=== PATIENT | female | born 1990 | race Caucasian/White ===

== ENCOUNTER 2023-03-28 08:24 | Emergency (ER) | payer BC, SELFPAY ==
[2023-03-28 08:29] VITALS: BP 154/88; PULSE 85; RESP 18; TEMP 36.5; O2SAT 99; BMI 37.2
--- NOTE | 2023-03-28 08:48 | ED_ITS ---
HPI - Extremity Problem General Chief complaint: Extremity Problem, Nontraumatic Stated complaint: EXTREMITY WEAKNESS AND PAIN Time Seen by Provider: 03/28/23 08:40 Source: patient Mode of arrival: walk-in Limitations: no limitations History of Present Illness HPI Narrative: Patient presents with pain in the elft trapezius and tingling in the left hand. 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 She started to experience these symptoms about 6 months ago and was evaluated at [facility]. She was diagnosed with pinched nerve and given IM Solumedrol. She did not have insurance and did not have a PCP so she did not see anyone in follow up. She has not taken anything today for the pain. Related Data Previous Rx's Medication Instructions Recorded methylprednisolone 4 mg tablets in 4 mg PO DAILY #21 ea 03/28/23 a dose pack (Medrol (Trev)) nabumetone 750 mg tablet 750 mg PO BID PRN pain #20 tabs 03/28/23 Allergies Allergy/AdvReac Type Severity Reaction Status Date / Time No Known Drug Allergies Allergy Verified 03/28/23 08:29 Exam Narrative Exam Narrative: Nurses notes and vital signs reviewed and patient is not hypoxic. afebrile General: Well-appearing and in no apparent distress. Skin: Warm, dry, no pallor noted. No rash Head: Normocephalic, atraumatic. Neck: Supple, non-tender at midline. Superior left trapezius tenderness Eye: Pupils are equal, round and EOMI. No scleral icterus. Cardiovascular: Regular Rate and Rhythm without murmur, gallop or rub. Respiratory: No accessory muscle use or respiratory distress. Back: No midline thoracic or lumbar vertebral tenderness. Superior left trapezius tenderness Musculoskeletal: Intact sensation and normal ROM left UE - left trapezius pain with left shoulder ROM, no upper extremity tenderness, no upper extremity edema/swelling Neurological: A&O x4. No cranial nerve dysfunction observed. No truncal ataxia. Moves all extremities. Sensation intact. Psychiatric: Cooperative and interactive. Normal mood and affect. Constitutional Vital Signs, click to edit/add: Last Vital Signs Temp 97.7 F 03/28/23 08:29 Pulse 85 03/28/23 08:29 Resp 18 03/28/23 08:29 BP 154/88 H 03/28/23 08:29 Pulse Ox 99 03/28/23 08:29 O2 Del Method Room Air 03/28/23 08:29 Course Vital Signs Vital signs: Vital Signs Temperature 97.7 F 03/28/23 08:29 Pulse Rate 85 03/28/23 08:29 Respiratory Rate 18 03/28/23 08:29 Blood Pressure 154/88 H 03/28/23 08:29 Pulse Oximetry 99 03/28/23 08:29 Oxygen Delivery Method Room Air 03/28/23 08:29 Temperature 97.7 F 03/28/23 08:29 Pulse Rate 85 03/28/23 08:29 Respiratory Rate 18 03/28/23 08:29 Blood Pressure 154/88 H 03/28/23 08:29 Pulse Oximetry 99 03/28/23 08:29 Oxygen Delivery Method Room Air 03/28/23 08:29 MDM - Extremity (Nontraumatic) MDM Narrative Medical decision making narrative: Patient with peripheral nerve dysfunction/paresthesia secondary to cervical radiculopathy. Patient informed of diagnosis and discharged home with prescription for medrol dose pack and nabumetone to be taken for pain. She was given referral info for PCPs in the area taking new patients. No indication to get xrays of the neck since there has been no trauma and the risk from rad exposure outweighs any potential benefit. Discharge Plan Discharge Chief Complaint: Extremity Problem, Nontraumatic Clinical Impression: Cervical radiculopathy Patient Disposition: Home, Self-Care Time of Disposition Decision: 08:46 Prescriptions / Home Meds: New methylprednisolone [Medrol (Trev)] 4 mg tablets,dose pack 4 mg PO DAILY Qty: 21 0RF Rx Instructions: follow instructions on packaging regarding daily dose nabumetone 750 mg tablet 750 mg PO BID PRN (Reason: pain) Qty: 20 0RF Rx Instructions: take with food Stand Alone Forms: Portal Instructions
== END 2023-03-28 09:00 | disposition home or self-care (01) ==
LOC: ER 09:05
PROVIDERS: Emergency Provider Emergency Medicine
DX: M54.12 Radiculopathy, cervical region (principal)
CPT/HCPCS: 99283

== ENCOUNTER 2023-09-17 02:15 | Emergency (ER) | payer BC, SELFPAY ==
[2023-09-17 02:18] VITALS: BP 143/91; PULSE 63; TEMP 36.8; O2SAT 100; BMI 39.9
--- NOTE | 2023-09-17 02:32 | ECG_ITS ---
[facility] Test Date: 2023-09-17 Pat Name: DENY DIXON Department: Room: - Gender: Female [employer]: : 1990 Requested By: [id number] Order Number: [id number] Reading MD: CHEMA SIDDIQUI Measurements Intervals [place] Rate: 66 P: 68 MN: 130 QRS: 89 QRSD: 88 T: 63 QT: 412 QTc: 426 Interpretive Statements 1100 Sinus rhythm 1470 with occasional supraventricular premature complexes 9140 abnormal rhythm ECG Compared to ECG 09/17/2020 11:40:18 Right-axis deviation no longer present Electronically Signed On 09-17-2023 14:28:03 EDT by CHEMA SIDDIQUI
--- NOTE | 2023-09-17 02:32 | ED.DIZZY1 ---
HPI - Dizziness General Chief Complaint: Dizziness Stated Complaint: DIZZY/WEAKNESS Time Seen by Provider: 09/17/23 02:19 Source: patient Mode of arrival: Wheelchair Limitations: no limitations History of Present Illness HPI Narrative: 33-year-old female presents because she woke up on the floor of her living room. She had gone to bed upstairs at about 11:30 PM and had taken a Benadryl. She had been feeling stressful and is supposed to start a new job in the morning. She does not remember going downstairs but when she did come downstairs her brother told her that she had asked for cold wash rag. She apparently passed out but did not injure herself in any fashion, did not hit her head and has no pain. No recent fever vomiting or diarrhea. She is a little bit nauseous. She does not frequently take Benadryl. Related Data Home Medications ?Medication ?Instructions ?Recorded ?Confirmed meclizine 12.5 mg tablet mg 09/17/23 meloxicam 7.5 mg tablet mg 09/17/23 Allergies Allergy/AdvReac Type Severity Reaction Status Date / Time No Known Drug Allergies Allergy Verified 09/17/23 02:23 Review of Systems ROS Narrative A ten point review of systems is negative except as noted above. Exam Narrative Exam Narrative: Nurses note and vital signs reviewed and patient is not hypoxic. General: The patient appears well and in no apparent distress. Patient is resting comfortably on cart. Skin: Warm, dry, no pallor noted. There is no rash noted. Head: Normocephalic, atraumatic Eye: Normal conjunctiva, no drainage Ears, Nose, Mouth, and Throat: oral mucosa is moist. Nares patent. Cardiovascular: Regular Rate and Rhythm Respiratory: Patient is in no distress, no accessory muscle use, lungs are clear to auscultation, no wheezing, rales or rhonchi Back: non-tender GI: Soft and nontender Musculoskeletal: The patient has no evidence of calf tenderness, no pitting edema, symmetrical pulses noted bilaterally Neurological: A&O, normal speech Psychiatric: Cooperative Constitutional Vital Signs, click to edit/add: Last Vital Signs Temp 98.2 F 09/17/23 02:18 Pulse 66 09/17/23 03:04 Resp 16 09/17/23 03:04 BP 132/87 09/17/23 03:04 Pulse Ox 97 09/17/23 03:04 O2 Del Method Room Air 09/17/23 03:04 Course Vital Signs Vital signs: Vital Signs Temperature 98.2 F 09/17/23 02:18 Pulse Rate 63 09/17/23 02:18 Respiratory Rate 18 09/17/23 02:18 Blood Pressure 143/91 H 09/17/23 02:18 Pulse Oximetry 100 09/17/23 02:18 Oxygen Delivery Method Room Air 09/17/23 02:18 Temperature 98.2 F 09/17/23 02:18 Pulse Rate 66 09/17/23 03:04 Respiratory Rate 16 09/17/23 03:04 Blood Pressure 132/87 09/17/23 03:04 Pulse Oximetry 97 09/17/23 03:04 Oxygen Delivery Method Room Air 09/17/23 03:04 MDM - Dizziness MDM Narrative Medical decision making narrative: Her workup is negative and her vital signs are normal. My clinical impression is that her symptoms are due to the Benadryl that she had taken. She is able to be discharged home. Treatment diagnosis and follow-up were discussed with the patient and her family. Differential Diagnosis Differential diagnosis: Likely adverse reaction to drug, orthostatic hypotension and other (Syncope) Lab Data Attestation: I reviewed the patient's lab results. Labs: Lab Results 09/17/23 Range/Units 02:43 WBC 8.6 (4.0-11.0) 10^3/uL RBC 4.62 (4.20-5.40) 10^6/uL Hgb 11.8 L (12.0-16.0) g/dL Hct 38.2 (36.0-48.0) % MCV 82.7 (81.0-99.0) fL MCH 25.5 L (26.7-34.0) pg MCHC 30.9 (29.9-35.2) g/dL RDW 16.3 H (11.0-15.0) % Plt Count 304 (150-450) 10^3/uL MPV 11.3 (9.5-13.5) fL Neut % (Auto) 55.8 (43.0-75.0) % Lymph % (Auto) 31.0 (20.5-60.0) % [place] % (Auto) 8.1 (1.7-12.0) % Eos % (Auto) 3.8 (0.9-7.0) % Baso % (Auto) 1.0 (0.2-2.0) % Neut # (Auto) 4.8 (1.4-6.5) 10^3/uL Lymph # (Auto) 2.7 (1.2-3.8) 10^3/uL [place] # (Auto) 0.7 (0.3-0.8) 10^3/uL Eos # (Auto) 0.3 (0.0-0.7) 10^3/uL Baso # (Auto) 0.1 (0.0-0.1) 10^3/uL Abs Immat Gran (auto) 0.03 (0.00-0.03) 10^3/uL Imm/Tot Granulo (auto) 0.3 (0.0-0.5) % Sodium 140 (136-145) mmol/L Potassium 3.5 (3.5-5.1) mmol/L Chloride 106 (98-107) mmol/L Carbon Dioxide 22.5 (21.0-32.0) mmol/L Anion Gap 15.0 BUN 11.0 (7.0-18.0) mg/dL Creatinine 0.71 (0.55-1.02) mg/dL Est GFR ( Amer) >60 (>=60) Est GFR (Non-Af Amer) >60 (>=60) BUN/Creatinine Ratio 15.5 Glucose 97 (74-106) mg/dL Calcium 9.8 (8.5-10.1) mg/dL Serum HCG, Qual Negative (NEGATIVE) ECG Data Attestation: I personally reviewed and interpreted this ECG as follows: (EKG on my interpretation shows sinus rhythm with a rate of 66 and no acute findings.) Discharge Plan Discharge Stand Alone Forms: Portal Instructions Chief Complaint: Dizziness Clinical Impression: Medication side effect Patient Disposition: Home, Self-Care Time of Disposition Decision: 03:12 Condition: Good Mode of Transportation: Private Vehicle Prescriptions / Home Meds: No Action meclizine 12.5 mg tablet meloxicam 7.5 mg tablet Print Language: Telugu Instructions: Adverse Drug Reaction (ED) Referrals: Physician,Non-Staff, MD [Primary Care Provider] - 1 week
--- OUTSIDE RECORDS SUMMARY | 2023-09-17 02:32 | XMS_ITS | CCD ---
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 Role Phone SHARMIN, DR CAUSEY Primary Care Unavailable MARTY, DR PHIL Valdez Admitting Unavailabl e MARTY, DR PHIL Valdez Consulting Unavailabl e MARTY, DR PHIL Valdez Attending Unavailabl e ZIEBER, DR SIOBHAN Siu Consulting Unavailable KlonAlysia ang Primary Care Physician NONE, XXXX Primary Care Physician Unavailab le Ameya, Margarita Jones Primary Care Physician Margarita Hou Attending Unavailable Ameya, Margarita Jones Attending Unavailable Ameya, Margarita Jones Attending Unavailable Ameya, Margarita Jones Attending Unavailable Ameya, Margarita Jones Attending Unavailable Ameya, Margarita Jones Attending Unavailable Ameya, Margarita Jones Admitting Unavailable Ameya, Margarita Jones Attending Unavailable Ameya, Margarita Jones Admitting Unavailable Ameya, Margarita Jones Attending Unavailable Hajdari, Anupam Alvarado Attending Unavailable DokkenDO Xavier Attending Unavailable Bert Davis Attending Unavailable Ameya, Margarita Jones Admitting Unavailable Ameya, Margarita Jones Referring Unavailable Ameya, Margarita Jones Attending Unavailable Medications Current Medications Medication Drug Class(es) Dates Sig (Normalized) Sig (Original) meclizine hydrochloride 12.5 mg oral tablet (3 sources) Antiemetic Start: 11-10-2022 take 1 tablet by mouth three times daily as needed for nausea meclizine 12.5 mg Tab 12.5 mg = 1 tab(s), Oral, TID, PRN for nausea/vomiting, # 30 tab(s), Refills(s) 0, Pharmacy: [facility] #[id number], 160, cm, 11/10/22 18:39:00 EDT, Height/Length Dosing, 95.5, kg, 11/10/22 18:39:00 EDT, Weight Dosing Start Date: 11/10/22 Status: Ordered meloxicam 7.5 mg oral tablet (2 sources) Nonsteroidal Anti-inflammatory Drug Start: 05-01-2023 take 1 tablet by mouth once daily meloxicam 7.5 mg Tab 7.5 mg = 1 tab(s), Oral, Daily, # 30 tab(s), Refills(s) 0, [id number] 160, cm, 05/01/23 10:29:00 EST, Height/Length Dosing, 102.4, kg, 05/01/23 10:29:00 EST, Weight Dosing Start Date: 05/01/23 Status: Ordered Start: 04-08-2023 take 1 tablet by kaylie th once daily meloxicam 7.5 mg Tab 7.5 mg = 1 tab(s), Oral, Daily, # 30 tab(s), Refills(s) 0, [id number] 160, cm, 04/08/23 9:20:00 EST, Height/Length Dosing, 99.5, kg, 04/08/23 9:20:00 EST, Weight Dosing Start Date: 04/08/23 Status: Ordered predniSONE 20 mg oral tablet (1 source) Start: 07-21-2023 End: 07-28-2023 take 3 tablets by mouth once daily predniSONE 20 mg Tab 3, Oral, Daily, X 7 day(s), # 21 tab(s), Refills(s) 0, [id number], 160, cm, 07/21/23 12:50:00 EST, Height/Length Dosing, 102, kg, 07/21/23 12:50:00 EST, Weight Dosing Start Date: 07/21/23 Stop Date: 07/28/23 Status: Ordered Problems Active Problems Problem Classification Problem Date Documented Da te Episodic/Chronic Conditions associated with dizziness or vertigo (1 source) Dizziness and giddiness; Translations: [Dizziness and giddiness] Onset: 11-10-2022 Episodic Hemorrhage during ; abruptio placenta; placenta previa (4 sources) Low lying placenta 05-16-2015 Episodic Other complications of (4 sources) Missed miscarriage 05-16-2015 Episodic Other nervous system disorders (1 source) Paresthesia; Translations: [Paresthesia of skin] Onset: 09-07-2022 Episodic Other nervous system disorders (2 sources) Numbness of hand 04-08-2023 Episodic Other nervous system disorders (1 source) Hyperesthesia; Translations: [Hyperesthesia] Onset: 07-21-2023 Episodic Residual codes; unclassified (4 sources) H/O: obstetric problem 05-16-2015 Episodic Spondylosis; intervertebral disc disorders; other back problems (4 sources) Neck pain; Translations: [Cervicalgia] Onset: 09-07-2022 Episodic Syncope (4 sources) Syncope and collapse; Translations: [SYNCOPE AND COLLAPSE] Onset: 09-17-2020 Episodic Unclassified (2 sources) Pain of left shoulder region 04-08-2023 Unclassified (1 source) Cancer cervix screening status 05-01-2023 Unclassified (1 source) Patient encounter status 05-01-2023 Past or Other Problems Problem Classification Problem Date Documented Da te Episodic/Chronic Unclassified (16 sources) Onset: 03-30-2010 Resolved: 08-07-2015 11-23-2014 Results Test Name Value Interpretation Reference Range Facility Ambulatory Visit Summaryon 0 08-28-2023 Ambulatory Visit Summary DENY DIXON :1990 Visit Date:08/28/2023 Ambulatory Visit Instructions Your Diagnosis Vertigo BMI 40.0-44.9, adult Your Care Team Attending Physician - Margarita Tuttle Primary Care Physician - Margarita Tuttle This Is Your Medications List meclizine (meclizine 12.5 mg Tab) meloxicam (meloxicam 7.5 mg Tab) Procedures Performed Tubal ligation (08/08/2015). Discharge Vitals Heart Rate (Peripheral) 106 Blood Pressure 134/78 Height 160 cm Height 63 in Weight 104.7 kg Weight 230.34 lb BMI 40.9 Medications What How Much When Why Instructions Unchanged meclizine (meclizine 12.5 mg Tab) 1 Tablets By Mouth 3 times a day as needed for for nausea/vomiting Unchanged meloxicam (meloxicam 7.5 mg Tab) 1 Tablets By Mouth Every day Left shoulder pain Neck pain on left side Numbness of left hand BMI 38.0-38.9,adult Class 1 obesity due to excess calories in adult Nonsmoker Duration: 90 Days Allergies No Known Allergies Problems Ongoing - Any problem that you are currently receiving treatment for. Cervical cancer screening Exposure to influenza Left shoulder pain Neck pain on left side Numbness of left hand Vertigo Well woman exam Historical - Any problem that you are no longer receiving treatment for. Dilation and curettage Low-lying placenta Missed miscarriage Patient Survey You may receive a survey via text or e-mail asking about your office visit. Please share your experience with us by completing your survey. We appreciate your feedback and thank you for choosing us for your care. Normal Vaughn [facility] Family Medicine Office/Clini c Noteon 08-28-2023 Family Medicine Office/Clinic Note Chief Complaint needs work excuse HPI Staff Patient presents for an episode of vertigo. Patient present with spouse. Patient needs a work excuse as she missed almost 3 weeks of work due to vertigo and pain in left shoulder. Patient is feeling better now and needs an excuse in order to return to work. History of Present Illness pt presents today for vertigo Review of Systems PHQ Score Initial Depression Screen Score: 0 SCORE Physical Exam Vitals & Measurements HR: 106(Peripheral) BP: 134/78 SpO2: 98% HT: 63 in HT: 160 cm WT: 104.7 kg WT: 230.34 lb BMI: 40.9 General: alert, no acute distress ENMT: oral mucosa moist, no pharyngeal erythema or exudate Cardiovascular: regular rate and rhythm, normal peripheral perfusion Respiratory: Lungs CTA, respirations non labored Extremities: no deformity, no trauma Neurological: oriented x 4, LOC appropriate for age, CN II-XII intact, motor strength equal & normal bilaterally, speech normal Assessment/Plan 1. Vertigo (R42: Dizziness and giddiness) pt reports today that she has been having vertigo for a couple of weeks. she started taking meclizine and is feeling better now. 2. 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 this has flared up her neck and shoulder pain. pt requesting note for work for now more than 3 days in a row and no more than 6hours per day. 3. BMI 40.0-44.9, adult (Z68.41: Body mass index [BMI] 40.0-44.9, adult) BMI education complete Follow-up No qualifying data available Problem List/Past Medical History Ongoing Cervical cancer screening Exposure to influenza Left shoulder pain Neck pain on left side Numbness of left hand Vertigo Well woman exam Historical Dilation and curettage Low-lying placenta Missed miscarriage Procedure/Surgical History Tubal ligation (08/08/2015). 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 Living situation: Home/Independent. Alcohol abuse in household: No. Substance abuse in household: No. Smoker in household: No. Injuries/Abuse/Negle ct in household: No. Safe place to go: Yes. Agency(s)/Others notified: No., 02/26/2014 Nutrition/Health Regular, 02/26/2014 Substance Abuse - Denies Substance Abuse, 06/17/2012 Tobacco - Denies Tobacco Use, 06/17/2012 Never (less than 100 in lifetime) Tobacco Use:. Never Smokeless Tobacco Use:. Household tobacco concerns: No., 08/28/2023 Family History Stroke: Mother. Immunizations Vaccine Date Status Comments influenza virus vaccine, inactivated - Not Given Patient Refuses influenza virus vaccine, inactivated 08/08/2015 Given Nursing Judgment diphtheria/pertussis , acel/tetanus adult 02/27/2014 Given Other (see comment) influenza virus vaccine, inactivated 02/27/2014 Given Nursing Judgment Normal [facility] Comment on above: Result Comment: Elec tronically Signed By: Margarita Tuttle\.br\Date and Time Signed: 08/28/23 14:56 EDT Provider Letteron 08-28-2023 Provider Letter [address] [place], [place] [id number] August 28, 2023 DENY DIXON [address] [place] [address] [place] [address] : 1990 To Whom It May Concern, Please allow the above named patient to work no more than 6 hours per day and no more than 3 days in a row. If you have any questions, please do not hesitate to call. Sincerely, FRANCIE Galeano [facility] Provider Letter August 28, 2023 DENY LIMFFER [address] [place] [address] : 1990 To Whom It May Concern, Please excuse above patient from work. Date of Illness: From: 08/28/2023 To: 08/30/2023 May Return to Work On: 08/31/2023 Comments: Patient seen in office 08/28/2023 for vertigo and can return to work on 08/31/2023 Sincerely, [place] [address] [facility] Provider Letteron 08-11-2023 Provider Letter August 11, 2023 DENY LIMFFER [address] [place] [address] : 1990 To Whom It May Concern, Please excuse above patient from work due to illness Date of Illness: From: _ 08-11-23 To: _ 08-12-23 May Return to Work On:08-13-23 Restrictions: _ NONE Comments: _ Sincerely, [place] [address] [facility] Provider Letter August 11, 2023 DENY DIXON [address] [place] [address] : 1990 To Whom It May Concern, Please excuse above patient from work due to illness. Date of Illness: From: _ 08-10-23 To: _ 08-11-23 May Return to Work On: 08-12-23 Restrictions: _ NONE Comments: _ Sincerely, [facility] [id number] [place] [address] [facility] Ambulatory Visit Summaryon 0 - Ambulatory Visit Summary DENY DIXON :1990 Visit Date:08/05/2023 Ambulatory Visit Instructions Your Diagnosis Left shoulder pain Exposure to influenza Non-smoker BMI 40.0-44.9, adult Class 1 obesity due to excess calories in adult Your Care Team Attending Physician - Margarita Tuttle Primary Care Physician - Margarita Tuttle This Is Your Medications List meclizine (meclizine 12.5 mg Tab) meloxicam (meloxicam 7.5 mg Tab) Procedures Performed Tubal ligation (08/08/2015). Discharge Vitals Temperature (Tympanic) 36.5 ?C Heart Rate (Peripheral) 78 Respiratory Rate 18 Blood Pressure 110/80 Height 160 cm Height 63 in Weight 102.5 kg Weight 225.5 lb BMI 40.04 Medications What How Much When Why Instructions New meloxicam (meloxicam 7.5 mg Tab) 1 Tablets By Mouth Every day Left shoulder pain Neck pain on left side Numbness of left hand BMI 38.0-38.9,adult Class 1 obesity due to excess calories in adult Nonsmoker Duration: 90 Days Refills: 3 Pickup at [facility] #[id number] Unchanged meclizine (meclizine 12.5 mg Tab) 1 Tablets By Mouth 3 times a day as needed for for nausea/vomiting Pharmacy Information [facility]/pharm[facility] #[id number]: [address], [place] [phone] Allergies No Known Allergies Problems Ongoing - Any problem that you are currently receiving treatment for. Cervical cancer screening Exposure to influenza Left shoulder pain Neck pain on left side Numbness of left hand Well woman exam Historical - Any problem that you are no longer receiving treatment for. Dilation and curettage Low-lying placenta Missed miscarriage Patient Survey You may receive a survey via text or e-mail asking about your office visit. Please share your experience with us by completing your survey. We appreciate your feedback and thank you for choosing us for your care. Normal Vaughn [facility] Medicine Office/Clini c Noteon 08-05-2023 [facility] Medicine Office/Clinic Note HPI Staff Deny is a 33 year old female presenting for ER follow up ER followup: Hospital: [facility] Visit date: 07/21/2023 Symptoms the patient presented with: nerve pain with facial numbness Symptom onset/injury onset: Testing Performed: New medications: Prednisone pt states will continue to have intermittent facial numbness, hasn't had any numbness the last few days. Does have family history of strokes. Respiratory C/O: Onset: 4 days Body aches: no Chest congestion: yes Chills: no Cough: yes Sputum production: no Sore throat: yes Ear complaints: yes right ear muffled Eye itching/watering: no Fever: no had fever Thursday Headache: yes Nasal congestion: yes Nasal discharge: no does have burning Poor appetite: no Reduced activity: no Sinus pain/pressure: yes Sneezing: yes Wheezing: no Ill contacts: yes Remedies tried: Cold and flu Questions/Concerns: pt saw a sweta doc on Thursday they did prescribe here Tamiflu but pt states she didn't pick it up because she doesn't like the side effects of it. daughter had influenza B diagnosed Thursday History of Present Illness pt presents today for ER follow up. hand numbness and tingling on left side of face Review of Systems PHQ Score Initial Depression Screen Score: 0 SCORE Physical Exam Vitals & Measurements T: 36.5 ?C(Tympanic) HR: 78(Peripheral) RR: 18 BP: 110/80 SpO2: 99% HT: 63 in HT: 160 cm WT: 102.5 kg WT: 225.5 lb BMI: 40.04 General: alert, no acute distress ENMT: oral mucosa moist, no pharyngeal erythema or exudate Cardiovascular: regular rate and rhythm, normal peripheral perfusion Respiratory: Lungs CTA, respirations non labored Extremities: no deformity, no trauma Neurological: oriented x 4, LOC appropriate for age, CN II-XII intact, motor strength equal & normal bilaterally, speech normal Assessment/Plan 1. Left shoulder pain (M25.512: Pain in left shoulder) pt still having pain in left shoulder but face is no longer numb or tingling. pt was instructed to contact Dr. Mccauley to follow up on nerve pain. Ordered: meloxicam, 7.5 mg = 1 tab(s), Oral, Daily, X 90 day(s), # 90 tab(s), Refills(s) 3, [id number] 160, cm, 08/05/23 10:38:00 EDT, Height/Length Dosing, 102.5, kg, 08/05/23 10:38:00 EDT, Weight Dosing meloxicam, 7.5 mg = 1 tab(s), Oral, Daily, # 30 tab(s), Refills(s) 0, [id number], 160, cm, 05/01/23 10:29:00 EST, Height/Length Dosing, 102.4, kg, 05/01/23 10:29:00 EST, Weight Dosing 2. Exposure to influenza (Z20.828: Contact with and (suspected) exposure to other viral communicable diseases) both kids and are + for flu. she is having symptoms but they are starting to improve 3. Non-smoker (Z78.9: Other specified health status) continue not smoking Ordered: meloxicam, 7.5 mg = 1 tab(s), Oral, Daily, X 90 day(s), # 90 tab(s), Refills(s) 3, [id number], 160, cm, 08/05/23 10:38:00 EDT, Height/Length Dosing, 102.5, kg, 08/05/23 10:38:00 EDT, Weight Dosing meloxicam, 7.5 mg = 1 tab(s), Oral, Daily, # 30 tab(s), Refills(s) 0, [id number], 160, cm, 05/01/23 10:29:00 EST, Height/Length Dosing, 102.4, kg, 05/01/23 10:29:00 EST, Weight Dosing 4. BMI 40.0-44.9, adult (Z68.41: Body mass index [BMI] 40.0-44.9, adult) BMI education complete Class 1 obesity due to excess calories in adult (E66.09: Other obesity due to excess calories) see above Ordered: meloxicam, 7.5 mg = 1 tab(s), Oral, Daily, X 90 day(s), # 90 tab(s), Refills(s) 3, [id number], 160, cm, 08/05/23 10:38:00 EDT, Height/Length Dosing, 102.5, kg, 08/05/23 10:38:00 EDT, Weight Dosing meloxicam, 7.5 mg = 1 tab(s), Oral, Daily, # 30 tab(s), Refills(s) 0, Pharmacy: [id number], 160, cm, 05/01/23 10:29:00 EST, Height/Length Dosing, 102.4, kg, 05/01/23 10:29:00 EST, Weight Dosing Follow-up No qualifying data available Problem List/Past Medical History Ongoing Cervical cancer screening Exposure to influenza Left shoulder pain Neck pain on left side Numbness of left hand Well woman exam Historical Dilation and curettage Low-lying placenta Missed miscarriage Procedure/Surgical History Tubal ligation (08/08/2015). 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 Living situation: Home/Independent. Alcohol abuse in household: No. Substance abuse in household: No. Smoker in household: No. Injuries/Abuse/Negle ct in household: No. Safe place to go: Yes. Agency(s)/Others notified: No., 02/26/2014 Nutrition/Health Regular, 02/26/2014 Substance Abuse - Denies S (more content not included)... Normal [facility] Comment on above: Result Comment: Elec tronically Signed By: Margarita Tuttle\.br\Date and Time Signed: 08/05/23 10:55 EDT Provider Letteron 08-05-2023 Provider Letter August 05, 2023 DENY DIXON [address] [place] [id number] : 1990 To Whom It May Concern, Please excuse above patient from work due to illness Date of Illness: From: _ 08-05-23 To: _ 08-06-23 May Return to Work On: 08-07-23 Restrictions: _ Comments: _ Sincerely, [address] [address] [facility] CT Spine Cervical w/o Contra ston 07-21-2023 CT Spine Cervical w/o Contrast Exam Date/Time: 07/21/2023 13:16 EST Reason for Exam: Cervical radiculopathy, no red flags;Other (please specify) Report IMPRESSION: NO ACUTE FRACTURE OR MALALIGNMENT OR SIGNIFICANT DEGENERATIVE CHANGE. EXAM: CT SCAN OF THE CERVICAL SPINE HISTORY: Cervical radiculopathy COMPARISON: Cervical spine radiographs 04/06/2023 TECHNIQUE: Routine axial CT images and multiplanar reformatted images of the cervical spine were obtained. FINDINGS: No acute fracture or malalignment. Atlantodental interval is preserved. Cervical spine vertebral body heights are maintained. Intervertebral disc spaces are preserved. No large disc bulge/herniation or spinal canal stenosis identified by CT. No high-grade osseous neuroforaminal stenosis. No prevertebral soft tissue swelling. Lung apices are clear. All CT scans at this facility use dose modulation, iterative reconstruction, and/or weight based dosing when appropriate to reduce radiation dose to as low as reasonably achievable. Ordering Provider: Bert Davis FINAL REPORT Dictated: 07/21/2023 1:53 pm Ashok Quinteros DO Signed (Electronic Signature): 07/21/2023 1:53 pm Signed by: Ashok Quinteros DO Transcribed by: RADHA Technologist: MATT [facility] Consent for Treatmenton Consent for Treatment [id number] #1.00TIFF [facility] Discharge Instructionson Discharge Instructions [id number] 7#1.00TIFF Normal [facility] ED Clinical Summaryon 2023 ED Clinical Summary [address] [address] ED Clinical Summary Person Information Name: DENY DIXON Darshana/[facility] Age: 33 Years : 1990 Sex: Female Language: Solomon Islander PCP: Margarita Tuttle Marital Status: Visit Id: Visit Reason: Neck pain; LEFT NECK PAIN Speciality: Acuity: 4 Enc Type: Emergency Med Service: Emergency Arrival: 07/21/2023 12:39:44 Discharge: 07/21/2023 14:24:04 LOS: 000 01:45 Checkin: 07/21/2023 12:39:44 Checkout: 07/21/2023 14:24:04 Dispo Type: Home (Routine DC) EVENTS: Event Name Event Status Request Date/Time Start Date/Time Complete Date/Time Arrive Complete 07/21/2023 12:39:44 07/21/2023 12:39:44 07/21/2023 12:39:44 Document Home Meds Request 07/21/2023 12:39:44 Triage Complete 07/21/2023 12:39:44 07/21/2023 12:50:05 07/21/2023 12:50:05 Bed Assign Complete 07/21/2023 12:43:27 07/21/2023 12:43:27 07/21/2023 12:43:27 Dr Exam Complete 07/21/2023 12:43:27 07/21/2023 12:43:54 07/21/2023 12:43:54 RN Exam Complete 07/21/2023 12:43:27 07/21/2023 12:49:26 07/21/2023 12:49:26 Registration Complete 07/21/2023 12:43:54 07/21/2023 12:47:21 07/21/2023 12:47:21 Reg Complete Request 07/21/2023 12:47:21 Reg Bed Request Complete 07/21/2023 12:47:21 07/21/2023 12:47:21 07/21/2023 12:47:21 CT Complete 07/21/2023 12:58:27 07/21/2023 13:10:14 07/21/2023 13:16:51 Discharge Complete 07/21/2023 14:18:38 07/21/2023 14:24:10 07/21/2023 14:24:10 Transfer Complete 07/21/2023 14:24:10 07/21/2023 14:24:10 07/21/2023 14:24:10 ADDRESS: [address] [place] [phone] PHYS DOC NOTES: MEDICAL INFORMATION: Prescriptions Given: New Medications [id number], [address], [place] [phone], [phone] predniSONE (predniSONE 20 mg Tab) 3 By Mouth every day for 7 Days. Refills: 0. Medications to Continue with No Changes Other Medications meclizine (meclizine 12.5 mg Tab) 1 Tablets By Mouth 3 times a day as needed for nausea/vomiting. Refills: 0. meloxicam (meloxicam 7.5 mg Tab) 1 Tablets By Mouth every day. Refills: 0. PATIENT EDUCATION INFORMATION: Instructions: Cervical Radiculopathy Follow up: With: Address: When: [address], [place] [address] Business (1) In 3 days 07/24/2023 With: Address: When: Margarita Hou In 3 days DIAGNOSIS: Hyperesthesia; Radiculopathy of cervical spine Normal [facility] ED Note-Physicianon 07-21-19 ED Note-Physician Basic Information Time Seen: Bert Davis DO 07/21/2023 12:43 Chief Complaint pt seeing neuro for a nerve problem in her neck. pt intermittently has left sided neck pain that radiates numbness to her hand. new symptom on thursday, where there is a pulling and burning sensation in her left neck History of Present Illness 33 female presents emergency department with pain in the left side of her neck. Patient does state that she has been dealing with this left-sided neck pain with radiculopathy for the last several months with her primary care physician. In fact last week she had a EMG. She states that she was told that the EMG was positive for some nerve involvement but was not given a specific diagnosis or actual involvement and she has not yet seen her primary care physician for follow-up after this test. The reason for her visit today is that she states normally the pain starts in the left side of her neck and then radiates down her arm but today the pain is also coming up into the left side of her neck and this has been going on since Thursday. She describes a pulling sensation or burning sensation on that side. She is taking her meloxicam as prescribed. She does believe that she had an x-ray looks like it was done back in March but no other recent imaging no CT scans or MRIs. Patient denies any chance of stating tubal ligation. She does have what she describes as some weakness to the left upper extremity but states this is chronic for her these last several months as they have been working through this. She has not yet seen the neurologist for this. No other aggravating or relieving factors no other associated symptoms no other prior treatments or complaints. Family: Reviewed and noncontributory Social: lives at home Review of systems negative unless otherwise specified in the HPI. Physical Exam Vitals & Measurements T: 36.7 ?C(Oral) HR: 105(Peripheral) RR: 18 BP: 151/86 SpO2: 96% HT: 160 cm WT: 102 kg BMI: 39.84 General: The patient appears well and in no apparent distress. Patient is resting comfortably on cart. Skin: Warm, dry, no pallor noted. Head: Normocephalic, atraumatic Neck: No JVD no tenderness to palpation no step-off no crepitance appreciated. No pain with range of motion. There is some tenderness in the paraspinal musculature on that left side. Patient does have hyperesthesia on the left side of the neck as well. No masses appreciated on the anterior soft tissues of the neck. Eye: PERRLA, EOMI ENT: Moist mucus membranes Cardiovascular: Regular rate normal peripheral perfusion Respiratory: No respiratory distress no accessory muscle use no obvious audible wheezing Chest Wall: no deformity Musculoskeletal: normal ROM, no deformity, no swelling GI: No obvious distention Neurological: A&O moves all extremities equal strength and symmetry. Patient does have plus 4 out of 5 strength of the left upper extremity but I am unsure how much of this is truly deficit versus just pain and her being uncomfortable with movement against resistance. Psychiatric: Cooperative and appropriate Medical Decision Making Workup in the ER has been reviewed and noted. CT scans are unremarkable. Patient likely has radiculopathy especially given the ongoing workup that she is having with her EMG. I did refer her to neurology we will try course of steroid she is provided with a note for work educated on stretching exercises discharged home educated on signs symptoms worsening clinical picture and to return if these occur. Assessment/Plan Hyperesthesia (R20.3: Hyperesthesia) Radiculopathy of cervical spine (M54.12: Radiculopathy, cervical region) Orders: predniSONE, 3, Oral, Daily, X 7 day(s), # 21 tab(s), Refills(s) 0, Pharmacy: [facility]/pharmacy #[id number], 160, cm, 07/21/23 12:50:00 EST, Height/Length Dosing, 102, kg, 07/21/23 12:50:00 EST, Weight Dosing CT Spine Cervical w/o Contrast Disposition Plan Discharge Prescription List Prescriptions predniSONE 20 mg Tab, 3, Oral, Daily Follow-up With When Contact Information Mario Mccauley In 3 days 07/24/[address], [place] [address] [facility] (1) Additional Instructions: Margairta Hou In 3 days Additional Instructions: Patient Education Cervical Radiculopathy Problem List/Past Medical History Ongoing Cervical cancer screening Left shoulder pain Neck pain on left side Numbness of left hand Well woman exam Historical Dilation and curettage Low-lying placenta Missed miscarriage Procedure/Surgical History Tubal ligation (08/08/2015). 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 Normal [facility] Comment on above: Result Comment: Elec tronically Signed By: Bert Davis DO\.br\Date and Time Signed: 07/21/23 14:28 EST ED Patient Education Noteon 07-21-2023 ED Patient Education Note Orthopedics Cervical Radiculopathy Cervical radiculopathy happens when a nerve in the neck (a cervical nerve) is pinched or bruised. This condition can happen because of an injury to the cervical spine (vertebrae) in the neck, or as part of the normal aging process. Pressure on the cervical nerves can cause pain or numbness that travels from the neck all the way down to the arm and fingers. This condition usually gets better with rest. Treatment may be needed if the condition does not improve. What are the causes? This condition may be caused by: ? A neck injury. ? A bulging (herniated) disk. ? Muscle spasms. ? Muscle tightness in the neck due to overuse. ? Arthritis. ? Breakdown or degeneration in the bones and joints of the spine (spondylosis) due to aging. ? Bone spurs that may develop near the cervical nerves. What are the signs or symptoms? Symptoms of this condition include: ? Pain. The pain may travel from the neck to the arm and hand. The pain can be severe or irritating. It may get worse when you move your neck. ? Numbness or tingling in your arm or hand. ? Weakness in the affected arm and hand, in severe cases. How is this diagnosed? This condition may be diagnosed based on your symptoms, your medical history, and a physical exam. You may also have tests, including: ? X-rays. ? CT scan. ? MRI. ? Electromyogram (EMG). ? Nerve conduction tests. How is this treated? In many cases, treatment is not needed for this condition. With rest, the condition usually gets better over time. If treatment is needed, options may include: ? Wearing a soft neck collar (cervical collar) for short periods of time. ? Doing physical therapy to strengthen your neck muscles. ? Taking medicines. These may include NSAIDs, such as ibuprofen, or oral corticosteroids. ? Having spinal injections, in severe cases. ? Having surgery. This may be needed if other treatments do not help. Different types of surgery may be done depending on the cause of this condition. Follow these instructions at home: If you have a cervical collar: ? Wear it as told by your health care provider. Remove it only as told by your health care provider. ? Ask your health care provider if you can remove the cervical collar for cleaning and bathing. If you are allowed to remove the collar for cleaning or bathing: ? Follow instructions from your health care provider about how to remove the collar safely. ? Clean the collar by wiping it with mild soap and water and drying it completely. ? Take out any removable pads in the collar every 1?2 days, and wash them by hand with soap and water. Let them air-dry completely before you put them back in the collar. ? Check your skin under the collar for irritation or sores. If you see any, tell your health care provider. Managing pain ? Take npef-iqb-axfodxz and prescription medicines only as told by your health care provider. ? If directed, put ice on the affected area. To do this: ? If you have a soft neck collar, remove it as told by your health care provider. ? Put ice in a plastic bag. ? Place a towel between your skin and the bag. ? Leave the ice on for 20 minutes, 2?3 times a day. ? Remove the ice if your skin turns bright red. This is very important. If you cannot feel pain, heat, or cold, you have a greater risk of damage to the area. ? If applying ice does not help, you can try using heat. Use the heat source that your health care provider recommends, such as a moist heat pack or a heating pad. ? Place a towel between your skin and the heat source. ? Leave the heat on for 20?30 minutes. ? Remove the heat if your skin turns bright red. This is especially important if you are unable to feel pain, heat, or cold. You have a greater risk of getting burned. ? Try a gentle neck and shoulder massage to help relieve symptoms. Activity ? Rest as needed. ? Return to your normal activities as told by your health care provider. Ask your health care provider what activities are safe for you. ? Do stretching and strengthening exercises as told by your health care provider or your physical therapist. ? You may have to avoid lifting. Ask your health care provider how much you can safely lift. General instructions ? Use a flat pillow when you sleep. ? Do not drive while wearing a cervical collar. If you do not have a cervical collar, ask your health care provider if it is safe to drive while your neck heals. ? Ask your health care provider if the medicine prescribed to you requires you to avoid driving or using machinery. ? Do not use any products that contain nicotine or tobacco. These products include cigarettes, chewing tobacco, and vaping devices, such as e-cigarettes. If you need help quitting, ask your health care provider. ? Keep all follow-up visits. This is important. Contact a health (more content not included)... Normal [facility] ED Patient Summaryon 024 ED Patient Summary [address] [address] Patient Discharge Instructions Person Information Name: DENY DIXON Age: 33 Years Arrival Date: 07/21/2023 12:39:44 Discharge Diagnosis: Hyperesthesia; Radiculopathy of cervical spine Primary Care Physician: Margarita Tuttle Provider Information Primary Provider: Bert Davis DO Advanced Physiological Chemist:None The exam and treatment you received in the Emergency Department were for an urgent problem and are not intended as complete care. It is important that you follow up with a doctor, nurse practitioner, or physician?s video production assistant for ongoing care. If your symptoms become worse or you do not improve as expected and you are unable to reach your usual health care provider, you should return to the Emergency Department. We are available 24 hours a day. DIXON DENY STOLL Clay has been given the following list of patient education materials, prescriptions and follow-up instructions: Follow-up Instructions: With: Address: When: Mario Mccauley [address], [place] [address] Business (1) In 3 days 07/24/2023 With: Address: When: Margarita Hou In 3 days In the event that this physician does not participate in your insurance network, please consult with your insurance company to find a nearby participating provider. Patient Education Materials: Cervical Radiculopathy A MESSAGE TO ALL PATIENTS REGARDING OPIOIDS PRESCRIPTION OPIOIDS: WHAT YOU NEED TO KNOW Prescription opioids can be used to help relieve nbxqskej-tg-smjqxq pain and are often prescribed following a surgery or injury, or for certain health conditions. These medications can be an important part of the treatment but also come with serious risks. It is important to work with your healthcare provider to make sure you are getting the safest, most effective care. WHAT ARE THE RISKS AND SIDE EFFECTS OF OPIOID USE? Prescription opioids carry serious risks of addiction and overdose, especially with prolonged use. An opioid overdose, often marked by slowed breathing, can cause sudden . The use of prescription opioids can have a number of side effects as well, even when taken as directed: ? Tolerance?meaning you might need to take more of the medication for the same pain relief ? Physical dependence?meaning you have symptoms of withdrawal when a medication is stopped ? Increased sensitivity to pain ? Constipation ? Nausea, vomiting, and dry mouth ? Sleepiness and dizziness ? Confusion ? Depression ? Low levels of testosterone that can result in lower sex drive, energy, and strength ? Itching and sweating RISKS ARE GREATER WITH: ? History of drug misuse, substance use disorder, or overdose ? Mental health conditions (such as depression or anxiety) ? Sleep apnea ? Older age (65 years and older) ? Avoid alcohol while taking prescription opioids. Also, unless specifically advised by your health care provider, medications to avoid include: ? Benzodiazepines (such as Xanax or Valium) ? Muscle relaxants (such as Soma or Flexeril) ? Hypnotics (such as Ambien or Lunesta) ? Other prescription opioids KNOW YOUR OPTIONS Talk to your health care provider about ways to manage your pain that don?t involve prescription opioids. Some of these options may actually work better and have fewer risks and side effects. Options may include: ? Pain relievers such as acetaminophen, ibuprofen, and naproxen ? Some medication that are also used for depression or seizures ? Physical therapy and exercise ? Cognitive behavioral therapy, a psychological, goal-directed approach, in which patients learn how to modify physical, behavioral, and emotional triggers of pain and stress. IF YOU ARE PRESCRIBED OPIOIDS FOR PAIN: ? Never take opioids in greater amounts or more often than prescribed. ? Follow up with your primary health care provider. o Work together to create a plan on how to manage your pain. o Talk about ways to help manage your pain that don?t involve prescription opioids. o Talk about any and all concerns and side effects. ? Help prevent misuse and abuse o Never sell or share prescription opioids. o Never use another person?s prescription opioids. ? Store prescription opioids in a secure place and out of reach of others (this may include visitors, children, friends, and family). ? Safely dispose of unused prescription opioids: Find your community drug take-back program or your pharmacy mail-back program, or flush them down the toilet, following guidance from the Food and Drug Administration (www.fda.gov/Drugs/R esourcesForYou). ? Visit www.cdc.gov/drugover dose to learn about the risks of opioids abuse and overdose. ? If you believe you may be struggling with addiction, tell your health pediatric critical care nurse and ask for guidance or call [facility] (more content not included)... Normal [facility] Prescriptions/Work Noteson 0 07-21-2023 Prescriptions/Work Notes [id number] 3#1.00TIFF [facility] Consent for Treatmenton 06-19 Consent for Treatment [id number] #1.00TIFF [facility] EMG Electromyographyon 07-13 EMG Electromyography [id number] 87#1.00TIFF Normal [facility] PAP [id number] 05-08-2023 Cytology report Cyto stain Doc (Cvx/Vag) Note Invalid Interpretation Code [facility] Comment on above: Result Comment: TEST S RESULT FLAG UNITS REF RANGE LAB Clinician Provided Cytology Information Source.............Endocervix No. of containers..01 ThinPrep Vial DIAGNOSIS: 01 NEGATIVE FOR INTRAEPITHELIAL LESION OR MALIGNANCY. Specimen adequacy: 01 Satisfactory for evaluation. Endocervical and/or squamous metaplastic cells (endocervical component) are present. Performed by: Bridger Martinez Cigarette Paper Tester (ASCP) . 01 Note: Note 01 The Pap smear is a screening test designed to aid in the detection of premalignant and malignant conditions of the uterine cervix. It is not a diagnostic procedure and should not be used as the sole means of detecting cervical cancer. Both false-positive and false-negative reports do occur. Test Methodology: Note 01 This liquid based ThinPrep(R) pap test was screened with the use of an image guided system. HPV Genotype Reflex Note 01 Criteria not met, HPV Genotype not performed. FLAG LEGEND: L-Low Normal,H-High Normal,LL-Alert Low,HH-Alert High <-Panic Low,>-Panic High,A-Abnormal,AA-Critical Abnormal Performed at: [address] [address] Ghada Adkins MD, Performed By: #### 1 [id number] ####[facility] [address] [address] HPV 16+18+31+33+35+39+45+5 1+52+56+58+59+66+68 DNA Probe+sig amp Ql (Cvx) Negative Invalid Interpretation Code Negative [facility] Comment on above: Result Comment: This nucleic acid amplification test detects fourteen high-risk HPV types (16,18,31,33,35,39,45,51,52,56,58,59,66,68) without differentiation. Performed at: [facility] [address] [id number] MD Jed Urrutia Performed at: =[address] [id number] MD Jed Urrutia Performed By: #### 1 [id number] ####[facility] [address] [place] [address] Ambulatory Visit Summaryon 1 07-02-2022 Ambulatory Visit Summary DENY DIXON :1990 Visit Date:05/01/2023 Ambulatory Visit Instructions Your Diagnosis BMI 40.0-44.9, adult Non-smoker Your Care Team Attending Physician - Margarita Tuttle Primary Care Physician - Margarita Tuttle This Is Your Medications List meclizine (meclizine 12.5 mg Tab) meloxicam (meloxicam 7.5 mg Tab) Procedures Performed Tubal ligation (08/08/2015). Discharge Vitals Heart Rate (Peripheral) 78 Respiratory Rate 16 Blood Pressure 138/90 Height 160 cm Height 63 in Weight 102.4 kg Weight 225.28 lb BMI 40 What to do next Scheduled Follow-Up Appointments Thursday 10:30 AM EST Where: [facility] Medications What How Much When Why Instructions Unchanged meclizine (meclizine 12.5 mg Tab) 1 Tablets By Mouth 3 times a day as needed for for nausea/vomiting Unchanged meloxicam (meloxicam 7.5 mg Tab) 1 Tablets By Mouth Every day Left shoulder pain Neck pain on left side Numbness of left hand BMI 38.0-38.9,adult Class 1 obesity due to excess calories in adult Nonsmoker Allergies No Known Allergies Problems Ongoing - Any problem that you are currently receiving treatment for. Left shoulder pain Neck pain on left side Numbness of left hand Historical - Any problem that you are no longer receiving treatment for. Dilation and curettage Low-lying placenta Missed miscarriage Patient Survey You may receive a survey via text or e-mail asking about your office visit. Please share your experience with us by completing your survey. We appreciate your feedback and thank you for choosing us for your care. Nenita Vaughn [facility] Family Medicine Office/Clini c Noteon 05-01-2023 Family Medicine Office/Clinic Note HPI Staff Deny is a 33 year old female presenting for well woman Woman check up: Last pap: 7 years ago Last Sharee: n/a Results of lap pap: normal Where was it done: hx: # of pregnancies.4.. abortions... live births..2. living children...2 menstrual cycle (normal,heavy,ect): Heavy History of STD: no Do you want tested for STD today: no Vaginal discharge, odor, itching: no Self breast exam at home? yes Hx of breast, cervical or uterine cancer in the family: no Would like to know results from left shoulder x-ray and talk about going back to work History of Present Illness pt presents today for well woman exam and to obtain return to work note from shoulder pain Review of Systems PHQ Score Initial Depression Screen Score: 0 SCORE Constitutional: No fever, No chills, No sweats, No weakness. No Weight change; No fatigue. Skin: No rash, No lesions. ENMT: No ear pain, No sore throat, No congestion. Respiratory: No shortness of breath, No cough, No orthopnea, No wheezing. Cardiovascular: No chest pain, No palpitations, No peripheral edema. Gastrointestinal: No nausea, No vomiting, No diarrhea, No GI bleeding. Genitourinary: No dysuria, No hematuria, No discharge, No pain. Gynecology: No abnormal vaginal discharge, No vaginal itching/burning, No vaginal dryness, No painful periods, No abnormal bleeding, No pelvic pain, No painful intercourse, No hair loss/growth, No hot flashes Breast: No breast pain, No skin changes, No masses/lumps, No nipple discharge. Musculoskeletal: No back pain, No trauma. Neurological: No headache, No dizziness, No numbness, No weakness. Psychiatric: No sleeping problems, No irritability, No mood swings/depression. Heme/Lymph: No bleeding tendency, No bruising tendency, No petechiae, No swollen. Physical Exam Vitals & Measurements HR: 78(Peripheral) RR: 16 BP: 138/90 SpO2: 98% HT: 63 in HT: 160 cm WT: 102.4 kg WT: 225.28 lb BMI: 40 General: Well developed, well nourished, in no acute distress Neck: Neck supple. No masses or palpable cervical nodes. Trachea midline. Thyroid without nodules, masses, tenderness, or enlargement Breast: No mass, nodule, discharge, or erythema bilaterally, and no axillary lymphadenopathy Lungs: Normal respiratory effort and clear to auscultation Cardio: Regular rate and rhythm, normal S1 and S2, no murmur, no rub Abdomen: Soft, non-distended, non-tender, normal bowel sounds x4 Gyno: normal external genitalia. Urethra no discharge. Vagina normal without lesions, no vaginal discharge. Cervix normal, without lesions. Uterus normal. No adnexal masses. Pap obtained Neurologic: Grossly normal Skin: [place], moist, no tenting Lymph Nodes: No cervical adenopathy, nodes normal Mental Status: Alert and oriented x3. Normal mood and affect Assessment/Plan 1. Well woman exam (Z01.419: Encounter for gynecological examination (general) (routine) without abnormal findings) pt presents today for well woman exam. BSE discussed. pap obtained without difficulty. pt c/o heavy cycles. discussed Mirena IUD. all questions answered. RTC as needed Ordered: PAP w/ HPV and Genotype rflx 2. Cervical cancer screening (Z12.4: Encounter for screening for malignant neoplasm of cervix) pap obtained without difficulty Ordered: PAP w/ HPV and Genotype rflx 3. Neck pain on left side (M54.2: Cervicalgia) pt states shoulder and neck pain has improved. not provided to return to work slowly Ordered: meloxicam, 7.5 mg = 1 tab(s), Oral, Daily, # 30 tab(s), Refills(s) 0, Pharmacy: [facility]/pharmacy #[id number], 160, cm, 04/08/23 9:20:00 EST, Height/Length Dosing, 99.5, kg, 04/08/23 9:20:00 EST, Weight Dosing meloxicam, 7.5 mg = 1 tab(s), Oral, Daily, # 30 tab(s), Refills(s) 0, Pharmacy: [facility]/pharmacy #[id number], 160, cm, 05/01/23 10:29:00 EST, Height/Length Dosing, 102.4, kg, 05/01/23 10:29:00 EST, Weight Dosing PAP w/ HPV and Genotype rflx 4. Left shoulder pain (M25.512: Pain in left shoulder) see above Ordered: meloxicam, 7.5 mg = 1 tab(s), Oral, Daily, # 30 tab(s), Refills(s) 0, Pharmacy: [facility]/pharmacy #[id number], 160, cm, 04/08/23 9:20:00 EST, Height/Length Dosing, 99.5, kg, 04/08/23 9:20:00 EST, Weight Dosing meloxicam, 7.5 mg = 1 tab(s), Oral, Daily, # 30 tab(s), Refills(s) 0, Pharmacy: [facility]/pharmacy #[id number], 160, cm, 05/01/23 10:29:00 EST, Height/Length Dosing, 102.4, kg, 05/01/23 10:29:00 EST, Weight Dosing PAP w/ HPV and Genotype rflx 5. BMI 40.0-44.9, adult (Z68.41: Body mass index [BMI] 40.0-44.9, adult) BMI education complete Ordered: PAP [id number] w/ HPV and Genotype rflx 6. Class 1 obesity due to excess calories in adult (E66.09: Other obesity due to excess calories) see above Ordered: meloxicam, 7.5 mg = 1 tab(s), Oral, Daily, # 30 tab(s), Refills(s) 0, Pharmacy: [facility]/pharmacy #[id number], 160, cm, 04/08/23 9:20:00 EST, Height/Length Dosing, 99.5, kg, 04/08/23 9:20:00 EST, Weight Dosing meloxicam, 7.5 mg = 1 tab(s), Oral, Daily, # 30 (more content not included)... Normal [facility] Comment on above: Result Comment: Elec tronically Signed By: Margarita Tuttle\.br\Date and Time Signed: 05/01/23 13:01 EST PAP [id number] 05-01-2023 Gynecological Body Site ENDOCERVIX Normal [facility] Comment on above: Performed By: #### 1 [id number] ####[facility] [address] [place] [address] Provider Letteron 05-01-2023 Provider Letter [address] [place] [id number] May 01, 2023 DENY DIXON [address] [place] [id number] : 1990 To Whom It May Concern, Please allow above patient to return to work at a slow progressive pace. If you have any questions, please do not hesitate to call. Thank you. Sincerely, FRANCIE Bellamy [facility] Consent for Treatmenton 04-17 Consent for Treatment [id number] #1.00TIFF [facility] XR Shoulder Complete Lefton 04-27-2023 XR Shoulder Complete Left Exam Date/Time: 04/27/2023 12:38 EST Reason for Exam: M25.512, M54.2;Pain, Non Traumatic Report IMPRESSION: NEGATIVE LEFT SHOULDER. CLINICAL HISTORY: Pain, Non Traumatic, M25.512, M54.2 COMPARISON: NONE FINDINGS: AP, internal, external rotation, Y and axillary views of the left shoulder demonstrate no evidence of a fracture, dislocation, bone or joint abnormality. Ordering Provider: Margarita Hou FINAL REPORT Dictated: 04/27/2023 4:04 pm Calvin Rodriges MD Signed (Electronic Signature): 04/27/2023 4:04 pm Signed by: Calvin Rodriges MD Transcribed by: RADHA Technologist: Technical Comments Radiation Dose: Ka,r in mGy = na DAP = na Normal [facility] XR Spine Cervical 4 or 5 Vie wson 04-27-2023 XR Spine Cervical 4 or 5 Views Exam Date/Time: 04/27/2023 12:38 EST Reason for Exam: M25.512, M54.2;Neck Pain Report IMPRESSION: NEGATIVE CERVICAL SPINE. LOSS CERVICAL LORDOSIS MAY BE SECONDARY TO MUSCLE SPASM VERSUS PATIENT POSITIONING. CLINICAL HISTORY: Neck Pain, M25.512, M54.2 COMPARISON: NONE AVAILABLE FINDINGS: Routine five views of the cervical spine. Vertebral bodies normal in height and alignment. Loss cervical lordosis. Neuroforamina patent bilaterally. No prevertebral soft tissue swelling. No fracture, dislocation, bone lesion. Ordering Provider: Margarita Hou FINAL REPORT Dictated: 04/27/2023 3:33 pm Calvin Rodriges MD Signed (Electronic Signature): 04/27/2023 3:33 pm Signed by: Calvin Rodriges MD Transcribed by: RADHA Technologist: Technical Comments Radiation Dose: Ka,r in mGy = na DAP = na Normal [facility] Formson 04-14-2023 Forms [id number] #1.00TIFF Normal [facility] ED Note-Physicianon 04-08-20 ED Note-Physician [id number]# 1.00TIFF Normal [facility] Family Medicine Office/Clini c Noteon 04-08-2023 Family Medicine Office/Clinic Note HPI Staff Deny is a 33 ear old female presenting to establish care Establish Care: History: vertigo Any previous diagnosis: History of seeing any specialist: none ( young child saw for EEG) When was your last doctors visit: few years Last provider: Alysia Guerrier Any recent labs: 11/10/22 Health Maintenance UTD: Colonoscopy: never Mammogram: none Pelvic/Pap: been awhile overdue Acute: Current issues/complaints: 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 Cardiovascular: no chest pain, no palpitations, no edema. Neurologic: no headache, no dizziness, no numbness, no weakness. left shoulder, neck pain and left hand lower arm numbness Physical Exam Vitals & Measurements T: 35.8 ?C(Temporal Artery) HR: 72(Peripheral) RR: 16 BP: 136/82 SpO2: 98% HT: 63 in HT: 160 cm WT: 99.5 kg WT: 218.9 lb BMI: 38.87 General: alert, no acute distress ENMT: oral mucosa moist, no pharyngeal erythema or exudate Cardiovascular: regular rate and rhythm, normal peripheral perfusion Respiratory: Lungs CTA, respirations non labored Extremities: no deformity, no trauma Neurological: oriented x 4, LOC appropriate for age, CN II-XII intact, motor strength equal & normal bilaterally, speech normal Assessment/Plan 1. Left shoulder pain (M25.512: Pain in left shoulder) pt has been having left shoulder and neck pain since July. Recently she was cutting hair and her left hand went numb. she states by the time she gets half way through her day her hand will go numb and its almost impossible to cut hair. has been off of work for 10 days. went to ER was given steroid. but that did not help. will order EMG and xrays. pt will return in a few weeks to go over results and for well woman exam. will also do annual wellness labs at that visit. All questions answered. Ordered: meloxicam, 7.5 mg = 1 tab(s), Oral, Daily, # 30 tab(s), Refills(s) 0, Pharmacy: [facility] #[id number], 160, cm, 04/08/23 9:20:00 EST, Height/Length Dosing, 99.5, kg, 04/08/23 9:20:00 EST, Weight Dosing EMG Bilateral Upper Extremity (BUE) XR Shoulder Complete Left XR Spine Cervical 4 or 5 Views 2. Neck pain on left side (M54.2: Cervicalgia) cervical spine x ray ordered Ordered: meloxicam, 7.5 mg = 1 tab(s), Oral, Daily, # 30 tab(s), Refills(s) 0, Pharmacy: [facility] #[id number], 160, cm, 04/08/23 9:20:00 EST, Height/Length Dosing, 99.5, kg, 04/08/23 9:20:00 EST, Weight Dosing EMG Bilateral Upper Extremity (BUE) XR Shoulder Complete Left XR Spine Cervical 4 or 5 Views 3. Numbness of left hand (R20.0: Anesthesia of skin) EMG ordered Ordered: meloxicam, 7.5 mg = 1 tab(s), Oral, Daily, # 30 tab(s), Refills(s) 0, Pharmacy: [facility] #[id number], 160, cm, 04/08/23 9:20:00 EST, Height/Length Dosing, 99.5, kg, 04/08/23 9:20:00 EST, Weight Dosing EMG Bilateral Upper Extremity (BUE) XR Shoulder Complete Left XR Spine Cervical 4 or 5 Views 4. BMI 38.0-38.9,adult (Z68.38: Body mass index [BMI] 38.0-38.9, adult) BMI education complete Ordered: meloxicam, 7.5 mg = 1 tab(s), Oral, Daily, # 30 tab(s), Refills(s) 0, [id number], cm, 04/08/23 9:20:00 EST, Height/Length Dosing, 99.5, kg, 04/08/23 9:20:00 EST, Weight Dosing EMG Bilateral Upper Extremity (BUE) XR Shoulder Complete Left XR Spine Cervical 4 or 5 Views 5. Class 1 obesity due to excess calories in adult (E66.09: Other obesity due to excess calories) see above Ordered: meloxicam, 7.5 mg = 1 tab(s), Oral, Daily, # 30 tab(s), Refills(s) 0, [id number] 160, cm, 04/08/23 9:20:00 EST, Height/Length Dosing, 99.5, kg, 04/08/23 9:20:00 EST, Weight Dosing EMG Bilateral Upper Extremity (BUE) XR Shoulder Complete Left XR Spine Cervical 4 or 5 Views 6. Nonsmoker (Z78.9: Other specified health status) continue not smoking Ordered: meloxicam, 7.5 mg = 1 tab(s), Oral, Daily, # 30 tab(s), Refills(s) 0, [id number] 160, cm, 04/08/23 9:20:00 EST, Height/Length Dosing, 99.5, kg, 04/08/23 9:20:00 EST, Weight Dosing XR Shoulder Complete Left XR Spine Cervical 4 or 5 Views Follow-up No qualifying data available Problem List/Past Medical History Ongoing Left shoulder pain Neck pain on left side Numbness of left hand Historical Dilation and curettage Low-lying placenta Missed miscarriage [place] (more content not included)... Normal [facility] Comment on above: Result Comment: Elec tronically Signed By: Margarita Tuttle\.br\Date and Time Signed: 04/08/23 09:49 EST ED Note-Nursingon 11-11-2022 ED Note-Nursing pt given d/c instructions and educated on importance of follow up. pt educated on new medication. pt given d/c instructions and educated on importance of follow up. pt verbalized understanding of instructions and readiness for d/c. pt walked self ambulatory to waiting room in stable condition. Normal [facility] ED Note-Nursing pt arrived to ed from home via private car with her c/o dizziness since thursday. pt states she feels the room spinning and it gets worse with movement. pt states if she gets up too fast from laying down it feels like she is going to pass out. pt states she took dramamine at home and did not help. VSS. Normal [facility] ED Note-Physicianon 11-12-19 ED Note-Physician Basic Information Time Seen: Rickey Rawls PA-C 11/10/2022 18:44 Chief Complaint Pt presents to ED with complaints of dizziness onset 2 days ago. hx of simular episodes, usually doesn't last this long. History of Present Illness 32-year-old female presents ED with complaint of dizziness for the last 2 days. Patient is complaining of recurrent episodes of a sensation of motion after moving her head as well as some accompanying nausea. Patient reports these episodes only last a few seconds and then resolved. Patient denies any headache. Patient has any vision changes. Patient denies any focal neurologic deficits. Patient denies any head injury. Patient does report a past history of similar symptoms which usually resolve after a day or so. Patient reports past diagnoses of vertigo as well as meclizine, although she has not had a prescription for this for several years. Patient denies any chest pain or shortness of breath. Patient denies any fevers or chills. Patient denies any syncope or presyncope. Patient denies any hearing loss or tinnitus. Review of Systems Full 10 system ROS performed. Pt denies symptoms except as noted above in the HPI. Physical Exam Vitals & Measurements T: 36.6 ?C(Oral) HR: 97(Monitored) RR: 15 BP: 116/83 SpO2: 96% HT: 160 cm WT: 95.5 kg BMI: 37.3 VITALS: I have reviewed the triage vital signs. GENERAL: Well developed, well appearing adult in no acute distress. NEURO: Alert and oriented x4. Moves all extremities. Face is symmetric and expressive. Cranial nerves II through XII grossly intact as tested. Muscular strength and sensation grossly intact upper and lower extremities bilaterally. No dysarthria. No aphasia. No ataxia. Normal gait. Patient without any elicited nystagmus with Jayant-Hallpike. EYES: PERRL. No scleral icterus or conjunctival injection. No discharge. HENT: Normocephalic, atraumatic. Hearing is grossly intact. Nares grossly patent and without discharge. Mucous membranes moist. NECK: No JVD. Patient moves neck without restriction. CARDIO: Rhythm regular. Normal rate. No murmur, rub, or gallop. Pulses equal bilaterally in the upper and lower extremity. No lower extremity edema. PULM: Lungs clear to auscultation in all graham. No wheezes, rales, or rhonchi. No conversational dyspnea. No splinting, stridor, or accessory muscle use. GI/: Abdomen is soft and non-tender. Normoactive bowel sounds. EXTREMITIES: Symmetric muscle bulk. No joint swelling. No clubbing, cyanosis, or deformity. SKIN: Warm and dry. Normal turgor. No rash or lesions appreciated. PSYCH: Mood, affect, and interaction is appropriate to the setting. Medical Decision Making Number and Complexity of Problems Differential Diagnosis: [] [facility] Data External documents reviewed: Not applicable My EKG interpretation: Not applicable My CT interpretation: Not applicable My X-ray interpretation: Not applicable My Ultrasound interpretation: Not applicable Decision rules/scores evaluated: Not applicable Discussed with: Not applicable Treatment and Disposition ED Course: Patient presents ED for evaluation of 2 days of dizziness with a known history of vertigo. Patient reports that her current episodes are consistent in all respects with previous episodes of vertigo other than the length of time, patient reports that in the past few years typically her vertigo resolved solved after a day or so. Patient is well-appearing in the ED, with entirely benign neuro exam. Patient is ambulating well in the ED. Patient symptoms are most consistent with a peripheral vertigo. Patient without any nystagmus elicited on Jayant-Hallpike. Due to fact the patient has benign neuro exam, no headache, no neurologic findings other than dizziness, patient treated with meclizine and instructed to follow-up with PCP. Return precautions were discussed extensively with this patient. Patient questions were answered. Patient discharged home. Shared decision making: As above Code status: Not addressed during this visit Assessment/Plan Vertigo (R42: Dizziness and giddiness) Orders: meclizine, 12.5 mg = 1 tab(s), Oral, TID, PRN for nausea/vomiting, # 30 tab(s), Refills(s) 0, Pharmacy: [facility] #[id number], 160, cm, 11/10/22 18:39:00 EDT, Height/Length Dosing, 95.5, kg, 11/10/22 18:39:00 EDT, Weight Dosing meclizine, 12.5 mg = 1 tab(s), Tab, Oral, Once, Stop date 11/10/22 20:42:00 EDT, STAT, Start date 11/10/22 20:42:00 EDT, 11/10/22 20:42:00 EDT Automated Diff Basic Metabolic Panel CBC w/ Auto Diff eGFR Extra SST Tube Medications Administered Given meclizine 12.5 mg Tab, 12.5 mg, Oral Disposition Plan Patient Discharge Condition Stable Discharge Disposition To home Discharge Prescription List Prescriptions meclizine 12.5 mg Tab, 12.5 mg= 1 tab(s), Oral, TID, PRN Follow-up With When Contact Information Umair Ramírez In 3 days 11/13/2022 EDT [address] [place] [address]- Business (2) Additional Instructions: Ca (more content not included)... [facility] Comment on above: Result Comment: Elec tronically Signed By: Rickey Rawls PA-C\.br\Date and Time Signed: 11/10/22 23:40 EDT\.br\Electronically Co-Signed By: Xavier Wade DO\.br\Date and Time Co-Signed: 11/11/22 01:14 EDT Monitor Recordon 11-11-2022 Monitor Record [id number]#1.00CD:127 [facility] Monitor Record [id number]#1.00CD:127 [facility] Auto Diffon 06-26-2023 Basophils/100 WBC (Bld) 0.8 % Normal 0.0-2.0 [facility] Comment on above: Order Comment: Order Added by Discern Expert. Performed By: #### 2 805456, 0982771, 0012075, [id number] #### [facility] [address] [place] [address] Basophils/Leukocytes Auto (Bld) [Pure # fraction] 0.1 E9/L Normal 0.0-0.2 [facility] Comment on above: Order Comment: Order Added by Discern Expert. Performed By: #### 2 827366, 7211032, 8539597, 10183924 #### [facility] [address] [place] [address] Eosinophils/100 WBC (Bld) 5.2 % Normal 0.0-8.0 [facility] Comment on above: Order Comment: Order Added by Discern Expert. Performed By: #### 2 624871, 2342597, 2776892, [id number] #### [facility] [address] [place] [address] Eosinophils/Leukocytes Auto (Bld) [Pure # fraction] 0.5 E9/L Normal 0.0-0.5 [facility] Comment on above: Order Comment: Order Added by Discern Expert. Performed By: #### 2 066512, 4266506, 8217571, [id number] #### [facility] [address] [place] [address] Lymphocytes/100 WBC (Bld) 22.3 % Normal 14.0-50.0 [facility] Comment on above: Order Comment: Order Added by Discern Expert. Performed By: #### 2 815069, 4446223, 3976958, 05371869 #### [facility] [address] [place] [address] Lymphocytes/Leukocytes Auto (Bld) [Pure # fraction] 2.0 E9/L Normal 1.0-4.0 [facility] Comment on above: Order Comment: Order Added by Discern Expert. Performed By: #### 2 863070, 6539164, 2169425, 33521443 #### [facility] [address] [place] [address] Monocytes/100 WBC (Bld) 8.8 % Normal 4.0-14.0 [facility] Comment on above: Order Comment: Order Added by Discern Expert. Performed By: #### 2 086864, 1852447, 9552500, 30580804 #### [facility] [address] [place] [address] Monocytes/Leukocytes Auto (Bld) [Pure # fraction] 0.8 E9/L Normal 0.2-1.0 [facility] Comment on above: Order Comment: Order Added by Discern Expert. Performed By: #### 2 715857, 6740868, 9443866, 71426736 #### [facility] [address] [place] [address] Neutrophils/100 WBC (Bld) 62.9 % Normal 36.0-75.0 [facility] Comment on above: Order Comment: Order Added by Discern Expert. Performed By: #### 2 383823, 3919008, 2152945, 55196263 #### [facility] [address] [place] [address] Neutrophils/Leukocytes Auto (Bld) [Pure # fraction] 5.6 E9/L Normal 2.0-7.5 [facility] Comment on above: Order Comment: Order Added by Discern Expert. Performed By: #### 2 838843, 7705462, 7062366, 92116083 #### [facility] [address] [place] [address] BMPon 11-10-2022 Creatinine [Mass/Vol] 0.8 mg/dL Normal 0.5-1.3 [facility] Comment on above: Performed By: #### 2 576556, 1334243, 8308376, 42715287 ####[facility] [address] [place] [address] Urea nitrogen [Mass/Vol] 19 mg/dL Normal 5-21 [facility] Comment on above: Performed By: #### 2 634228, 6429849, 0684707, 30423031 ####[facility] [address] [place] [address] Urea nitrogen/Creatinine [Mass ratio] 24 No Units High 10-20 [facility] Comment on above: Performed By: #### 2 967116, 9146229, 1934855, 09569232 ####[facility] [address] [place] [address] Anion gap [Moles/Vol] 11 mmol/L Normal 6-16 [facility] Comment on above: Performed By: #### 2 359824, 8951966, 8781989, 37529109 ####[facility] [address] [place] [address] Calcium [Mass/Vol] 9.4 mg/dL Normal 8.9-11.1 [facility] Comment on above: Performed By: #### 2 724802, 9262428, 1323940, 37776627 ####[facility] [address] [place] [address] Chloride [Moles/Vol] 106 mmol/L Normal 101-111 [facility] Comment on above: Performed By: #### 2 770767, 9044560, 7578786, 12478266 ####[facility] [address] [place] [address] CO2 [Moles/Vol] 24 mmol/L Normal 21-31 [facility] Comment on above: Performed By: #### 2 570976, 7015124, 1910736, 95770106 ####[facility] [address] [place] [address] Glucose [Mass/Vol] 94 mg/dL Normal 55-199 [facility] Comment on above: Result Comment: If t his glucose result represents a fasting glucose, interpretation should refer to the following reference range: 55-99 mg/dL Performed By: #### 2 233322, 5454196, 1677551, 69826720 ####[facility] [address] [place] [address] Potassium [Moles/Vol] 4.2 mmol/L Normal 3.5-5.3 [facility] Comment on above: Performed By: #### 2 253070, 0712569, 3795132, 86950943 ####[facility] [address] [place] [address] Sodium [Moles/Vol] 137 mmol/L Normal 135-145 [facility] Comment on above: Performed By: #### 2 880546, 2031072, 5168174, 43013212 ####[facility] [address] [place] [address] CBC w/ Auto Diffon 3 Erythrocyte distribution width (RBC) [Ratio] 16.8 % High 10.9-14.2 [facility] Comment on above: Performed By: #### 2 433511, 9346137, 9011816, 74030223 #### [facility] [address] [place] [address] Hematocrit (Bld) [Volume fraction] 41.7 % Normal 34.0-46.0 [facility] Comment on above: Performed By: #### 2 662463, 1322966, 5227411, 22234299 #### [facility] [address] [place] [address] Hemoglobin (Bld) [Mass/Vol] 13.4 g/dL Normal 12.0-16.0 [facility] Comment on above: Performed By: #### 2 127500, 3702302, 7060256, 36271504 #### [facility] [address] [place] [address] MCH (RBC) [Entitic mass] 25.8 pg Low 27.0-34.0 [facility] Comment on above: Performed By: #### 2 919148, 5324877, 4987963, 49587946 #### [facility] [address] [place] [address] MCHC (RBC) [Mass/Vol] 32.3 g/dL Normal 31.4-36.0 [facility] Comment on above: Performed By: #### 2 453730, 4760303, 9957657, 44332292 #### [facility] [address] [place] [address] MCV (RBC) [Entitic vol] 80.0 fL Normal 80.0-100.0 [facility] Comment on above: Performed By: #### 2 464011, 7916962, 1957756, 94906314 #### [facility] [address] [id number] Platelet mean volume (Bld) [Entitic vol] 9.5 fL Normal 6.4-10.8 [facility] Comment on above: Performed By: #### 2 234274, 9904539, 0851573, 13056928 #### [facility] [address] [place] [address] Platelets (Bld) [#/Vol] 279.0 E9/L Normal 150.0-500.0 [facility] Comment on above: Performed By: #### 2 937854, 7516569, 4853773, 20930911 #### [facility] [address] [place], [place] [address] RBC (Bld) [#/Vol] 5.2 E12/L Normal 4.3-5.9 [facility] Comment on above: Performed By: #### 2 954457, 8727619, 2221128, 32241388 #### [facility] [address] [place] [address] WBC corrected for nucl RBC Auto (Bld) [#/Vol] 8.9 E9/L Normal 4.0-11.0 [facility] Comment on above: Performed By: #### 2 740984, 6627062, 6145562, 55446026 #### [facility] [address] [place] [address] CHEMISTRYOrdered By: SYSTEM SYSTEM on 11-10-2022 Anion gap [Moles/Vol] 11 mmol/L Normal 6 - 16 mEq/L [facility] Remisol Calcium [Mass/Vol] 9.4 mg/dL Normal 8.9 - 11. 1 mg/dL [facility] Remisol Chloride [Moles/Vol] 106 mmol/L Normal 101 - 1 11 mmol/L [facility] Remisol CO2 [Moles/Vol] 24 mmol/L Normal 21 - 31 mmol/L [facility] Remisol Creatinine [Mass/Vol] 0.8 mg/dL Normal 0.5 - 1.3 mg/dL [facility] Remisol GFR/1.73 sq M.predicted among non-blacks MDRD (S/P/Bld) [Vol rate/Area] 101 mL/min/1.73 m2 Normal >=59mL/min/[address] [facility] Chem S Glucose [Mass/Vol] 94 mg/dL Normal 55 - 199 mg/dL [facility] Remisol Potassium [Moles/Vol] 4.2 mmol/L Normal 3.5 - 5.3 mmol/L [facility] Remisol Sodium [Moles/Vol] 137 mmol/L Normal 135 - 145 mmol/L [facility] Remisol Urea nitrogen [Mass/Vol] 19 mg/dL Normal 5 - 21 mg/dL [facility] Remisol Urea nitrogen/Creatinine [Mass ratio] 24 mg/mg High 10 - [address] [facility] Remisol CHEMISTRYOrdered By: Lab ROP User on 11-10-2022 Glucose [Mass/Vol] 100 mg/dL High 55 - 99 mg/dL [facility] POC Subsection POC Device SN [id number] Invalid Interpretation Code [facility] POC Subsection POC User ID [id number] Invalid Interpretation Code [facility] POC Subsection POC Username TRUDY CHAO Invalid Interpretation Code [facility] POC Subsection Capillary Glucose POCon 10-17 Glucose [Mass/Vol] 100 mg/dL High 55-99 [facility] Comment on above: Performed By: #### 2 [id number] #### [facility] [address] [place] [address] Consent for Treatmenton 10-17 Consent for Treatment [id number] #1.00CD:127 Normal [facility] Discharge Instructionson Discharge Instructions [id number]#1.00CD:127 Normal [facility] ED Clinical Summaryon 2022 ED Clinical Summary [address] [address] ED Clinical Summary Person Information Name: DENY DIXON Darshana/[facility] Age: 32 Years : 1990 Sex: Female Language: [place] Islander PCP: NONE, XXXX Marital Status: Visit Id: Visit Reason: Dizziness; DIZZY, VERTIGO Speciality: Acuity: 3 Enc Type: Emergency Med Service: Emergency Arrival: 11/10/2022 18:29:40 Discharge: 11/10/2022 21:09:59 LOS: 000 02:40 Checkin: 11/10/2022 18:29:40 Checkout: 11/10/2022 21:09:59 Dispo Type: Home (Routine DC) EVENTS: Event Name Event Status Request Date/Time Start Date/Time Complete Date/Time Arrive Complete 11/10/2022 18:29:40 11/10/2022 18:29:40 11/10/2022 18:29:40 Document Home Meds Request 11/10/2022 18:29:40 Triage Complete 11/10/2022 18:29:40 11/10/2022 18:39:54 11/10/2022 18:39:54 Bed Assign Complete 11/10/2022 18:35:02 11/10/2022 18:35:02 11/10/2022 18:35:02 Dr Exam Complete 11/10/2022 18:35:02 11/10/2022 18:44:24 11/10/2022 18:44:24 RN Exam Complete 11/10/2022 18:35:02 11/10/2022 19:37:30 11/10/2022 19:37:30 EKG Complete 11/10/2022 18:38:52 11/10/2022 19:14:25 Registration Complete 11/10/2022 18:44:24 11/10/2022 19:15:46 11/10/2022 19:15:46 Dr Exam Complete 11/10/2022 19:05:25 11/10/2022 19:05:25 11/10/2022 19:05:25 Reg Complete Request 11/10/2022 19:15:46 Reg Bed Request Complete 11/10/2022 19:15:46 11/10/2022 19:15:46 11/10/2022 19:15:46 Pending Labs Request 11/10/2022 19:24:03 Lab Request 11/10/2022 19:24:03 Urine Collect Request 11/10/2022 19:24:03 Pending Labs Complete 11/10/2022 19:26:26 11/10/2022 19:26:26 11/10/2022 19:26:26 Pending Labs Complete 11/10/2022 19:38:29 11/10/2022 19:38:29 11/10/2022 19:52:19 Lab Complete 11/10/2022 19:38:29 11/10/2022 19:38:29 11/10/2022 19:52:19 Pending Labs Complete 11/10/2022 19:45:00 11/10/2022 19:45:00 11/10/2022 19:45:07 Lab Complete 11/10/2022 19:45:00 11/10/2022 19:45:00 11/10/2022 19:45:07 Pending Labs Complete 11/10/2022 20:08:04 11/10/2022 20:08:04 11/10/2022 20:08:04 Meds Admin Complete 11/10/2022 20:42:50 11/10/2022 21:01:52 Discharge Complete 11/10/2022 20:47:49 11/10/2022 21:10:22 11/10/2022 21:10:22 Transfer Complete 11/10/2022 21:10:22 11/10/2022 21:10:22 11/10/2022 21:10:22 ADDRESS: [address] [place] [phone] PHYS DOC NOTES: MEDICAL INFORMATION: Prescriptions Given: New Medications [id number], [address], [place] [id number], [phone] meclizine (meclizine 12.5 mg Tab) 1 Tablets By Mouth 3 times a day as needed for nausea/vomiting. Refills: 0. PATIENT EDUCATION INFORMATION: Instructions: Vertigo Follow up: With: Address: When: Umair Ramírez [address] [place] [address] [place] (2) In 3 days 11/13/2022 Comments: Call the office of your primary care doctor to arrange for follow-up within the above-stated timeframe. Follow-up with your primary care doctor about this ED visit. You should review your labs, imaging, and diagnoses from this ED visit with your primary care physician. If you were prescribed medications you should discuss possible side-effects and drug interactions with your pharmacist. Call 911 or go to the nearest Emergency Department if you develop any new or worsening symptoms. DIAGNOSIS: Vertigo Normal [facility] ED Patient Education Noteon 11-10-2022 ED Patient Education Note Neurology Vertigo Vertigo is the feeling that you or your surroundings are moving when they are not. This feeling can come and go at any time. Vertigo often goes away on its own. Vertigo can be dangerous if it occurs while you are doing something that could endanger yourself or others, such as driving or operating machinery. Your health care provider will do tests to try to determine the cause of your vertigo. Tests will also help your health care provider decide how best to treat your condition. Follow these instructions at home: Eating and drinking ? Dehydration can make vertigo worse. Drink enough fluid to keep your urine pale yellow. ? Do not drink alcohol. Activity ? Return to your normal activities as told by your health care provider. Ask your health care provider what activities are safe for you. ? In the morning, first sit up on the side of the bed. When you feel okay, stand slowly while you hold onto something until you know that your balance is fine. ? Move slowly. Avoid sudden body or head movements or certain positions, as told by your health care provider. ? If you have trouble walking or keeping your balance, try using a cane for stability. If you feel dizzy or unstable, sit down right away. ? Avoid doing any tasks that would cause danger to you or others if vertigo occurs. ? Avoid bending down if you feel dizzy. Place items in your home so that they are easy for you to reach without bending or leaning over. ? Do not drive or use machinery if you feel dizzy. General instructions ? Take yxcc-jmu-cvbmimt and prescription medicines only as told by your health care provider. ? Keep all follow-up visits. This is important. Contact a health care provider if: ? Your medicines do not relieve your vertigo or they make it worse. ? Your condition gets worse or you develop new symptoms. ? You have a fever. ? You develop nausea or vomiting, or if nausea gets worse. ? Your family or friends notice any behavioral changes. ? You have numbness or a prickling and tingling sensation in part of your body. Get help right away if you: ? Are always dizzy or you faint. ? Develop severe headaches. ? Develop a stiff neck. ? Develop sensitivity to light. ? Have difficulty moving or speaking. ? Have weakness in your hands, arms, or legs. ? Have changes in your hearing or vision. These symptoms may represent a serious problem that is an emergency. Do not wait to see if the symptoms will go away. Get medical help right away. Call your local emergency services (911 in the [place] Do not drive yourself to the hospital. Summary ? Vertigo is the feeling that you or your surroundings are moving when they are not. ? Your health care provider will do tests to try to determine the cause of your vertigo. ? Follow instructions for home care. You may be told to avoid certain tasks, positions, or movements. ? Contact a health care provider if your medicines do not relieve your symptoms, or if you have a fever, nausea, vomiting, or changes in behavior. ? Get help right away if you have severe headaches or difficulty speaking, or you develop hearing or vision problems. This information is not intended to replace advice given to you by your health care provider. Make sure you discuss any questions you have with your health care provider. Document Revised: 04/03/2021 Document Reviewed: 04/03/2021 Elsevier Patient Education ? 2022 [employer] Normal [facility] ED Patient Summaryon 023 ED Patient Summary [place] [address] Patient Discharge Instructions Person Information Name: DENY DIXON Age: 32 Years Arrival Date: 11/10/2022 18:29:40 Discharge Diagnosis: Vertigo Primary Care Physician: NONE, XXXX Provider Information Primary Provider: Xavier Wade DO Advanced Physiological Chemist:Rickey Rawls PA-C The exam and treatment you received in the Emergency Department were for an urgent problem and are not intended as complete care. It is important that you follow up with a doctor, nurse practitioner, or physician?s video production assistant for ongoing care. If your symptoms become worse or you do not improve as expected and you are unable to reach your usual health care provider, you should return to the Emergency Department. We are available 24 hours a day. DENY DIXON has been given the following list of patient education materials, prescriptions and follow-up instructions: Follow-up Instructions: With: Address: When: Umair Ramírez [address] [place], [place] [id number] [facility] (2) In 3 days 11/13/2022 Comments: Call the office of your primary care doctor to arrange for follow-up within the above-stated timeframe. Follow-up with your primary care doctor about this ED visit. You should review your labs, imaging, and diagnoses from this ED visit with your primary care physician. If you were prescribed medications you should discuss possible side-effects and drug interactions with your pharmacist. Call 911 or go to the nearest Emergency Department if you develop any new or worsening symptoms. In the event that this physician does not participate in your insurance network, please consult with your insurance company to find a nearby participating provider. Patient Education Materials: Vertigo A MESSAGE TO ALL PATIENTS REGARDING OPIOIDS PRESCRIPTION OPIOIDS: WHAT YOU NEED TO KNOW Prescription opioids can be used to help relieve ndbxurgj-ey-gtpoex pain and are often prescribed following a surgery or injury, or for certain health conditions. These medications can be an important part of the treatment but also come with serious risks. It is important to work with your healthcare provider to make sure you are getting the safest, most effective care. WHAT ARE THE RISKS AND SIDE EFFECTS OF OPIOID USE? Prescription opioids carry serious risks of addiction and overdose, especially with prolonged use. An opioid overdose, often marked by slowed breathing, can cause sudden . The use of prescription opioids can have a number of side effects as well, even when taken as directed: ? Tolerance?meaning you might need to take more of the medication for the same pain relief ? Physical dependence?meaning you have symptoms of withdrawal when a medication is stopped ? Increased sensitivity to pain ? Constipation ? Nausea, vomiting, and dry mouth ? Sleepiness and dizziness ? Confusion ? Depression ? Low levels of testosterone that can result in lower sex drive, energy, and strength ? Itching and sweating RISKS ARE GREATER WITH: ? History of drug misuse, substance use disorder, or overdose ? Mental health conditions (such as depression or anxiety) ? Sleep apnea ? Older age (65 years and older) ? Avoid alcohol while taking prescription opioids. Also, unless specifically advised by your health care provider, medications to avoid include: ? Benzodiazepines (such as Xanax or Valium) ? Muscle relaxants (such as Soma or Flexeril) ? Hypnotics (such as Ambien or Lunesta) ? Other prescription opioids KNOW YOUR OPTIONS Talk to your health care provider about ways to manage your pain that don?t involve prescription opioids. Some of these options may actually work better and have fewer risks and side effects. Options may include: ? Pain relievers such as acetaminophen, ibuprofen, and naproxen ? Some medication that are also used for depression or seizures ? Physical therapy and exercise ? Cognitive behavioral therapy, a psychological, goal-directed approach, in which patients learn how to modify physical, behavioral, and emotional triggers of pain and stress. IF YOU ARE PRESCRIBED OPIOIDS FOR PAIN: ? Never take opioids in greater amounts or more often than prescribed. ? Follow up with your primary health care provider. o Work together to create a plan on how to manage your pain. o Talk about ways to help manage your pain that don?t involve prescription opioids. o Talk about any and all concerns and side effects. ? Help prevent misuse and abuse o Never sell or share prescription opioids. o Never use another person?s prescription opioids. ? Store prescription opioids in a secure place and out of reach of others (this may include visitors, children, friends, and family). ? Safely dispose of unused prescription opioids: Find your (more content not included)... Normal [facility] HEMATOLOGYOrdered By: SYSTEM SYSTEM on 11-10-2022 Basophils/100 WBC (Bld) 0.8 % Normal 0.0 - 2.0 % [facility] HemeAutoSS Basophils/Leukocytes Auto (Bld) [Pure # fraction] 0.1 E9/L Normal 0.0 - 0.2 E9/L [facility] HemeAutoSS Eosinophils/100 WBC (Bld) 5.2 % Normal 0.0 - 8.0 % [facility] HemeAutoSS Eosinophils/Leukocytes Auto (Bld) [Pure # fraction] 0.5 E9/L Normal 0.0 - 0.5 E9/L [facility] HemeAutoSS Lymphocytes/100 WBC (Bld) 22.3 % Normal 14.0 - 50.0 % [facility] HemeAutoSS Lymphocytes/Leukocytes Auto (Bld) [Pure # fraction] 2.0 E9/L Normal 1.0 - 4.0 E9/L [facility] HemeAutoSS Monocytes/100 WBC (Bld) 8.8 % Normal 4.0 - 14.0 % [facility] HemeAutoSS Monocytes/Leukocytes Auto (Bld) [Pure # fraction] 0.8 E9/L Normal 0.2 - 1.0 E9/L [facility] HemeAutoSS Neutrophils/100 WBC (Bld) 62.9 % Normal 36.0 - 75.0 % [facility] HemeAutoSS Neutrophils/Leukocytes Auto (Bld) [Pure # fraction] 5.6 E9/L Normal 2.0 - 7.5 E9/L [facility] HemeAutoSS HEMATOLOGYOrdered By: Bertrand Avendaño on 11-10-2022 Erythrocyte distribution width (RBC) [Ratio] 16.8 % High 10.9 - 14.2 % [facility] HemeAutoSS Hematocrit (Bld) [Volume fraction] 41.7 % Normal 34.0 - 46.0 % [facility] HemeAutoSS Hemoglobin (Bld) [Mass/Vol] 13.4 g/dL Normal 12.0 - 16.0 gm/dL [facility] HemeAutoSS MCH (RBC) [Entitic mass] 25.8 pg Low 27.0 - 34.0 pg [facility] HemeAutoSS MCHC (RBC) [Mass/Vol] 32.3 g/dL Normal 31.4 - 36.0 gm/dL [facility] HemeAutoSS MCV (RBC) [Entitic vol] 80.0 fL Normal 80.0 - 100.0 fL [facility] HemeAutoSS Platelet mean volume (Bld) [Entitic vol] 9.5 fL Normal 6.4 - 10.8 fL [facility] HemeAutoSS Platelets (Bld) [#/Vol] 279.0 E9/L Normal 150.0 - 500.0 E9/L [facility] HemeAutoSS RBC (Bld) [#/Vol] 5.2 E12/L Normal 4.3 - 5.9 E12/L [facility] HemeAutoSS WBC corrected for nucl RBC Auto (Bld) [#/Vol] 8.9 E9/L Normal 4.0 - 11.0 E9/L [facility] HemeAutoSS Prescriptions/Work Noteson 0 11-10-2022 Prescriptions/Work Notes [id number]#1.00CD:127 Normal [facility] eGFRon 11-10-2022 GFR/1.73 sq M.predicted among non-blacks MDRD (S/P/Bld) [Vol rate/Area] 101 mL/min/1.73 m2 Normal >=59 [facility] Comment on above: Order Comment: Order added by Discern Expert. Result Comment: Party Chief marek kidney disease could be indicated at eGFR's of less than 60 mL/min/1.73m2. Kidney failure is indicated at less than 15 mL/min/1.73m2. Performed By: #### 2 [id number] ####[facility] [id number] [place] [address] Coding Summary.on 09-09-2022 Coding Summary. CD:[id number] Ww+PGhlYWQ+IK6GSVIyY 52dyQZzzI1gM4RBEWnMB ywgQVBQTElOSyIgbmFtZ B2wlJRqFOJs IC8+LF9gLAMsVatnyOXb h7N5fOS6W94ghs9iBTmp gTL3EFFfUyNehbmrv8ui rYr6JQyqJbjuClWt WLYrmW92ABP5nB05Yn27 vYDoaARyi9owpXd3CuYc OTVbVYH7nMzmUMopm5Rp ZAIxS55xzYGvz6A1 IGNvbGxhcHNlOyBlbXB0 qH9zKBwdwzmhp3uidwgt Ntb2bd65cWPjx3X1dKR0 V7RreiF6EYYfqKKt UgtxeRCOsS1hxdgma3mp yavfAjHkJRLrDIt0VEb6 HPTgyRnmChEjDO61OJF6 FSJismSrY7IvHOGk hMswPlX5t7O3Nf9FO7LL LqanG5UMRKBASLhkaRI+ UN11ig83S5WvRielYpu3 IWBtXVD0mEJ7lF9z OXOcBHrgh8P2kHK8Z7Ab xpYtne2tw1fhOSMnAEqv T61rtABvw2W6WRCjoAI5 XLLifIhyHbLniQ37 Oyc+OCHxtJedb0LvWdyp m1qyi5ixgAm2FaltZSAk ahXsbGlgXUF6a5WwEl4t APWahJX1mQJ2oQ0b KvPkFsZ4CFtuI024TkJv qBHiFrqdG91wT0FygEG+ FRUoMqq2NNBpeFocJZ4o I6JaMPCnyuilhDRw aVrbJX4tWZXldpitIBIr lK3kHUTyE0v3ZqTvXkH4 UTcjA9VkAWExziwdAh04 lB1xUvNoAcX3GWgi B6PdmmN0KFIrkAZgUHvt DJE6K88du5R4NSTfOBXg CFN4uWX8gH1zsMapbkne bGVmdDsgdmVydGlj DMxeMEgdR668HQRxfVqi PkNvZGluZyBEYXRlOiAg MDQvMjUvMjAyMzwvdGQ+ GGTsHJO0xZxfZUCy qSGtGRebJk5zmYwjkOct XM1aEVItcnkfEYPwzL5t GOHhoLBgmRjbSZ3sGCRp snlwz673UcYoXRZ4 EPFsjRFwP5UtrP9tBhYg LUXfPUZvC6PrdZXeYCba F946XKanVjE7QYWqojNt V3PvUFCdgXosHlF0 e2O3Lx0Xr3FmpfyeL0Pg aTLqZsCtXpqtXOv0K2Yd PjwvdHI+EK65NDDjBZ11 UWo3URT5vKwrVCpr HTDmA5MlfQ5fCgQkGOPx ZGRkOyc+PHRhYmxlIHdp ZHRoPScxMDAlJyBzdHls TG2sXj7vBUPpLEMy lDlliGTjXdIrs0fgNBVk VHjlPX2zdSitC5JwcUA4 IEQiv2h1Hi49M88cU2Ux dXA+VJSuqKV5uXR2 iM9fPnOgGqZ4UBhjX315 XkSttKQeVnyms0dby6dn nJj8RaU1RRDwsyIcnWqv KSI4i1HeAf35P73f IHdpZHRoPSIxNSUiIHZh lDydwe3yiO9gWb2+PGNv vLD3mAQ9oY3hCvIiKdW8 PIxcE547GfCdzCVl Rmtlq5pbu8efbZu6XfLj RCHqtaNlnVywAHR8t6Ww Uu58L5HtrHoan5UtDge6 fs44oTZcg4A5cLK2 M4HeXVHoeckrzTBkaNxm CI1bSZWguliyTBCocC3t UNTjH5o2IrBdHeH8VAyt U7DnokZ3VOBwrRYg WACezSLTuM8hriztk5ky wxlcVuHqVWCqCRe5CKb6 EKGwfDjyUyOeWOB7CnK5 DJS2xDVmqX1zgDlt ndoljS2yEix+CWK4rWAe jNBCXM6oGpilgFC+PHRk JCY7lYpcSVoiBLLstQ3w SAGeH1f8MpEzNnR2 XIapE4TffzT0CSTmnLRv JRFywHRQqC6pevkxv7jx zmluKtTsOXMbNLw6JAs5 LWFsaWduOiBsZWZ0 EnV6NMT4tAAciB7ipXtp gxizbR8tSzj+QmlydGgg NIK0YGo4R7IbNab6WJVr eFxoTE8arKJoTDqv Sg6uwNzjhKmfRD9gLIGv mjufi948ZqOzx6ioNUYd bULrRYiwYAR1U25rs2T8 HMCbZVTzPUW9rFI2 nV4wwFwlmpkngBTxoYwy wgCueVvkMUghGTmnX682 YNZuxExnBgKyAHr5L5Ap Wnz4DLLjfNezLE0y xDMiEUkgLw3yfGimtSdg RH2mREFqkhyio008UjFl r2vgFLCzrRVdNWjxTWE5 B12pi0N8VHFvWSEg SYN3aLV8qT5bjQfwjgnj bGVmdDsgdmVydGljYWwt EBsjS014EYOkaZtwQbRj eJb1X6VoXji4BLSr yCgtDB7khXSfJZkwCy8t aIwxgBxjLL2sSJOovoow d319RePwi8xnZCAjzYBy ZCkbAJI3X97bi4Q3 ZFZqTCLzDSS4bOG7zV3k bGlnbjogbGVmdDsgdmVy jTkgTCmxDAifL191JCIl cDsnPlBhdGllbnQg QOdoAKo0H8TcNaxneIF+ DH03CMQwYV56bGQvfPOm f5pecOi0LyMcHLKaRIC1 sBbjYWyql3VySRXe N97egLSmi3U6IMJovUoz pBFtDhZsoIE9xT6yAPyy dmomv8xpelodCqvyn8er mb67dR88H63qUUqb ZHRoPSIzMCUiIHZhbGln do7ftL5ePl8+PGNvbCB3 bFP1nQ4rETShPeO1HVhm U075JoQrnFFkCgmc n5apu2sfaTy1BeK4PJYw kjLbuVocRWK1x4YpCe64 G86xYZwyOKWoZJUzRZDx TSBumNosqg8rmO5q Ii8+HNLolRC0kJM1xL6b HiIrAdN3DXtaN215NjSl xKZnDfwgN30oA1OklBZ+ PSNiYfd3WDUzeFuk BC8iaYQrWKkwDl3fDBI8 TqPaPcJaOBpyK7VpXANu hwlyaokrsRT4RQMkULMj wH58Vx7jrVmfWULw rYVUjI2eiytvs3gkshnm ByPeEBFvRJw1JUg7HWEu hZmxAfEqPXF5YiD2BQM1 tZZbgP2faPvpybbz uK1fI9UqDDSclnuuMy16 pV0iNhIbBcL5JHrrIfu+ K9qDSdSLUcnyKTFAFR2O RFsKTZ68D4BpWkz8 JULzwDvvHI3wfJNrRWgq He6tzRzsmMmyPC8vLNWw ivygOONcaJ7iXBHbvPYo wBznZB4kJYBlnuyf x874McBxAPF1VMStjDZo G3LomL1uTxSdOKOfNXSp Q0RurSPxIYgfY552VBhp TdD5UMVhriOpQ0Al NBPusYpjJhI4m0S7Tz9o VK5zTU2kUCvbDH23IC66 hAZhn8V8jLS8I5TvLDMt xciccutnpSM1UAYa JFVcmK11sQYgWBfqKz8l o2S9w400USMoUBPzpE32 Zt6vgMruLOGgxWSKtY2j jflxx1vcrmsoPeOs OSZaMRh2ZUf3EXOerBlw BoVzQCF3LhW5DPO2mNKl iP3cmDasuoznmU5mUea+ SaUzOPEzwsM5F6Rw Jic9BEZncYnuUM8tcIBg YDfmPa0siMgwaBppYJ8y ULOauembKVYilN9oQGBi cKPqaEdhUQ9fQLVk jwrnf905InZtTVI9QIYk vXJfH5PpnB9tKgKfCYUy BEKcY8ZspOFcPWqaH129 ROyrWuV0PLEkheCx N0VaZXMtuBqzVnD1n9Z3 Dk6MEH2gjZI0G3NnRdu5 HTPzyBzpQH2hxZCzOEqi Az9npLeeiUelFV5j HZYdzpejGVTmdF3tLJYw rZSrnDvvMN4cTMZvmjlj f706AxOkTZN4VLFieYZw A0TshV7lZdZgCNZb QDVuL5FbqJUoCFfwH414 RYlxGcC9BUCumbYrL2Uo NEEdjEkqDzX7g1L9Gh1G kEQgK8DeN8l2X3Hw PjwvdHI+AW24QNLtYL13 kNWswONfz4kgdRy1BzOy ROTsXEN0fXfjYRiey3Oq RWDkL76plHHns6A0 IGNvbGxhcHNlOyBlbXB0 tH3jYTzcznzhn1ivzgyz Kownt6rzac08aQ86V64t IHdpZHRoPSIzMCUi SGCdsYnimp1vmG4nHq5+ IXEzxEI0mBD5yM6bDaKy IpX5CJvxX608WnQprCBx Eylgh8wqu3zbbJg7 IjIwJSIgdmFsaWduPSJ0 k6WtNc40S35zVGvdHWOe PJPiMCOdXKUfkPkoxx2c uP0tOr0+ZY4wu5xz mp65kD64iWT+PHRkIHN0 mTrwTLguMWWuzL6pLPce GgE6NVXlQkNhmF58eOYj ZJuyIx0woVgarAml TP0pCWAcrnzqn650XiRb p1pjHFNkgRLsYWsnLXS1 P54wj3H2FLBnEVTnCNF6 hFU5jI2crHivbcyk bGVmdDsgdmVydGljYWwt QHzfI102XLHzkRvqSoMl nYGqA8mgejMOKD3bDyvl dGQ+ZNLpFKE2tDcv FXixJABchZ0vXQHeA7n1 XrWeFoG8NUfdS8JxgjK1 ISJabVRnSEYwhPTOjT5g tlohm6lvutcvXnHt MJPqCRh7USp1WSUdmVqw RbCpDJF4LzO3UVX1bHWb nC9rnOboopmawS9xQna+ RklOOjwvdGQ+PHRk BFD7aVnlKTxnYRFtlU9y HCXeY5y8EzDqVgL2LQnz Y5UatnD6RYPiaZEwUKTu xNNFkF5cfwyue0su kdchRbQkLOFtHIf0MOy3 NDKybDvnNhXqTKG7WyP2 WAY8tIDbbE5zmHkfxsnp tW5jRks+TVJOOjwv dGQ+KLMiXDY9gVloYPgv JTIveO2nOHPxA2i8XlJd DpP6UMgjJ6OonhH8YNHj aITrSWDbdEWPmQ3o tytck7sndjtfFqWqGKYz YOm3MUr0UECahEtdYtRp APW8VhM9LYG8uHTlrZ7w vUteskiwkA3iOll+ LWW5SEV5YQ80OY47V3Pr PjwvdGFibGU+PHRhYmxl IHdpZHRoPScxMDAlJyBz nYqqYS3cGh6bSPOw LWNvbGxh (more content not included)... Normal [facility] Consent for Treatmenton 08-17 Consent for Treatment [id number] #1.00CD:127 [facility] Discharge Instructionson Discharge Instructions [id number]# 1.00CD:127 [facility] ED Clinical Summaryon 2022 ED Clinical Summary [place] [id number] ED Clinical Summary Person Information Name: DENY DIXON Darshana/[facility] Age: 32 Years : 1990 Sex: Female Language: [place] Islander PCP: Alysia Guerrier NP Marital Status: Visit Id: Visit Reason: Paresthesia; Neck pain; LEFT SHOULDER PAIN, LEFT HAND NUMBNESS Speciality: Acuity: 4 Enc Type: Emergency Med Service: Emergency Arrival: 09/07/2022 11:14:24 Discharge: 09/07/2022 11:59:59 LOS: 000 00:45 Checkin: 09/07/2022 11:14:24 Checkout: 09/07/2022 11:59:59 Dispo Type: Home (Routine DC) EVENTS: Event Name Event Status Request Date/Time Start Date/Time Complete Date/Time Arrive Complete 09/07/2022 11:14:24 09/07/2022 11:14:24 09/07/2022 11:14:24 Document Home Meds Request 09/07/2022 11:14:24 Triage Complete 09/07/2022 11:14:24 09/07/2022 11:25:00 09/07/2022 11:25:00 Registration Complete 09/07/2022 11:17:10 09/07/2022 11:17:10 09/07/2022 11:17:10 Reg Complete Request 09/07/2022 11:17:10 Reg Bed Request Complete 09/07/2022 11:17:10 09/07/2022 11:17:10 09/07/2022 11:17:10 Bed Assign Complete 09/07/2022 11:17:41 09/07/2022 11:17:41 09/07/2022 11:17:41 Dr Exam Complete 09/07/2022 11:17:41 09/07/2022 11:19:21 09/07/2022 11:19:21 RN Exam Complete 09/07/2022 11:17:41 09/07/2022 11:27:30 09/07/2022 11:27:30 Registration Request 09/07/2022 11:19:21 Dr Exam Complete 09/07/2022 11:20:19 09/07/2022 11:20:19 09/07/2022 11:20:19 Meds Admin Complete 09/07/2022 11:46:09 09/07/2022 11:53:45 Patient Care Complete 09/07/2022 11:46:09 09/07/2022 11:58:00 Discharge Complete 09/07/2022 11:48:00 09/07/2022 12:00:05 09/07/2022 12:00:05 Transfer Complete 09/07/2022 12:00:05 09/07/2022 12:00:05 09/07/2022 12:00:05 ADDRESS: [address] [place] [phone] PHYS DOC NOTES: MEDICAL INFORMATION: Prescriptions Given: PATIENT EDUCATION INFORMATION: Instructions: Musculoskeletal Pain; Paresthesia Follow up: With: Address: When: [facility] Physical Therapy Department In 3 days 09/10/2022 With: Address: When: Alysia Biancas[address] [place] [address] [phone] Business (1) In 3 days 09/10/2022 Comments: Call the office of your primary care doctor to arrange for follow-up within the above-stated timeframe. Follow-up with your primary care doctor about this ED visit. You should review your labs, imaging, and diagnoses from this ED visit with your primary care physician. If you were prescribed medications you should discuss possible side-effects and drug interactions with your pharmacist. Call 911 or go to the nearest Emergency Department if you develop any new or worsening symptoms. DIAGNOSIS: Neck pain on left side; Paresthesia of left arm Normal [facility] ED Note-Physicianon 09-08-19 ED Note-Physician Basic Information Time Seen: Riceky Rawls PA-C 09/07/2022 11:19 Chief Complaint Patient presents with left sided neck/ shoulder pain for 1 month and and today felt her left hand tingly and numb that started at 1005 and worsenes with movement of arm History of Present Illness Patient is a 32-year-old female presents ED with complaint of pain of left-sided neck and shoulder as well as paresthesias of her left arm. 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 Patient reports her symptoms have been ongoing for the last month. Patient is complaining of pain which is primarily in the muscles of the left side of her neck and radiating to her left shoulder. Patient states she is also had frequent paresthesias rating down the left arm. Patient reports that she experienced some numbness of the first 2 fingers of her left hand on the dorsal surface today while working. Patient reports that the pain was severe enough she felt that she needed to leave work. Patient is presenting to the ED for evaluation, but also for a work note and referral. Patient denies any injury. Patient denies any paresthesias of any other part of her body or weakness of any other part of her body. Patient denies any headache or vision changes. Patient reports that she did take ibuprofen and Tylenol for symptoms with some relief. Patient also reports that she been icing with some relief. Patient reports she has not been evaluated yet for the symptoms. Review of Systems Full 10 system ROS performed. Pt denies symptoms except as noted above in the HPI. Physical Exam Vitals & Measurements T: 36.7 ?C(Oral) HR: 78(Peripheral) RR: 16 BP: 130/85 SpO2: 99% HT: 160.02 cm WT: 95.5 kg BMI: 37.3 VITALS: I have reviewed the triage vital signs. GENERAL: Well developed, well appearing adult in no acute distress. NEURO: Alert and oriented x4. Moves all extremities. Face is symmetric and expressive. Cranial nerves II through XII grossly intact as tested. Muscular strength and sensation grossly intact upper and lower extremities bilaterally. No dysarthria. No aphasia. No ataxia. Normal gait. NIHSS 0. EYES: PERRL. No scleral icterus or conjunctival injection. No discharge. HENT: Normocephalic, atraumatic. Hearing is grossly intact. Nares grossly patent and without discharge. Mucous membranes moist. NECK: No JVD. Patient moves neck without restriction. Patient does have pain and swelling in the area of her left trapezius. No midline bony tenderness. CARDIO: Rhythm regular. Normal rate. No murmur, rub, or gallop. Pulses equal bilaterally in the upper and lower extremity. No lower extremity edema. PULM: Lungs clear to auscultation in all graham. No wheezes, rales, or rhonchi. No conversational dyspnea. No splinting, stridor, or accessory muscle use. GI/: Abdomen is soft and non-tender. Normoactive bowel sounds. EXTREMITIES: Symmetric muscle bulk. No joint swelling. No clubbing, cyanosis, or deformity. SKIN: Warm and dry. Normal turgor. No rash or lesions appreciated. PSYCH: Mood, affect, and interaction is appropriate to the setting. Medical Decision Making Number and Complexity of Problems Differential Diagnosis: [] [facility] Data External documents reviewed: Not applicable My EKG interpretation: Not applicable My CT interpretation: Not applicable My X-ray interpretation: Not applicable My Ultrasound interpretation: Not applicable Decision rules/scores evaluated: Not applicable Discussed with: Not applicable Treatment and Disposition ED Course: Patient presents ED for evaluation of left-sided neck pain as well as paresthesias of her left arm. Patient without any strength or neurologic deficits of her left arm on examination in the ED. Patient does have tenderness of her left trapezius as well as swelling. I do believe the patient symptoms are primarily musculoskeletal and secondary to repeated use due to patient line of work. Patient given a dose of Toradol in the ED as well as a sling for her left arm and instructions on its use. Patient structured on RICE therapy and take it easy for several days. Patient structured to follow-up with PCP for ongoing pain. Patient also given follow-up with [facility] physical therapy. Return precautions were discussed with patient. Patient questions answered. Patient discharged home. Shared decision making: As above Code status: Not addressed during this visit Assessment/Plan Neck pain on left side (M54.2: Cervicalgia) Paresthesia of left arm (R20.2: Paresthesia of skin) Orders: ketorolac, 60 mg = 2 mL, Injection, IntraMuscular, Once, Stop date 09/07/22 11:43:00 EDT, STAT, Start date 09/07/22 11:43:00 EDT, 09/07/22 11:43:00 EDT Sling Apply Medications Administered Given ketorolac 60 mg/2 mL Injection, 60 mg, IntraMuscular Disposition Plan Patient Discharge Condition Stable Discharge Disposition To home Discharge Prescription List Prescriptions No active pr (more content not included)... Normal [facility] Comment on above: Result Comment: Elec tronically Signed By: Rickey Rawls PA-C\.br\Date and Time Signed: 09/07/22 12:25 EDT\.br\Electronically Co-Signed By: Anupam Montgomery M.D.\.br\Date and Time Co-Signed: 09/07/22 18:19 EDT ED Patient Education Noteon 09-07-2022 ED Patient Education Note Neurology Paresthesia Paresthesia is an abnormal burning or prickling sensation. It is usually felt in the hands, arms, legs, or feet. However, it may occur in any part of the body. Usually, paresthesia is not painful. It may feel like: ? Tingling or numbness. ? Buzzing. ? Itching. Paresthesia may occur without any clear cause, or it may be caused by: ? Breathing too quickly (hyperventilation). ? Pressure on a nerve. ? An underlying medical condition. ? Side effects of a medicine. ? Nutritional deficiencies. ? Exposure to toxic chemicals. Most people experience temporary (transient) paresthesia at some time in their lives. For some people, it may be long-lasting (chronic) because of an underlying medical condition. If you have paresthesia that lasts a long time, you need to be evaluated by your health care provider. Follow these instructions at home: Nutrition Eat a healthy diet. This includes: ? Eating foods that are high in fiber, such as beans, whole grains, and fresh fruits and vegetables. ? Limiting foods that are high in fat and processed sugars, such as fried or sweet foods. Alcohol use ? Avoid or limit alcohol. Too much alcohol can cause a vitamin B deficiency, and vitamin B is needed for healthy nerves. ? Do not drink alcohol if: ? Your health care provider tells you not to drink. ? You are , may be , or are planning to become . ? If you drink alcohol: ? Limit how much you have to: ? 0?1 drink a day for women. ? 0?2 drinks a day for men. ? Know how much alcohol is in your drink. In the [place] one drink equals one 12 oz bottle of beer (355 mL), one 5 oz glass of wine (148 mL), or one 1? oz glass of hard liquor (44 mL). General instructions ? Take jbxy-mzi-supsisx and prescription medicines only as told by your health care provider. ? Do not use any products that contain nicotine or tobacco. These products include cigarettes, chewing tobacco, and vaping devices, such as e-cigarettes. If you need help quitting, ask your health care provider. ? If you have diabetes, work closely with your health care provider to keep your blood sugar under control. ? If you have numbness in your feet: ? Check every day for signs of injury or infection. Watch for redness, warmth, and swelling. ? Wear padded socks and comfortable shoes. These help protect your feet. ? Keep all follow-up visits. This is important. Contact a health care provider if you: ? Have paresthesia that gets worse or does not go away. ? Have numbness after an injury. ? Have a burning or prickling feeling that gets worse when you walk. ? Have pain, cramps, or dizziness, or you faint. ? Develop a rash. Get help right away if you: ? Feel muscle weakness. ? Develop new weakness in an arm or leg. ? Have trouble walking or moving. ? Have problems with speech, understanding, or vision. ? Feel confused. ? Cannot control your bladder or bowel movements. These symptoms may be an emergency. Get help right away. Call 911. ? Do not wait to see if the symptoms will go away. ? Do not drive yourself to the hospital. Summary ? Paresthesia is an abnormal burning or prickling sensation that is usually felt in the hands, arms, legs, or feet. It may also occur in other parts of the body. ? Paresthesia may occur without any clear cause, or it may be caused by breathing too quickly (hyperventilation), pressure on a nerve, an underlying medical condition, side effects of a medicine, nutritional deficiencies, or exposure to toxic chemicals. ? If you have paresthesia that lasts a long time, you need to be evaluated by your health care provider. This information is not intended to replace advice given to you by your health care provider. Make sure you discuss any questions you have with your health care provider. Document Revised: 01/13/2022 Document Reviewed: 01/13/2022 [employer] Patient Education ? 2022 [employer] Orthopedics Musculoskeletal Pain Musculoskeletal pain refers to aches and pains in your bones, joints, muscles, and the tissues that surround them. This pain can occur in any part of the body. It can last for a short time (acute) or a long time (chronic). A physical exam, lab tests, and imaging studies may be done to find the cause of your musculoskeletal pain. Follow these instructions at home: Lifestyle ? Try to control or lower your stress levels. Stress increases muscle tension and can worsen musculoskeletal pain. It is important to recognize when you are anxious or stressed and learn ways to manage it. This may include: ? Meditation or yoga. ? Cognitive or behavioral therapy. ? Acupuncture or massage therapy. ? You may continue all activities unless the activities cause more pain. When the pain gets better, slowly resume your normal activities. Gradually increase the intensity and duration of your activities or exercise. M (more content not included)... Normal [facility] ED Patient Summaryon 023 ED Patient Summary [place] [id number] Patient Discharge Instructions Person Information Name: DENY DIXON Age: 32 Years Arrival Date: 09/07/2022 11:14:24 Discharge Diagnosis: Neck pain on left side; Paresthesia of left arm Primary Care Physician: Alysia Guerrier NP Provider Information Primary Provider: Anupam Montgomery M.D. Advanced Physiological Chemist:Rickey Rawls PA-C The exam and treatment you received in the Emergency Department were for an urgent problem and are not intended as complete care. It is important that you follow up with a doctor, nurse practitioner, or physician?s video production assistant for ongoing care. If your symptoms become worse or you do not improve as expected and you are unable to reach your usual health care provider, you should return to the Emergency Department. We are available 24 hours a day. DENY DIXON has been given the following list of patient education materials, prescriptions and follow-up instructions: Follow-up Instructions: With: Address: When: [facility] Physical Therapy Department In 3 days 09/10/2022 With: Address: When: Alysia Guerrier [address] [facility] [address] [place] [address] [phone] Business (1) In 3 days 09/10/2022 Comments: Call the office of your primary care doctor to arrange for follow-up within the above-stated timeframe. Follow-up with your primary care doctor about this ED visit. You should review your labs, imaging, and diagnoses from this ED visit with your primary care physician. If you were prescribed medications you should discuss possible side-effects and drug interactions with your pharmacist. Call 911 or go to the nearest Emergency Department if you develop any new or worsening symptoms. In the event that this physician does not participate in your insurance network, please consult with your insurance company to find a nearby participating provider. Patient Education Materials: Musculoskeletal Pain; Paresthesia A MESSAGE TO ALL PATIENTS REGARDING OPIOIDS PRESCRIPTION OPIOIDS: WHAT YOU NEED TO KNOW Prescription opioids can be used to help relieve tqgbudmu-nn-lnsfka pain and are often prescribed following a surgery or injury, or for certain health conditions. These medications can be an important part of the treatment but also come with serious risks. It is important to work with your healthcare provider to make sure you are getting the safest, most effective care. WHAT ARE THE RISKS AND SIDE EFFECTS OF OPIOID USE? Prescription opioids carry serious risks of addiction and overdose, especially with prolonged use. An opioid overdose, often marked by slowed breathing, can cause sudden . The use of prescription opioids can have a number of side effects as well, even when taken as directed: ? Tolerance?meaning you might need to take more of the medication for the same pain relief ? Physical dependence?meaning you have symptoms of withdrawal when a medication is stopped ? Increased sensitivity to pain ? Constipation ? Nausea, vomiting, and dry mouth ? Sleepiness and dizziness ? Confusion ? Depression ? Low levels of testosterone that can result in lower sex drive, energy, and strength ? Itching and sweating RISKS ARE GREATER WITH: ? History of drug misuse, substance use disorder, or overdose ? Mental health conditions (such as depression or anxiety) ? Sleep apnea ? Older age (65 years and older) ? Avoid alcohol while taking prescription opioids. Also, unless specifically advised by your health care provider, medications to avoid include: ? Benzodiazepines (such as Xanax or Valium) ? Muscle relaxants (such as Soma or Flexeril) ? Hypnotics (such as Ambien or Lunesta) ? Other prescription opioids KNOW YOUR OPTIONS Talk to your health care provider about ways to manage your pain that don?t involve prescription opioids. Some of these options may actually work better and have fewer risks and side effects. Options may include: ? Pain relievers such as acetaminophen, ibuprofen, and naproxen ? Some medication that are also used for depression or seizures ? Physical therapy and exercise ? Cognitive behavioral therapy, a psychological, goal-directed approach, in which patients learn how to modify physical, behavioral, and emotional triggers of pain and stress. IF YOU ARE PRESCRIBED OPIOIDS FOR PAIN: ? Never take opioids in greater amounts or more often than prescribed. ? Follow up with your primary health care provider. o Work together to create a plan on how to manage your pain. o Talk about ways to help manage your pain that don?t involve prescription opioids. o Talk about any and all concerns and side effects. ? Help prevent misuse and abuse o Never sell or share prescription opioids. o Never use another person?s prescription opioids. ? Store prescription opioid (more content not included)... Normal [facility] Prescriptions/Work Noteson 0 09-07-2022 Prescriptions/Work Notes [id number]# 1.00CD:127 Normal [facility] CBC AUTO DIFFon 09-17-2020 BASO # 0.1 103/ul Normal 0.0-0.1 [facility] Comment on above: Performed By: #### C BC #### [facility] [address] [place], [place] [id number] Anne Akiko Basophils/100 WBC (Bld) 1.0 % Normal 0.2-2.0 [facility] Comment on above: Performed By: #### C BC #### [facility] [address] [place], [place] [id number] Anne Akiko EO # 0.5 103/ul Normal 0.0-0.7 [facility] Comment on above: Performed By: #### C BC #### [facility] [address] [place], [place] [id number] Anne Akiko Eosinophils/100 WBC (Bld) 5.6 % Normal 0.9-7.0 [facility] Comment on above: Performed By: #### C BC #### [facility] [address] [place], [place] [id number] Anne Leyvaen Erythrocyte distribution width (RBC) [Ratio] 14.5 % Normal 11.0-15.0 [facility] Comment on above: Performed By: #### C BC #### [facility] [address] [place] [address] Anne Wharton Hematocrit (Bld) [Volume fraction] 44.1 % Normal 36.0-48.0 [facility] Comment on above: Performed By: #### C BC #### [facility] [address] [place] [address] Anne Wharton Hemoglobin (Bld) [Mass/Vol] 14.3 g/dL Normal 12.0-16.0 [facility] Comment on above: Performed By: #### C BC #### [facility] [address] [place] [address] Anne Wharton IG # 0.03 10e3/ul Normal 0.00-0.03 [facility] Comment on above: Performed By: #### C BC #### [facility] [address] [place] [address] Anne Wharton IG % 0.4 % Normal 0.0-0.5 [facility] Comment on above: Performed By: #### C BC #### [facility] [address] [place] [address] Anne Wharton LYMPH # 2.5 103/ul Normal 1.2-3.8 [facility] Comment on above: Performed By: #### C BC #### [facility] [address] [place] [address] Anne Wharton Lymphocytes/100 WBC (Bld) 29.6 % Normal 20.5-60.0 [facility] Comment on above: Performed By: #### C BC #### [facility] [address] [place], [place] [id number] Anne Wharton MANUAL DIFF REQ NO Normal [facility] [place] [facility] Comment on above: Performed By: #### C BC #### [facility] [address] [place] [address] Anne Wharton MCH (RBC) [Entitic mass] 28.5 pg Normal 26.7-34.0 [facility] Comment on above: Performed By: #### C BC #### [facility] [address] [place], [place] [address] Anne Wharton MCHC (RBC) [Mass/Vol] 32.4 g/dL Normal 29.9-35.2 [facility] Comment on above: Performed By: #### C BC #### [facility] [address] [place], [place] [address] Annenyla Wharton MCV (RBC) [Entitic vol] 88.0 fL Normal 81.0-99.0 [facility] Comment on above: Performed By: #### C BC #### [facility] [address] [place], [place] [address] Annenyla Wharton MONO # 0.7 103/ul Normal 0.3-0.8 [facility] Comment on above: Performed By: #### C BC #### [facility] [address] [place] [id number] Anne Wharton Monocytes/100 WBC (Bld) 8.0 % Normal 1.7-12.0 [facility] Comment on above: Performed By: #### C BC #### [facility] [address] [place], [place] [address] Annenyla Leyvaen NEUT # 4.6 103/ul Normal 1.4-6.5 [facility] Comment on above: Performed By: #### C BC #### [facility] [address] [place] [id number] Anne Wharton Neutrophils/100 WBC (Bld) 55.4 % Normal 43.0-75.0 [facility] Comment on above: Performed By: #### C BC #### [facility] [address] [place], [place] [address] Annenyla Wharton Platelet mean volume (Bld) [Entitic vol] 11.9 fL Normal 9.5-13.5 [facility] Comment on above: Performed By: #### C BC #### [facility] [address] [place], [place] [address] Anne Akiko PLT 261 103/ul Normal 150-450 [facility] Comment on above: Performed By: #### C BC #### [facility] [address] [place] [address] Anne Akiko RBC 5.01 106/ul Normal 4.20-5.40 [facility] Comment on above: Performed By: #### C BC #### [facility] [address] [place], [place] [id number] Anne Akiko WBC 8.3 103/ul Normal 4.0-11.0 [facility] Comment on above: Performed By: #### C BC #### [facility] [address] [place] [id number] Anne Akiko LACTATE/LACTIC ACIDon 2020 Lactate [Moles/Vol] 1.4 mmol/L Normal 0.7-2.0 [facility] Comment on above: Performed By: #### L ACT #### [facility] [address] [place], [place] [phone] Anne Akiko PROF 14(COMP METB)on 021 Albumin [Mass/Vol] 3.7 g/dL Normal 3.5-5.0 [facility] Comment on above: Performed By: #### C MP #### [facility] [address] [place] [address] Anne Akiko Albumin/Globulin [Mass ratio] 0.9 {ratio} Normal [facility] Comment on above: Performed By: #### C MP #### [facility] [address] [place] [address] Anne Akiko ALP [Catalytic activity/Vol] 57 U/L Normal 38-126 [facility] Comment on above: Performed By: #### C MP #### [facility] [address] [place] [address] Anne Akiko ALT [Catalytic activity/Vol] 13 U/L Normal 9-52 [facility] Comment on above: Performed By: #### C MP #### [facility] [address] [place], [place] [phone] Anne Akiko Anion gap [Moles/Vol] 13.6 mmol/L Normal [facility] Comment on above: Performed By: #### C MP #### [facility] [address] [place] [id number] Anne Akiko AST [Catalytic activity/Vol] 18 U/L Normal 14-36 [facility] Comment on above: Performed By: #### C MP #### [facility] [address] [place] [id number] Anne Akiko Bilirubin [Mass/Vol] 0.4 mg/dL Normal 0.2-1.3 [facility] Comment on above: Performed By: #### C MP #### [facility] [address] [place] [address] Anne Akiko Calcium [Mass/Vol] 9.1 mg/dL Normal 8.4-10.2 [facility] Comment on above: Performed By: #### C MP #### [facility] [address] [place] [address] Anne Akiko Chloride [Moles/Vol] 106 mmol/L Normal 98-107 [facility] Comment on above: Performed By: #### C MP #### [facility] [address] [place] [address] Anne Akiko CO2 [Moles/Vol] 25.9 mmol/L Normal 22.0-30.0 [facility] Comment on above: Performed By: #### C MP #### [facility] [address] [place] [address] Anne Akiko Creatinine [Mass/Vol] 0.77 mg/dL Normal 0.52-1.04 [facility] Comment on above: Performed By: #### C MP #### [facility] [address] [place] [address] Anne Akiko EGFR-AF SAUDI ARABIAN >60 Normal >=60 [facility] Comment on above: Performed By: #### C MP #### [facility] [address] [place], [place] [id number] Anne Akiko EGFR-NON AF SAUDI ARABIAN >60 Normal >=60 [facility] Comment on above: Performed By: #### C MP #### [facility] [address] [place] [phone] Anne Akiko Globulin (S) [Mass/Vol] 4.1 g/dL Normal [facility] Comment on above: Performed By: #### C MP #### [facility] [address] [place], [place] [address] Anne Akiko Glucose [Mass/Vol] 107 mg/dL Critically high 74-106 [facility] Comment on above: Performed By: #### C MP #### [facility] [address] [place], [place] [address] Anne Akiko Potassium [Moles/Vol] 4.5 mmol/L Normal 3.4-5.0 [facility] Comment on above: Performed By: #### C MP #### [facility] [address] [place], [place] [address] Anne Akiko Protein [Mass/Vol] 7.8 g/dL Normal 6.1-8.2 [facility] Comment on above: Performed By: #### C MP #### [facility] [address] [place] [phone] Anne Akiko Sodium [Moles/Vol] 141 mmol/L Normal 137-145 [facility] Comment on above: Performed By: #### C MP #### [facility] [address] [place], [place] [address] Anne Akiko Urea nitrogen [Mass/Vol] 10.0 mg/dL Normal 7.0-17.0 [facility] Comment on above: Performed By: #### C MP #### [facility] [address] [place], [place] [address] Anne Akiko Urea nitrogen/Creatinine [Mass ratio] 13.0 mg/mg Normal [facility] Comment on above: Performed By: #### C MP #### [facility] [address] [place], [place] [address] Anne Akiko XR CHEST 1 Von 09-17-2020 XR CHEST 1 V EXAMINATION: XR CHEST 1 V HISTORY: Asthenia ; weakness, shortness of breath, syncopal episode COMPARISON: No relevant comparison available. FINDINGS: LUNGS: No significant pulmonary parenchymal abnormalities. VASCULATURE: No increased pulmonary vasculature. PLEURA: No pneumothorax, effusion, or pleural thickening. CARDIAC: No cardiomegaly or cardiac silhouette abnormality. MEDIASTINUM: No visible mass or adenopathy. BONES: No fracture or visible bone lesion. OTHER: Negative. IMPRESSION: 1. No acute cardiopulmonary process. Electronically authenticated by: SIOBHAN ALONZO Date: 2020-09-17 12:10 Normal [facility] Vital Signs Date Time Vital Sign Value Performing Clinician Darlin go 07-21-2023 12:47-0500 Body temperature 98.06 [degF] Bert Davis [facility] 07-21-2023 12:47-0500 Diastolic blood pressure 86 mm[Hg] Bert Davis [facility] 07-21-2023 12:47-0500 Heart rate 105 /min Bert Davis [facility] 07-21-2023 12:47-0500 Respiratory rate 18 /min Bert Davis [facility] 07-21-2023 12:47-0500 SaO2% (BldA) [Mass fraction] 96 % Bert Davis [facility] 07-21-2023 12:47-0500 Systolic blood pressure 151 mm[Hg] Bert Davis [facility] 11-10-2022 21:00-0400 Body temperature 97.88 [degF] Xavier Dokatlynen [facility] 11-10-2022 21:00-0400 Diastolic blood pressure 83 mm[Hg] Veneciaylinn Dokken [facility] 11-10-2022 21:00-0400 Mean blood pressure 94 mm[Hg] Veneciaylinn Dokken [facility] 11-10-2022 21:00-0400 Respiratory rate 15 /min XochiltZwittlen Dokken [facility] 11-10-2022 21:00-0400 SaO2% (BldA) [Mass fraction] 96 % Kaylinn Dokken [facility] 11-10-2022 21:00-0400 Systolic blood pressure 116 mm[Hg] Kaylinn Dokken [facility] 11-10-2022 20:00-0400 Diastolic blood pressure 77 mm[Hg] Kaylinn Dokken [facility] 11-10-2022 20:00-0400 Heart rate 93 /min Kaylinn Dokken [facility] 11-10-2022 20:00-0400 Mean blood pressure 87 mm[Hg] Kaylinn Dokken [facility] 11-10-2022 20:00-0400 Systolic blood pressure 106 mm[Hg] Kaylinn Dokken [facility] 11-10-2022 19:15-0400 gluc 100 mg/dL Kaylinn Dokken [facility] 11-10-2022 19:15-0400 gluc Kaylinn Dokken [facility] 11-10-2022 19:00-0400 Diastolic blood pressure 74 mm[Hg] Kaylinn Dokken [facility] 11-10-2022 19:00-0400 Heart rate 98 /min Kaylinn Dokken [facility] 11-10-2022 19:00-0400 Mean blood pressure 86 mm[Hg] Kaylinn Dokken [facility] 11-10-2022 19:00-0400 Respiratory rate 17 /min Kaylinn Dokken [facility] 11-10-2022 19:00-0400 Systolic blood pressure 111 mm[Hg] [facility] 11-10-2022 18:36-0400 Heart rate 97 /min [facility] 11-10-2022 18:36-0400 Respiratory rate 18 /min [facility] 09-07-2022 11:19-0400 Body temperature 98.06 [degF] [facility] [facility] 09-07-2022 11:19-0400 Diastolic blood pressure 85 mm[Hg] [facility] 09-07-2022 11:19-0400 Heart rate 78 /min [facility] 09-07-2022 11:19-0400 Respiratory rate 16 /min [facility] 09-07-2022 11:19-0400 SaO2% (BldA) [Mass fraction] 99 % [facility] 09-07-2022 11:19-0400 Systolic blood pressure 130 mm[Hg] [facility] Encounters Encounter Date Encounter Type Care Provider Facility Start: 08-28-2023 End: 08-29-2023 ambulatory Margarita L Ameya [facility] Start: 08-24-2023 End: 08-25-2023 ambulatory Margarita L Ameya Facility:[facility] Start: 08-05-2023 End: 08-06-2023 ambulatory Margarita L Ameya Facility:[facility] Start: 07-21-2023 End: 07-21-2023 Emergency department patient visit Bert Davis Facility:[facility] Start: 07-21-2023 End: 07-21-2023 Emergency department patient visit Bert Davis [facility] Start: 07-13-2023 End: 07-14-2023 ambulatory Margarita L Ameya Facility:[facility] Start: 05-01-2023 End: 05-02-2023 ambulatory Margarita L Ameya Facility:[facility] Start: 05-01-2023 End: 05-02-2023 ambulatory Margarita L Ameya Facility[facility] Start: 04-29-2023 ambulatory Margarita L Ameya Facility: [facility] Start: 04-27-2023 End: 04-28-2023 ambulatory Margarita L Ameya Facility:[facility] Start: 04-27-2023 End: 04-27-2023 Patient encounter procedure Margarita L Ameya [facility] Start: 04-08-2023 End: 04-09-2023 ambulatory Margarita L Ameya Facility:[facility] Start: 04-06-2023 ambulatory Margarita Ameya Facility:[facility] Start: 11-10-2022 End: 11-10-2022 Emergency department patient visit DO Xavier Wade Facility:[facility] Start: 11-10-2022 End: 11-10-2022 Emergency department patient visit Xavier Wade [facility] Start: 09-07-2022 End: 09-07-2022 Emergency department patient visit Anupam Montgomery Facility:[facility] Start: 09-07-2022 End: 09-07-2022 Emergency department patient visit Anupam Montgomery [facility] Start: 09-17-2020 End: 09-17-[address] DOCTOR FINNEY Facility: Procedures Date Procedure Procedure Detail Performing Clinician Start: 08-08-2015 Ligation of fallopia n tube Anupam Montgomery Comment on above: post Dilation and curettage Dilation and curet tage Anupam Montgomery none Anupam Montgomery Immunizations Immunization Date Immunization Notes Care Provider Willy palm 08-08-2015 [facility], [facility] Comment on above: Early/Late Reason: N ursing Judgment 02-27-2014 tetanus toxoid, reduced diphtheria toxoid, and acellular pertussis vaccine, adsorbed [facility] Comment on above: Reason for Medicatio n: Other (see comment) 02-27-2014 influenza, seasonal, injectable [facility] Comment on above: Early/Late Reason: N ursing Judgment NEGATED: Highlighted row has not occurred!11-02-2019 influenza virus vaccine, unspecified formulation [facility] Payers Date Payer Category Payer Unknown [id number] 2022 Self-pay 1991 Unknown [id number] 2.16.84 [id number] 1991 Unknown [id number] 2.16.8 [id number] 1991 Unknown [id number] 2.16.8 [id number] 1991 Unknown [id number] 2.16.8 [id number] 1991 Unknown [id number] 2.16.8 [id number] 1991 Unknown [id number] 2.16.8 [id number] 1991 Unknown [id number] 2.16.8 [id number] 1991 Unknown [id number] 2.16.8 [id number] 1991 Unknown [id number] 2.16.8 [id number] 1991 Unknown [id number] 2.16.8 [id number] 1991 Unknown [id number] 2.16.8 [id number] 1991 Unknown [id number] 2.16.8 [id number] 1991 Unknown [id number] 2.16.8 [id number] 1959 Unknown [id number] Social History Date Type Detail Facility Tobacco [facility] Comment on above: Denies. Tobacco smoking status No Smokin g Status Entered [facility] Sex Assigned At Female [facility] Start: 04-08-2023 End: 05-01-2023 Tobacco smoking status Never smoked tobacco (finding) [facility] Tobacco smoking status Never [facility] Functional Status Date Assessment Result Facility 07-21-2023 Functional Status N/A [facility] 11-10-2022 Functional Status N/A [facility] 09-07-2022 Functional Status N/A [facility] Hospital Discharge instructions 07-21-2023 Note Date & Type Note Facility 07-21-2023 Hospital Discharg e instructions Patient Education 07/21/2023 14:24:10 Cervical Radiculopathy Cervical Radiculopathy Cervical radiculopathy happens when a nerve in the neck (a cervical nerve) is pinched or bruised. This condition can happen because of an injury to the cervical spine (vertebrae) in the neck, or as part of the normal aging process. Pressure on the cervical nerves can cause pain or numbness that travels from the neck all the way down to the arm and fingers. This condition usually gets better with rest. Treatment may be needed if the condition does not improve. What are the causes? This condition may be caused by: A neck injury. A bulging (herniated) disk. Muscle spasms. Muscle tightness in the neck due to overuse. Arthritis. Breakdown or degeneration in the bones and joints of the spine (spondylosis) due to aging. Bone spurs that may develop near the cervical nerves. What are the signs or symptoms? Symptoms of this condition include: Pain. The pain may travel from the neck to the arm and hand. The pain can be severe or irritating. It may get worse when you move your neck. Numbness or tingling in your arm or hand. Weakness in the affected arm and hand, in severe cases. How is this diagnosed? This condition may be diagnosed based on your symptoms, your medical history, and a physical exam. You may also have tests, including: X-rays. CT scan. MRI. Electromyogram (EMG). Nerve conduction tests. How is this treated? In many cases, treatment is not needed for this condition. With rest, the condition usually gets better over time. If treatment is needed, options may include: Wearing a soft neck collar (cervical collar) for short periods of time. Doing physical therapy to strengthen your neck muscles. Taking medicines. These may include NSAIDs, such as ibuprofen, or oral corticosteroids. Having spinal injections, in severe cases. Having surgery. This may be needed if other treatments do not help. Different types of surgery may be done depending on the cause of this condition. Follow these instructions at home: If you have a cervical collar: Wear it as told by your health care provider. Remove it only as told by your health care provider. Ask your health care provider if you can remove the cervical collar for cleaning and bathing. If you are allowed to remove the collar for cleaning or bathing: ?Follow instructions from your health care provider about how to remove the collar safely. ?Clean the collar by wiping it with mild soap and water and drying it completely. ?Take out any removable pads in the collar every 1 2 days, and wash them by hand with soap and water. Let them air-dry completely before you put them back in the collar. ?Check your skin under the collar for irritation or sores. If you see any, tell your health care provider. Managing pain Take nbak-ufy-usyzoah and prescription medicines only as told by your health care provider. If directed, put ice on the affected area. To do this: ?If you have a soft neck collar, remove it as told by your health care provider. ?Put ice in a plastic bag. ?Place a towel between your skin and the bag. ?Leave the ice on for 20 minutes, 2 3 times a day. ?Remove the ice if your skin turns bright red. This is very important. If you cannot feel pain, heat, or cold, you have a greater risk of damage to the area. If applying ice does not help, you can try using heat. Use the heat source that your health care provider recommends, such as a moist heat pack or a heating pad. ?Place a towel between your skin and the heat source. ?Leave the heat on for 20 30 minutes. ?Remove the heat if your skin turns bright red. This is especially important if you are unable to feel pain, heat, or cold. You have a greater risk of getting burned. Try a gentle neck and shoulder massage to help relieve symptoms. Activity Rest as needed. Return to your normal activities as told by your health care provider. Ask your health care provider what activities are safe for you. Do stretching and strengthening exercises as told by your health care provider or your physical therapist. You may have to avoid lifting. Ask your health care provider how much you can safely lift. General instructions Use a flat pillow when you sleep. Do not drive while wearing a cervical collar. If you do not have a cervical collar, ask your health care provider if it is safe to drive while your neck heals. Ask your health care provider if the medicine prescribed to you requires you to avoid driving or using machinery. Do not use any products that contain nicotine or tobacco. These products include cigarettes, chewing tobacco, and vaping devices, such as e-cigarettes. If you need help quitting, ask your health care provider. Keep all follow-up visits. This is important. Contact a health care provider if: Your condition does not improve with treatment. Get help right away if: Your pain gets much worse and is not controlled with medicines. You have weakness or numbness in your hand, arm, face, or leg. You have a high fever. You have a stiff, rigid neck. You lose control of your bowels or your bladder (have incontinence). You have trouble with walking, balance, or speaking. Summary Cervical radiculopathy happens when a nerve in the neck is pinched or bruised. A nerve can get pinched from a bulging disk, arthritis, muscle spasms, or an injury to the neck. Symptoms include pain, tingling, or numbness radiating from the neck to the arm or hand. Weakness can also occur in severe cases. Treatment may include rest, wearing a cervical collar, and physical therapy. Medicines may be prescribed to help with pain. In severe cases, injections or surgery may be needed. This information is not intended to replace advice given to you by your health care provider. Make sure you discuss any questions you have with your health care provider. Document Revised: 11/07/2021 Document Reviewed: 11/07/2021 [employer] Patient Education [address] Follow Up Care 07/21/2023 12:41:08 With:Mario Mccauley Address: [address] [place] [address]- Business (1) When:07/24/2023 14:18:46 With:Margarita Hou Address:Unknown When:Within 3 Day(s) [facility] Evaluation + Plan note 07-21-2023 Note Date & Type Note Facility 07-21-2023 Evaluation + Plan note Extrac catalina from: Title:ED Note Author:Susan Bert Date:07/20 Hyperesthesia (R20.3: Hypere sthesia) Radiculopathy of cervical spine (M54.12: Radiculopathy, cervical region) Orders: predniSONE, 3, Oral, Daily, X 7 day(s), # 21 tab(s), Refills(s) 0, Pharmacy: [id number], 160, cm, 07/21/23 12:50:00 EST, Height/Length Dosing, 102, kg, 07/21/23 12:50:00 EST, Weight Dosing CT Spine Cervical w/o Contrast [facility] Hospital Discharge instructions 11-10-2022 Note Date & Type Note Facility 11-10-2022 Hospital Discharg e instructions Patient Education 11/10/2022 20:47:53 Vertigo Vertigo Vertigo is the feeling that you or your surroundings are moving when they are not. This feeling can come and go at any time. Vertigo often goes away on its own. Vertigo can be dangerous if it occurs while you are doing something that could endanger yourself or others, such as driving or operating machinery. Your health care provider will do tests to try to determine the cause of your vertigo. Tests will also help your health care provider decide how best to treat your condition. Follow these instructions at home: Eating and drinking Dehydration can make vertigo worse. Drink enough fluid to keep your urine pale yellow. Do not drink alcohol. Activity Return to your normal activities as told by your health care provider. Ask your health care provider what activities are safe for you. In the morning, first sit up on the side of the bed. When you feel okay, stand slowly while you hold onto something until you know that your balance is fine. Move slowly. Avoid sudden body or head movements or certain positions, as told by your health care provider. If you have trouble walking or keeping your balance, try using a cane for stability. If you feel dizzy or unstable, sit down right away. Avoid doing any tasks that would cause danger to you or others if vertigo occurs. Avoid bending down if you feel dizzy. Place items in your home so that they are easy for you to reach without bending or leaning over. Do not drive or use machinery if you feel dizzy. General instructions Take lhck-afy-enkwhwu and prescription medicines only as told by your health care provider. Keep all follow-up visits. This is important. Contact a health care provider if: Your medicines do not relieve your vertigo or they make it worse. Your condition gets worse or you develop new symptoms. You have a fever. You develop nausea or vomiting, or if nausea gets worse. Your family or friends notice any behavioral changes. You have numbness or a prickling and tingling sensation in part of your body. Get help right away if you: Are always dizzy or you faint. Develop severe headaches. Develop a stiff neck. Develop sensitivity to light. Have difficulty moving or speaking. Have weakness in your hands, arms, or legs. Have changes in your hearing or vision. These symptoms may represent a serious problem that is an emergency. Do not wait to see if the symptoms will go away. Get medical help right away. Call your local emergency services (911 in the [place] Do not drive yourself to the hospital. Summary Vertigo is the feeling that you or your surroundings are moving when they are not. Your health care provider will do tests to try to determine the cause of your vertigo. Follow instructions for home care. You may be told to avoid certain tasks, positions, or movements. Contact a health care provider if your medicines do not relieve your symptoms, or if you have a fever, nausea, vomiting, or changes in behavior. Get help right away if you have severe headaches or difficulty speaking, or you develop hearing or vision problems. This information is not intended to replace advice given to you by your health care provider. Make sure you discuss any questions you have with your health care provider. Document Revised: 04/03/2021 Document Reviewed: 04/03/2021 [employer] Patient Education [address] Follow Up Care 11/10/2022 18:30:48 With:Umair Ramírez Address: [address] [place] [address]- Business (2) When:11/13/2022 20:47:38 Comments:Call the office of your primary care doctor to arrange for follow-up within the above-stated timeframe. Follow-up with your primary care doctor about this ED visit. You should review your labs, imaging, and diagnoses from this ED visit with your primary care physician. If you were prescribed medications you should discuss possible side-effects and drug interactions with your pharmacist. Call 911 or go to the nearest Emergency Department if you develop any new or worsening symptoms. [facility] Evaluation + Plan note 11-10-2022 Note Date & Type Note Facility 11-10-2022 Evaluation + Plan note Extrac catalina from: Title:ED Note Author:Rickey Rawls PA-C Marcin e:11/10/22 Vertigo (R42: Dizziness and giddiness) Orders: meclizine, 12.5 mg = 1 tab(s), Oral, TID, PRN for nausea/vomiting, # 30 tab(s), Refills(s) 0, Pharmacy: [facility]/pharmacy #[id number], 160, cm, 11/10/22 18:39:00 EDT, Height/Length Dosing, 95.5, kg, 11/10/22 18:39:00 EDT, Weight Dosing meclizine, 12.5 mg = 1 tab(s), Tab, Oral, Once, Stop date 11/10/22 20:42:00 EDT, STAT, Start date 11/10/22 20:42:00 EDT, 11/10/22 20:42:00 EDT Automated Diff Basic Metabolic Panel CBC w/ Auto Diff eGFR Extra SST Tube [facility] Evaluation + Plan note 09-07-2022 Note Date & Type Note Facility 09-07-2022 Evaluation + Plan note Extrac catalina from: Title:ED Note Author:Rickey Rawls PA-C Marcin e:09/07/22 Neck pain on left side (M54. 2: Cervicalgia) Paresthesia of left arm (R20.2: Paresthesia of skin) Orders: ketorolac, 60 mg = 2 mL, Injection, IntraMuscular, Once, Stop date 09/07/22 11:43:00 EDT, STAT, Start date 09/07/22 11:43:00 EDT, 09/07/22 11:43:00 EDT Sling Apply [facility] Hospital Discharge instructions 09-07-2022 Note Date & Type Note Facility 09-07-2022 Hospital Discharg e instructions Patient Education 09/07/2022 11:48:05 Musculoskeletal Pain Musculoskeletal Pain Musculoskeletal pain refers to aches and pains in your bones, joints, muscles, and the tissues that surround them. This pain can occur in any part of the body. It can last for a short time (acute) or a long time (chronic). A physical exam, lab tests, and imaging studies may be done to find the cause of your musculoskeletal pain. Follow these instructions at home: Lifestyle Try to control or lower your stress levels. Stress increases muscle tension and can worsen musculoskeletal pain. It is important to recognize when you are anxious or stressed and learn ways to manage it. This may include: ?Meditation or yoga. ?Cognitive or behavioral therapy. ?Acupuncture or massage therapy. You may continue all activities unless the activities cause more pain. When the pain gets better, slowly resume your normal activities. Gradually increase the intensity and duration of your activities or exercise. Managing pain, stiffness, and swelling Treatment may include medicines for pain and inflammation that are taken by mouth or applied to the skin. Take auer-vrw-mrxxtky and prescription medicines only as told by your health care provider. When your pain is severe, bed rest may be helpful. Lie or sit in any position that is comfortable, but get out of bed and walk around at least every couple of hours. If directed, apply heat to the affected area as often as told by your health care provider. Use the heat source that your health care provider recommends, such as a moist heat pack or a heating pad. ?Place a towel between your skin and the heat source. ?Leave the heat on for 20 30 minutes. ?Remove the heat if your skin turns bright red. This is especially important if you are unable to feel pain, heat, or cold. You may have a greater risk of getting burned. If directed, put ice on the painful area. To do this: ?Put ice in a plastic bag. ?Place a towel between your skin and the bag. ?Leave the ice on for 20 minutes, 2 3 times a day. ?Remove the ice if your skin turns bright red. This is very important. If you cannot feel pain, heat, or cold, you have a greater risk of damage to the area. General instructions Your health care provider may recommend that you see a physical therapist. This person can help you come up with a safe exercise program. If told by your health care provider, do physical therapy exercises to improve movement and strength in the affected area. Keep all follow-up visits. This is important. This includes any physical therapy visits. Contact a health care provider if: Your pain gets worse. Medicines do not help ease your pain. You cannot use the part of your body that hurts, such as your arm, leg, or neck. You have trouble sleeping. You have trouble doing your normal activities. Get help right away if: You have a new injury and your pain is worse or different. You feel numb or you have tingling in the painful area. Summary Musculoskeletal pain refers to aches and pains in your bones, joints, muscles, and the tissues that surround them. This pain can occur in any part of the body. Your health care provider may recommend that you see a physical therapist. This person can help you come up with a safe exercise program. Do any exercises as told by your physical therapist. Lower your stress level. Stress can worsen musculoskeletal pain. Ways to lower stress may include meditation, yoga, cognitive or behavioral therapy, acupuncture, and massage therapy. This information is not intended to replace advice given to you by your health care provider. Make sure you discuss any questions you have with your health care provider. Document Revised: 09/06/2020 Document Reviewed: 08/15/2020 [employer] Patient Education [address] 09/07/2022 11:48:05 Paresthesia Paresthesia Paresthesia is an abnormal burning or prickling sensation. It is usually felt in the hands, arms, legs, or feet. However, it may occur in any part of the body. Usually, paresthesia is not painful. It may feel like: Tingling or numbness. Buzzing. Itching. Paresthesia may occur without any clear cause, or it may be caused by: Breathing too quickly (hyperventilation). Pressure on a nerve. An underlying medical condition. Side effects of a medicine. Nutritional deficiencies. Exposure to toxic chemicals. Most people experience temporary (transient) paresthesia at some time in their lives. For some people, it may be long-lasting (chronic) because of an underlying medical condition. If you have paresthesia that lasts a long time, you need to be evaluated by your health care provider. Follow these instructions at home: Nutrition Eat a healthy diet. This includes: Eating foods that are high in fiber, such as beans, whole grains, and fresh fruits and vegetables. Limiting foods that are high in fat and processed sugars, such as fried or sweet foods. Alcohol use Avoid or limit alcohol. Too much alcohol can cause a vitamin B deficiency, and vitamin B is needed for healthy nerves. Do not drink alcohol if: ?Your health care provider tells you not to drink. ?You are , may be , or are planning to become . If you drink alcohol: ?Limit how much you have to: ?0 1 drink a day for women. ?0 2 drinks a day for men. ?Know how much alcohol is in your drink. In the [place] one drink equals one 12 oz bottle of beer (355 mL), one 5 oz glass of wine (148 mL), or one 1 oz glass of hard liquor (44 mL). General instructions Take malv-wod-cphezwd and prescription medicines only as told by your health care provider. Do not use any products that contain nicotine or tobacco. These products include cigarettes, chewing tobacco, and vaping devices, such as e-cigarettes. If you need help quitting, ask your health care provider. If you have diabetes, work closely with your health care provider to keep your blood sugar under control. If you have numbness in your feet: ?Check every day for signs of injury or infection. Watch for redness, warmth, and swelling. ?Wear padded socks and comfortable shoes. These help protect your feet. Keep all follow-up visits. This is important. Contact a health care provider if you: Have paresthesia that gets worse or does not go away. Have numbness after an injury. Have a burning or prickling feeling that gets worse when you walk. Have pain, cramps, or dizziness, or you faint. Develop a rash. Get help right away if you: Feel muscle weakness. Develop new weakness in an arm or leg. Have trouble walking or moving. Have problems with speech, understanding, or vision. Feel confused. Cannot control your bladder or bowel movements. These symptoms may be an emergency. Get help right away. Call 911. Do not wait to see if the symptoms will go away. Do not drive yourself to the hospital. Summary Paresthesia is an abnormal burning or prickling sensation that is usually felt in the hands, arms, legs, or feet. It may also occur in other parts of the body. Paresthesia may occur without any clear cause, or it may be caused by breathing too quickly (hyperventilation), pressure on a nerve, an underlying medical condition, side effects of a medicine, nutritional deficiencies, or exposure to toxic chemicals. If you have paresthesia that lasts a long time, you need to be evaluated by your health care provider. This information is not intended to replace advice given to you by your health care provider. Make sure you discuss any questions you have with your health care provider. Document Revised: 01/13/2022 Document Reviewed: 01/13/2022 [employer] Patient Education [address] Follow Up Care 09/07/2022 11:15:34 With:[facility] Address:Unknown When:09/10/2022 11:47:51 With:Alysia Guerrier Address: [address] [facility] [address] [place] [phone] Business (1) When:09/10/2022 11:47:39 Comments:Call the office of your primary care doctor to arrange for follow-up within the above-stated timeframe. Follow-up with your primary care doctor about this ED visit. You should review your labs, imaging, and diagnoses from this ED visit with your primary care physician. If you were prescribed medications you should discuss possible side-effects and drug interactions with your pharmacist. Call 911 or go to the nearest Emergency Department if you develop any new or worsening symptoms. [facility] Evaluation + Plan note Note Date & Type Note Facility Evaluation + Plan note Future Appointments Appointment Date:04/29/2023 09:00:00 AM Scheduled Provider:Margarita Tuttle Location:[facility] Appointment Type: Open Appointment Date:04/29/2023 09:20:00 AM Scheduled Provider:Margarita Tuttle Location:[facility] [place] Appointment Type:FM Open Appointment Date:05/22/2023 10:30:00 AM Scheduled Provider: [facility] Type:EMG Bilateral Upper Extremity [facility] Hospital course Narrative Note Date & Type Note Facility Hospital course Narrative No data available for this section [facility] Hospital Discharge instructions Note Date & Type Note Facility Hospital Discharge instructions No data available for this section [facility] Progress note Note Date & Type Note Facility Progress note No data available for this section [facility] Summary Purpose Family History No Family History Records Found No data available for this section No data available for this section No Family History Records Found Advance Directives No Advanced Directives Records FoundNo Advanced Directives Records Found Additional Source Comments INFORMATION SOURCE (unrecogn ized section and content) DATE CREATED AUTHOR 09/20/2020 [facility] DATE CREATED AUTHOR AUTHOR'S ORGANIZ ATION 08/30/2023 [facility] Patient Care team informatio n (unrecognized section and content) Personnel Name: Alysia Guerrier NP Address: Address: [address] [place] [phone] Personnel Name: NONE, XXXX Address: Address: [facility] Personnel Name: Margarita Tuttle Address: Address: [address] [place] [address]- Personnel Name: Margarita Tuttle Address: Address: [address] [place] [address]- FOR RECORDS PERTAINING TO PATIENTS WHO ARE OR HAVE BEEN ENROLLED IN A CHEMICAL DEPENDENCY/SUBSTANCEABUSE PROGRAM, SOME INFORMATION MAY BE OMITTED. This clinical summary was aggregated from multiple sources. Caution should be exercised in using it in the provision of clinical care. This summary normalizes information from multiple sources, and as a consequence, information in this document may materially change the coding, format and clinical context of patient data. In addition, data may be omitted in some cases. CLINICAL DECISIONS SHOULD BE BASED ON THE PRIMARY CLINICAL RECORDS. [facility]. provides no warranty or guarantee of the accuracy or completeness of information in this document.
[2023-09-17 02:49] LABS: Basophils Absolute Auto 0.1 10^3/uL (0.0-0.1); Eosinophils Absolute Auto 0.3 10^3/uL (0.0-0.7); Eosinophils Percent Auto 3.8 % (0.9-7.0); Hematocrit 38.2 % (36.0-48.0); Hemoglobin 11.8 g/dL (12.0-16.0); Immature Granulocytes Abs Auto 0.03 10^3/uL (0.00-0.03); Immature Granulocytes Pct Auto 0.3 % (0.0-0.5); Lymphocytes Absolute Auto 2.7 10^3/uL (1.2-3.8); Mean Corpuscular HGB Conc 30.9 g/dL (29.9-35.2); Mean Corpuscular Hemoglobin 25.5 pg (26.7-34.0); Mean Corpuscular Volume 82.7 fL (81.0-99.0); Mean Platelet Volume 11.3 fL (9.5-13.5); Monocytes Absolute Auto 0.7 10^3/uL (0.3-0.8); Monocytes Percent Auto 8.1 % (1.7-12.0); Neutrophils Absolute Auto 4.8 10^3/uL (1.4-6.5); Neutrophils Percent Auto 55.8 % (43.0-75.0); Platelet Count 304 10^3/uL (150-450); Red Blood Count 4.62 10^6/uL (4.20-5.40); Red Cell Distribution Width 16.3 % (11.0-15.0); White Blood Count 8.6 10^3/uL (4.0-11.0)
[2023-09-17 03:04] VITALS: BP 132/87; PULSE 66; O2SAT 97
[2023-09-17 03:04] LABS: BUN Creatinine Ratio 15.5; Calcium 9.8 mg/dL (8.5-10.1); Carbon Dioxide 22.5 mmol/L (21.0-32.0); Chloride 106 mmol/L (98-107); Estimated GFR (African America >60 (>=60); Estimated GFR (Non-African Ame >60 (>=60); Glucose 97 mg/dL (74-106); Potassium 3.5 mmol/L (3.5-5.1); Sodium 140 mmol/L (136-145)
[2023-09-17 03:06] LABS: HCG Qualitative NEGATIVE (NEGATIVE)
== END 2023-09-17 03:26 | disposition home or self-care (01) ==
PROVIDERS: Emergency Provider Emergency Medicine
DX: R42 Dizziness and giddiness (principal); T45.0X5A Adverse effect of antiallergic and antiemetic drugs, initial encounter
CPT/HCPCS: 36415; 80048; 84703; 85025; 93005; 99284

== ENCOUNTER 2024-01-19 08:59 | Emergency (ER) | payer BC, SELFPAY ==
[2024-01-19 09:04] VITALS: BP 124/92; PULSE 96; TEMP 36.5; O2SAT 98; BMI 38.1
--- NOTE | 2024-01-19 09:22 | ED.ABDPAIN1 ---
HPI - Abdominal Pain General Chief Complaint: Abdominal Pain Stated Complaint: ABDOMINAL PAIN Time Seen by Provider: 01/19/24 09:09 Source: patient and family Mode of arrival: walk-in Limitations: no limitations History of Present Illness HPI narrative: The patient is coming to the ER with a right flank pain radiating to the right groin that started this morning, she mentioned that the pain associated with nausea and vomiting, she also mentioned that she was awake already when the pain started she denies any chest pain difficulty breathing Denies any diarrhea or constipation she mentioned that the pain mostly to the right upper quadrant as well, the patient denies any fever or chills or any history of kidney stones Related Data Home Medications ?Medication ?Instructions ?Recorded ?Confirmed meclizine 12.5 mg tablet mg 09/17/23 meloxicam 7.5 mg tablet mg 09/17/23 Previous Rx's ?Medication ?Instructions ?Recorded cephalexin 500 mg capsule 500 mg PO Q8H 7 days #21 caps 01/19/24 naproxen 250 mg tablet 250 mg PO BID PRN pain #14 tabs 01/19/24 ondansetron 4 mg disintegrating 4 mg PO Q8H PRN nausea and 01/19/24 tablet vomiting 48 hours #6 tabs oxycodone-acetaminophen 5 mg-325 1 tab PO Q8H PRN pain 3 days #9 01/19/24 mg tablet (Percocet) tabs tamsulosin 0.4 mg capsule (Flomax) 0.4 mg PO DAILY #10 caps 01/19/24 Allergies Allergy/AdvReac Type Severity Reaction Status Date / Time No Known Drug Allergies Allergy Verified 01/19/24 09:04 Review of Systems ROS Status of ROS 10 or more systems reviewed and unremarkable except as noted in history and below Exam Narrative Exam Narrative: Nurses notes and vital signs reviewed and patient is not hypoxic. General: Well-appearing and in no apparent distress. Skin: Warm, dry, no pallor noted. No rash. Head: Normocephalic, atraumatic. Neck: Supple, non-tender. Eye: Pupils are equal, round and EOMI. No scleral icterus. Ears, Nose, Mouth, and Throat: TM are clear, no nasal mucosal hypertrophy. Oral mucosa is moist, no posterior oropharynx erythema, uvula is mid-line Cardiovascular: Regular Rate and Rhythm without murmur, gallop or rub. Respiratory: No accessory muscle use or respiratory distress. Lungs are clear to auscultation, no wheezing, rales or rhonchi Chest Wall: no tenderness Back: No midline thoracic or lumbar vertebral tenderness. No CVA tenderness Musculoskeletal: normal ROM, no calf or popliteal tenderness, no lower extremity edema/swelling GI: Abdomen is soft, non-distended. Normal bowel sounds. The patient have mostly pain in the right lower quadrant as well as the right mid abdomen there was no right costophrenic angle tenderness Neurological: A&O x4. No cranial nerve dysfunction observed. No truncal ataxia. Moves all extremities. Sensation intact. Psychiatric: Cooperative and interactive. Normal mood and affect. Constitutional Vital Signs, click to edit/add: Last Vital Signs Temp 97.7 F 01/19/24 09:04 Pulse 96 H 01/19/24 09:04 Resp 18 01/19/24 09:04 BP 124/92 H 01/19/24 09:04 Pulse Ox 98 01/19/24 09:04 O2 Del Method Room Air 01/19/24 09:04 Course Vital Signs Vital signs: Vital Signs Temperature 97.7 F 01/19/24 09:04 Pulse Rate 96 H 01/19/24 09:04 Respiratory Rate 18 01/19/24 09:04 Blood Pressure 124/92 H 01/19/24 09:04 Pulse Oximetry 98 01/19/24 09:04 Oxygen Delivery Method Room Air 01/19/24 09:04 Temperature 97.7 F 01/19/24 09:04 Pulse Rate 96 H 01/19/24 09:04 Respiratory Rate 18 01/19/24 09:04 Blood Pressure 124/92 H 01/19/24 09:04 Pulse Oximetry 98 01/19/24 09:04 Oxygen Delivery Method Room Air 01/19/24 09:04 MDM - Abdominal Pain MDM Narrative Medical decision making narrative: The patient CBC and chemistry showed no acute process Urinalysis shows no UTI signs The patient presented with a right-sided flank pain and her CAT scan shows a 7 mm right-sided kidney stone The patient was treated in the ER in the ER initially with Toradol after which she was treated with morphine 2 for pain The patient was feeling better after pain medication she was discharged home with Keflex as a prophylaxis for urine infection. She also was treated with the 2 pain medication Percocet and naproxen with stopping her Mobic at this time Zofran for supportive care and Flomax to help her pass the stone Patient was referred to the urologist Dr. Baker She also was instructed about the importance of coming back in case of fever or increasing pain The patient is to follow up with primary care physician in next 2-3 days or to return to the emergency department should any of the signs or symptoms worsen or new symptoms develop. The patient agrees with the following Diagnosis and Treatment plan and the patient will be discharged home. Lab Data Labs: Lab Results 01/19/24 01/19/24 Range/Units 09:19 09:35 WBC 7.0 (4.0-11.0) 10^3/uL RBC 4.91 (4.20-5.40) 10^6/uL Hgb 12.8 (12.0-16.0) g/dL Hct 40.6 (36.0-48.0) % MCV 82.7 (81.0-99.0) fL MCH 26.1 L (26.7-34.0) pg MCHC 31.5 (29.9-35.2) g/dL RDW 15.7 H (11.0-15.0) % Plt Count 267 (150-450) 10^3/uL MPV 11.8 (9.5-13.5) fL Neut % (Auto) 47.7 (43.0-75.0) % Lymph % (Auto) 36.4 (20.5-60.0) % [place] % (Auto) 9.2 (1.7-12.0) % Eos % (Auto) 4.9 (0.9-7.0) % Baso % (Auto) 1.7 (0.2-2.0) % Neut # (Auto) 3.3 (1.4-6.5) 10^3/uL Lymph # (Auto) 2.5 (1.2-3.8) 10^3/uL [place] # (Auto) 0.6 (0.3-0.8) 10^3/uL Eos # (Auto) 0.3 (0.0-0.7) 10^3/uL Baso # (Auto) 0.1 (0.0-0.1) 10^3/uL Abs Immat Gran (auto) 0.01 (0.00-0.03) 10^3/uL Imm/Tot Granulo (auto) 0.1 (0.0-0.5) % Sodium 139 (136-145) mmol/L Potassium 4.0 (3.5-5.1) mmol/L Chloride 104 (98-107) mmol/L Carbon Dioxide 24.4 (21.0-32.0) mmol/L Anion Gap 14.6 BUN 11.0 (7.0-18.0) mg/dL Creatinine 0.69 (0.55-1.02) mg/dL Est GFR ( Amer) >60 (>=60) Est GFR (Non-Af Amer) >60 (>=60) BUN/Creatinine Ratio 15.9 Glucose 107 H (74-106) mg/dL Calcium 9.1 (8.5-10.1) mg/dL Total Bilirubin 0.3 (0.2-1.0) mg/dL AST 26 (15-37) U/L ALT 46 (14-59) U/L Alkaline Phosphatase 94 (46-116) U/L Total Protein 7.2 (6.4-8.2) g/dL Albumin 3.7 (3.4-5.0) g/dL Globulin 3.5 g/dL Albumin/Globulin Ratio 1.1 Serum HCG, Qual Negative (NEGATIVE) Urine Color Yellow (YELLOW) Urine Clarity Clear (CLEAR) Urine pH 6.0 (5.0-9.0) Ur Specific [place] >=1.030 A (1.005-1.025) Urine Protein 30 A (NEG/TRACE) mg/dL Urine Glucose (UA) Negative (NEGATIVE) mg/dL Urine Ketones Trace A (NEGATIVE) mg/dL Urine Occult Blood Large A (NEGATIVE) Urine Nitrite Negative (NEGATIVE) Urine Bilirubin Negative (NEGATIVE) Urine Urobilinogen 0.2 (0.2-1.0) EU/dL Ur Leukocyte Esterase Trace A (NEGATIVE) Urine RBC >100 A (0-2) #/HPF Urine WBC 0-2 A (NONE SEEN) #/HPF Ur Squamous Epith Cells Few A (NONE/RARE) #/LPF Urine Crystals Seen A (None Seen) #/HPF Calcium Oxalate Crystal Rare Urine Bacteria None seen (NONE SEEN) #/HPF Urine Mucus Small A (NONE SEEN) Ur Culture Indicated? No Discharge Plan Discharge Stand Alone Forms: Work/School Release, Portal Instructions Chief Complaint: Abdominal Pain Clinical Impression: Calculus of kidney Hydronephrosis Qualifiers: Hydronephrosis type: with renal calculous obstruction Qualified Code(s): N13.2 - Hydronephrosis with renal and ureteral calculous obstruction Patient Disposition: Home, Self-Care Time of Disposition Decision: 10:59 Condition: Good Prescriptions / Home Meds: New cephalexin 500 mg capsule 500 mg PO Q8H 7 Days Qty: 21 0RF tamsulosin [Flomax] 0.4 mg capsule 0.4 mg PO DAILY Qty: 10 0RF naproxen 250 mg tablet 250 mg PO BID PRN (Reason: pain) Qty: 14 0RF oxycodone-acetaminophen [Percocet] 5-325 mg tablet 1 tab PO Q8H PRN (Reason: pain) 3 Days Qty: 9 0RF ondansetron 4 mg tablet,disintegrating 4 mg PO Q8H PRN (Reason: nausea and vomiting) 2 Days Qty: 6 0RF No Action meclizine 12.5 mg tablet meloxicam 7.5 mg tablet Print Language: Khmer Instructions: Kidney Stones (ED), Hydronephrosis (ED) Referrals: Buddy Baker MD [Physician] - As soon as possible Physician,Non-Staff, [Primary Care Provider] - 1 week
[2024-01-19] MEDS: 0.9 % SODIUM CHLORIDE 1,000 ML 1000 ML IV (09:34)
[2024-01-19] MEDS: ONDANSETRON PF 4 MG/2 ML VIAL IV (09:35)
[2024-01-19] MEDS: KETOROLAC TROMETHAMINE 30 MG/ML VIAL 15 MG IVP (09:35)
[2024-01-19 09:39] LABS: Basophils Absolute Auto 0.1 10^3/uL (0.0-0.1); Basophils Percent Auto 1.7 % (0.2-2.0); Eosinophils Absolute Auto 0.3 10^3/uL (0.0-0.7); Eosinophils Percent Auto 4.9 % (0.9-7.0); Hematocrit 40.6 % (36.0-48.0); Hemoglobin 12.8 g/dL (12.0-16.0); Immature Granulocytes Abs Auto 0.01 10^3/uL (0.00-0.03); Immature Granulocytes Pct Auto 0.1 % (0.0-0.5); Lymphocytes Absolute Auto 2.5 10^3/uL (1.2-3.8); Lymphocytes Percent Auto 36.4 % (20.5-60.0); Mean Corpuscular HGB Conc 31.5 g/dL (29.9-35.2); Mean Corpuscular Hemoglobin 26.1 pg (26.7-34.0); Mean Corpuscular Volume 82.7 fL (81.0-99.0); Mean Platelet Volume 11.8 fL (9.5-13.5); Monocytes Absolute Auto 0.6 10^3/uL (0.3-0.8); Monocytes Percent Auto 9.2 % (1.7-12.0); Neutrophils Absolute Auto 3.3 10^3/uL (1.4-6.5); Neutrophils Percent Auto 47.7 % (43.0-75.0); Platelet Count 267 10^3/uL (150-450); Red Blood Count 4.91 10^6/uL (4.20-5.40); Red Cell Distribution Width 15.7 % (11.0-15.0)
[2024-01-19 09:58] LABS: Alanine Aminotransferase 46 U/L (14-59); Albumin Globulin Ratio 1.1; Albumin Level 3.7 g/dL (3.4-5.0); Alkaline Phosphatase 94 U/L (46-116); Anion Gap 14.6; Aspartate Amino Transferase 26 U/L (15-37); BUN Creatinine Ratio 15.9; Bilirubin Total 0.3 mg/dL (0.2-1.0); Calcium 9.1 mg/dL (8.5-10.1); Carbon Dioxide 24.4 mmol/L (21.0-32.0); Chloride 104 mmol/L (98-107); Estimated GFR (African America >60 (>=60); Estimated GFR (Non-African Ame >60 (>=60); Globulin 3.5 g/dL; Glucose 107 mg/dL (74-106); Sodium 139 mmol/L (136-145); Total Protein 7.2 g/dL (6.4-8.2)
[2024-01-19 10:00] LABS: Bilirubin Urine NEGATIVE (NEGATIVE); Blood Urine LARGE (NEGATIVE); Clarity Urine CLEAR (CLEAR); Color Urine YELLOW (YELLOW); Glucose Urine UA NEGATIVE (NEGATIVE); Ketones Urine TRACE mg/dL (NEGATIVE); Leukocyte Esterase Urine TRACE (NEGATIVE); Nitrite Urine NEGATIVE (NEGATIVE); Protein Urine 30 mg/dL (NEG/TRACE); Specific Gravity Urine >=1.030 (1.005-1.025); Urobilinogen Urine 0.2 EU/dL (0.2-1.0)
[2024-01-19 10:03] LABS: Urine Microscopic Indicated YES
[2024-01-19 10:07] LABS: HCG Qualitative NEGATIVE (NEGATIVE); Internal Control Within Normal Limits
--- NOTE | 2024-01-19 10:09 | CT_ITS ---
The [address] [address] Patient Name: DENY DIXON MRN: [id number] date: 1990 Sex: F Assigned Patient Location: ED.MAIN Current Patient Location: Accession/Order Number: [id number] Exam Date: 01/19/2024 10:06 Report Date: 01/19/2024 11:25 At the request of: MEY LORD Procedure: CT abdomen pelvis wo con EXAM: CT abdomen pelvis wo con HISTORY: right flank pain COMPARISON: None. TECHNIQUE: Dose reduction techniques were achieved by using automated exposure control and/or adjustment of mA and/or kV according to patient size and/or use of iterative reconstruction technique. Noncontrast CT of the abdomen/pelvis. FINDINGS: Mild patchy atelectasis at the left lung base. Tree-in-bud opacity of the bilateral lung bases, suggesting small airways infection. There are prominent pulmonary nodules of the left lung base measuring 7 mm and 5 mm respectively (3/6), also thought to be associated with the inflammatory process. Heart size is normal. Small hiatal hernia. Liver, spleen, adrenal glands, pancreas are normal. Gallbladder is decompressed. Obstructing stone at the right ureteropelvic junction measuring 7 mm (5/45). There is mild right hydronephrosis. Nonobstructive punctate stones of the right kidney interpolar region. No left kidney stones. No left hydronephrosis or hydroureter. Multiple phleboliths of the pelvis. Bladder is decompressed. No focal bladder stones. Normal alignment of the bilateral hip joints. Mild degeneration of the bilateral sacroiliac joints. Normal alignment of the sacrum and coccyx. Uterus and ovaries are unremarkable by this technique. No acute osseous abnormality. CT/CT abdomen pelvis wo con IMPRESSION: 1. Obstructing stone at the right ureteropelvic junction measuring 7 mm (5/45). There is mild right hydronephrosis. 2. No left hydronephrosis. No left kidney stones. 3. No bladder stones. No focal bladder wall thickening. 4. Tree-in-bud opacity of the bilateral lung bases, suggesting small airways infection. There are prominent pulmonary nodules of the left lung base measuring 7 mm and 5 mm respectively (3/6), also thought to be associated with the inflammatory process. CT of the chest could be obtained in 3 months to ensure resolution. 5. Small hiatal hernia. 6. Other findings as described. Electronically authenticated by: SHEA THAYER Date: 01/19/2024 11:25
[2024-01-19 10:21] LABS: RBC Urine >100 #/HPF (0-2); WBC Urine 0-2 #/HPF (NONE SEEN)
[2024-01-19 10:22] LABS: Bacteria Urine NONE SEEN #/HPF (NONE SEEN); Calcium Oxalate Crystals Urine RARE; Crystals Seen? Seen #/HPF (None Seen); Mucus Urine SMALL (NONE SEEN); Squamous Epithelial Cell Urine FEW #/LPF (NONE/RARE)
[2024-01-19 10:23] LABS: Urine Culture Indicated NO
[2024-01-19] MEDS: MORPHINE SULFATE 2 MG/ML SYRINGE IV (10:46)
== END 2024-01-19 11:13 | disposition home or self-care (01) ==
PROVIDERS: Emergency Provider Emergency Medicine
DX: N13.2 Hydronephrosis with renal and ureteral calculous obstruction (principal); Z87.01 Personal history of pneumonia (recurrent)
CPT/HCPCS: 36415; 74176; 80053; 81001; 84703; 85025; 96361; 96374; 96375; 99284; J1885; J2270; J2405

== ENCOUNTER 2024-08-03 15:19 | Emergency (ER) | payer BC, SELFPAY ==
[2024-08-03 15:28] VITALS: BP 144/98; PULSE 84; TEMP 36.8; O2SAT 97; BMI 39.7
--- OUTSIDE RECORDS SUMMARY | 2024-08-03 15:38 | XMS_ITS | CCD ---
Author Organization [facility] Care Team Providers Care Client Service Associate Name Role Phone FLORIC, DR CAUSEY Primary Care Unavailable MARTY, DR PHIL Valdez Admitting Unavailabl e REINECK, DR PHIL Valdez Consulting Unavailabl e JSOE RECK, DR PHIL Valdez Attending Unavailabl e JEANETHEBGUSTAVO, DR SIOBHAN Siu Consulting Unavailable Alysia Guerrier Primary Care Physician [phone] NONE, XXXX Primary Care Physician UnavailMargarita Brandt Primary Care Physician [phone] Vicente Lazo Attending Unavailable Bert Davis Attending Unavailable MINGO, YONI Sevilla Attending Unavailabl e Ameya, MOBILE PAINT SPECIALIST Margarita Jones Attending Unavailable Ameya, MOBILE PAINT SPECIALIST Margarita Jones Referring Unavailable Ameya, MOBILE PAINT SPECIALIST Margarita Jones Admitting Unavailable Ameya, TOVA Jones Attending Unavailable DO Xavier Wade Attending Unavailable MD Buddy Baker Attending Provider NON STAFF Primary Care Provider Unavailabl e CookBuddy Attending Unavailable NON STAFF Primary Care Unavailable CookBuddy P Admitting Unavailable CookBuddy P Admitting Unavailable CookBuddy P Attending Unavailable NON STAFF Primary Care Unavailable COOKBuddy P Admitting Unavailable COOKBuddy P Attending Unavailable COOKBuddy P Referring Unavailable COOK, Buddy P Admitting Unavailable COOKBuddy P Attending Unavailable COOKBuddy P Admitting Unavailable COOKBuddy P Attending Unavailable Bert Davis Attending Unavailable DO Xavier Wade Attending Unavailable Buddy BAKER Attending Unavailable Buddy BAKER Attending Unavailable Buddy BAKER Attending Unavailable AmeyaMargarita Attending Unavailable Bert Davis Attending Unavailable Ameya, Margarita Jones Attending Unavailable Ameya, Margarita L Attending Unavailable Ameya, Margarita L Attending Unavailable Ameya, Margarita L Referring Unavailable Ameya, Margarita L Admitting Unavailable Ameya, Margarita L Admitting Unavailable Ameya, Margarita L Attending Unavailable Vicente Lazo Attending Unavailable Bert Davis Attending Unavailable Ameya, Margarita L Attending Unavailable Ameya, Margarita L Attending Unavailable Ameya, Margarita L Attending Unavailable Ameya, Margarita L Attending Unavailable Unavailable Primary Care Provider UnavailRAJIV Gutierrez Attending Unavailable DO Xavier Waed Attending Unavailable Ameya, Margarita L Attending Unavailable Ameya, Margarita L Attending Unavailable Ameya, Margarita L Attending Unavailable Ameya, Margarita L Referring Unavailable Medications Current Medications Medication Drug Class(es) Dates Sig (Normalized) Sig (Original) acetaminophen 325 mg / HYDROcodone bitartrate 5 mg oral tablet (1 source) Opioid Agonist Start: 02-29-2024 take 1 tablet by mouth every four to six hours Hydrocodone-Acet aminophen Active 1 TAB PO EVERY 4-6 HOURS 7 2 February 29, 2024 Albuterol (Eqv-ProAir HFA) 90 mcg/inh inhalation aerosol (2 sources) Start: 12-28-2023 End: 01-04-2024 take 2 puff(s) by inhalation every six hours Albuterol (Eqv-ProAir HFA) 90 mcg/inh inhalation aerosol 2 puff(s), Inhalation, q6hr for 7 day(s), 6.7 gm, Refill(s) 0, [facility][id number], 160, cm, 12/28/23 12:46:00 EDT, Height/Length Dosing, 101.6, kg, 12/28/23 12:46:00 EDT, Weight Dosing Start Date: 12/28/23 Stop Date: 01/04/24 Status: Ordered breath-actuated 120 actuat beclomethasone dipropionate 0.04 mg/actuat metered dose inhaler (6 sources) Corticosteroid Start: 01-08-2024 take 2 puff(s) by inhalation twice daily Qvar Redihaler 40 mcg/inh inhalation aerosol 2 puff(s), Inhalation, BID, 10.6 gm, Refill(s) 3, [facility][id number], 159, cm, 01/05/24 13:48:00 EDT, Height/Length Dosing, 99.5, kg, 01/05/24 13:48:00 EDT, Weight Dosing Start Date: 01/08/24 Status: Ordered cephalexin 500 mg oral capsule (2 sources) Cephalosporin Antibacterial Start: 02-29-2024 take 500 mg by mouth twice daily Cephalexin Active 500 MG PO Twice daily 02 19February 29, 2024 12:00am Start: 11-14-2023 End: 11-21-2023 take 1 capsule by mouth every six hours Keflex 500 mg Cap 500 mg = 1 cap(s), Oral, q6hr, X 7 day(s), # 28 cap(s), Refills(s) 0, [id number] 160, cm, 11/14/23 21:23:00 EDT, Height/Length Dosing, 103.7, kg, 11/14/23 21:23:00 EDT, Weight Dosing Start Date: 11/14/23 Stop Date: 11/21/23 Status: Ordered diazePAM 2 mg oral tablet (1 source) Benzodiazepine Start: 06-12-2024 End: 06-15-2024 take 1 tablet by mouth three times daily as needed for dizziness Valium 2 mg Tab 2 mg = 1 tab(s), Oral, TID, PRN for dizziness, X 3 day(s), # 7 tab(s), Refills(s) 0, [id number], 160, cm, 06/11/24 20:23:00 EST, Height/Length Dosing, 104.3, kg, 06/11/24 20:23:00 EST, Weight Dosing Start Date: 06/12/24 Stop Date: 06/15/24 Status: Ordered doxycycline hyclate 100 mg oral tablet (1 source) Tetracycline-class Drug Start: 01-03-2024 End: 01-13-2024 take 1 tablet by mouth every twelve hours doxycycline hyclate 100 mg Tab 100 mg = 1 tab(s), Oral, q12hr, X 10 day(s), # 20 tab(s), Refills(s) 0, [id number], 159, cm, 01/02/24 20:48:00 EDT, Height/Length Dosing, 99.2, kg, 01/02/24 20:48:00 EDT, Weight Dosing Start Date: 01/03/24 Stop Date: 01/13/24 Status: Ordered ferrous sulfate 325 mg oral tablet (11 sources) Start: 09-21-2023 End: 09-15-2024 take 1 tablet by mouth twice daily ferrous sulfate 325 mg Tab 325 mg = 1 tab(s), Oral, BID, X 90 day(s), # 180 tab(s), Refills(s) 3, Pharmacy: [facility] #[id number], 160, cm, 09/18/23 14:14:00 EDT, Height/Length Dosing, 110.7, kg, 09/18/23 14:14:00 EDT, Weight Dosing Start Date: 09/21/23 Stop Date: 09/15/24 Status: Ordered Start: 09-18-2023 take 1 tablet by [facility] twice daily ferrous sulfate 325 mg Tab 325 mg = 1 tab(s), Oral, BID, # 60 tab(s), Refills(s) 2, Pharmacy: [facility] #[id number], 160, cm, 09/18/23 14:14:00 EDT, Height/Length Dosing, 110.7, kg, 09/18/23 14:14:00 EDT, Weight Dosing Start Date: 09/18/23 Status: Ordered fluticasone propionate 0.05 mg/actuat metered dose nasal spray (7 sources) Corticosteroid Start: 05-27-2024 Flonase 0.05 m g/inh [place] 2 spray(s), Nasal, Daily, 16 gram, Refill(s) 0, each nostril, [facility] #[id number], 160.2, cm, 05/27/24 15:24:00 EST, Height/Length Dosing, 104.3, kg, 05/27/24 15:24:00 EST, Weight Dosing Start Date: 05/27/24 Status: Ordered Start: 01-05-2024 take 2 puff(s) by [facility] twice daily Flovent HFA 44 Aerosol = 2 puff(s), Inhalation, BID, rinse mouth and throat after use, # 10.6 gram, Refills(s) 0, Pharmacy: [facility] #[id number], 159, cm, 01/05/24 13:48:00 EDT, Height/Length Dosing, 99.5, kg, 01/05/24 13:48:00 EDT, Weight Dosing Start Date: 01/05/24 Status: Ordered levoFLOXacin 500 mg oral tablet (1 source) Quinolone Antimicrobial Start: 01-01-2024 End: 01-08-2024 take 1 tablet by mouth every twenty-four hours levofloxacin 500 mg Tab 500 mg = 1 tab(s), Oral, q24hr, X 7 day(s), # 7 tab(s), Refills(s) 0, Pharmacy: [facility] #[id number], 159, cm, 01/01/24 13:55:00 EDT, Height/Length Dosing, 99.2, kg, 01/01/24 13:55:00 EDT, Weight Dosing Start Date: 01/01/24 Stop Date: 01/08/24 Status: Ordered meclizine hydrochloride 25 mg oral tablet (16 sources) Antiemetic Start: 05-27-2024 take 1 tablet by mouth three times daily as needed for dizziness meclizine 25 mg Tab 25 mg = 1 tab(s), Oral, TID, PRN for dizziness, # 30 tab(s), Refills(s) 0, Pharmacy: [facility] #[id number], 160.2, cm, 05/27/24 15:24:00 EST, Height/Length Dosing, 104.3, kg, 05/27/24 15:24:00 EST, Weight Dosing Start Date: 05/27/24 Status: Ordered Start: 11-10-2022 take 1 tablet by kaylie th three times daily as needed for nausea meclizine 12.5 mg Tab 12.5 mg = 1 tab(s), Oral, TID, PRN for nausea/vomiting, # 30 tab(s), Refills(s) 0, Pharmacy: [facility] #[id number], 160, cm, 11/10/22 18:39:00 EDT, Height/Length Dosing, 95.5, kg, 11/10/22 18:39:00 EDT, Weight Dosing Start Date: 11/10/22 Status: Ordered meloxicam 7.5 mg oral tablet (16 sources) Nonsteroidal Anti-inflammatory Drug Start: 08-05-2023 End: 07-30-2024 take 1 tablet by mouth once daily meloxicam 7.5 mg Tab 7.5 mg = 1 tab(s), Oral, Daily, X 90 day(s), # 90 tab(s), Refills(s) 3, [id number], 160, cm, 08/05/23 10:38:00 EDT, Height/Length Dosing, 102.5, kg, 08/05/23 10:38:00 EDT, Weight Dosing Start Date: 08/05/23 Stop Date: 07/30/24 Status: Ordered Start: 05-01-2023 take 1 tablet by kaylie th once daily meloxicam 7.5 mg Tab 7.5 mg = 1 tab(s), Oral, Daily, # 30 tab(s), Refills(s) 0, Pharmacy: [facility] #[id number], 160, cm, 05/01/23 10:29:00 EST, Height/Length Dosing, 102.4, kg, 05/01/23 10:29:00 EST, Weight Dosing Start Date: 05/01/23 Status: Ordered Start: 04-08-2023 take 1 tablet by kaylie once daily meloxicam 7.5 mg Tab 7.5 mg = 1 tab(s), Oral, Daily, # 30 tab(s), Refills(s) 0, Pharmacy: [facility] #[id number], 160, cm, 04/08/23 9:20:00 EST, Height/Length Dosing, 99.5, kg, 04/08/23 9:20:00 EST, Weight Dosing Start Date: 04/08/23 Status: Ordered naproxen 500 mg oral tablet (2 sources) Nonsteroidal Anti-inflammatory Drug Start: 02-18-2024 take 500 mg by mouth once daily Naproxen Active 500 MG PO Daily February 18, 2024 12:00am oxybutynin chloride 5 mg oral tablet (2 sources) Cholinergic Muscarinic Antagonist Start: 02-18-2024 take 5 mg by mouth twice daily Oxybutynin Chloride Active 5 MG PO Twice daily February 18, 2024 12:00am phenazopyridine hydrochloride 100 mg oral tablet (1 source) Start: 11-14-2023 End: 11-17-2023 take 1 tablet by mouth three times daily Pyridium 100 mg Tab 100 mg = 1 tab(s), Oral, TID, X 3 day(s), # 9 tab(s), Refills(s) 0, Pharmacy: [facility] #[id number], 160, cm, 11/14/23 21:23:00 EDT, Height/Length Dosing, 103.7, kg, 11/14/23 21:23:00 EDT, Weight Dosing Start Date: 11/14/23 Stop Date: 11/17/23 Status: Ordered predniSONE 20 mg oral tablet (3 sources) Start: 12-28-2023 End: 01-04-2024 take 3 tablets by mouth once daily predniSONE 20 mg Tab 3, Oral, Daily, X 7 day(s), # 21 tab(s), Refills(s) 0, Pharmacy: [facility] #[id number], 160, cm, 12/28/23 12:46:00 EDT, Height/Length Dosing, 101.6, kg, 12/28/23 12:46:00 EDT, Weight Dosing Start Date: 12/28/23 Stop Date: 01/04/24 Status: Ordered Start: 07-21-2023 End: 07-28-2023 take 3 tablets by mouth once daily predniSONE 20 mg Tab 3, Oral, Daily, X 7 day(s), # 21 tab(s), Refills(s) 0, [id number], 160, cm, 07/21/23 12:50:00 EST, Height/Length Dosing, 102, kg, 07/21/23 12:50:00 EST, Weight Dosing Start Date: 07/21/23 Stop Date: 07/28/23 Status: Ordered Promethazine (2 sources) Phenothiazine Start: 12-28-2023 take 5 mL by mouth every six hours for cough Promethazine DM oral syrup 5 mL, Oral, q6hr for cough, 120 mL, Refill(s) 0, [id number], 160, cm, 12/28/23 12:46:00 EDT, Height/Length Dosing, 101.6, kg, 12/28/23 12:46:00 EDT, Weight Dosing Start Date: 12/28/23 Status: Ordered tamsulosin hydrochloride 0.4 mg oral capsule (7 sources) alpha-Adrenergic Kyle Start: 01-27-2024 take 1 capsule by mouth once daily tamsulosin 0.4 mg Cap 0.4 mg = 1 cap(s), Oral, Daily, # 30 cap(s), Refills(s) 2, [id number], 159, cm, 01/27/24 11:47:00 EDT, Height/Length Dosing, 99.5, kg, 01/27/24 11:47:00 EDT, Weight Dosing Start Date: 01/27/24 Status: Ordered Completed/Discontinued Medications Medication Drug Class(es) Dates Sig (Normalized) Sig (Original) azithromycin 250 mg oral tablet (2 sources) Macrolide Antimicrobial Start: 12-28-2023 take 1 tablet by mouth once daily azithromycin 250 mg Tab 250 mg, Oral, As Directed, Take two tabs by mouth on day one, then one tab daily, # 6 tab(s), Refills(s) 0, [id number], 160, cm, 12/28/23 12:46:00 EDT, Height/Length Dosing, 101.6, kg, 12/28/23 12:46:00 EDT, Weight Dosing Start Date: 12/28/23 Status: Ordered Problems Active Problems Problem Classification Problem Date Documented Date Episodic/Chronic Abdominal pain (1 source) Lower abdominal pain; Translations: [Lower abdominal pain, unspecified] Onset: 11-14-2023 Episodic Acute bronchitis (1 source) Acute bronchitis; Translations: [Acute bronchitis, unspecified] Onset: 12-28-2023 Episodic Calculus of urinary tract (2 sources) Kidney stone; Translations: [Calculus of kidney] Onset: 02-29-2024 02-29-2024 Episodic Conditions associated with dizziness or vertigo (20 sources) Dizziness and giddiness; Translations: [Dizziness and giddiness] Onset: 11-10-2022 Episodic Deficiency and other anemia (11 sources) Hemoglobin low 09-18-2023 Episodic Deficiency and other anemia (10 sources) Anemia 11-11-2023 Episodic Headache; including migraine (1 source) Headache; Translations: [Headache, unspecified] Onset: 04-29-2024 Episodic Hemorrhage during ; abruptio placenta; placenta previa (16 sources) Low lying placenta 05-16-2015 Episodic Influenza (11 sources) Influenza 08-05-2023 Menstrual disorders (11 sources) Menorrhagia 09-18-2023 Chronic Nausea and vomiting (1 source) Nausea; Translations: [Nausea] Onset: 11-14-2023 Episodic Other complications of (16 sources) Missed miscarriage 05-16-2015 Episodic Other diseases of kidney and ureters (1 source) Urinary tract obstruction; Translations: [Hydronephrosis with renal and ureteral calculous obstruction] Onset: 01-27-2024 Episodic Other lower respiratory disease (2 sources) Dyspnea; Translations: [Shortness of breath] Onset: 01-02-2024 Episodic Other lower respiratory disease (7 sources) Wheezing 01-01-2024 Episodic Other nervous system disorders (1 source) Paresthesia; Translations: [Paresthesia of skin] Onset: 09-07-2022 Episodic Other nervous system disorders (14 sources) Numbness of hand 04-08-2023 Episodic Other nutritional; endocrine; and metabolic disorders (11 sources) Body mass index 40+ - severely obese 09-18-2023 Chronic Other nutritional; endocrine; and metabolic disorders (7 sources) Body mass index 30+ - obesity 01-01-2024 Chronic Other nutritional; endocrine; and metabolic disorders (7 sources) Obesity caused by energy imbalance 01-01-2024 Chronic Other upper respiratory infections (1 source) Sinusitis 05-27-2024 Chronic Otitis media and related conditions (1 source) Finding of fluid behind tympanic membrane 05-27-2024 Episodic Pneumonia (except that caused by tuberculosis or sexually transmitted disease) (7 sources) Pneumonia; Translations: [Pneumonia, unspecified organism] Onset: 01-02-2024 Episodic Residual codes; unclassified (16 sources) H/O: obstetric problem 05-16-2015 Episodic Spondylosis; intervertebral disc disorders; other back problems (16 sources) Neck pain; Translations: [Cervicalgia] Onset: 09-07-2022 Episodic Syncope (16 sources) Syncope and collapse; Translations: [Syncope] Onset: 09-17-2020 Episodic Unclassified (14 sources) Pain of left shoulder region 04-08-2023 Unclassified (13 sources) Cancer cervix screening status 05-01-2023 Unclassified (13 sources) Patient encounter status 05-01-2023 Unclassified (11 sources) Color finding 09-18-2023 Unclassified (11 sources) Drug therapy finding 09-18-2023 Unclassified (5 sources) Obstructive hydronephrosis 01-27-2024 Urinary tract infections (1 source) Urinary tract infectious disease; Translations: [Urinary tract infection, site not specified] Onset: 11-14-2023 Episodic Past or Other Problems Problem Classification Problem Date Documented Da te Episodic/Chronic Other nervous system disorders (12 sources) Hyperesthesia; Translations: [Hyperesthesia] Onset: 07-21-2023 Episodic Unclassified (20 sources) Onset: 03-30-2010 Resolved: 08-07-2015 11-23-2014 Results Test Name Value Interpretation Reference Range Facility Nonvisit Note - PTon 025 Nonvisit Note - PT Nonvisit Note - PT Called and spoke with patient: Informed her that her insurance company will deny her DX of vertigo. She notes she sees the neurologist on Thursday and they are thinking it is not vertigo. Recommended D/C chart from PT and she agreed with the plan. Thank you for this referral. [facility] Ambulatory Visit Summaryon 0 07-05-2024 Ambulatory Visit Summary Ambulatory Visit Summary DENY DIXON :1990 Visit Date:07/05/2024 Ambulatory Visit Instructions Your Diagnosis Memory loss History of seizures as a child Vertigo BMI 40.0-44.9, adult Non-smoker Your Care Team Attending Physician - Margarita Tuttle Primary Care Physician - Margarita Tuttle This Is Your Medications List ferrous sulfate (ferrous sulfate 325 mg Tab) meclizine (meclizine 25 mg Tab) meloxicam (meloxicam 7.5 mg Tab) Procedures Performed Tubal ligation (08/08/2015), Lithotripsy. Discharge Vitals Heart Rate (Peripheral) 80 Respiratory Rate 18 Blood Pressure 124/80 Height 160.0 cm Height 63 in Weight 104.75 kg Weight 230.934 lb BMI 40.92 Medications What How Much When Why Instructions Unchanged ferrous sulfate (ferrous sulfate 325 mg Tab) 1 Tablets By Mouth 2 times a day Dizziness Low hemoglobin Syncope Menorrhagia Pale BMI 40.0-44.9, adult Duration: 90 Days Unchanged meclizine (meclizine 25 mg Tab) 1 Tablets By Mouth 3 times a day as needed for for dizziness Non-smoker Morbid obesity with BMI of 40.0-44.9, adult Unchanged meloxicam (meloxicam 7.5 mg Tab) 1 Tablets By Mouth Every day Left shoulder pain Neck pain on left side Numbness of left hand BMI 38.0-38.9,adult Class 1 obesity due to excess calories in adult Nonsmoker Duration: 90 Days Allergies No Known Allergies Problems Ongoing - Any problem that you are currently receiving treatment for. Anemia Mandujano's palsy BMI 39.0-39.9,adult BMI 40.0-44.9, adult Cervical cancer screening Class 1 obesity due to excess calories in adult Community acquired pneumonia Dizziness Drug therapy finding Exposure to influenza Eye twitch Family history of stroke Fluid level behind tympanic membrane of both ears History of seizures as a child Hyperesthesia Left shoulder pain Low hemoglobin Memory loss Menorrhagia Neck pain on left side Numbness of left hand Pale Peripheral vertigo Sinusitis Syncope Ureteral stone with hydronephrosis Vertigo Well woman exam Wheezing Historical - Any problem that you are no longer receiving treatment for. Dilation and curettage Low-lying placenta Missed miscarriage Patient Survey You may receive a survey via text or e-mail asking about your office visit. Please share your experience with us by completing your survey. We appreciate your feedback and thank you for choosing us for your care. Normal Vaughn [facility] Family Medicine Office/Clini c Noteon 07-05-2024 Family Medicine Office/Clinic Note Family Medicine Office/Clinic Note HPI Staff Deny is a 34 year old female presenting for vertigo Pt seen Vestibular rehab 2.5-3 weeks ago. Pt was told not to take the Meclizine because they want her to be completely off any medication helping with dizziness with nothing suppressing her symptoms. Doesn't have any further appointments set up with vestibular rehab waiting on insurance. Has tried to contact Neurology for an appointment they did tell her she is on the list to be called for an appointment but they never did make one. Pt states she is also having problems with her memory doesn't remember telling people things. For 1 week will have intermittent 20-30secs blurry vision to right eye. History of Present Illness pt presents today with continued dizziness, and worsening forgetfullness Review of Systems PHQ Score Initial Depression Screen Score: 0 SCORE Physical Exam Vitals & Measurements HR: 80(Peripheral) RR: 18 BP: 124/80 SpO2: 98% HT: 63 in HT: 160.0 cm WT: 104.75 kg WT: 230.934 lb BMI: 40.92 General: alert, no acute distress ENMT: oral mucosa moist, no pharyngeal erythema or exudate Cardiovascular: regular rate and rhythm, normal peripheral perfusion Respiratory: Lungs CTA, respirations non labored Extremities: no deformity, no trauma Neurological: oriented x 4, LOC appropriate for age, CN II-XII intact, motor strength equal & normal bilaterally, speech normal Assessment/Plan 1. Memory loss (R41.3: Other amnesia) pt c/o worsening memory loss. states she will argue with her about things he says he told her. she is very concerned at her age to be so forgetful about things. pt was referred to neuro on 06/16 but she has not heard from them yet. I encouraged her to follow up to make sure they have the referral. If not, I can send another one. will order outpt EEG in the mean time. Ordered: EEG 2. History of seizures as a child (Z86.69: Personal history of other diseases of the nervous system and sense organs) I asked her if she blanks out at all and he does not think she does.. Not sure if she has petit mal seizures which could be causing the memory loss. EEG ordered Ordered: EEG 3. Vertigo (R42: Dizziness and giddiness) went to vestibular therapy and was told to not take meclizine. she states after the first treatment the dizziness is now worse. she has recovered from the mandujano's palsy and eye twitching she was having at last visit. she has missed work since last thursday. note provided to excuse her from work until this thursday Ordered: valacyclovir, 1 gm = 1 tab(s), Oral, BID, # 14 tab(s), Refills(s) 0, Pharmacy: [facility] #[id number], 160, cm, 06/14/24 14:08:00 EST, Height/Length Dosing, 104.1, kg, 06/14/24 14:08:00 EST, Weight Dosing EEG 4. Blurred vision, right eye (H53.8: Other visual disturbances) encouraged pt to have vision checked. she has not been to eye doctor since age 13 5. BMI 40.0-44.9, adult (Z68.41: Body mass index [BMI] 40.0-44.9, adult) BMI education given Ordered: valacyclovir, 1 gm = 1 tab(s), Oral, BID, # 14 tab(s), Refills(s) 0, [id number] 160, cm, 06/14/24 14:08:00 EST, Height/Length Dosing, 104.1, kg, 06/14/24 14:08:00 EST, Weight Dosing EEG 6. Non-smoker (Z78.9: Other specified health status) continue not smoking Ordered: valacyclovir, 1 gm = 1 tab(s), Oral, BID, # 14 tab(s), Refills(s) 0, [id number], 160, cm, 06/14/24 14:08:00 EST, Height/Length Dosing, 104.1, kg, 06/14/24 14:08:00 EST, Weight Dosing EEG Orders: fluticasone nasal, See Instructions, 48 mL, Refill(s) 1, USE 2 SPRAYS IN EACH NOSTRIL ONCE A DAY, [id number], 160, cm, 06/14/24 14:08:00 EST, Height/Length Dosing, 104.1, kg, 06/14/24 14:08:00 EST, Weight Dosing Follow-up No qualifying data available Problem List/Past Medical History Ongoing Anemia Mandujano's palsy Blurred vision, right eye BMI 39.0-39.9,adult BMI 40.0-44.9, adult Cervical cancer screening Class 1 obesity due to excess calories in adult Community acquired pneumonia Dizziness Drug therapy finding Exposure to influenza Eye twitch Family history of stroke Fluid level behind tympanic membrane of both ears History of seizures as a child Hyperesthesia Left shoulder pain Low hemoglobin Memory loss Menorrhagia Neck pain on left side Numbness of left hand Pale Peripheral vertigo Sinusitis Syncope Ureteral stone with hydronephrosis Vertigo Well woman exam Wheezing Historical Dilation and curettage Low-lying placenta Missed miscarriage Procedure/Surgical History Tubal ligation (08/08/2015), Lithotripsy. Medications ferrous sulfate 325 mg Tab, 325 mg= 1 tab(s), Oral, BID, 3 refills meclizine 25 mg Tab, 25 mg= 1 tab(s), Oral, TID, PRN, Not taking: patient states she was told by Vestibular rehab not to take medication meloxicam 7.5 mg Tab, 7.5 mg= 1 tab(s), Oral, Daily, 3 refills (more content not included)... [facility] Comment on above: Result Comment: Elec tronically Signed By: Margarita Tuttle\.br\Date and Time Signed: 07/05/24 10:58 EST Provider Letteron 07-05-2024 Provider Letter Provider Letter July 05, 2024 DENY DIXON [address] [place] [address] : 1990 To Whom It May Concern, Please excuse above patient from work. Date of Illness: From: _07-01-24 To: _ 07-08-24 May Return to Work On: 07-13-24 Restrictions: _ Comments: _ Sincerely, [place] [address] [facility] Provider Letteron 06-27-2024 Provider Letter Provider Letter June 27, 2024 DENY DIXON [address] [place] [address] : 1990 To Whom It May Concern, Please excuse above patient from work. Date of Illness: From: 06/25/2024 To: 06/28/2024 May Return to Work On: 06/29/2024 Sincerely, [place] [address] [facility] Nonvisit Note - PTon 025 Nonvisit Note - PT Nonvisit Note - PT chart reviewed with eval prepped for scheduled eval. KK [facility] Provider Letteron 06-21-2024 Provider Letter Provider Letter June 21, 2024 DENY DIXON [address] [place] [address] : 1990 To Whom It May Concern, Please excuse above patient from work, due to medical Date of Illness: From: _06-10-24 To: _ 06-24-24 May Return to Work On:06-25-24 Restrictions: _ Comments: _ Sincerely, [place] [address] [facility] Ambulatory Visit Summaryon 0 06-14-2024 Ambulatory Visit Summary Ambulatory Visit Summary ZACK DENY Williamson :1990 Visit Date:06/14/2024 Ambulatory Visit Instructions Your Diagnosis BMI 40.0-44.9, adult Non-smoker Vertigo Your Care Team Attending Physician - Margarita Tuttle Primary Care Physician - Margarita Tuttle This Is Your Medications List diazepam (Valium 2 mg Tab) ferrous sulfate (ferrous sulfate 325 mg Tab) fluticasone nasal (Flonase 0.05 mg/inh [place]) meclizine (meclizine 25 mg Tab) meloxicam (meloxicam 7.5 mg Tab) Procedures Performed Tubal ligation (08/08/2015). Discharge Vitals Heart Rate (Peripheral) 82 Respiratory Rate 18 Blood Pressure 140/90 Height 160.0 cm Height 63 in Weight 104.1 kg Weight 229.501 lb BMI 40.66 Medications What How Much When Why Instructions Unchanged diazepam (Valium 2 mg Tab) 1 Tablets By Mouth 3 times a day as needed for for dizziness Duration: 3 Days Unchanged ferrous sulfate (ferrous sulfate 325 mg Tab) 1 Tablets By Mouth 2 times a day Dizziness Low hemoglobin Syncope Menorrhagia Pale BMI 40.0-44.9, adult Duration: 90 Days Unchanged fluticasone nasal (Flonase 0.05 mg/ inh [place]) 2 Sprays Nasal Inhalation Every day Non-smoker Morbid obesity with BMI of 40.0-44.9, adult each nostril Unchanged meclizine (meclizine 25 mg Tab) 1 Tablets By Mouth 3 times a day as needed for for dizziness Non-smoker Morbid obesity with BMI of 40.0-44.9, adult Unchanged meloxicam (meloxicam 7.5 mg Tab) 1 Tablets By Mouth Every day Left shoulder pain Neck pain on left side Numbness of left hand BMI 38.0-38.9,adult Class 1 obesity due to excess calories in adult Nonsmoker Duration: 90 Days Medications and Immunizations Administered Given Kenalog-40, 60 mg, IntraARTICULAR. For: BMI 40.0-44.9, adult, Non-smoker, Vertigo Allergies No Known Allergies Problems Ongoing - Any problem that you are currently receiving treatment for. Anemia BMI 39.0-39.9,adult BMI 40.0-44.9, adult Cervical cancer screening Class 1 obesity due to excess calories in adult Community acquired pneumonia Dizziness Drug therapy finding Exposure to influenza Fluid level behind tympanic membrane of both ears Hyperesthesia Left shoulder pain Low hemoglobin Menorrhagia Neck pain on left side Numbness of left hand Pale Sinusitis Syncope Ureteral stone with hydronephrosis Vertigo Well woman exam Wheezing Historical - Any problem that you are no longer receiving treatment for. Dilation and curettage Low-lying placenta Missed miscarriage Patient Survey You may receive a survey via text or e-mail asking about your office visit. Please share your experience with us by completing your survey. We appreciate your feedback and thank you for choosing us for your care. [facility] Family Medicine Office/Clini c Noteon 06-14-2024 Family Medicine Office/Clinic Note Family Medicine Office/Clinic Note HPI Staff Deny is a 34 year old female presenting for ER follow up ER followup: Hospital: [facility] Visit date: 06/12/24 Symptoms the patient presented with: Vertigo Symptom onset/injury onset: Testing Performed: Chest x-ray negative, New medications: Valium 2mg 1 tab TID PRN Current concerns: pt states this is an ongoing thing but getting worse. Pt states when awake sitting is unsteady dizziness bilaterally when laying down room spinning mainly on her right side. c/o nausea denies vomiting, denies any sinus drainage or ear discomfort. Today on left side face eye and to mouth is twitching denies any vision changes. History of Present Illness pt presents today with worsening vertigo, now c/o left eye and facial twitching Review of Systems PHQ Score Initial Depression Screen Score: 0 SCORE Physical Exam Vitals & Measurements HR: 82(Peripheral) RR: 18 BP: 140/90 HT: 63 in HT: 160.0 cm WT: 104.1 kg WT: 229.501 lb BMI: 40.66 General: alert, no acute distress ENMT: oral mucosa moist, no pharyngeal erythema or exudate Cardiovascular: regular rate and rhythm, normal peripheral perfusion Respiratory: Lungs CTA, respirations non labored Extremities: no deformity, no trauma Neurological: oriented x 4, LOC appropriate for age, CN II-XII intact, motor strength equal & normal bilaterally, speech normal Assessment/Plan 1. 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 remainder of neuro assessment is normal. pt does not tolerate oral steroids so I will give 60mg kenalog in office today and will send in antiviral as well. RTC 1 week Ordered: valacyclovir, 1 gm = 1 tab(s), Oral, BID, # 14 tab(s), Refills(s) 0, Pharmacy: [facility]/pharmacy #[id number], 160, cm, 06/14/24 14:08:00 EST, Height/Length Dosing, 104.1, kg, 06/14/24 14:08:00 EST, Weight Dosing [facility] External Ambulatory Referral 2. Vertigo (R42: Dizziness and giddiness) pt went to ER for worsening dizziness. was given valium, toradol and reglan. pt has been taking meclizine as well with no improvement. pt then informed me that she had seizures when she was little and stopped seeing a neurologist when she got a little older. will all of these different complaints I will refer to neuro for further evaluation. will also refer to vestibular therapy at [facility] since the vertigo has been ongoing and is now worsening. Ordered: triamcinolone, 60 mg = 1.5 mL, Injection, IntraARTICULAR, Once, Stop date 06/14/24 14:46:00 EST, Routine, Start date 06/14/24 14:46:00 EST, 06/14/24 14:46:00 EST valacyclovir, 1 gm = 1 tab(s), Oral, BID, # 14 tab(s), Refills(s) 0, Pharmacy: [facility]/pharmacy #[id number], 160, cm, 06/14/24 14:08:00 EST, Height/Length Dosing, 104.1, kg, 06/14/24 14:08:00 EST, Weight Dosing [facility] External Ambulatory Referral [facility] Outpatient Physical Therapy Evaluate Patient, Develop a Plan of Care, & Implement Plan 3. 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, 160, cm, 06/14/24 14:08:00 EST, Height/Length Dosing, 104.1, kg, 06/14/24 14:08:00 EST, Weight Dosing [facility] External Ambulatory Referral 4. Family history of stroke (Z82.3: Family history of stroke) pt states, my mom at a stroke at age 36. Ordered: valacyclovir, 1 gm = 1 tab(s), Oral, BID, # 14 tab(s), Refills(s) 0, Pharmacy: [facility]/pharmacy #[id number], 160, cm, 06/14/24 14:08:00 EST, Height/Length Dosing, 104.1, kg, 06/14/24 14:08:00 EST, Weight Dosing [facility] External Ambulatory Referral 5. BMI 40.0-44.9, adult (Z68.41: Body mass index [BMI] 40.0-44.9, adult) BMI education Ordered: triamcinolone, 60 mg = 1.5 mL, Injection, IntraARTICULAR, Once, Stop date 06/14/24 14:46:00 EST, Routine, Start date 06/14/24 14:46:00 EST, 06/14/24 14:46:00 EST valacyclovir, 1 gm = 1 tab(s), Oral, BID, # 14 tab(s), Refills(s) 0, Pharmacy: [facility]/pharmacy #[id number], 160, cm, 06/14/24 14:08:00 EST, Height/Length Dosing, 104.1, kg, 06/14/24 14:08:00 EST, Weight Dosing [facility] External Ambulatory Referral [facility] Outpatient Physical Therapy Evaluate Patient, Develop a Plan of Care, & Implement Plan 6. Non-smoker (Z78.9: Other specified health status) continue not smoking Ordered: triamcinolone, 60 mg = 1.5 mL, Injection, IntraARTICULAR, Once, Stop date 06/14/24 14:46:00 EST, Routine, Start date 06/14/24 14:46:00 EST, 06/14/24 14:46:00 EST valacyclovir, 1 gm = 1 tab(s), Oral, BID, # 14 tab(s), Refills(s) 0, Pharmacy: [facility]/pharmacy #[id number], 160, cm, 06/14/24 14:08:00 EST, Height/Length Dosing, 104.1, kg, 06/14/24 14:08:00 EST, Weight Dosing [facility] Outpatient Physical Therapy Evaluate Patient, Develop a Plan of Care, & Implement Plan Orders: beclomethasone, 2 puff(s), Inhalation, BID, 10.6 gm, Refill(s) 3, [id number], 159, cm, 01/05/24 13:48:00 EDT, Height/Length Dosing, 99.5, kg, 01/05/24 13:48:00 EDT, Weight Dosing fluticasone, = 2 puff(s), Inhalation, BID, rinse mouth and th (more content not included)... [facility] Comment on above: Result Comment: Elec tronically Signed By: Margarita Tuttle\.br\Date and Time Signed: 06/14/24 15:21 EST Provider Letteron 06-14-2024 Provider Letter Provider Letter June 14, [address] [place] [id number] : 1990 To Whom It May Concern, Please excuse above patient from work. Date of Illness: From: _06-10-24 To: 06-16-24 May Return to Work On:06-22-24 Restrictions: _ Comments: _ Sincerely, Family Medicine [address] [address] [facility] ED Clinical Summaryon 2024 ED Clinical Summary ED Clinical Summary [address] [address] ED Clinical Summary Person Information Name: DENY DIXON [facility] Age: 34 Years : 1990 Sex: Female Language: Niuean PCP: Margarita Tuttle Marital Status: Visit Id: Visit Reason: Weakness or fatigue; Headache; Dizziness; VERTIGO FOR A MONTH Speciality: Acuity: 3 Enc Type: Emergency Med Service: Emergency Arrival: 06/11/2024 19:43:13 Discharge: 06/12/2024 01:08:50 LOS: 000 05:25 Checkin: 06/11/2024 19:43:13 Checkout: 06/12/2024 01:08:50 Dispo Type: Home (Routine DC) EVENTS: Event Name Event Status Request Date/Time Start Date/Time Complete Date/Time Arrive Complete 06/11/2024 19:43:13 06/11/2024 19:43:13 06/11/2024 19:43:13 Document Home Meds Request 06/11/2024 19:43:13 Triage Complete 06/11/2024 19:43:13 06/11/2024 20:23:01 06/11/2024 20:23:01 Registration Complete 06/11/2024 19:55:02 06/11/2024 19:55:02 06/11/2024 19:55:02 Reg Complete Request 06/11/2024 19:55:02 Reg Bed Request Complete 06/11/2024 19:55:02 06/11/2024 19:55:02 06/11/2024 19:55:02 EKG Complete 06/11/2024 20:21:45 06/11/2024 20:28:48 Pending Labs Complete 06/11/2024 20:32:15 06/11/2024 22:16:16 Lab Complete 06/11/2024 20:32:15 06/11/2024 22:16:16 Pending Labs Complete 06/11/2024 20:32:56 06/11/2024 22:25:26 Lab Complete 06/11/2024 20:32:56 06/11/2024 22:25:26 Pending Labs Complete 06/11/2024 21:52:27 06/11/2024 21:52:27 06/11/2024 22:16:16 Lab Complete 06/11/2024 21:52:27 06/11/2024 21:52:27 06/11/2024 22:16:16 Bed Assign Complete 06/11/2024 22:18:55 06/11/2024 22:18:55 06/11/2024 22:18:55 Dr Exam Complete 06/11/2024 22:18:55 06/11/2024 22:20:24 06/11/2024 22:20:24 RN Exam Complete 06/11/2024 22:18:55 06/11/2024 23:19:18 06/11/2024 23:19:18 Registration Request 06/11/2024 22:20:24 Dr Exam Complete 06/11/2024 22:21:10 06/11/2024 22:21:10 06/11/2024 22:21:10 Pending Labs Complete 06/11/2024 22:41:54 06/11/2024 22:41:54 06/11/2024 22:41:54 Meds Admin Complete 06/11/2024 23:01:41 06/11/2024 23:25:15 Meds Admin Complete 06/12/2024 00:14:05 06/12/2024 00:41:14 Discharge Complete 06/12/2024 00:59:06 06/12/2024 01:08:56 06/12/2024 01:08:56 Transfer Complete 06/12/2024 01:08:56 06/12/2024 01:08:56 06/12/2024 01:08:56 ADDRESS: [address] [place] [id number] PHYS DOC NOTES: MEDICAL INFORMATION: Prescriptions Given: New Medications [facility]/pharmacy #[id number], [address] [place], [place] [id number], [phone] diazepam (Valium 2 mg Tab) 1 Tablets By Mouth 3 times a day as needed for dizziness for 3 Days. Refills: 0. Medications to Continue with No Changes Other Medications beclomethasone (Qvar Redihaler 40 mcg/inh inhalation aerosol) 2 Puffs Inhalation 2 times a day. Refills: 3. ferrous sulfate (ferrous sulfate 325 mg Tab) 1 Tablets By Mouth 2 times a day for 90 Days. Refills: 3. fluticasone (Flovent HFA 44 Aerosol) 2 Puffs Inhalation 2 times a day. rinse mouth and throat after use. Refills: 0. fluticasone nasal (Flonase 0.05 mg/inh [place]) 2 Sprays Nasal Inhalation every day. each nostril. Refills: 0. meclizine (meclizine 12.5 mg Tab) 1 Tablets By Mouth 3 times a day as needed for nausea/vomiting. Refills: 0. meclizine (meclizine 25 mg Tab) 1 Tablets By Mouth 3 times a day as needed for dizziness. Refills: 0. meloxicam (meloxicam 7.5 mg Tab) 1 Tablets By Mouth every day for 90 Days. Refills: 3. tamsulosin (tamsulosin 0.4 mg Cap) 1 Capsules By Mouth every day. Refills: 2. PATIENT EDUCATION INFORMATION: Instructions: Vertigo, [id number] Follow up: With: Address: When: Siobhan Oconnor [facility], [place] [id number] [employer] (8) In 3 days 06/15/2024 With: Address: When: Margarita Hou In 3 days 06/15/2024 Comments: You can use the Valium every 8 hours as needed for dizziness. Please follow-up with your primary care doctor for further evaluation management. Please return to the ED for any new or worsening symptoms. DIAGNOSIS: Vertigo [facility] ED Note-Physicianon 06-12-19 ED Note-Physician ED Note-Physician Basic Information Time Seen: Xavier Wade DO 06/11/2024 22:20 Chief Complaint recently placed on antibiotics, flonase, and meclizine by PCP and states dizziness has not improved. c/o intermittent head pressure. History of Present Illness Patient, 34 year old female, with a history of vertigo comes to the ED for complaints of dizziness and headpressure that has been ongoing since the first may. She had an encounter in the ER for the same complaint in Mid April. No acute cardiac causes seen on lab work. Chest x-ray was negative. They did do a CT of her head as well that was negative for any acute findings. Patient did feel improved after meclizine and Benadryl were given she felt okay for 2 weeks. The patient states she recently saw her PCP who told her she had fluid behind her eardrums, she was given meclizine and Flonase but this has not helped. She feels the most dizzy when she rolls over in bed. Meclizine used to be helpful but it no longer does the job. Patient denies any change of her symptoms over the last month, denies any falls or trauma. Review of Systems A 10 point review of systems is negative except as noted above. Medical and Surgical History: Reviewed and noted Social history: Lives at home Tobacco: Denies Physical Exam Vitals & Measurements T: 36.7 ???C(Oral) HR: 85(Peripheral) RR: 18 BP: 147/89 SpO2: 98% HT: 160 cm WT: 104.3 kg BMI: 40.74 General: alert, no acute distress Skin: warm, dry Head: no trauma, normocephalic Neck: Trachea midline, no adenopathy, no tenderness Eye: normal conjunctiva, sclera clear. Nystagmus noted on exam with ROM. PERLL EOMI ENMT: TM's clear she exhibits fluid behind her ear, oral mucosa moist, no pharyngeal erythema or exudate Cardiovascular: regular rate and rhythm, normal peripheral perfusion Respiratory: Lungs CTA, respirations non labored Chest wall: no deformity. Gastrointestinal: soft, non distended, no tenderness, no guarding. Back: No tenderness, Normal ROM, Normal alignment. Extremities: no deformity, no trauma Neurological: oriented x 4, LOC appropriate for age, CN II-XII intact, motor strength equal & normal bilaterally, sensation equal & normal bilaterally, speech normal, right beating nystagmus with rightward gaze Medical Decision Making MEDICAL DECISION MAKING Number and Complexity of Problems Differential Diagnosis: [] [facility] Data External documents reviewed: [] My EKG interpretation: [] My CT interpretation: [] My X-ray interpretation: [] My Ultrasound interpretation: [] Decision rules/scores evaluated: [] Discussed with: [] Treatment and Disposition ED Course: Patient is a 34-year-old female presenting to the ED for evaluation of persistent dizziness over the last month. Patient is nontoxic and on arrival, no acute distress. Laboratory evaluation is obtained and is unremarkable. Patient had CT imaging done last month which was unremarkable. No indication for repeat imaging as she has had no change in her symptoms over the last month. She does have nystagmus on examination. Patient had been getting relief with meclizine however this is minimal improvement. Patient is given Valium in the ED in addition to Toradol, Reglan for treatment of headache. On reevaluation patient reports significant premed of her symptoms. She is discharged home on Valium. She is given referral to neurology for further evaluation management of her symptoms. Shared decision making: [] Code status: [] Assessment/Plan Vertigo (R42: Dizziness and giddiness) Orders: diazepam, 2.5 mg = 0.5 tab(s), Tab, Oral, Once, Stop date 06/11/24 23:01:00 EST, STAT, Start date 06/11/24 23:01:00 EST, 06/11/24 23:01:00 EST diazepam, 2 mg = 1 tab(s), Oral, TID, PRN for dizziness, X 3 day(s), # 7 tab(s), Refills(s) 0, Pharmacy: [facility]/pharmacy #[id number], 160, cm, 06/11/24 20:23:00 EST, Height/Length Dosing, 104.3, kg, 06/11/24 20:23:00 EST, Weight Dosing ketorolac, 30 mg = 1 mL, Injection, IV Push, Once, Stop date 06/12/24 0:13:00 EST, STAT, Start date 06/12/24 0:13:00 EST, 06/12/24 0:13:00 EST metoclopramide, 10 mg = 2 mL, Injection, IV Push, Once, Stop date 06/12/24 0:13:00 EST, STAT, Start date 06/12/24 0:13:00 EST, 06/12/24 0:13:00 EST Basic Metabolic Panel Beta hCG Quantitative CBC w/ Auto Diff eGFR Extra Blue Tube Extra SST Tube Medications Administered Given diazepam 5 mg Tab, 2.5 mg, Oral ketorolac 30 mg/mL Inj 1 mL, 30 mg, IV Push metoclopramide 5 mg/mL Inj, 10 mg, IV Push Disposition Plan Discharge Prescription List Prescriptions Valium 2 mg Tab, 2 mg= 1 tab(s), Oral, TID, PRN Follow-up With When Contact Information Siobhan Oconnor In 3 days 06/15/2024 EST [facility] [address] [place] [address]- Business (1) Additional Instructions: Margarita Hou In 3 days 06/15/2024 EST Additional Instructions: You can use the Valium every 8 hours as needed for dizziness. Pleas (more content not included)... [facility] Comment on above: Result Comment: Elec tronically Signed By: Xavier Wade DO\.br\Date and Time Signed: 06/12/24 02:35 EST ED Patient Summaryon 025 ED Patient Summary ED Patient Summary [address] [address] Patient Discharge Instructions Person Information Name: DENY DIXON Age: 34 Years Arrival Date: 06/11/2024 19:43:13 Discharge Diagnosis: Vertigo Primary Care Physician: Margarita Tuttle Provider Information Primary Provider: Xavier Wade DO Advanced Design [employer] Technician:None The exam and treatment you received in the Emergency Department were for an urgent problem and are not intended as complete care. It is important that you follow up with a doctor, nurse practitioner, or physician???s printer floor covering assistant for ongoing care. If your symptoms become worse or you do not improve as expected and you are unable to reach your usual health care provider, you should return to the Emergency Department. We are available 24 hours a day. DENY DIXON has been given the following list of patient education materials, prescriptions and follow-up instructions: Follow-up Instructions: With: Address: When: Siobhan Kendalldict Kandice, [address] [place] [address] [facility] (1) In 3 days 06/15/2024 With: Address: When: Margarita Hou In 3 days 06/15/2024 Comments: You can use the Valium every 8 hours as needed for dizziness. Please follow-up with your primary care doctor for further evaluation management. Please return to the ED for any new or worsening symptoms. In the event that this physician does not participate in your insurance network, please consult with your insurance company to find a nearby participating provider. Patient Education Materials: Vertigo, Qrlb-ei-Pmiw A MESSAGE TO ALL PATIENTS REGARDING OPIOIDS PRESCRIPTION OPIOIDS: WHAT YOU NEED TO KNOW Prescription opioids can be used to help relieve meiguasw-wz-jpqbqr pain and are often prescribed following a [...] as well, even when taken as directed: ??? Tolerance???meaning you might need to take more of the medication for the same pain relief ??? Physical dependence???meaning you have symptoms of withdrawal when a medication is stopped ??? Increased sensitivity to pain ??? Constipation ??? Nausea, vomiting, and dry mouth ??? Sleepiness and dizziness ??? Confusion ??? Depression ??? Low levels of testosterone that can result in lower sex drive, energy, and strength ??? Itching and sweating RISKS ARE GREATER WITH: ??? History of drug misuse, substance use disorder, or overdose ??? Mental health conditions (such as depression or anxiety) ??? Sleep apnea ??? Older age (65 years and older) ??? Avoid alcohol while taking prescription opioids. Also, unless specifically advised by your health care provider, medications to avoid include: ??? Benzodiazepines (such as Xanax or Valium) ??? Muscle relaxants (such as Soma or Flexeril) ??? Hypnotics (such as Ambien or Lunesta) ??? Other prescription opioids KNOW YOUR OPTIONS Talk to your health care provider about ways to manage your pain that don???t involve prescription opioids. Some of these options may actually work better and have fewer risks and side effects. Options may include: ??? Pain relievers such as acetaminophen, ibuprofen, and naproxen ??? Some medication that are also used for depression or seizures ??? Physical therapy and exercise ??? Cognitive behavioral therapy, a psychological, goal-directed approach, in which patients learn how to modify physical, behavioral, and emotional triggers of pain and stress. IF YOU ARE PRESCRIBED OPIOIDS FOR PAIN: ??? Never take opioids in greater amounts or more often than prescribed. ??? Follow up with your primary health care provider. o Work together to create a plan on how to manage your pain. o Talk about ways to help manage your pain that don???t involve prescription opioids. o Talk about any and all concerns and side effects. ??? Help prevent misuse and abuse o Never sell or share prescription opioids. o Never use another person???s prescription opioids. ??? Store prescription opioids in a secure place and out of reach of others (this may include visitors, children, friends, and family). ??? Safely dispose of unused prescription opioids: Find your community drug take-back program or your pharmacy mail-back program, or flush them down the toilet, following haleyanc (more content not included)... [facility] CHEMISTRYOrdered By: SYSTEM SYSTEM on 06-11-2024 Anion gap [Moles/Vol] 10 mmol/L Normal 6 - 16 mEq/L Remisol Chem Calcium [Mass/Vol] 9.6 mg/dL Normal 8.9 - 11. 1 mg/dL Remisol Chem Chloride [Moles/Vol] 105 mmol/L Normal 101 - 1 11 mmol/L Remisol Chem CO2 [Moles/Vol] 27 mmol/L Normal 21 - 31 mmol/L Remisol Chem Creatinine [Mass/Vol] 0.7 mg/dL Normal 0.5 - 1.3 mg/dL Remisol Chem eGFR 117 mL/min/1.73 m2 Normal >=59mL/mi n /1.73 m2 Remisol Chem Glucose [Mass/Vol] 93 mg/dL Normal 55 - 199 mg/dL Remisol Chem HCG.beta subunit Qn mIU/mL Normal 1 - 3 mIU/mL Remisol Chem Comment on above: Result Comment: 'F N ON < 1 - 3' ' 0.2 - 1 WEEK = 5 TO 50' ' 1 - 2 WEEKS = 50 - 500' ' 2 - 3 WEEKS = 100 - 5000' ' 3 - 4 WEEKS = 500 - [id number]' ' 4 - 5 WEEKS = 1000 - 92497' ' 5 - 6 WEEKS = - ' ' 6 - 8 WEEKS = - ' ' 8 - 12 WEEKS = - ' Potassium [Moles/Vol] 4.4 mmol/L Normal 3.5 - 5.3 mmol/L Remisol Chem Sodium [Moles/Vol] 138 mmol/L Normal 135 - 145 mmol/L Remisol Chem Urea nitrogen [Mass/Vol] 12 mg/dL Normal 5 - 21 mg/dL Remisol Chem Urea nitrogen/Creatinine [Mass ratio] 17 mg/mg Normal 10 - 20 Remisol Chem Extra Blueon 06-11-2024 Tube Collected Plasma Yes Invalid Interpretation Code [facility] Comment on above: Performed By: #### 1 [id number] ####[facility] [id number] [place] [address] HEMATOLOGYOrdered By: SYSTEM SYSTEM on 06-11-2024 Basophils/100 WBC (Bld) 1.1 % Normal 0.0 - 2.0 % Remisol Heme Basophils/Leukocytes Auto (Bld) [Pure # fraction] 0.1 E9/L Normal 0.0 - 0.2 E9/L Remisol Heme Eosinophils (Bld) [#/Vol] 0.3 E9/L Normal 0.0 - 0.5 E9/L Remisol Heme Eosinophils/100 WBC (Bld) 4.0 % Normal 0.0 - 8.0 % Remisol Heme Erythrocyte distribution width (RBC) [Ratio] 17.0 % High 10.9 - 14.2 % Remisol Heme Hematocrit (Bld) [Volume fraction] 40.3 % Normal 34.0 - 46.0 % Remisol Heme Hemoglobin (Bld) [Mass/Vol] 13.3 g/dL Normal 12.0 - 16.0 gm/dL Remisol Heme Lymphocytes (Bld) [#/Vol] 1.4 E9/L Normal 1.0 - 4.0 E9/L Remisol Heme Lymphocytes/100 WBC (Bld) 20.3 % Normal 14.0 - 50.0 % Remisol Heme MCH (RBC) [Entitic mass] 26.0 pg Low 27.0 - 34.0 pg Remisol Heme MCHC (RBC) [Mass/Vol] 33.0 g/dL Normal 31.4 - 36.0 gm/dL Remisol Heme MCV (RBC) [Entitic vol] 78.8 fL Low 80.0 - 100.0 fL Remisol Heme Monocytes (Bld) [#/Vol] 0.5 E9/L Normal 0.2 - 1.0 E9/L Remisol Heme Monocytes/100 WBC (Bld) 7.1 % Normal 4.0 - 14.0 % Remisol Heme Neutrophils (Bld) [#/Vol] 4.8 E9/L Normal 2.0 - 7.5 E9/L Remisol Heme Neutrophils/100 WBC (Bld) 67.5 % Normal 36.0 - 75.0 % Remisol Heme Platelet mean volume (Bld) [Entitic vol] 9.0 fL Normal 6.4 - 10.8 fL Remisol Heme Platelets (Bld) [#/Vol] 297.0 E9/L Normal 150.0 - 500.0 E9/L Remisol Heme RBC (Bld) [#/Vol] 5.1 E12/L Normal 4.3 - 5.9 E12/L Remisol Heme WBC corrected for nucl RBC Auto (Bld) [#/Vol] 7.1 E9/L Normal 4.0 - 11.0 E9/L Remisol Heme Family Medicine Office/Clini c Noteon 05-27-2024 Family Medicine Office/Clinic Note Family Medicine Office/Clinic Note HPI Staff Deny is a 34 year old female presenting with wanting to discuss vertigo when going to bed Onset: a week now off and on but the last week it has been every night and day Going to bed, or reaching or turning too fast History of Present Illness pt presents today with dizziness worst when she lays down or changing positions too fast Review of Systems PHQ Score Initial Depression Screen Score: 0 SCORE Physical Exam Vitals & Measurements T: 36.5 ???C(Oral) HR: 82(Peripheral) RR: 18 BP: 118/84 SpO2: 98% HT: 63 in HT: 160.2 cm WT: 104.3 kg WT: 229.942 lb BMI: 40.64 General: alert, no acute distress ENMT: oral mucosa moist, no pharyngeal erythema or exudate, JULIA TM full of fluid Cardiovascular: regular rate and rhythm, normal peripheral perfusion Respiratory: Lungs CTA, respirations non labored Extremities: no deformity, no trauma Neurological: oriented x 4, LOC appropriate for age, CN II-XII intact, motor strength equal & normal bilaterally, speech normal Assessment/Plan 1. Sinusitis (J32.9: Chronic sinusitis, unspecified) sinus tenderness and congestion. will treat with amoxicillin and flonase. Ordered: amoxicillin, 500 mg = 1 cap(s), Oral, TID, X 7 day(s), # 21 cap(s), Refills(s) 0, Pharmacy: [facility]/pharmacy #[id number], 160.2, cm, 05/27/24 15:24:00 EST, Height/Length Dosing, 104.3, kg, 05/27/24 15:24:00 EST, Weight Dosing 2. Fluid level behind tympanic membrane of both ears (H65.93: Unspecified nonsuppurative otitis media, bilateral) will give 40mg kenalog in office today Ordered: amoxicillin, 500 mg = 1 cap(s), Oral, TID, X 7 day(s), # 21 cap(s), Refills(s) 0, Pharmacy: [facility]/pharmacy #[id number], 160.2, cm, 05/27/24 15:24:00 EST, Height/Length Dosing, 104.3, kg, 05/27/24 15:24:00 EST, Weight Dosing 3. Dizziness (R42: Dizziness and giddiness) pt has had vertigo in the past. but i feel the dizziness if from fluid in TM. 4. Non-smoker (Z78.9: Other specified health status) continue not smoking Ordered: amoxicillin, 500 mg = 1 cap(s), Oral, TID, X 7 day(s), # 21 cap(s), Refills(s) 0, Pharmacy: [facility]/pharmacy #[id number], 160.2, cm, 05/27/24 15:24:00 EST, Height/Length Dosing, 104.3, kg, 05/27/24 15:24:00 EST, Weight Dosing fluticasone nasal, 2 spray(s), Nasal, Daily, 16 gram, Refill(s) 0, each nostril, [facility]/pharmacy #[id number], 160.2, cm, 05/27/24 15:24:00 EST, Height/Length Dosing, 104.3, kg, 05/27/24 15:24:00 EST, Weight Dosing meclizine, 25 mg = 1 tab(s), Oral, TID, PRN for dizziness, # 30 tab(s), Refills(s) 0, [id number], 160.2, cm, 05/27/24 15:24:00 EST, Height/Length Dosing, 104.3, kg, 05/27/24 15:24:00 EST, Weight Dosing 5. Body mass index [BMI] 40.0-44.9, adult (Z68.41: Body mass index [BMI] 40.0-44.9, adult) BMI edcuation 6. Morbid obesity with BMI of 40.0-44.9, adult (E66.01: Morbid (severe) obesity due to excess calories) pt plans on starting to exercise since starting a new job Ordered: amoxicillin, 500 mg = 1 cap(s), Oral, TID, X 7 day(s), # 21 cap(s), Refills(s) 0, [id number], 160.2, cm, 05/27/24 15:24:00 EST, Height/Length Dosing, 104.3, kg, 05/27/24 15:24:00 EST, Weight Dosing fluticasone nasal, 2 spray(s), Nasal, Daily, 16 gram, Refill(s) 0, each nostril, [facility]/pharmacy #[id number], 160.2, cm, 05/27/24 15:24:00 EST, Height/Length Dosing, 104.3, kg, 05/27/24 15:24:00 EST, Weight Dosing meclizine, 25 mg = 1 tab(s), Oral, TID, PRN for dizziness, # 30 tab(s), Refills(s) 0, Pharmacy: [facility]/pharmacy #[id number], 160.2, cm, 05/27/24 15:24:00 EST, Height/Length Dosing, 104.3, kg, 05/27/24 15:24:00 EST, Weight Dosing Follow-up No qualifying data available Problem List/Past Medical History Ongoing Anemia BMI 39.0-39.9,adult BMI 40.0-44.9, adult Cervical cancer screening Class 1 obesity due to excess calories in adult Community acquired pneumonia Dizziness Drug therapy finding Exposure to influenza Fluid level behind tympanic membrane of both ears Hyperesthesia Left shoulder pain Low hemoglobin Menorrhagia Neck pain on left side Numbness of left hand Pale Sinusitis Syncope Ureteral stone with hydronephrosis Vertigo Well woman exam Wheezing Historical Dilation and curettage Low-lying placenta Missed miscarriage Procedure/Surgical History Tubal ligation (08/08/2015). Medications amoxicillin 500 mg Cap, 500 mg= 1 cap(s), Oral, TID ferrous sulfate 325 mg Tab, 325 mg= 1 tab(s), Oral, BID, 3 refills Flonase 0.05 mg/inh [place], 2 spray(s), Nasal, Daily Flovent HFA 44 Aerosol, 2 puff(s), Inhalation, BID meclizine 12.5 mg Tab, 12.5 mg= 1 tab(s), Oral, TID, PRN meclizine 25 mg Tab, 25 mg= 1 tab(s), Oral, TID, PRN meloxicam 7.5 mg Tab, 7.5 mg= 1 tab(s), Oral, Daily, 3 refills Qvar Redihaler 40 mcg/inh inhalation aerosol, 2 puff(s), Inhalation, BID, 3 refills tamsulosin 0.4 mg Cap, 0.4 mg= 1 cap(s), Oral, Daily, 2 refills Allergies No Known Allergi (more content not included)... 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 Pt reports she still feels dizzy. Has a history of vertigo but reports this feels different. denies n/v. Mild MONTOYA. denies uirnary s/s. denies diarrhea/abd pain. History of Present Illness A 34-year-old female reports emergency department with complaints of lightheadedness and dizziness started today at work. Reports that she must passed out but did not. Reports that she has had these episodes before. Reports history of vertigo, but this feels slightly different. Reports headache with this. Denies any urinary symptoms. Reports nausea with no vomiting. Reports blurred vision, but that has resolved. Denies any fevers or chills. Denies any cough or congestion. Review of Systems No other aggravating or relieving factors no other associated symptoms no other prior treatments or complaints. Family: Reviewed and noncontributory Social: lives at home Review of systems negative unless otherwise specified in the HPI. Physical Exam Vitals & Measurements T: 36.8 ???C(Oral) HR: 66(Monitored) RR: 17 BP: 113/89 BP: 151/105(Standing) BP: 136/71(Supine) SpO2: 99% HT: 160.02 cm WT: 99.4 kg BMI: 38.82 General: The patient appears well and in no apparent distress. Patient is resting comfortably on bed. Afebrile Skin: Warm, dry, no pallor noted. Head: Normocephalic, atraumatic Neck: No JVD Eye: PERRLA, EOMI ENT: Moist mucus membranes Cardiovascular: Regular rate. normal peripheral perfusion Respiratory: No respiratory distress. no accessory muscle use. no obvious audible wheezing Chest Wall: no deformity Musculoskeletal: normal ROM, no deformity, no swelling GI: No obvious distention Neurological: A&Ox4. moves all extremities equal strength and symmetry. No focal neurological deficits. Psychiatric: Cooperative and appropriate Medical Decision Making MEDICAL DECISION MAKING Number and Complexity of Problems Differential Diagnosis: [] [facility] Data External documents reviewed: [] My EKG interpretation: My CT interpretation: reviewed My X-ray interpretation: reviewed My Ultrasound interpretation: [] Decision rules/scores evaluated: [] Discussed with: [] Treatment and Disposition ED Course: A 34-year-old female reports emergency department with complaints of near syncopal episode with headache. Reports that she does have history of vertigo but feels different. Reports almost passed out. Denies any cardiac history. Due to concerns, I did do a full workup on the patient. Lab work obtained noted. No acute cardiac causes seen on lab work. Chest x-ray was negative. We did do a CT of her head as well that was negative for any acute findings. Patient did feel improved after meclizine and Benadryl were given. Did give IV fluids. Discussed follow-up with PCP. Discussed return precautions. Follow-up with your primary care provider in 3 to 5 days. If symptoms worsen, do not improve, or new symptoms arise please report back to emergency department for further evaluation. The patient was understanding and agreeable to plan moving forward. Shared decision making: [] Code status: [] Assessment/Plan Headache (R51.9: Headache, unspecified) Near syncope (R55: Syncope and collapse) Orders: diphenhydrAMINE, 25 mg = 0.5 mL, Injection, IV Push, Once, Stop date 04/29/24 16:10:00 EST, STAT, Start date 04/29/24 16:10:00 EST, 04/29/24 16:10:00 EST meclizine, 12.5 mg = 1 tab(s), Tab, Oral, Once, Stop date 04/29/24 16:10:00 EST, STAT, Start date 04/29/24 16:10:00 EST, 04/29/24 16:10:00 EST ondansetron, 4 mg = 2 mL, Injection, IV Push, Once, Stop date 04/29/24 16:10:00 EST, STAT, Start date 04/29/24 16:10:00 EST, 04/29/24 16:10:00 EST Sodium Chloride 0.9% intravenous solution, 1,000 mL, Soln-IV, IV, Once, Stop date 04/29/24 16:10:00 EST, STAT, Start date 04/29/24 16:10:00 EST, Infuse over 61, minute(s) Basic Metabolic Panel Beta hCG Qual CBC w/ Auto Diff CT Head or Brain w/o Contrast ED Cardiac Monitoring eGFR Oxygen Saturation PT & PTT Saline Lock Insert Troponin 0 Hr. XR Chest Single View Medications Administered Given diphenhydrAMINE 50 mg/mL Inj, 25 mg, IV Push meclizine 12.5 mg Tab, 12.5 mg, Oral NS 1000 ml Bolus, 1000 mL, IV Zofran 4 mg/2 mL Injection, 4 mg, IV Push Disposition Plan Patient Discharge Condition Stable Discharge Disposition To home Discharge Prescription List Prescriptions No active prescription medications Follow-up With When Contact Information Margarita Hou In 3 days 05/02/2024 EST [address] [phone] Business (1) Additional Instructions: Call Dr for diagnosis based follow up Patient Education Near-Syncope Attestation Patient seen and evaluated by the physician printer floor covering assistant. Attending physician was present in the emergen (more content not included)... Normal [facility] Comment on above: Result Comment: Elec tronically Signed By: Greg Erickson PA-C\.br\Date and Time Signed: 04/29/24 19:18 EST\.br\Electronically Co-Signed By: Bert Davis DO\.br\Date and Time Co-Signed: 05/02/24 07:39 EST B hCG Qualon 04-29-2024 Beta HCG ( test) Ql Negative Normal [facility] Comment on above: Performed By: #### 2 [id number] #### [facility] [address] [place] [address] BMPon 04-29-2024 Anion gap [Moles/Vol] 11 mmol/L Normal 6-16 [facility] Comment on above: Performed By: #### 2 [id number] #### [facility] [address] [place] [address] Calcium [Mass/Vol] 9.5 mg/dL Normal 8.9-11.1 [facility] Comment on above: Performed By: #### 2 [id number] #### [facility] [address] [place] [address] Chloride [Moles/Vol] 105 mmol/L Normal 101-111 [facility] Comment on above: Performed By: #### 2 [id number] #### [facility] [address] [place] [address] CO2 [Moles/Vol] 24 mmol/L Normal 21-31 [facility] Comment on above: Performed By: #### 2 [id number] #### [facility] [address] [place] [address] Creatinine [Mass/Vol] 0.8 mg/dL Normal 0.5-1.3 [facility] Comment on above: Performed By: #### 2 [id number] #### [facility] [address] [place] [address] Glucose [Mass/Vol] 92 mg/dL Normal 55-199 [facility] Comment on above: Performed By: #### 2 [id number] #### [facility] [address] [place] [address] Potassium [Moles/Vol] 3.8 mmol/L Normal 3.5-5.3 [facility] Comment on above: Performed By: #### 2 [id number] #### [facility] [address] [place] [address] Sodium [Moles/Vol] 136 mmol/L Normal 135-145 [facility] Comment on above: Performed By: #### 2 [id number] #### [facility] [address] [place] [address] Urea nitrogen [Mass/Vol] 13 mg/dL Normal 5-21 [facility] Comment on above: Performed By: #### 2 [id number] #### [facility] [address] [place] [address] Urea nitrogen/Creatinine [Mass ratio] 16 No Units Normal 10-20 [facility] Comment on above: Performed By: #### 2 [id number] #### [facility] [address] [place] [address] CBC w/ Auto Diffon 4 Basophils/100 WBC (Bld) 1.3 % Normal 0.0-2.0 [facility] Comment on above: Performed By: #### 2 [id number] #### [facility] [address] [place] [address] Basophils/Leukocytes Auto (Bld) [Pure # fraction] 0.1 E9/L Normal 0.0-0.2 [facility] Comment on above: Performed By: #### 2 [id number] #### [facility] [address] [place] [address] Eosinophils (Bld) [#/Vol] 0.3 E9/L Normal 0.0-0.5 [facility] Comment on above: Performed By: #### 2 [id number] #### [facility] [address] [place] [address] Eosinophils/100 WBC (Bld) 4.7 % Normal 0.0-8.0 [facility] Comment on above: Performed By: #### 2 [id number] #### [facility] [address] [place] [address] Erythrocyte distribution width (RBC) [Ratio] 15.8 % High 10.9-14.2 [facility] Comment on above: Performed By: #### 2 [id number] #### [facility] [address] [place] [address] Hematocrit (Bld) [Volume fraction] 40.2 % Normal 34.0-46.0 [facility] Comment on above: Performed By: #### 2 [id number] #### [facility] [address] [place] [address] Hemoglobin (Bld) [Mass/Vol] 13.4 g/dL Normal 12.0-16.0 [facility] Comment on above: Performed By: #### 2 [id number] #### [facility] [address] [place] [address] Lymphocytes (Bld) [#/Vol] 1.3 E9/L Normal 1.0-4.0 [facility] Comment on above: Performed By: #### 2 [id number] #### [facility] [address] [place] [address] Lymphocytes/100 WBC (Bld) 18.5 % Normal 14.0-50.0 [facility] Comment on above: Performed By: #### 2 [id number] #### [facility] [address] [place] [address] MCH (RBC) [Entitic mass] 26.7 pg Low 27.0-34.0 [facility] Comment on above: Performed By: #### 2 [id number] #### [facility] [address] [place] [address] MCHC (RBC) [Mass/Vol] 33.3 g/dL Normal 31.4-36.0 [facility] Comment on above: Performed By: #### 2 [id number] #### [facility] [address] [place] [address] MCV (RBC) [Entitic vol] 80.1 fL Normal 80.0-100.0 [facility] Comment on above: Performed By: #### 2 [id number] #### [facility] [address] [place] [address] Monocytes (Bld) [#/Vol] 0.4 E9/L Normal 0.2-1.0 [facility] Comment on above: Performed By: #### 2 [id number] #### [facility] [address] [place] [address] Neutrophils (Bld) [#/Vol] 4.7 E9/L Normal 2.0-7.5 [facility] Comment on above: Performed By: #### 2 [id number] #### [facility] [address] [place] [address] Neutrophils/100 WBC (Bld) 69.5 % Normal 36.0-75.0 [facility] Comment on above: Performed By: #### 2 [id number] #### [facility] [address] [place] [address] Platelet mean volume (Bld) [Entitic vol] 9.2 fL Normal 6.4-10.8 [facility] Comment on above: Performed By: #### 2 [id number] #### [facility] [address] [place] [address] Platelets (Bld) [#/Vol] 279.0 E9/L Normal 150.0-500. 0 [facility] Comment on above: Performed By: #### 2 [id number] #### [facility] [address] [place] [address] RBC (Bld) [#/Vol] 5.0 E12/L Normal 4.3-5.9 [facility] Comment on above: Performed By: #### 2 [id number] #### [facility] [address] [place] [address] WBC corrected for nucl RBC Auto (Bld) [#/Vol] 6.8 E9/L Normal 4.0-11.0 [facility] Comment on above: Performed By: #### 2 [id number] #### [facility] [address] [place] [address] CHEMISTRYOrdered By: [email or web address] SYSTEM on 04-29-2024 Anion gap [Moles/Vol] 11 mmol/L Normal 6 - 16 mEq/L Remisol Chem Calcium [Mass/Vol] 9.5 mg/dL Normal 8.9 - 11. 1 mg/dL Remisol Chem Chloride [Moles/Vol] 105 mmol/L Normal 101 - 1 11 mmol/L Remisol Chem CO2 [Moles/Vol] 24 mmol/L Normal 21 - 31 mmol/L Remisol Chem Creatinine [Mass/Vol] 0.8 mg/dL Normal 0.5 - 1.3 mg/dL Remisol Chem eGFR 100 mL/min/1.73 m2 Normal >=59mL/mi n /1.73 m2 Remisol Chem Glucose [Mass/Vol] 92 mg/dL Normal 55 - 199 mg/dL Remisol Chem Potassium [Moles/Vol] 3.8 mmol/L Normal 3.5 - 5.3 mmol/L Remisol Chem Sodium [Moles/Vol] 136 mmol/L Normal 135 - 145 mmol/L Remisol Chem Troponin HS pg/mL Low 10.10 - 27.10 pg/mL [facility] Chem Comment on above: Interpretive Data: T he 95% CI (Confidence Interval) PPV (Positive Predictive Value) for myocardial infarction in females is 38 pg/mL, in males 51 pg/mL. The results should be used in conjunction with clinical conditions of myocardial infarction. (Access High Sensitivity Troponin I Instructions For Use, Hong Sami, December 2017) Urea nitrogen [Mass/Vol] 13 mg/dL Normal 5 - 21 mg/dL Remisol Chem Urea nitrogen/Creatinine [Mass ratio] 16 mg/mg Normal 10 - 20 Remisol Chem COAGULATIONOrdered By: Lilo Avendaño on 04-29-2024 aPTT Coag (PPP) [Time] 35.0 s Normal 25.1 - 36.5 second(s) [facility] Comment on above: Interpretive Data: P mayraelsie 15 days - 4 weeks 1 - 5 months 6 - 11 months 1 - 5 years 6 - 10 years 11 - 17 years PTT Mean: 35.4 (27.6-45.6) Mean: 33.5 (24.8-40.7) Mean: 32.4 (25.1-40.7) Mean: 31.6 (24.0-39.2) Mean: 31.6 (26.9-38.7) Mean: 31.0 (24.6-38.4) Pediatric Reference ranges were obtained from a study by michael Guidry prepared from 1437 samples obtained at 7 different centers using the same coagulation reagent and instrumentation as [facility]. Currently there are no coagulation studies available worldwide for children to 14 days, and no normal ranges. Heparin therapeutic range (represented by Anti-Factor Xa activity of 0.2 - 0.4 U/mL) corresponds to PTT of 56.6 - 109.0 sec. INR Coag (PPP) [Relative time] 1.03 {INR} Invalid Interpretation Code [facility] Comment on above: Interpretive Data: I NR results are specifically intended to assess patients stabilized on long-term Anticoagulation therapy suggested INR s Less Intensive Anticoagulation 2.0 3.0 Conventional Range 3.0 4.5 PT Coag (PPP) [Time] 11.5 s Normal 9.4 - 1 2.5 second(s) [facility] Comment on above: Interpretive Data: 1 5 days - 4 weeks 1 - 5 months 6 -11 months 1 5 years 6 10 years 11 -17 years Mean: 11.2 (9.5 12.6) Mean: 11.0 (9.7 12.8) Mean: 11.0 (9.8 13.0) Mean: 11.3 (9.9 13.4) Mean: 11.7 (10.0 14.6) Mean: 11.8 (10.0 - 14.1) Pediatric Reference ranges were obtained from a study by michael Guidry prepared from 1437 samples obtained at 7 different centers using the same coagulation reagent and instrumentation as [facility]. Currently there are no coagulation studies available worldwide for children to 14 days, and no normal ranges. CT Head or Brain w/o Contras evy 04-29-2024 CT Head or Brain w/o Contrast Exam Date/Time: 04/29/2024 16:25 EST Reason for Exam: Other (please specify) Report Impression: No acute intracranial process. CT Brain. Contrast medium: without contrast.. History: Syncope at work. Still feels dizzy.. Technical factors: CT imaging of the brain was obtained and formatted as 5 mm contiguous axial images. 2.5 mm contiguous axial images were obtained through the osseous structures. Sagittal and coronal reconstruction obtained during postprocessing. Comparison: None. Findings: Extra-axial spaces: Normal. Intracranial hemorrhage: None. Ventricular system: Without anomaly. Basal Cisterns: Normal. Cerebral Parenchyma: Without anomaly. Midline Shift: None. Cerebellum: Normal. Paranasal sinuses and mastoid air cells: Normal. Visualized Orbits: Normal. All CT scans at this facility use dose modulation, iterative reconstruction, and/or weight based dosing when appropriate to reduce radiation dose to as low as reasonably achievable. Report Ordering Provider: Greg Erickson FINAL REPORT Dictated: 04/29/2024 4:28 pm Calvin Rodriges MD Signed (Electronic Signature): 04/29/2024 4:28 pm Signed by: Calvin Rodriges MD Transcribed by: RADHA Technologist: TOM Gutierres [facility] ED Clinical Summaryon 2023 ED Clinical Summary ED Clinical Summary [address] [place] [id number] ED Clinical Summary Person Information Name: DENY DIXON [facility] Age: 34 Years : 1990 Sex: Female Language: Niuean PCP: Margarita Tuttle Marital Status: Visit Id: Visit Reason: Headache; Dizziness; DIZZY/VISON BLURRIE/SHACKING Speciality: Acuity: 3 Enc Type: Emergency Med Service: Emergency Arrival: 04/29/2024 14:54:08 Discharge: 04/29/2024 18:16:47 LOS: 000 03:22 Checkin: 04/29/2024 14:54:08 Checkout: 04/29/2024 18:16:47 Dispo Type: Home (Routine DC) EVENTS: Event Name Event Status Request Date/Time Start Date/Time Complete Date/Time Arrive Complete 04/29/2024 14:54:08 04/29/2024 14:54:08 04/29/2024 14:54:08 Document Home Meds Request 04/29/2024 14:54:08 Triage Complete 04/29/2024 14:54:08 04/29/2024 15:03:25 04/29/2024 15:03:25 EKG Complete 04/29/2024 15:01:01 04/29/2024 15:52:26 Pending Labs Complete 04/29/2024 15:05:34 04/29/2024 15:37:10 Dr Exam Complete 04/29/2024 15:06:36 04/29/2024 15:06:36 04/29/2024 15:06:36 Registration Complete 04/29/2024 15:06:36 04/29/2024 15:12:40 04/29/2024 15:12:40 Pending Labs Complete 04/29/2024 15:07:15 04/29/2024 15:57:55 Lab Complete 04/29/2024 15:07:15 04/29/2024 15:50:46 Patient Care Request 04/29/2024 15:07:15 X-Ray Complete 04/29/2024 15:07:15 04/29/2024 15:19:15 04/29/2024 16:23:50 Reg Complete Request 04/29/2024 15:12:40 Reg Bed Request Complete 04/29/2024 15:12:40 04/29/2024 15:12:40 04/29/2024 15:12:40 Pending Labs Complete 04/29/2024 15:28:19 04/29/2024 15:28:19 04/29/2024 15:50:46 Lab Complete 04/29/2024 15:28:19 04/29/2024 15:28:19 04/29/2024 15:50:46 Bed Assign Complete 04/29/2024 15:43:12 04/29/2024 15:43:12 04/29/2024 15:43:12 RN Exam Complete 04/29/2024 15:43:12 04/29/2024 16:46:20 04/29/2024 16:46:20 Dr Exam Complete 04/29/2024 15:43:59 04/29/2024 15:43:59 04/29/2024 15:43:59 Registration Request 04/29/2024 15:43:59 CT Complete 04/29/2024 16:11:03 04/29/2024 16:12:34 04/29/2024 16:25:58 Meds Admin Complete 04/29/2024 16:11:03 04/29/2024 16:35:47 Wet Read Complete 04/29/2024 16:23:50 04/29/2024 17:44:07 04/29/2024 17:44:07 Discharge Complete 04/29/2024 17:06:23 04/29/2024 18:16:58 04/29/2024 18:16:58 Transfer Complete 04/29/2024 18:16:58 04/29/2024 18:16:58 04/29/2024 18:16:58 ADDRESS: [address] [place] [id number] [facility] DOC NOTES: MEDICAL INFORMATION: Prescriptions Given: Medications to Continue with No Changes Other Medications beclomethasone (Qvar Redihaler 40 mcg/inh inhalation aerosol) 2 Puffs Inhalation 2 times a day. Refills: 3. ferrous sulfate (ferrous sulfate 325 mg Tab) 1 Tablets By Mouth 2 times a day for 90 Days. Refills: 3. fluticasone (Flovent HFA 44 Aerosol) 2 Puffs Inhalation 2 times a day. rinse mouth and throat after use. Refills: 0. meclizine (meclizine 12.5 mg Tab) 1 Tablets By Mouth 3 times a day as needed for nausea/vomiting. Refills: 0. meloxicam (meloxicam 7.5 mg Tab) 1 Tablets By Mouth every day for 90 Days. Refills: 3. tamsulosin (tamsulosin 0.4 mg Cap) 1 Capsules By Mouth every day. Refills: 2. PATIENT EDUCATION INFORMATION: Instructions: Near-Syncope Follow up: With: Address: When: Margarita Hou [address] [place] [address] Business (1) In 3 days 05/02/2024 Comments: Call Dr for diagnosis based follow up DIAGNOSIS: Headache; Near syncope Normal [facility] ED Patient Summaryon 024 ED Patient Summary ED Patient Summary [address] [address] Patient Discharge Instructions Person Information Name: DENY DIXON Age: 34 Years Arrival Date: 04/29/2024 14:54:08 Discharge Diagnosis: Headache; Near syncope Primary Care Physician: Margarita Tuttle Provider Information Primary Provider: Bert Davis DO Advanced Design Engineering Technician:None The exam and treatment you received in the Emergency Department were for an urgent problem and are not intended as complete care. It is important that you follow up with a doctor, nurse practitioner, or physician???s printer floor covering assistant for ongoing care. If your symptoms become worse or you do not improve as expected and you are unable to reach your usual health care provider, you should return to the Emergency Department. We are available 24 hours a day. DENY DIXON has been given the following list of patient education materials, prescriptions and follow-up instructions: Follow-up Instructions: With: Address: When: Margarita Hou [address] [place] [address] Business (1) In 3 days 05/02/2024 Comments: Call Dr for diagnosis based follow up In the event that this physician does not participate in your insurance network, please consult with your insurance company to find a nearby participating provider. Patient Education Materials: Near-Syncope A MESSAGE TO ALL PATIENTS REGARDING OPIOIDS PRESCRIPTION OPIOIDS: WHAT YOU NEED TO KNOW Prescription opioids can be used to help relieve csoiuedr-ct-ytskpl pain and are often prescribed following a [...] as well, even when taken as directed: ??? Tolerance???meaning you might need to take more of the medication for the same pain relief ??? Physical dependence???meaning you have symptoms of withdrawal when a medication is stopped ??? Increased sensitivity to pain ??? Constipation ??? Nausea, vomiting, and dry mouth ??? Sleepiness and dizziness ??? Confusion ??? Depression ??? Low levels of testosterone that can result in lower sex drive, energy, and strength ??? Itching and sweating RISKS ARE GREATER WITH: ??? History of drug misuse, substance use disorder, or overdose ??? Mental health conditions (such as depression or anxiety) ??? Sleep apnea ??? Older age (65 years and older) ??? Avoid alcohol while taking prescription opioids. Also, unless specifically advised by your health care provider, medications to avoid include: ??? Benzodiazepines (such as Xanax or Valium) ??? Muscle relaxants (such as Soma or Flexeril) ??? Hypnotics (such as Ambien or Lunesta) ??? Other prescription opioids KNOW YOUR OPTIONS Talk to your health care provider about ways to manage your pain that don???t involve prescription opioids. Some of these options may actually work better and have fewer risks and side effects. Options may include: ??? Pain relievers such as acetaminophen, ibuprofen, and naproxen ??? Some medication that are also used for depression or seizures ??? Physical therapy and exercise ??? Cognitive behavioral therapy, a psychological, goal-directed approach, in which patients learn how to modify physical, behavioral, and emotional triggers of pain and stress. IF YOU ARE PRESCRIBED OPIOIDS FOR PAIN: ??? Never take opioids in greater amounts or more often than prescribed. ??? Follow up with your primary health care provider. o Work together to create a plan on how to manage your pain. o Talk about ways to help manage your pain that don???t involve prescription opioids. o Talk about any and all concerns and side effects. ??? Help prevent misuse and abuse o Never sell or share prescription opioids. o Never use another person???s prescription opioids. ??? Store prescription opioids in a secure place and out of reach of others (this may include visitors, children, friends, and family). ??? Safely dispose of unused prescription opioids: Find your community drug take-back program or your pharmacy mail-back program, or flush them down the toilet, following guidance from the Food and Drug Administration (www.fda.gov/Drugs/Resourc esForYou). ??? Visit www.cdc.gov/drugoverdose to learn about the risks of opioids abuse and overdose. ??? If you believe you may be struggling with addiction, t (more content not included)... Normal [facility] HEMATOLOGYOrdered By: SYSTEM SYSTEM on 04-29-2024 Basophils/100 WBC (Bld) 1.3 % Normal 0.0 - 2.0 % Remisol Heme Basophils/Leukocytes Auto (Bld) [Pure # fraction] 0.1 E9/L Normal 0.0 - 0.2 E9/L Remisol Heme Eosinophils (Bld) [#/Vol] 0.3 E9/L Normal 0.0 - 0.5 E9/L Remisol Heme Eosinophils/100 WBC (Bld) 4.7 % Normal 0.0 - 8.0 % Remisol Heme Erythrocyte distribution width (RBC) [Ratio] 15.8 % High 10.9 - 14.2 % Remisol Heme Hematocrit (Bld) [Volume fraction] 40.2 % Normal 34.0 - 46.0 % Remisol Heme Hemoglobin (Bld) [Mass/Vol] 13.4 g/dL Normal 12.0 - 16.0 gm/dL Remisol Heme Lymphocytes (Bld) [#/Vol] 1.3 E9/L Normal 1.0 - 4.0 E9/L Remisol Heme Lymphocytes/100 WBC (Bld) 18.5 % Normal 14.0 - 50.0 % Remisol Heme MCH (RBC) [Entitic mass] 26.7 pg Low 27.0 - 34.0 pg Remisol Heme MCHC (RBC) [Mass/Vol] 33.3 g/dL Normal 31.4 - 36.0 gm/dL Remisol Heme MCV (RBC) [Entitic vol] 80.1 fL Normal 80.0 - 100.0 fL Remisol Heme Monocytes (Bld) [#/Vol] 0.4 E9/L Normal 0.2 - 1.0 E9/L Remisol Heme Monocytes/100 WBC (Bld) 6.0 % Normal 4.0 - 14.0 % Remisol Heme Neutrophils (Bld) [#/Vol] 4.7 E9/L Normal 2.0 - 7.5 E9/L Remisol Heme Neutrophils/100 WBC (Bld) 69.5 % Normal 36.0 - 75.0 % Remisol Heme Platelet mean volume (Bld) [Entitic vol] 9.2 fL Normal 6.4 - 10.8 fL Remisol Heme Platelets (Bld) [#/Vol] 279.0 E9/L Normal 150.0 - 500.0 E9/L Remisol Heme RBC (Bld) [#/Vol] 5.0 E12/L Normal 4.3 - 5.9 E12/L Remisol Heme WBC corrected for nucl RBC Auto (Bld) [#/Vol] 6.8 E9/L Normal 4.0 - 11.0 E9/L Remisol Heme PT & PTTon 04-29-2024 aPTT Coag (PPP) [Time] 35.0 second(s) Normal 25.1-36.5 [facility] Comment on above: Result Comment: Para meter 15 days - 4 weeks 1 - 5 months 6 - 11 months 1 - 5 years 6 - 10 years 11 - 17 years PTT Mean: 35.4 (27.6-45.6) Mean: 33.5 (24.8-40.7) Mean: 32.4 (25.1-40.7) Mean: 31.6 (24.0-39.2) Mean: 31.6 (26.9-38.7) Mean: 31.0 (24.6-38.4) Pediatric Reference ranges were obtained from a study by Jean Kan et al. prepared from 1437 samples obtained at 7 different centers using the same coagulation reagent and instrumentation as [facility]. Currently there are no coagulation studies available worldwide for children to 14 days, and no normal ranges. Heparin therapeutic range (represented by Anti-Factor Xa activity of 0.2 - 0.4 U/mL) corresponds to PTT of 56.6 - 109.0 sec. Performed By: #### 1 [id number] #### [facility] [address] [place] [address] INR Coag (PPP) [Relative time] 1.03 {INR} Invalid Interpretation Code [facility] Comment on above: Result Comment: INR results are specifically intended to assess patients stabilized on long-term Anticoagulation therapy suggested INR???s ???Less Intensive Anticoagulation??? 2.0 ??? 3.0 Conventional Range 3.0 ??? 4.5 Performed By: #### 1 [id number] #### [facility] [address] [place] [address] PT Coag (PPP) [Time] 11.5 second(s) Normal 9.4-12.5 [facility] Comment on above: Result Comment: 15 d ays - 4 weeks 1 - 5 months 6 -11 months 1 ??? 5 years 6 ??? 10 years 11 -17 years Mean: 11.2 (9.5 ??? 12.6) Mean: 11.0 (9.7 ??? 12.8) Mean: 11.0 (9.8 ??? 13.0) Mean: 11.3 (9.9 ??? 13.4) Mean: 11.7 (10.0 ??? 14.6) Mean: 11.8 (10.0 - 14.1) Pediatric Reference ranges were obtained from a study by Jean Kan et al. prepared from 1437 samples obtained at 7 different centers using the same coagulation reagent and instrumentation as [facility]. Currently there are no coagulation studies available worldwide for children to 14 days, and no normal ranges. Performed By: #### 1 [id number] #### [facility] [address] [place] [address] SEROLOGYOrdered By: Alena Avendaño on 04-29-2024 Beta HCG ( test) Ql Negative (04/29/24 3:15 PM) Normal [facility] Man Sero Troponin 0 Hr.on 04-29-2024 Troponin HS <2.30 Low 10.10-27.1 0 [facility] Comment on above: Result Comment: The 95% CI (Confidence Interval) PPV (Positive Predictive Value) for myocardial infarction in females is 38 pg/mL, in males 51 pg/mL. The results should be used in conjunction with clinical conditions of myocardial infarction. (Access High Sensitivity Troponin I Instructions For Use, [place], December 2017) Performed By: #### 1 [id number] #### [facility] [address] [place] [address] UA with Cult Rflxon 04-29-20 24 Bilirubin Ql (U) Negative Normal Negative [facility] Comment on above: Performed By: #### 4 [id number] #### [facility] [address] [place] [address] Clarity (U) Clear Normal Clear [facility] Comment on above: Performed By: #### 4 [id number] #### [facility] [address] [place] [address] Color (U) Light-Yellow Normal Yellow [facility] Comment on above: Result Comment: Micr oscopic readings are only performed on those samples that meet specific criteria set forth by [facility]. Performed By: #### 4 [id number] #### [facility] [address] [place] [address] Glucose Ql (U) Negative Normal Negative [facility] Comment on above: Performed By: #### 4 [id number] #### [facility] [address] [place] [address] Hemoglobin Auto test strip (U) [Mass/Vol] Trace Abnormal Negative [facility] Comment on above: Performed By: #### 4 [id number] #### [facility] [address] [place] [address] Ketones Auto test strip Ql (U) 1+ mg/dL Abnormal Negative [facility] Comment on above: Performed By: #### 4 [id number] #### [facility] [address] [place] [address] Leukocyte esterase Auto test strip Ql (U) Negative Normal Negative [facility] Comment on above: Performed By: #### 4 [id number] #### [facility] [address] [place] [address] Nitrite Auto test strip Ql (U) Negative Normal Negative [facility] Comment on above: Performed By: #### 4 [id number] #### [facility] [address] [place] [address] pH (U) 5.5 [pH] Invalid Interpretation Code 5.0-9.0 [facility] Comment on above: Performed By: #### 4 [id number] #### [facility] [address] [place] [address] Protein Ql (U) Negative Normal Negative [facility] Comment on above: Performed By: #### 4 [id number] #### [facility] [address] [place] [address] Specific gravity (U) [Rel density] 1.023 Invalid Interpretation Code 1.005-1.03 0 [facility] Comment on above: Performed By: #### 4 [id number] #### [facility] [address] [place] [address] Urobilinogen (U) [Mass/Vol] Negative Normal Negative [facility] Comment on above: Performed By: #### 4 [id number] #### [facility] [address] [place] [address] Type of Urine collection method Clean Catch Normal [facility] Comment on above: Performed By: #### 4 [id number] #### [facility] [address] [place] [address] URINALYSISOrdered By: SYSTEM SYSTEM on 04-29-2024 Bilirubin Ql (U) Negative Normal Negativemg /dL [facility] UA Auto SS Clarity (U) Clear (04/29/24 3:12 PM) Normal Clear [facility] UA Auto SS Color (U) Light-Yellow 1 (04/29/24 3:12 PM) Normal Yellow [facility] UA Auto SS Comment on above: Interpretive Data: M icroscopic readings are only performed on those samples that meet specific criteria set forth by [facility]. Glucose Ql (U) Negative Normal Negativemg /dL [facility] UA Auto SS Hemoglobin Auto test strip (U) [Mass/Vol] Trace mg/dL Invalid Interpretation Code Negativemg /dL [facility] UA Auto SS Ketones Auto test strip Ql (U) 1+ mg/dL Invalid Interpretation Code Negativemg /dL [facility] UA Auto SS Leukocyte esterase Auto test strip Ql (U) Negative Normal NegativeLe u/uL [facility] UA Auto SS Nitrite Auto test strip Ql (U) Negative Normal Negativemg /dL [facility] UA Auto SS pH (U) 5.5 *NA* (04/29/24 3:12 PM) Invalid Interpretation Code 5.0 - 9.0 [facility] UA Auto SS Protein Ql (U) Negative Normal Negativemg /dL [facility] UA Auto SS Specific gravity (U) [Rel density] 1.023 *NA* (04/29/24 3:12 PM) Invalid Interpretation Code 1.005 - 1.030 [facility] UA Auto SS Urobilinogen (U) [Mass/Vol] Negative Normal Negativemg /dL [facility] UA Auto SS URINALYSISOrdered By: Erin Davis on 04-29-2024 UA Spec Desc Clean Catch (04/29/24 3:12 PM) Normal [facility] UA Auto SS XR Chest Single Viewon 04-29 XR Chest Single View Exam Date/Time: 04/29/2024 16:23 EST Reason for Exam: Chest pain Report IMPRESSION: NO ACUTE CARDIOPULMONARY DISEASE. CLINICAL HISTORY: Chest pain COMPARISON: 01/02/2024 FINDINGS: Osseous structures intact. Cardiopericardial silhouette normal. Pulmonary vasculature normal. Lungs clear. Ordering Provider: Greg Erickson FINAL REPORT Dictated: 04/29/2024 4:26 pm Cavlin Rodriges MD Signed (Electronic Signature): 04/29/2024 4:26 pm Signed by: Calvin Rodriges MD Transcribed by: RADHA Technologist: FREDA Technical Comments Radiation Dose: Ka,r in mGy = na DAP = na Normal [facility] eGFRon 04-29-2024 eGFR 100 mL/min/1.73 m2 Normal >=59 [facility] Comment on above: Performed By: #### 1 [id number] #### [facility] [address] [place] [address] Provider Letteron 03-02-2024 Provider Letter Provider Letter March 02, 20[address] DIXON [address] [place] [id number] : 1990 To Whom It May Concern, Deny May Return to Work On: 03/06/24 Restrictions: None Sincerely, Dr. Buddy Baker MD Normal [facility] Amphetamine Screen Ql (U)Ord ered By: Wilbur Andres on 02-29-2024 Amphetamines Ql (U) Negative Negative [facility] Barbiturates [Presence] in U rine by Screen methodOrdered By: Wilbur Andres on 02-29-2024 Barbiturates Screen Ql (U) Negative Negative [facility] Benzodiazepines Screen Ql (U )Ordered By: Wilbur Andres on 02-29-2024 Benzodiazepines Ql (U) Negative Negative [facility] Benzoylecgonine [Presence] i n Urine by Screen methodOrdered By: Wilbur Andres on 02-29-2024 Benzoylecgonine Screen Ql (U) Negative Negative [facility] Calculi, Urinaryon Ca Oxalate Dihydrate 10 % Normal . [facility] Comment on above: Performed By: #### C ALCULI #### [facility] , Ca Oxalate Monohydrate 85 % Normal . [facility] Comment on above: Performed By: #### C ALCULI #### [facility] , Color (U) Brown Normal . [facility] Comment on above: Performed By: #### C ALCULI #### [facility] , Comment1 Comment Normal . [facility] Comment on above: Result Comment: Calc ium phosphate (hydroxyl form) includes hydroxyapatite, amorphous calcium phosphate, and whitlockite. Hydroxyapatite is the most common of the calcium phosphate salts found in human kidney stones. Performed By: #### C ALCULI #### [facility] , Comment2 Comment Normal . [facility] Comment on above: Result Comment: Calc ulus received wet. Wet calculi must be dried before analysis, which delays reporting of results. Leaving calculi wet (such as water, saline, blood, urine) may lead to changes in composition. Performed By: #### C ALCULI #### [facility] , Comment: Comment Normal . [facility] Comment on above: Result Comment: Newton ferrell questions regarding Calculi Analysis contact [facility] at: [phone]. Performed By: #### C ALCULI #### [facility] , Composition Comment Normal . [facility] Comment on above: Result Comment: Perc entage (Represents the % composition) Performed By: #### C ALCULI #### [facility] , Disclaimer: Comment Normal . [facility] Comment on above: Result Comment: This test was developed and its performance characteristics determined by [facility]. It has not been cleared or approved by the Food and Drug Administration. Performed at: [facility] [id number] [employer] Operator Head: Emily Eagle PhD, Phone: [phone] Performed By: #### C ALCULI #### [facility] , Hydroxyapatite 5 % Normal . [facility] Comment on above: Performed By: #### C ALCULI #### [facility] , Note Comment Normal . [facility] Comment on above: Result Comment: Calc cristofer report will follow via computer, mail or data examination clerk delivery. PERFORMED BY: [facility] [address] [place] [address] PATHOLOGIST TOWBOAT CAPTAIN NASH MONROY M.D. Performed By: #### C ALCULI #### [facility] , Photo Comment Normal . [facility] Comment on above: Result Comment: Phot ograph will follow under a separate cover Performed By: #### C ALCULI #### [facility] , Size 4x3 Normal . [facility] Comment on above: Result Comment: Mult iple pieces received. Dimensions of the largest piece reported. Performed By: #### C ALCULI #### [facility] , Source Comment Normal . [facility] Comment on above: Result Comment: Righ t Kidney Performed By: #### C ALCULI #### [facility] , Weight 53 Normal . [facility] Comment on above: Performed By: #### C ALCULI #### [facility] , Cannabinoids [Presence] in U rine by Screen methodOrdered By: Wilbur Andres on 02-29-2024 Cannabinoids Screen Ql (U) Negative Negative [facility] Comment on above: These are unconfirme d results and should not be used for legal purposes. Drug Cut-Off Concentration: AMPH 1000 ng/mL KAR 200 ng/mL GAVIN 200 ng/mL COCM 300 ng/mL OP 300 ng/mL PCP 25 ng/mL THC 20 ng/mL Drug Screen,Urineon 02-29-20 Amphetamine Screen,Urine Negative Normal Negative [facility] Comment on above: Performed By: #### U HCG, URDS #### [place] [address] [place] Barbiturate Screen,Urine Negative Normal Negative [facility] Comment on above: Performed By: #### U HCG, URDS #### [place] [address] [place] Benzodiazepines Screen,Urine Negative Normal Negative [facility] Comment on above: Performed By: #### U HCG, URDS #### [place] [address] [place] Cannabinoid Screen,Urine Negative Normal Negative [facility] Comment on above: Result Comment: Thes e are unconfirmed results and should not be used for legal purposes. Drug Cut-Off Concentration: AMPH 1000 ng/mL KAR 200 ng/mL GAVIN 200 ng/mL COCM 300 ng/mL OP 300 ng/mL PCP 25 ng/mL THC 20 ng/mL PERFORMED BY: [place] [address] PATHOLOGIST TOWBOAT CAPTAIN NASH MONROY M.D. Performed By: #### U HCG, URDS #### [place] [address] [place] Cocaine Screen,Urine Negative Normal Negative [facility] Comment on above: Performed By: #### U HCG, URDS #### [place] [address] [place] Opiate Screen,Urine Negative Normal Negative [facility] Comment on above: Performed By: #### U HCG, URDS #### [facility] [address] Phencyclidine Screen,Urine Negative Normal Negative [facility] Comment on above: Performed By: #### U HCG, URDS #### [facility] [address] HCG ( test) IA.rapi d Ql (U)Ordered By: Wilbur Andres on 02-29-2024 HCG ( test) Ql (U) Negative [facility] HCG,Urineon 02-29-2024 Beta HCG ( test) Ql (U) Negative Normal [facility] Comment on above: Result Comment: PERF ORMED BY: [place] [address] PATHOLOGIST TOWBOAT CAPTAIN NASH MONROY M.D. Performed By: #### U HCG, URDS #### [facility] [address] [place] 02-29-2024 L Specimen: [id number] Received: 03/01/24 Status: REX Corley Num: [id number] Spec Type: Surgical Subm Dr: Buddy Baker MD Tissues: A Urinary Calculus (R KIDNEY STONE) Procedures: Level 1 Gross Age/ Patient Sex Location Account Attending Physician Deny Dixon 33/F [place] [id number] Buddy Baker MD SPEC NUM: [id number] RECD: 03/01/24 STATUS: REX CORLEY NUM: [id number] EVANS: 02/29/24- SUBM DR: Buddy Baker MD ENTERED: 03/01/[address] [facility] [address]: SPEC TYPE: Surgical DEPT: S ENTERED BY: [id number] RECV BY: [id number] ORDERED: Level 1 Gross ORDERED: Level 1 Gross Pathological Diagnosis Right kidney stone, evacuation -4 gutierrez dark calculi, gross only examination, pending findings of clinical analysis to follow Clinical Information Right kidney stone Gross Description The specimen is received fresh in container with the correct patient's name and right kidney stone and consists of 4 gutierrez-black calculi ranging in size from 0.1 to 0.5 cm in greatest dimension. The specimen is sent to an outside facility for chemical analysis. CPT Codes 92316 Specimen: [id number] Received: 03/01/24 Status: REX Corley Num: [id number] Spec Type: Surgical Subm Dr: Buddy Baker MD Tissues: A Urinary Calculus (R KIDNEY STONE) Procedures: Level 1 Gross Patient: Deny Dixon [id number] (Continued) Signed (signature on file) Priscila Joyce MD 03/06/24 1609 Normal [facility] Opiates [Presence] in Urine by Screen methodOrdered By: Wilburazalia Andres on 02-29-2024 Opiates Screen Ql (U) Negative Negative [facility] Phencyclidine Screen Ql (U)O rdered By: Wilbur Andres on 02-29-2024 Phencyclidine Ql (U) Negative Negative [facility] XR KUBon 02-29-2024 XR KUB [facility] Main [address] [address] XRay Report Signed Patient: Deny Dixon MR#: [id number] : 1990 Acct:[id number] Age/Sex: 33 / F ADM Date: 02/29/24 Loc: [place] Room: Type: [facility] Attending Dr: Buddy Baker MD Copies to: Buddy Baker MD Ordering Provider: Buddy Baker MD Date of Service: 02/29/24 XR/XR KUB: RT KIDNEY STONE REMOVED, RT STENT REPLACED Intraoperative study. Reason for exam: Right kidney stone removed. Findings: 6 images were obtained intraoperatively. Right ureteral stent is noted. Cumulative Air Kerma in mGy: 7 mGy XR/XR KUB Impression: Intraoperative study. Impression dictated by: Maninder Villafuerte Jr., D.O.02/29/2024 9:30 PM Dictation Location: [place] [address] Transcribed By: [facility] 02/29/242129 Dictated By: Maninder Villafuerte Jr, DO 02/29/242128 Signed By: 02/29/242129 Normal [facility] XR KUB [facility] Main [address] [address] XRay Report Signed Patient: Deny Dixon MR#: [id number] 2148 : 1990 Acct:[id number] Age/Sex: 33 / F ADM Date: 02/29/24 Loc: PA Room: Type: [facility] Attending Dr: Buddy Baker MD Copies to: Buddy Baker MD Ordering Provider: Buddy Baker MD Date of Service: 02/29/24 XR/XR KUB: Pre op KUB: CLINICAL INFORMATION: Preop right kidney stone today. COMPARISON: None FINDINGS: Right-sided ureteral stent is noted. Right renal calculus measuring 5 mm. Phleboliths are seen within the pelvis. No bowel obstruction or free air. XR/XR KUB IMPRESSION: RIGHT RENAL CALCULUS MEASURING 5 MM. Impression dictated by: Maninder Villafuerte Jr., D.OWaqas02/29/2024 9:11 PM Dictation Location: [place] [address] Transcribed By: [facility] 02/29/242110 Dictated By: Maninder Villafuerte Jr, DO 02/29/242109 Signed By: 02/29/242110 Normal [facility] Activated partial thrombopla stin time (aPTT) in platelet poor plasma by coagulation aOrdered By: Buddy Baker on 02-18-2024 aPTT Coag (PPP) [Time] 30.4 s 25.1-36.5 [facility] Comment on above: A hematocrit value g reater than 55% may lead to inaccurate results in coagulation testing. Patients having hematocrit values >55% require a special collection tube for coagulation studies. Please contact the laboratory at [phone] for redraw instructions. Automated basophil %Ordered By: Buddy Baker on 02-18-2024 Basophils/100 WBC (Bld) 1.2 % Normal . [facility] Comment on above: Performed By: #### B MP, CBC, PT, PTT #### [facility] [address] [place] [address] Automated basophil countOrde red By: Buddy Baker on 02-18-2024 Basophils (Bld) [#/Vol] 0.1 10*3/uL Normal 0.0-0.2 [facility] Comment on above: Result Comment: PERF ORMED BY: [place] [address] PATHOLOGIST [employer]BO[employer] CAPTAIN NASH MONROY M.D. Performed By: #### B MP, CBC, PT, PTT #### [facility] [address] [place], [place] [id number] [facility] Automated blood monocyte cou ntOrdered By: Buddy Samuel on 02-18-2024 Monocytes (Bld) [#/Vol] 0.5 10*3/uL Normal 0.0-0.8 [facility] Comment on above: Performed By: #### B MP, CBC, PT, PTT #### [facility] [address] Automated eosinophil %Ordere d By: Buddy Samuel on 02-18-2024 Eosinophils/100 WBC (Bld) 3.9 % Normal . [facility] Comment on above: Performed By: #### B MP, CBC, PT, PTT #### [address] Automated eosinophil countOr dered By: Buddy Baker on 02-18-2024 Eosinophils (Bld) [#/Vol] 0.3 10*3/uL Normal 0.0-0.45 [facility] Comment on above: Performed By: #### B MP, CBC, PT, PTT #### [address] Automated monocyte %Ordered By: Buddy Baker on 02-18-2024 Monocytes/100 WBC (Bld) 6.8 % Normal . [facility] Comment on above: Performed By: #### B MP, CBC, PT, PTT #### [address] Automated neutrophil %Ordere d By: Buddy Baker on 02-18-2024 Neutrophils/100 WBC (Bld) 66.9 % Normal . [facility] Comment on above: Performed By: #### B MP, CBC, PT, PTT #### [facility] [address] [place] [address] Basic Metabolic Panelon GFR/1.73 sq M.predicted MDRD (S/P/Bld) [Vol rate/Area] mL/min/{1.73_m2} Normal [facility] Comment on above: Performed By: #### B MP, CBC, PT, PTT ####[facility] [address] [place] [address] Calcium [Mass/volume] in Ser um or PlasmaOrdered By: Buddy Baker on 02-18-2024 Calcium [Mass/Vol] 9.8 mg/dL Normal 8.6-10.3 [facility] Comment on above: Result Comment: PERF ORMED BY: [facility] [address] [facility] [place] [address] PATHOLOGIST [employer] CAPTAIN NASH MONROY M.D. Performed By: #### B MP, CBC, PT, PTT ####[facility] Carbon dioxide, total [Moles /volume] in Serum or PlasmaOrdered By: Buddy Baker on 02-18-2024 CO2 [Moles/Vol] 27.8 mmol/L Normal 21.0-31.0 [facility] Comment on above: Performed By: #### B MP, CBC, PT, PTT ####[facility] Chloride [Moles/volume] in S pamela or PlasmaOrdered By: Buddy Baker on 02-18-2024 Chloride [Moles/Vol] 104 mmol/L Normal 98-107 [facility] Comment on above: Performed By: #### B MP, CBC, PT, PTT ####[facility] Complete Blood Count Auto Di ffon 02-18-2024 Mean Corpuscular HGB Conc 32.8 g/dL Normal 32.0-35.0 [facility] Comment on above: Performed By: #### B MP, CBC, PT, PTT #### [facility] [address] [place] [address] [place] NRBC% 0.0 /100{WBC} Normal 0-0.5 [facility] Comment on above: Performed By: #### B MP, CBC, PT, PTT #### [facility] [address] Creatinine [Mass/volume] in Serum or PlasmaOrdered By: Buddy Baker on 02-18-2024 Creatinine [Mass/Vol] 0.71 mg/dL Normal 0.60-1.20 [facility] Comment on above: Performed By: #### B MP, CBC, PT, PTT ####[facility] C[address] ECG 12 lead ECGon 02-18-2024 ECG 12 lead ECG [facility] Main [place] [address] [place] [address] Electrocardiograph Report Signed Patient: Deny Dixon MR#: [id number] 2148 : 1990 Acct:[id number] Age/Sex: 33 / F ADM Date: 02/18/24 Loc: PS Room: Type: [facility] Attending Dr: Buddy Baker MD Ordering Provider: Buddy Baker MD Date of Service: 02/18/2408/08/1521 ECG/ECG 12 lead ECG: PST Copies to: Test Reason : Blood Pressure : */* mmHG Vent. Rate : 87 BPM Atrial Rate : 87 BPM P-R Int : 122 ms QRS Dur : 84 ms QT Int : 358 ms P-R-T Axes : 47 100 12 degrees QTcB Int : 430 ms Normal sinus rhythm Rightward axis Nonspecific T wave abnormality Abnormal ECG Confirmed by Sarah Gonzalez ([id number]) on 02/19/2024 7:59:32 AM Referred By: Electronically Signed By: Sarah Gonzalez Transcribed By: MUS Signed By Sarah Gonzalez DO 4 0759 Normal [facility] Erythrocyte distribution wid th [Ratio] by Automated countOrdered By: Buddy Baker on 02-18-2024 Erythrocyte distribution width (RBC) [Ratio] 16.4 % High 11.9-15.3 [facility] Comment on above: Performed By: #### B MP, CBC, PT, PTT #### [facility] [address] Erythrocytes [#/volume] in B lood by Automated countOrdered By: Buddy Baker on 02-18-2024 RBC (Bld) [#/Vol] 4.82 10*6/uL Normal 3.60-5.00 [facility] Comment on above: Performed By: #### B MP, CBC, PT, PTT #### [facility] [address] [place] [address] [place] Glucose [Mass/volume] in Ser um or PlasmaOrdered By: Buddy Baker on 02-18-2024 Glucose [Mass/Vol] 90 mg/dL Normal 70-100 [facility] Comment on above: ADA recommended refe rence rangeRandom Glucose Reference Range is dependent on time and content of last meal. Glucose of more than 200 mg/dL in a nonstressed, ambulatory subject supports the diagnosis of Diabetes Mellitus. Result Comment: Diagonal om Glucose Reference Range is dependent on time and content of last meal. Glucose of more than 200 mg/dL in a nonstressed, ambulatory subject supports the diagnosis of Diabetes Mellitus. ADA recommended reference range Performed By: #### B MP, CBC, PT, PTT ####[facility] [address] [place] [address] Hematocrit [Volume Fraction] of Blood by Automated countOrdered By: Buddy Baker on 02-18-2024 Hematocrit (Bld) [Volume fraction] 38.8 % Normal 34.0-46.4 [facility] Comment on above: Performed By: #### B MP, CBC, PT, PTT #### [facility] [address] [place] [address] Hemoglobin [Mass/volume] in BloodOrdered By: Buddy Baker on 02-18-2024 Hemoglobin (Bld) [Mass/Vol] 12.7 g/dL Normal 11.8-15.4 [facility] Comment on above: Performed By: #### B MP, CBC, PT, PTT #### [address] INR in Platelet poor plasma by Coagulation assayOrdered By: Buddy Baker on 02-18-2024 INR Coag (PPP) [Relative time] 1.0 {INR} Normal [facility] Comment on above: INR Therapeutic Rang e A) Pre- and Peroperative OAT started two weeks before surgery. NOT HIP SURGERY: 1.5 - 2.5 HIP SURGERY: 2 - 3B) Primary and secondary prevention of venous THROMBOSIS: 2 - 3C) Active venous thrombosis, pulmonary embolismand prevention of recurrent venous thrombosis: 2 - 3D) Prevention of arterial thromboembolismincluding patients with mechanical heart valves: 3 - 4.5 Result Comment: INR Therapeutic Range A) Pre- and Peroperative OAT started two weeks before surgery. NOT HIP SURGERY: 1.5 - 2.5 HIP SURGERY: 2 - 3 B) Primary and secondary prevention of venous THROMBOSIS: 2 - 3 C) Active venous thrombosis, pulmonary embolism and prevention of recurrent venous thrombosis: 2 - 3 D) Prevention of arterial thromboembolism including patients with mechanical heart valves: 3 - 4.5 Performed By: #### B MP, CBC, PT, PTT #### [address] Leukocytes [#/volume] correc catalina for nucleated erythrocytes in Blood by Automated counOrdered By: Buddy Baker on 02-18-2024 WBC corrected for nucl RBC Auto (Bld) [#/Vol] 7.4 10*3/uL 3.8-11.6 [facility] Leukocytes [#/volume] in Blo od by Automated countOrdered By: Buddy Baker on 02-18-2024 WBC (Bld) [#/Vol] 7.4 10*3/uL Normal 3.8-11.6 [facility] Comment on above: Performed By: #### B MP, CBC, PT, PTT #### [place] [address] [place] Lymphocytes [#/volume] in Bl ood by Automated countOrdered By: Buddy Baker on 02-18-2024 Lymphocytes (Bld) [#/Vol] 1.6 10*3/uL Normal 1.00-4.8 [facility] Comment on above: Performed By: #### B MP, CBC, PT, PTT #### [place] [address] [place] Lymphocytes/100 leukocytes i n Blood by Automated countOrdered By: Buddy Baker on 02-18-2024 Lymphocytes/100 WBC (Bld) 21.2 % Normal . [facility] Comment on above: Performed By: #### B MP, CBC, PT, PTT #### [place] [address] [place] MCH [Entitic mass] by Automa catalina countOrdered By: Buddy Baker on 02-18-2024 MCH (RBC) [Entitic mass] 26.4 pg Normal 24.7-34.3 [facility] Comment on above: Performed By: #### B MP, CBC, PT, PTT #### [facility] [address] [place] [address] MCHC Auto (RBC) [Mass/Vol]Or dered By: Buddy Baker on 02-18-2024 MCHC (RBC) [Mass/Vol] 32.8 g/dL 32.0-35.0 [facility] MCV [Entitic volume] by Auto mated countOrdered By: Buddy Baker on 02-18-2024 MCV (RBC) [Entitic vol] 80.4 fL Normal 80-100 [facility] Comment on above: Performed By: #### B MP, CBC, PT, PTT #### [facility] [address] [place] [address] Neutrophils [#/volume] in Bl ood by Automated countOrdered By: Buddy Baker on 02-18-2024 Neutrophils (Bld) [#/Vol] 5.0 10*3/uL Normal 1.8-7.7 [facility] Comment on above: Performed By: #### B MP, CBC, PT, PTT #### [facility] [address] [place] [address] No Panel InformationOrdered By: Buddy Baker on 02-18-2024 Estimated GFR (CKD-EPI) > 60.0 mL/Min [facility] Creatinine Clearance (Chem N/A [facility] Nucleated erythrocytes [Pres ence] in Blood by Automated countOrdered By: Buddy Baker on 02-18-2024 Nucleated RBC Auto Ql (Bld) 0.0 /100{WBC} 0-0.5 [facility] Partial Thromboplastin Timeo n 02-18-2024 aPTT Coag (Bld) [Time] 30.4 s Normal 25.1-36.5 [facility] Comment on above: Result Comment: A he matocrit value greater than 55% may lead to inaccurate results in coagulation testing. Patients having hematocrit values >55% require a special collection tube for coagulation studies. Please contact the laboratory at [phone] for redraw instructions. PERFORMED BY: [facility] [address] [place] [address] PATHOLOGIST [employer]BO[employer] CAPTAIN NASH MONROY M.D. Performed By: #### B MP, CBC, PT, PTT #### [facility] [address] Platelet mean volume [Entiti c volume] in Blood by Automated countOrdered By: Buddy Baker on 02-18-2024 Platelet mean volume (Bld) [Entitic vol] 9.5 fL Normal 6.3-10.7 [facility] Comment on above: Performed By: #### B MP, CBC, PT, PTT #### [facility] [address] Platelets [#/volume] in Bloo d by Automated countOrdered By: Buddy Baker on 02-18-2024 Platelets (Bld) [#/Vol] 259 10*3/uL Normal 150-450 [facility] Comment on above: Performed By: #### B MP, CBC, PT, PTT #### [facility] [address] Potassium [Moles/volume] in Serum or PlasmaOrdered By: Buddy Baker on 02-18-2024 Potassium [Moles/Vol] 4.4 mmol/L Normal 3.5-5.1 [facility] Comment on above: Performed By: #### B MP, CBC, PT, PTT ####[facility] [address] Prothrombin time (PT)Ordered By: Buddy Baker on 02-18-2024 PT Coag (PPP) [Time] 12.0 s Normal 9.0-12.9 [facility] Comment on above: A hematocrit value g reater than 55% may lead to inaccurate results in coagulation testing. Patients having hematocrit values >55% require a special collection tube for coagulation studies. Please contact the laboratory at [phone] for redraw instructions. Result Comment: A he matocrit value greater than 55% may lead to inaccurate results in coagulation testing. Patients having hematocrit values >55% require a special collection tube for coagulation studies. Please contact the laboratory at [phone] for redraw instructions. Performed By: #### B MP, CBC, PT, PTT #### [facility] [address] Serum or plasma anion gap de terminationOrdered By: Buddy Baker on 02-18-2024 Anion gap [Moles/Vol] 12.6 mmol/L Normal 6.0-15.0 [facility] Comment on above: Performed By: #### B MP, CBC, PT, PTT ####[place] [address] [address] Sodium [Moles/volume] in Ser um or PlasmaOrdered By: Buddy Baker on 02-18-2024 Sodium [Moles/Vol] 140 mmol/L Normal 136-145 [facility] Comment on above: Performed By: #### B MP, CBC, PT, PTT ####[place] [address] [address] Urea nitrogen [Mass/volume] in Serum or PlasmaOrdered By: Buddy Baker on 02-18-2024 Urea nitrogen [Mass/Vol] 11 mg/dL Normal 7-25 [facility] Comment on above: Performed By: #### B MP, CBC, PT, PTT ####[address] XR chest 2V*on 02-18-2024 XR chest 2V* [facility] Main [place] [address] [place] [address] XRay Report Signed Patient: Deny Dixon MR#: [id number] 2148 : 1990 Acct:[id number] Age/Sex: 33 / F ADM Date: 02/18/24 Loc: PS Room: Type: [facility] Attending Dr: Buddy Baker MD Copies to: Buddy Baker MD Ordering Provider: Buddy Baker MD Date of Service: 02/18/24 XR/XR chest 2V*: PST Plain film chest 2 view HISTORY: Presurgical testing for kidney stone COMPARISON: None FINDINGS: SUPPORT DEVICES: None POSTSURGICAL CHANGES: None HEART: Within normal limits PULMONARY CARLOTTA: Within normal limits MEDIASTINUM: Unremarkable LUNGS AND PLEURA: No acute lung process, pleural effusion or pneumothorax identified. BONY STRUCTURES: Intact ADDITIONAL FINDINGS None XR/XR chest 2V* IMPRESSION: No acute process. Impression dictated by: Raúl Crowell M.D.02/18/2024 8:21 PM Dictation Location: [place] [address] Transcribed By: [facility] 02/18/242020 Dictated By: Raúl Crowell DO 02/18/242020 Signed By: 02/18/24[address] [facility] XR Abdomen 1 Viewon 02-12-20 XR Abdomen 1 View Exam Date/Time: 02/11/2024 09:20 EDT Reason for Exam: N20.0;Kidney stone Report IMPRESSION: INTERVAL PLACEMENT RIGHT DOUBLE-J STENT WITH RIGHT LOWER POLE RENAL CALCULUS CLINICAL HISTORY: Kidney stone, N20.0 COMPARISON: KUB, June 26, 2023. FINDINGS: In the interval, a right double-J ureteral stent is placed with the cephalad portion coiled in region of the right kidney and caudal portion coiled in the region of urinary bladder. 5 mm calculus projects over lower pole of right kidney. The lungs again found in pelvis. Gas and stool in colon. No diffuse small bowel dilatation or mass effect. Osseous structures intact. Ordering Provider: Buddy BAKER FINAL REPORT Dictated: 02/12/2024 5:00 pm Calvin Rodriges MD Signed (Electronic Signature): 02/12/2024 5:00 pm Signed by: Calvin Rodriges MD Transcribed by: RADHA Technologist: ZUHAIR Technical Comments Radiation Dose: Kar in mGy = . DAP = . Normal [facility] XR IVPon 01-29-2024 XR IVP Exam Date/Time: 01/29/2024 09:10 EDT Reason for Exam: Ureteral stone;Other (please specify) Report IMPRESSION: APPROXIMATELY 1 CM MOBILE CALCULUS WITHIN THE RIGHT RENAL PELVIS. 2 MM MID RIGHT INTRARENAL CALCULUS. OTHERWISE, UNREMARKABLE IVP. EXAM: XR IVP DATE: 01/29/2024 7:54 AM CLINICAL HISTORY: Ureteral stone. COMPARISON: KUB 02/04/[address] abdomen and pelvis 12/30/2017. TECHNIQUE: 12 radiographs of the abdomen and pelvis were obtained in various positions before and after the uneventful infusion of approximately 60 mL of Isovue 300 contrast. FINDINGS: An approximately 1 x 0.5 cm faintly radiodense mobile calculus is noted within the right renal pelvis, with minimal fullness of the renal pelvis without significant caliectasis. An approximately 2 mm right mid intrarenal calculus is noted. The right ureter, left upper urinary tract and urinary bladder are unremarkable. A few small phleboliths are again noted in the pelvis. There is no significant postvoid residual urinary bladder volume or other findings of concern identified. Ordering Provider: Buddy BAKER FINAL REPORT Dictated: 01/29/2024 12:55 pm Stef Flood MD Signed (Electronic Signature): 01/29/2024 12:55 pm Signed by: Stef Flood MD Transcribed by: RADHA Technologist: DPR Technical Comments Contrast: Isovue 300 Contrast amount in ml's: 60 Normal [facility] Ambulatory Visit Summaryon 0 01-27-2024 Ambulatory Visit Summary Ambulatory Visit Summary DENY DIXON :1990 Visit Date:01/27/2024 Ambulatory Visit Instructions Your Diagnosis Ureteral stone with hydronephrosis Your Care Team Attending Physician - Buddy BAKER MD Primary Care Physician - Margarita Tuttle This Is Your Medications List tamsulosin (tamsulosin 0.4 mg Cap) Contact prescribing physician if questions or concerns beclomethasone (Qvar Redihaler 40 mcg/inh inhalation aerosol) ferrous sulfate (ferrous sulfate 325 mg Tab) fluticasone (Flovent HFA 44 Aerosol) meclizine (meclizine 12.5 mg Tab) meloxicam (meloxicam 7.5 mg Tab) Procedures Performed Tubal ligation (08/08/2015). Discharge Vitals Heart Rate (Peripheral) 91 Respiratory Rate 19 Blood Pressure 118/82 Height 159 cm Height 63 in Weight 99.5 kg Weight 218.9 lb BMI 39.36 What to do next You Need to Schedule the Following Appointments Follow Up with Buddy BAKER MD, URL When: Where: [address] [place], [place] [address], [place] [address]- You Need to Complete the Following XR IVP, 01/27/24, Routine, Order for future visit, Transport Mode: Ambulatory, Reason: Other (please specify), Reason: Ureteral stone, No, Ureteral stone with hydronephrosis, pp_set_radiology_subspecia lty, [place] [facility] [place] Medications What How Much When Why Instructions New tamsulosin (tamsulosin 0.4 mg Cap) 1 Capsules By Mouth Every day Refills: 2 Pickup at [facility]/pharmacy #[id number] Unchanged beclomethasone (Qvar Redihaler 40 mcg/ inh inhalation aerosol) 2 Puffs Inhalation 2 times a day Contact prescribing physician if questions or concerns Unchanged ferrous sulfate (ferrous sulfate 325 mg Tab) 1 Tablets By Mouth 2 times a day Dizziness Low hemoglobin Syncope Menorrhagia Pale BMI 40.0-44.9, adult Duration: 90 Days Contact prescribing physician if questions or concerns Unchanged fluticasone (Flovent HFA 44 Aerosol) 2 Puffs Inhalation 2 times a day Community acquired pneumonia rinse mouth and throat after use Contact prescribing physician if questions or concerns Unchanged meclizine (meclizine 12.5 mg Tab) 1 Tablets By Mouth 3 times a day as needed for for nausea/vomiting Contact prescribing physician if questions or concerns Unchanged meloxicam (meloxicam 7.5 mg Tab) 1 Tablets By Mouth Every day Left shoulder pain Neck pain on left side Numbness of left hand BMI 38.0-38.9,adult Class 1 obesity due to excess calories in adult Nonsmoker Duration: 90 Days Contact prescribing physician if questions or concerns Pharmacy Information [facility]/pharmacy #[id number]: [address] [place], [place] [id number] [phone] Allergies No Known Allergies Problems Ongoing - Any problem that you are currently receiving treatment for. Anemia BMI 39.0-39.9,adult BMI 40.0-44.9, adult Cervical cancer screening Class 1 obesity due to excess calories in adult Community acquired pneumonia Dizziness Drug therapy finding Exposure to influenza Hyperesthesia Left shoulder pain Low hemoglobin Menorrhagia Neck pain on left side Numbness of left hand Pale Syncope Ureteral stone with hydronephrosis Vertigo Well woman exam Wheezing Historical - Any problem that you are no longer receiving treatment for. Dilation and curettage Low-lying placenta Missed miscarriage Patient Survey You may receive a survey via text or e-mail asking about your office visit. Please share your experience with us by completing your survey. We appreciate your feedback and thank you for choosing us for your care. Education Materials Intravenous Pyelogram An intravenous pyelogram is a type of X-ray that is used to check for problems in the kidneys, ureters, and bladder. This test can help your doctor find problems, such as: ? Kidney stones. ? Bladder stones. ? A prostate that has become large. ? Tumors. Tell your doctor about: ? Any allergies you have. ? All medicines you are taking. These include vitamins, herbs, eye drops, creams, and xrsa-ixe-vpktadz medicines. ? Any problems you or family members have had with anesthesia. ? Any bleeding problems you have. ? Any surgeries you have had. ? Any other medical conditions you have. ? Whether you are or may be . What are the risks? Your doctor will talk with you about risks. These may include: ? Feeling like you may vomit (nausea). ? Having a reaction to the dye that is used during the test. What happens before the procedure? ? Follow instructions from your doctor about eating or drinking. ? Follow instructions from your doctor about taking an oral bowel prep. ? Ask your doctor about changing or stopping: ? Your normal medicines. ? Vitamins, herbs, and supplements. ? Kxyy-ulf-jimtljf medicines. ? You may need to remove glasses, jewelry, and any other metal objects. ? You may (more content not included)... [facility] Provider Letteron 01-27-2024 Provider Letter Provider Letter January 27, 2024 [address] DIXON [address] [place] [id number] : 1990 To Whom It May Concern, Please excuse above patient from work. Date of Illness: From: 01/22/2024 To: 02/04/2024 May Return to Work On: 02/05/2024 Sincerely, [facility] [address], [address] [place] [address] [facility] Urology Office/Clinic Noteon 01-27-2024 Urology Office/Clinic Note Urology Office/Clinic Note Chief Complaint ER F/U HPI Staff 33 yo female new to our office for kidney stone. Pt. was seen in [facility] on 01/19/24 due to Rt. flank pain radiating to the Rt. groin. Pt. states she has not had a kidney stone in the pass. Pt. states was given Keflex in the ER and Flomax. CAT scan showing 7mm Rt kidney stone with mild Rt hydronephrosis [facility] 01/25/24 [facility] [facility] [place] - in progress. Dysuria: no Incomplete bladder emptying: occasionally Hematuria: Pt. states having gross hematuria on Thursday, UA today shows large Frequency: every hour to hour an half Urgency: no Nocturia: 1-2x's Stream: good stream Post void dripping: no Wearing pads/ Depends: no Urge incontinence: no Stress incontinence: no Incontinence without Sensory Awareness: no Abdominal pain: Rt lower abd pain Flank pain: no History of Present Illness Tests reviewed: reviewed UA and KUB image. I have reviewed the previous health record information and history for this patient from external provider. I have reviewed and verified the staff HPI to be accurate for this encounter. There have been no associated fever, chills, flank pain, or blood in the urine. Denies any urinary infections since last encounter. Review of Systems PHQ Score Initial Depression Screen Score: 0 SCORE ROS - Provider Constitutional: denies weight loss, denies hot flashes. Eyes: denies eye problems. Gastrointestinal: denies nausea, denies vomiting. Cardiovascular: denies chest pain or angina. Integumentary: no dryness Musculoskeletal: denies musculoskeletal symptoms. ENMT: denies otolaryngeal symptoms. Respiratory: no shortness of breath. Heme/Lymph: denies easy bleeding tendency, denies easy bruising tendency. Psychiatric: no confusion, no anxiety. Genitourinary: See HPI. Physical Exam Vitals & Measurements HR: 91(Peripheral) RR: 19 BP: 118/82 HT: 63 in HT: 159 cm WT: 99.5 kg WT: 218.9 lb BMI: 39.36 General Appearance: alert , no acute distress, well nourished, well developed female. Head: normocephalic . Eyes: normal orbit and globe. ENMT: normal examination of external ears. Chest: Lungs CTA, respirations non labored . Cardiovascular: regular rate and rhythm. Abdomen: lower R abdomen tender on exam. Genitourinary: bladder nonpalpable, no flank tenderness. Lymph Nodes: unremarkable palpation of the cervical area. Skin: warm, dry, no bruising. Psychiatric: cooperative, affect appropriate for age, normal judgement, euthymic mood. Assessment/Plan 33 yo female new to our office due to recent ER visit for ureteral stone. Portions of this record may have been created with voice recognition artificial intelligence software, specifically [employer], [employer] and or [employer]. Substitutions may have occurred due to the inherent limitations of voice recognition and artificial intelligence software. 1. Ureteral stone with hydronephrosis (N13.2: Hydronephrosis with renal and ureteral calculous obstruction) First stone event. Denies family hx of kidney stones. Pt presented to [facility] ER 01/19/[address] with R flank pain. CT AP wo con 01/19/24 [facility] - obstructing 7 mm R UPJ stone. Mild R hydro. Discharged home with Keflex and Flomax. KUB 01/25/24 [facility] [place] - in progress. Upon personal review, hard to visualize stone. Still experiencing R abdominal pain, denies flank pain. Admits to nausea. Had gross hematuria on Thursday, none since. UA today shows large blood and trace leuks. Recommended IVP for better visualization of stone. Pt will likely require surgical management. Discussed cysto, URS, laser litho with possible stent vs ESWL. Counseled on risks for both. PE: ~lower R abdomen tender on exam. -IVP @ [facility] [place] -Will tentatively schedule cysto, R URS, laser litho, possible R stent placement [cx if pt passes stone, possible ESWL pending location of stone] -In the interim, pt to present back to the ER with uncontrolled pain, nausea/vomiting, fever/chills, severe gross hematuria or clots. The patient is here with her today. This is a 33-year-old female with no prior history of kidney stones presented with a 7 mm right proximal ureteral stone and she was discharged home with antibiotics and Flomax. She continues to have some moderate pain associated with nausea. KUB from 2 days ago is reviewed. Report not yet available. Due to overlying bowel gas and stool, I am unable to elucidate whether or not the stone is still present. I feel this necessitates further follow-up and an intravenous pyelogram is ordered. Minimal risk of x-ray contrast discussed. Depending on findings may change the tentative plan for cystoscopy, right double-J stent placement and ESWL next week. She understands may be a staged procedure due to the stone location if it still remains high near the ureteropelvic junction. She is aware that should her pain become more severe or if she gets other: Morbid difficulties such as fever or chills, she should present to t (more content not included)... [facility] Comment on above: Result Comment: Elec tronically Signed By: Buddy BAKER MD\.br\Date and Time Signed: 01/27/24 12:32 EDT\.br\Electronically Co-Signed By: Terra Carmona\.br\Date and Time Co-Signed: 01/27/24 12:10 EDT\.br\Electronically Co-Signed By: Terra Carmona\.br\Date and Time Co-Signed: 01/27/24 12:13 EDT XR Abdomen 1 Viewon 01-27-20 24 XR Abdomen 1 View Exam Date/Time: 01/25/2024 09:10 EDT Reason for Exam: N20.0 Calculus of kidney;Kidney stone Report IMPRESSION: NO URINARY TRACT CALCIFICATION IS EVIDENT WITHIN THE LIMITATIONS OF THIS STUDY. CLINICAL HISTORY: Kidney stone, N20.0 Calculus of kidney. Right-sided pain. Hematuria. COMMENT: AP supine. The kidneys are partially obscured by overlying bowel. No renal calculi are evident within the limitations of this exam. No calculus is identified along the course of the right ureter. There are small calcifications in the low left pelvis, with phleboliths suspected. There is fecal material scattered in the colon, with the amount not considered excessive. Abdominal gas pattern is unremarkable. Ordering Provider: Buddy BAKER FINAL REPORT Dictated: 01/27/2024 2:44 pm Raghav Garcia M.D. Signed (Electronic Signature): 01/27/2024 2:44 pm Signed by: Raghav Garcia M.D. Transcribed by: RADHA Technologist: PAMELLA Technical Comments Radiation Dose: Ka,r in mGy = na DAP = na [facility] Provider Letteron 01-11-2024 Provider Letter Provider Letter January 11, 2024 [address]ON [address] [place] [id number] : 1990 To Whom It May Concern, Please excuse above patient from work Thursday due to medical Date of Illness: From: _ To: _ May Return to Work On:01-14-24 Restrictions: _ Comments: _ Sincerely, [facility] Ambulatory Visit Summaryon 0 01-05-2024 Ambulatory Visit Summary Ambulatory Visit Summary DENY DIXON :1990 Visit Date:01/05/2024 Ambulatory Visit Instructions Your Diagnosis Community acquired pneumonia Your Care Team Attending Physician - Margarita Tuttle Primary Care Physician - Margarita Tuttle This Is Your Medications List doxycycline (doxycycline hyclate 100 mg Tab) ferrous sulfate (ferrous sulfate 325 mg Tab) meclizine (meclizine 12.5 mg Tab) meloxicam (meloxicam 7.5 mg Tab) Procedures Performed Tubal ligation (08/08/2015). Discharge Vitals Temperature (Oral) 36.4 ?C Heart Rate (Peripheral) 87 Respiratory Rate 16 Blood Pressure 126/82 Height 159 cm Height 63 in Weight 99.5 kg Weight 218.9 lb BMI 39.36 Medications What How Much When Why Instructions Unchanged doxycycline (doxycycline hyclate 100 mg Tab) 1 Tablets By Mouth Every 12 hours Duration: 10 Days Unchanged ferrous sulfate (ferrous sulfate 325 mg Tab) 1 Tablets By Mouth 2 times a day Dizziness Low hemoglobin Syncope Menorrhagia Pale BMI 40.0-44.9, adult Duration: 90 Days Unchanged meclizine (meclizine 12.5 mg Tab) 1 [...] that you are currently receiving treatment for. Anemia BMI 39.0-39.9,adult BMI 40.0-44.9, adult Cervical cancer screening Class 1 obesity due to excess calories in adult Community acquired pneumonia Dizziness Drug therapy finding Exposure to influenza Hyperesthesia Left shoulder pain Low hemoglobin Menorrhagia Neck pain on left side Numbness of left hand Pale Syncope Vertigo Well woman exam Wheezing Historical - Any problem that you are no longer receiving treatment for. Dilation and curettage Low-lying placenta Missed miscarriage Patient Survey You may receive a survey via text or e-mail asking about your office visit. Please share your experience with us by completing your survey. We appreciate your feedback and thank you for choosing us for your care. [facility] Family Medicine Office/Clini c Noteon 01-05-2024 Family Medicine Office/Clinic Note Family Medicine Office/Clinic Note Chief Complaint ER f/u HPI Staff ER followup: Hospital: [facility] [place] Visit date: 01/02/24 Symptoms the patient presented with: SOB & chest pain CTA chest 01/02/24 DC'd Levaquin & started Doxycycline. DX'd w/pneumonia Current concerns: Still having chest pain. Hard time standing for more than 5min at a time. Still SOB. Easier to talk. History of Present Illness pt presents today for ER follow up. Review of Systems PHQ Score Initial Depression Screen Score: 0 SCORE Physical Exam Vitals & Measurements T: 36.4 ?C(Oral) HR: 87(Peripheral) RR: 16 BP: 126/82 SpO2: 95% HT: 63 in HT: 159 cm WT: 99.5 kg WT: 218.9 lb BMI: 39.36 General: alert, no acute distress ENMT: oral mucosa moist, no pharyngeal erythema or exudate Cardiovascular: regular rate and rhythm, normal peripheral perfusion Respiratory: Lungs CTA, respirations non labored shortness of breath improved since last visit Extremities: no deformity, no trauma Neurological: oriented x 4, LOC appropriate for age, CN II-XII intact, motor strength equal & normal bilaterally, speech normal Assessment/Plan 1. Community acquired pneumonia (J18.9: Pneumonia, unspecified organism) pt presents today for ER follow up. pt went back to ER on Thursday for SOB. chest x ray showed lower lung pneumonia. they d/c's levaquin and started doxycycline. pt is still easily fatigued and short of breath but not as bad as last visit. pt will remain off of work until Thursday. will send in steroid inhaler. RTC as needed Ordered: fluticasone, = 2 puff(s), Inhalation, BID, rinse mouth and throat after use, # 10.6 gram, Refills(s) 0, Pharmacy: [facility]/pharmacy #[id number], 159, cm, 01/05/24 13:48:00 EDT, Height/Length Dosing, 99.5, kg, 01/05/24 13:48:00 EDT, Weight Dosing 2. BMI 39.0-39.9,adult (Z68.39: Body mass index [BMI] 39.0-39.9, adult) Ordered: levofloxacin, 500 mg = 1 tab(s), Oral, q24hr, X 7 day(s), # 7 tab(s), Refills(s) 0, Pharmacy: [facility]/pharmacy #[id number], 159, cm, 01/01/24 13:55:00 EDT, Height/Length Dosing, 99.2, kg, 01/01/24 13:55:00 EDT, Weight Dosing Follow-up No qualifying data available Problem List/Past Medical History Ongoing Anemia BMI 39.0-39.9,adult BMI 40.0-44.9, adult Cervical cancer screening Class 1 obesity due to excess calories in adult Community acquired pneumonia Dizziness Drug therapy finding Exposure to influenza Hyperesthesia Left shoulder pain Low hemoglobin Menorrhagia Neck pain on left side Numbness of left hand Pale Syncope Vertigo Well woman exam Wheezing Historical Dilation and curettage Low-lying placenta Missed miscarriage Procedure/Surgical History Tubal ligation (08/08/2015). Medications doxycycline hyclate 100 mg Tab, 100 mg= 1 tab(s), Oral, q12hr ferrous sulfate 325 mg Tab, 325 mg= 1 tab(s), Oral, BID, 3 refills Flovent HFA 44 Aerosol, 2 puff(s), Inhalation, BID meclizine 12.5 mg Tab, 12.5 mg= 1 [...] in household: No. Smoker in household: No. Injuries/Abuse/Neglect in household: No. Safe place to go: Yes. Agency(s)/Others notified: No., 02/26/2014 Nutrition/Health Regular, 02/26/2014 Substance Abuse - Denies Substance Abuse, 06/17/2012 Tobacco - Denies Tobacco Use, 06/17/2012 Never (less than 100 in lifetime) Tobacco Use:. Never Smokeless Tobacco Use:. Cigarettes, Household tobacco concerns: No. Yes, 01/05/2024 Family History Stroke: Mother. Immunizations Vaccine Date Status Comments SARS-CoV-2 (COVID-19) mRNA-1273 vaccine 10/31/2020 Recorded 2023-12-21: TPVALL SARS-CoV-2 (COVID-19) mRNA-1273 vaccine 10/03/2020 Recorded 2023-12-21: TPVALL influenza virus vaccine, inactivated - Not Given Patient Refuses influenza virus vaccine, inactivated 08/08/2015 Given Nursing Judgment diphtheria/pertussis, acel/tetanus adult 02/27/2014 Given Other (see comment) influenza virus vaccine, inactivated 02/27/2014 Given Nursing Judgment [facility] Comment on above: Result Comment: Elec tronically Signed By: Margarita Tuttle\.br\Date and Time Signed: 01/05/24 14:16 EDT Provider Letteron 01-05-2024 Provider Letter Provider Letter January 05, 20[address] [place] [id number] : 1990 To Whom It May Concern, Please excuse above patient from work due to illness Date of Illness: From: _ 01-05-24 To: _01-10-24 May Return to Work On:01-11-24 Restrictions: _ Comments: _ Sincerely, Family Medicine [address] [address] [facility] CTA Cheston 01-03-2024 CTA Chest Exam Date/Time: 01/02/2024 23:09 EDT Reason for Exam: Shortness of breath (SOB) Report IMPRESSION: NO EVIDENCE OF PULMONARY EMBOLI. MILD PATCHY AND MICRONODULAR PREDOMINANTLY LOWER LOBE PULMONARY OPACITIES AND BRONCHIAL WALL THICKENING, MOST LIKELY BRONCHITIS/ATYPICAL PNEUMONIA. EXAM: CTA Chest DATE: 01/02/2024 10:58 PM CLINICAL HISTORY: Shortness of breath (SOB). COMPARISON: Portable chest from earlier 01/02/[address] abdomen and pelvis 12/30/2017. TECHNIQUE: Spiral enhanced images were obtained of the chest after the infusion of approximately 73 mL of Isovue 370 contrast with pulmonary artery CTA protocol. Routine and volume rendered images were performed on a three-dimensional workstation. All CT scans at this facility use dose modulation, iterative reconstruction, and/or weight based dosing when appropriate to reduce radiation dose to as low as reasonably achievable. Unless otherwise stated, incidental findings identified in this report do not require routine follow-up imaging. FINDINGS: Pulmonary arteries: Normal in caliber without filling defects identified to suggest pulmonary emboli. Thoracic aorta: Normal in caliber without significant atherosclerotic plaquing. There is no dissection. Heart: Not enlarged. No significant coronary artery calcifications identified, within the limits of cardiac motion artifact. No significant pericardial effusion. Mediastinum and lymph nodes: Mildly prominent hilar lymph nodes are probably reactive.. Lungs and pleura: Mild patchy somewhat nodular airspace opacities and bronchial thickening predominantly of the lower lobes. No pleural effusion. Thyroid: Unremarkable. Esophagus: Unremarkable. Musculoskeletal: No acute osseous findings identified. Upper abdomen: Noncontributory. Report Ordering Provider: Freddy Lala FINAL REPORT Dictated: 01/03/2024 10:55 am Stef Flood MD Signed (Electronic Signature): 01/03/2024 10:55 am Signed by: Stef Flood MD Transcribed by: RADHA Technologist: NIDHI Technical Comments GFR (mL/min/1/73m2) n/a Contrast: Isovue 370 Contrast amount in ml's: 73 [facility] ED Clinical Summaryon 2023 ED Clinical Summary ED Clinical Summary [address] [address] ED Clinical Summary Person Information Name: DENY DIXON [employer] Age: 33 Years : 1990 Sex: Female Language: Niuean PCP: Margarita Tuttle Marital Status: Visit Id: Visit Reason: Chest pain; Medical problem - minor; Shortness of breath; SOB Speciality: Acuity: 3 Enc Type: Emergency Med Service: Emergency Arrival: 01/02/2024 20:41:33 Discharge: 01/03/2024 00:11:07 LOS: 000 03:30 Checkin: 01/02/2024 20:41:33 Checkout: 01/03/2024 00:11:07 Dispo Type: Home (Routine DC) EVENTS: Event Name Event Status Request Date/Time Start Date/Time Complete Date/Time Arrive Complete 01/02/2024 20:41:33 01/02/2024 20:41:33 01/02/2024 20:41:33 Document Home Meds Request 01/02/2024 20:41:33 Triage Complete 01/02/2024 20:41:33 01/02/2024 20:48:04 01/02/2024 20:48:04 EKG Complete 01/02/2024 20:44:33 01/02/2024 20:48:34 Registration Complete 01/02/2024 20:44:59 01/02/2024 20:44:59 01/02/2024 20:44:59 Reg Complete Request 01/02/2024 20:44:59 Reg Bed Request Complete 01/02/2024 20:44:59 01/02/2024 20:44:59 01/02/2024 20:44:59 Bed Assign Complete 01/02/2024 20:48:28 01/02/2024 20:48:28 01/02/2024 20:48:28 Dr Exam Complete 01/02/2024 20:48:28 01/02/2024 20:53:44 01/02/2024 20:53:44 RN Exam Complete 01/02/2024 20:48:28 01/02/2024 21:22:16 01/02/2024 21:22:16 Registration Request 01/02/2024 20:53:44 Dr Exam Complete 01/02/2024 20:57:05 01/02/2024 20:57:05 01/02/2024 20:57:05 Pending Labs Complete 01/02/2024 21:04:38 01/02/2024 22:21:13 RT Tx/ABG Request 01/02/2024 21:04:38 Lab Complete 01/02/2024 21:04:38 01/02/2024 22:09:30 Meds Admin Complete 01/02/2024 21:04:38 01/02/2024 21:30:14 Patient Care Request 01/02/2024 21:04:38 X-Ray Complete 01/02/2024 21:04:38 01/02/2024 22:04:01 01/02/2024 22:37:31 RT Request 01/02/2024 21:04:38 RT Tx/ABG Request 01/02/2024 21:04:39 RT Tx/ABG Request 01/02/2024 21:04:39 Pending Labs Complete 01/02/2024 21:45:45 01/02/2024 21:45:45 01/02/2024 22:09:30 Lab Complete 01/02/2024 21:45:45 01/02/2024 21:45:45 01/02/2024 22:09:30 Pending Labs Complete 01/02/2024 22:09:14 01/02/2024 22:36:08 CT Complete 01/02/2024 22:09:31 01/02/2024 22:58:42 01/02/2024 23:09:32 Wet Read Request 01/02/2024 22:37:31 Meds Admin Complete 01/02/2024 23:51:36 01/03/2024 00:08:09 Discharge Complete 01/03/2024 00:01:55 01/03/2024 00:11:11 01/03/2024 00:11:11 Transfer Complete 01/03/2024 00:11:11 01/03/2024 00:11:11 01/03/2024 00:11:11 ADDRESS: [address] [place] [phone] PHYS DOC NOTES: MEDICAL INFORMATION: Prescriptions Given: New Medications [id number], [address] [place], [place] [id number], [phone] doxycycline (doxycycline hyclate 100 mg Tab) 1 Tablets By Mouth every 12 hours for 10 Days. Refills: 0. Medications to Continue with No Changes Other Medications albuterol (Albuterol (Eqv-ProAir HFA) 90 mcg/inh inhalation aerosol) 2 Puffs Inhalation every 6 hours for 7 Days. Refills: 0. azithromycin (azithromycin 250 mg Tab) 250 Milligram By Mouth As Directed. Take two tabs by mouth on day one, then one tab daily. Refills: 0. dextromethorphan-promethaz ine (Promethazine DM oral syrup) 5 Milliliter By Mouth every 6 hours as needed for cough. Refills: 0. meclizine (meclizine 12.5 mg Tab) 1 Tablets By Mouth 3 times a day as needed for nausea/vomiting. Refills: 0. predniSONE (predniSONE 20 mg Tab) 3 By Mouth every day for 7 Days. Refills: 0. PATIENT EDUCATION INFORMATION: Instructions: Community-Acquired Pneumonia, Adult, Seke-wa-[id number] Follow up: With: Address: When: Margarita Hou In 3 days 01/06/2024 Comments: Stop the Levaquin and start taking the doxycycline, finished the azithromycin. Use the albuterol Hailer 2 puffs every 4 hours while you are awake for the next 3 days then decrease to as needed. Continue taking your tears steroids as prescribed. Please follow-up with your primary care doctor next 2 to 3 days. Please return to the ED for any new or worsening symptoms. DIAGNOSIS: 1:Pneumonia; 2:Shortness of breath; 3:Dyspnea [facility] ED Note-Nursingon 01-03-2024 ED Note-Nursing ED Note-Nursing pt was able to ambulate and maintain pulse ox greather then 97% [facility] ED Note-Physicianon 01-03-20 ED Note-Physician ED Note-Physician Basic Information Time Seen: Freddy Lala PA-C 01/02/2024 20:53 Chief Complaint Thursday dx wtih bronchitis, sent home abx and pred, finished abx already. Saw PCP yesterday, given shot of steriod and more abx, but told to go to ER if not better. States not feeling any better. Still feels SOB, cough has improved. Also having slight CP History of Present Illness Patient is a 33-year-old female who presents today for evaluation of her shortness of breath. She was seen here in the ED on Thursday and diagnosed with bronchitis sent home on antibiotics and prednisone. She saw her PCP yesterday and was given another shot of a steroid and more antibiotics but was told to go to the ED if not better. She still having increased shortness of breath despite this and is not feeling any better. She did have a cough initially but that has improved. She is also having some slight chest pain as well. She also states that she has family members who have had issues with blood clots in the past. She denies any leg pain, recent travel, and is not on any oral contraceptives. Review of Systems No other aggravating or relieving factors no other associated symptoms no other prior treatments or complaints. Family: Reviewed and noncontributory Social: lives at home Review of systems negative unless otherwise specified in the HPI. Physical Exam Vitals & Measurements T: 36.5 ?C(Oral) HR: 89(Monitored) RR: 24 BP: 114/65 SpO2: 95% HT: 159 cm WT: 99.2 kg BMI: 39.24 General: The patient does appear short of breath with conversational dyspnea. Skin: Warm, dry, no pallor noted. Head: Normocephalic, atraumatic Neck: No JVD Eye: PERRLA, EOMI ENT: Moist mucus membranes Cardiovascular: Regular rate and rhythm. Normal peripheral perfusion Respiratory: CTA bilaterally. No respiratory distress no accessory muscle use no obvious audible wheezing Chest Wall: no deformity Musculoskeletal: normal ROM, no deformity, no swelling GI: Soft no obvious distention. No rebound or rigidity. No guarding. No tenderness. Neurological: A&O moves all extremities equal strength and symmetry Psychiatric: Cooperative and appropriate Medical Decision Making Patient is a 33-year-old female who presents today for evaluation of her shortness of breath. She was seen in the ED on Thursday was diagnosed with bronchitis and sent home on antibiotics and prednisone. She saw her PCP who started her on more antibiotics and gave her a shot of a steroid but is still not getting better. She does endorse some chest pain as well. On exam the patient does appear short of breath with conversational dyspnea. She is afebrile and SpO2 95% on room air. CTA to bilateral lung graham. RRR. Patient was initially given a DuoNeb breathing treatment. Chest x-ray is negative for any acute cardiopulmonary process. Labs are significant for elevated D-dimer at 1702. ABG demonstrates pH 7.55, pCO2 24.1, and pO2 of 61.6 and for this reason the patient was placed on 2 L nasal cannula. Given the elevated D-dimer I did order a CTA of the chest which is for PE but does demonstrate nodular infiltrates at the lung bases compatible with nonspecific pneumonia/small airway disease. Given the evidence of pneumonia we will switch her off of Levaquin to doxycycline. Patient is ambulatory pulse ox was 97% on room air. She will use her albuterol inhaler at home every 3 hours 2 puffs. She will follow-up with her PCP within the next 3 days to ensure she is getting better. Return to ED precautions were reviewed with the patient at length. Assessment/Plan 1. Pneumonia (J18.9: Pneumonia, unspecified organism) 2. Shortness of breath (R06.02: Shortness of breath) 3. Dyspnea (R06.00: Dyspnea, unspecified) Orders: albuterol-ipratropium, 3 mL, Soln-Inh, Inhalation, Once, Stop date 01/02/24 21:04:00 EDT, STAT, Start date 01/02/24 21:04:00 EDT doxycycline, 100 mg = 1 cap(s), Cap, Oral, Once, Stop date 01/02/24 23:51:00 EDT, STAT, Start date 01/02/24 23:51:00 EDT, 01/02/24 23:51:00 EDT Basic Metabolic Panel Beta hCG Qual Blood Gas Art, with Lytes, Gluc, Lact CBC w/ Auto Diff Continuous Pulse Oximetry CTA Chest D-Dimer ED Cardiac Monitoring eGFR PT & PTT Saline Lock Insert Troponin 0 Hr. XR Chest Single View Medications Administered Given albuterol-ipratropium Inh Allison 3 mL UD, 3 mL, Inhalation Disposition Plan Discharge Prescription List Prescriptions No active prescription medications Follow-up No qualifying data available Attestation Patient seen and evaluated by the physician printer floor covering assistant. Attending physician was present in the emergency department and supervised care. This visit was performed by both the physician and an APC. I performed all aspects of the MDM as documented. This report was transcribed using voice recognition software. Every effort was made to ensure accuracy, however, inadvertently computerized rn plastic surgery mistakes may be present. Appropriate healthcare PPE was used in (more content not included)... Normal [facility] Comment on above: Result Comment: Elec tronically Signed By: Freddy Lala PA-C\.br\Date and Time Signed: 01/02/24 23:56 EDT\.br\Electronically Co-Signed By: Xavier Wade DO\.br\Date and Time Co-Signed: 01/03/24 00:03 EDT ED Patient Summaryon 024 ED Patient Summary ED Patient Summary [place] [id number] Patient Discharge Instructions Person Information Name: DENY DIXON MIGUELINA Williamson Age: 33 Years Arrival Date: 01/02/2024 20:41:33 Discharge Diagnosis: 1:Pneumonia; 2:Shortness of breath; 3:Dyspnea Primary Care Physician: Margarita Tuttle Provider Information Primary Provider: Xavier Wade DO [employer] Technician:Freddy Lala PA-C The exam and treatment you received in the Emergency Department were for an urgent problem and are not intended as complete care. It is important that you follow up with a doctor, nurse practitioner, or physician?s printer floor covering assistant for ongoing care. If your symptoms become worse or you do not improve as expected and you are unable to reach your usual health care provider, you should return to the Emergency Department. We are available 24 hours a day. DENY DIXON has been given the following list of patient education materials, prescriptions and follow-up instructions: Follow-up Instructions: With: Address: When: Margarita Hou In 3 days 01/06/2024 Comments: Stop the Levaquin and start taking the doxycycline, finished the azithromycin. Use the albuterol Hailer 2 puffs every 4 hours while you are awake for the next 3 days then decrease to as needed. Continue taking your tears steroids as prescribed. Please follow-up with your primary care doctor next 2 to 3 days. Please return to the ED for any new or worsening symptoms. In the event that this physician does not participate in your insurance network, please consult with your insurance company to find a nearby participating provider. Patient Education Materials: Community-Acquired Pneumonia, Adult, Cusp-yz-Zfht A MESSAGE TO ALL PATIENTS REGARDING OPIOIDS PRESCRIPTION OPIOIDS: WHAT YOU NEED TO KNOW Prescription opioids can be used to help relieve stbhczec-cm-pxfyzp pain and are often prescribed following a [...] program or your pharmacy mail-back program, or flus (more content not included)... Normal [facility] XR Chest Single Viewon 01-02 XR Chest Single View Exam Date/Time: 01/02/2024 22:37 EDT Reason for Exam: Shortness of breath (SOB) Report IMPRESSION: MILD STREAKY MID TO LOWER LUNG ZONE PULMONARY OPACITIES. EXAM: XR Chest Single View DATE: 01/02/2024 10:04 PM CLINICAL HISTORY: Shortness of breath (SOB). COMPARISON: 12/28/2023 TECHNIQUE: A portable upright AP radiograph of the chest was obtained. FINDINGS: Mild streaky opacities of the mid to lower lung zones are present. There is no cardiomegaly, vascular congestion, sizable pleural effusion, pneumothorax, or displaced fractures identified. Ordering Provider: Freddy Lala FINAL REPORT Dictated: 01/03/2024 1:11 pm Stef Flood MD Signed (Electronic Signature): 01/03/2024 1:11 pm Signed by: Stef Flood MD Transcribed by: RADHA Technologist: FREDA Technical Comments Radiation Dose: Ka,r in mGy = na DAP = na Normal [facility] B hCG Qualon 01-02-2024 Beta HCG ( test) Ql Negative Normal [facility] Comment on above: Performed By: #### 2 [id number] ####[facility] [id number] [place] [address] BMPon 01-02-2024 Anion gap [Moles/Vol] 13 mmol/L Normal 6-16 [facility] Comment on above: Performed By: #### 2 [id number] #### [facility] [address] [place] [address] Calcium [Mass/Vol] 9.2 mg/dL Normal 8.9-11.1 [facility] Comment on above: Performed By: #### 2 [id number] #### [facility] [address] [place] [address] Chloride [Moles/Vol] 106 mmol/L Normal 101-111 [facility] Comment on above: Performed By: #### 2 [id number] #### [facility] [address] [place] [address] CO2 [Moles/Vol] 22 mmol/L Normal 21-31 [facility] Comment on above: Performed By: #### 2 [id number] #### [facility] [address] [place] [address] Creatinine [Mass/Vol] 0.7 mg/dL Normal 0.5-1.3 [facility] Comment on above: Performed By: #### 2 [id number] #### [facility] [address] [place] [address] Glucose [Mass/Vol] 95 mg/dL Normal 55-199 [facility] Comment on above: Performed By: #### 2 [id number] #### [facility] [address] [place] [address] Potassium [Moles/Vol] 3.1 mmol/L Low 3.5-5.3 [facility] Comment on above: Performed By: #### 2 [id number] #### [facility] [address] [place] [address] Sodium [Moles/Vol] 138 mmol/L Normal 135-145 [facility] Comment on above: Performed By: #### 2 [id number] #### [facility] [address] [place] [address] Urea nitrogen [Mass/Vol] 13 mg/dL Normal 5-21 [facility] Comment on above: Performed By: #### 2 [id number] #### [facility] [address] [place] [address] Urea nitrogen/Creatinine [Mass ratio] 19 No Units Normal 10-20 [facility] Comment on above: Performed By: #### 2 [id number] #### [facility] [address] [place] [address] Blood Gas Art, with Courtney Hill, [place] 01-02-2024 a/A Ratio Art 52.70 % Normal >=0.80 [facility] Comment on above: Performed By: #### 4 [id number] #### [facility] [address] [place] [address] AaDO2 Art 55.3 mmHg High 5.0-15.0 [facility] Comment on above: Performed By: #### 4 [id number] #### [facility] [address] [place] [address] Allens Test Positive Normal [facility] Comment on above: Performed By: #### 4 [id number] #### [facility] [address] [place] [address] Base Excess Arterial 0.1 mmol/L Low >=2.8 [facility] Comment on above: Performed By: #### 4 [id number] #### [facility] [address] [place] [address] cCa2+ Art 4.89 mg/dL Normal 4.40-5.30 [facility] Comment on above: Performed By: #### 4 [id number] #### [facility] [address] [place] [address] cCl- Art 109.0 mmol/L Normal 101.0-111. 0 [facility] Comment on above: Performed By: #### 4 [id number] #### [facility] [address] [place] [address] cGlu Art 102 mg/dL High 55-99 [facility] Comment on above: Performed By: #### 4 [id number] #### [facility] [address] [place] [address] cK+ Art 2.8 mmol/L Low 3.5-5.3 [facility] Comment on above: Performed By: #### 4 [id number] #### [facility] [address] [place] [address] cLac Art 1.2 mmol/L Normal .5-2.2 [facility] Comment on above: Performed By: #### 4 [id number] #### [facility] [address] [place] [address] thermodynamic physicist+ Art 142.0 mmol/L Normal 135.0-145. 0 [facility] Comment on above: Performed By: #### 4 [id number] #### [facility] [address] [place] [address] Drawn by Pita Cabrera Invalid Interpretation Code [facility] Comment on above: Performed By: #### 4 [id number] #### [facility] [address] [place] [address] FCOHb Art 0.9 % Low 1.5-4.9 [facility] Comment on above: Result Comment: Refe rence range Nonsmoker <1.5% Smoker <5.0% Heavy Smoker <9.0% Performed By: #### 4 [id number] #### [facility] [address] [place] [address] FIO2 BG 21 Invalid Interpretation Code [facility] Comment on above: Performed By: #### 4 [id number] #### [facility] [address] [place] [address] FMetHb Art <-0.1 Low 0.0-1.9 [facility] Comment on above: Performed By: #### 4 [id number] #### [facility] [address] [place] [address] FO2Hb Art 94.2 % Normal 92.0-100.0 [facility] Comment on above: Performed By: #### 4 [id number] #### [facility] [address] [place] [address] HCO3 (Bld) [Moles/Vol] 24.5 mmol/L Normal 22.0-26.0 [facility] Comment on above: Performed By: #### 4 [id number] #### [facility] [address] [place] [address] Hemoglobin (Bld) [Mass/Vol] 12.8 g/dL Normal 12.0-16.0 [facility] Comment on above: Performed By: #### 4 [id number] #### [facility] [address] [place] [address] Oxygen saturation in Blood 94.9 % Low 95.0-100.0 [facility] Comment on above: Performed By: #### 4 [id number] #### [facility] [address] [place] [address] P CO2 Arterial 24.1 mmHg Abnormal 35.0-45.0 [facility] Comment on above: Result Comment: Resu lts Called To Freddy LONGORIA_ By Pita Schaeffer_ And Read Back For Confirmation On 01/02/2024 21:39:34 EDT_. Performed By: #### 4 [id number] #### [facility] [address] [place] [address] P O2 Arterial 61.6 mmHg Low 80.0-100.0 [facility] Comment on above: Performed By: #### 4 [id number] #### [facility] [address] [place] [address] pH Arterial 7.550 High 7.350-7.45 0 [facility] Comment on above: Performed By: #### 4 [id number] #### [facility] [address] [place] [address] Sample Site L Radial Normal [facility] Comment on above: Performed By: #### 4 [id number] #### [facility] [address] [place] [address] Sample Type Arterial Draw Normal [facility] Comment on above: Performed By: #### 4 [id number] #### [facility] [address] [place] [address] CBC w/ Auto Diffon 4 Basophils/100 WBC (Bld) 1.3 % Normal 0.0-2.0 [facility] Comment on above: Performed By: #### 2 [id number] #### [facility] [address] [place] [address] Basophils/Leukocytes Auto (Bld) [Pure # fraction] 0.1 E9/L Normal 0.0-0.2 [facility] Comment on above: Performed By: #### 2 [id number] #### [facility] [address] [place] [address] Eosinophils (Bld) [#/Vol] 0.3 E9/L Normal 0.0-0.5 [facility] Comment on above: Performed By: #### 2 [id number] #### [facility] [address] [place] [address] Eosinophils/100 WBC (Bld) 3.0 % Normal 0.0-8.0 [facility] Comment on above: Performed By: #### 2 [id number] #### [facility] [address] [place] [address] Erythrocyte distribution width (RBC) [Ratio] 16.1 % High 10.9-14.2 [facility] Comment on above: Performed By: #### 2 [id number] #### [facility] [address] [place] [address] Hematocrit (Bld) [Volume fraction] 38.7 % Normal 34.0-46.0 [facility] Comment on above: Performed By: #### 2 [id number] #### [facility] [address] [place] [address] Hemoglobin (Bld) [Mass/Vol] 13.5 g/dL Normal 12.0-16.0 [facility] Comment on above: Performed By: #### 2 [id number] #### [facility] [address] [place] [address] Lymphocytes (Bld) [#/Vol] 1.8 E9/L Normal 1.0-4.0 [facility] Comment on above: Performed By: #### 2 [id number] #### [facility] [address] [place] [address] Lymphocytes/100 WBC (Bld) 20.1 % Normal 14.0-50.0 [facility] Comment on above: Performed By: #### 2 [id number] #### [facility] [address] [place] [address] MCH (RBC) [Entitic mass] 27.6 pg Normal 27.0-34.0 [facility] Comment on above: Performed By: #### 2 [id number] #### [facility] [address] [place] [address] MCHC (RBC) [Mass/Vol] 34.9 g/dL Normal 31.4-36.0 [facility] Comment on above: Performed By: #### 2 [id number] #### [facility] [address] [place] [address] MCV (RBC) [Entitic vol] 78.9 fL Low 80.0-100.0 [facility] Comment on above: Performed By: #### 2 [id number] #### [facility] [address] [place] [address] Monocytes (Bld) [#/Vol] 0.7 E9/L Normal 0.2-1.0 [facility] Comment on above: Performed By: #### 2 [id number] #### [facility] [address] [place] [address] Neutrophils (Bld) [#/Vol] 6.3 E9/L Normal 2.0-7.5 [facility] Comment on above: Performed By: #### 2 [id number] #### [facility] [address] [place] [address] Neutrophils/100 WBC (Bld) 68.1 % Normal 36.0-75.0 [facility] Comment on above: Performed By: #### 2 [id number] #### [facility] [address] [place] [address] Platelet 369.0 E9/L Normal 150.0-500. 0 [facility] Comment on above: Performed By: #### 2 [id number] #### [facility] [address] [place] [address] Platelet mean volume (Bld) [Entitic vol] 9.1 fL Normal 6.4-10.8 [facility] Comment on above: Performed By: #### 2 [id number] #### [facility] [address] [place] [address] RBC (Bld) [#/Vol] 4.9 E12/L Normal 4.3-5.9 [facility] Comment on above: Performed By: #### 2 [id number] #### [facility] [address] [place] [address] WBC corrected for nucl RBC Auto (Bld) [#/Vol] 9.2 E9/L Normal 4.0-11.0 [facility] Comment on above: Performed By: #### 2 [id number] #### [facility] [address] [place] [address] CHEMISTRYOrdered By: SYSTEM SYSTEM on 01-02-2024 Anion gap [Moles/Vol] 13 mmol/L Normal 6 - 16 mEq/L [facility] Calcium [Mass/Vol] 9.2 mg/dL Normal 8.9 - 11. 1 mg/dL [facility] Chloride [Moles/Vol] 106 mmol/L Normal 101 - 1 11 mmol/L [facility] CO2 [Moles/Vol] 22 mmol/L Normal 21 - 31 mmol/L [facility] Creatinine [Mass/Vol] 0.7 mg/dL Normal 0.5 - 1.3 mg/dL [facility] eGFR 117 mL/min/1.73 m2 Normal >=59mL/mi n /1.73 m2 [facility] Glucose [Mass/Vol] 95 mg/dL Normal 55 - 199 mg/dL [facility] Potassium [Moles/Vol] 3.1 mmol/L Low 3.5 - 5.3 mmol/L [facility] Sodium [Moles/Vol] 138 mmol/L Normal 135 - 145 mmol/L [facility] Troponin HS 2.50 pg/mL Low 10.10 - 27.10 pg/mL [facility] Comment on above: Interpretive Data: T he 95% CI (Confidence Interval) PPV (Positive Predictive Value) for myocardial infarction in females is 38 pg/mL, in males 51 pg/mL. The results should be used in conjunction with clinical conditions of myocardial infarction. (Access High Sensitivity Troponin I Instructions For Use, [place], December 2017) Urea nitrogen [Mass/Vol] 13 mg/dL Normal 5 - 21 mg/dL [facility] Urea nitrogen/Creatinine [Mass ratio] 19 mg/mg Normal 10 - 20 [facility] COAGULATIONOrdered By: Rajendra Lam on 01-02-2024 aPTT Coag (PPP) [Time] 32.8 s Normal 25.1 - 36.5 second(s) [facility] Auto Coag Comment on above: Interpretive Data: P arameter 15 days - 4 weeks 1 - 5 months 6 - 11 months 1 - 5 years 6 - 10 years 11 - 17 years PTT Mean: 35.4 (27.6-45.6) Mean: 33.5 (24.8-40.7) Mean: 32.4 (25.1-40.7) Mean: 31.6 (24.0-39.2) Mean: 31.6 (26.9-38.7) Mean: 31.0 (24.6-38.4) Pediatric Reference ranges were obtained from a study by Jean Kan et al. prepared from 1437 samples obtained at 7 different centers using the same coagulation reagent and instrumentation as [facility]. Currently there are no coagulation studies available worldwide for children to 14 days, and no normal ranges. Heparin therapeutic range (represented by Anti-Factor Xa activity of 0.2 - 0.4 U/mL) corresponds to PTT of 56.6 - 109.0 sec. Fibrin D-dimer FEU (PPP) [Mass/Vol] 1702 ng/mL FEU Invalid Interpretation Code 215 - 500 ng/mL FEU [facility] Auto Coag Comment on above: Result Comment: Resu lts Called To Dr. Wade/ED By WARREN And Read Back For Confirmation On 01/02/2024 22:07:56 EDT Results Verified By Repeat Analysis Interpretive Data: T his assay is intended for use as an aid in the diagnosis of DVT or PE. These conditions cannot be excluded with certainty solely on the basis of a D-dimer concentration being within the reference range This D-Dimer assay may be used in conjunction with a non-high clinical pretest probability assessment to exclude deep-vein thrombosis(DVT). For exclusion of venous thrombosis or pulmonary embolism the analyte D-Dimer should not be used as an aid in patients with: Therapeutic dose anticoagulant therapy for >24 hours Fibrinolytic therapy within previous 7 days Trauma or surgery within previous 4 weeks Disseminated malignacies Aortic aneurysm Sepsis, severe infections, pneumonia, severe skin infections Liver cirrhosis INR Coag (PPP) [Relative time] 1.22 {INR} Invalid Interpretation Code [facility] Auto Coag Comment on above: Interpretive Data: I NR results are specifically intended to assess patients stabilized on long-term Anticoagulation therapy suggested INR s Less Intensive Anticoagulation 2.0 3.0 Conventional Range 3.0 4.5 PT Coag (PPP) [Time] 13.7 s High 9.4 - 1 2.5 second(s) [facility] Auto Coag Comment on above: Interpretive Data: 1 5 days - 4 weeks 1 - 5 months 6 -11 months 1-5 years 6-10 years 11 -17 years Mean: 11.2 (9.5-12.6) Mean: 11.0 (9.7-12.8) Mean: 11.0 (9.8-13.0) Mean: 11.3 (9.9-13.4) Mean: 11.7 (10.0-14.6) Mean: 11.8 (10.0 - 14.1) Pediatric Reference ranges were obtained from a study by Jean Kan et al. prepared from 1437 samples obtained at 7 different centers using the same coagulation reagent and instrumentation as [facility]. Currently there are no coagulation studies available worldwide for children to 14 days, and no normal ranges. D-Dimeron 01-02-2024 Fibrin D-dimer FEU (PPP) [Mass/Vol] 1702 [id number] Abnormal 215-500 [facility] Comment on above: Result Comment: Resu lts Called To Dr. Wade/ED By WARREN And Read Back For Confirmation On 01/02/2024 22:07:56 EDT Results Verified By Repeat Analysis This assay is intended for use as an aid in the diagnosis of DVT or PE. These conditions cannot be excluded with certainty solely on the basis of a D-dimer concentration being within the reference range This D-Dimer assay may be used in conjunction with a non-high clinical pretest probability assessment to exclude deep-vein thrombosis(DVT). For exclusion of venous thrombosis or pulmonary embolism the analyte D-Dimer should not be used as an aid in patients with: Therapeutic dose anticoagulant therapy for >24 hours Fibrinolytic therapy within previous 7 days Trauma or surgery within previous 4 weeks Disseminated malignacies Aortic aneurysm Sepsis, severe infections, pneumonia, severe skin infections Liver cirrhosis Performed By: #### 2 [id number] #### [facility] [address] [place] [address] Blood GasesOrdered By: Nick Schaeffer on 01-02-2024 a/A Ratio Art 52.70 % Normal >=0.80% [facility] Resp Auto SS AaDO2 Art 55.3 mm[Hg] High 5.0 - 15.0 mmHg [facility] Resp Auto SS Allens Test Positive (01/02/24 9:34 PM) Normal [facility] Resp Auto SS Base Excess Arterial 0.1 mmol/L Low >=2.8mm ol/ L [facility] Resp Auto SS cCa2+ Art 4.89 mg/dL Normal 4.40 - 5.30 mg/dL [facility] Resp Auto SS cCl- Art 109.0 mmol/L Normal 101.0 - 111.0 mmol/L [facility] Resp Auto SS cGlu Art 102 mg/dL High 55 - 99 mg/dL [facility] Resp Auto SS cK+ Art 2.8 mmol/L Low 3.5 - 5.3 mmol/L [facility] Resp Auto SS cLac Art 1.2 mmol/L Normal 0.5 - 2.2 mmol/L [facility] Resp Auto SS thermodynamic physicist+ Art 142.0 mmol/L Normal 135.0 - 145.0 mmol/L [facility] Resp Auto SS Drawn by Pita Cabrera Invalid Interpretation Code [facility] Resp Auto SS FCOHb Art 0.9 % Low 1.5 - 4.9 % [facility] Resp Auto SS Comment on above: Interpretive Data: R eference range Nonsmoker <1.5% Smoker <5.0% Heavy Smoker <9.0% FIO2 BG 21 1 Invalid Interpretation Code [facility] Resp Auto SS FMetHb Art % Low 0.0 - 1.9 % [facility] Resp Auto SS FO2Hb Art 94.2 % Normal 92.0 - 100.0 % [facility] Resp Auto SS HCO3 (Bld) [Moles/Vol] 24.5 mmol/L Normal 22.0 - 26.0 mmol/L [facility] Resp Auto SS Hemoglobin (Bld) [Mass/Vol] 12.8 g/dL Normal 12.0 - 16.0 gm/dL [facility] Resp Auto SS P CO2 Arterial 24.1 mm[Hg] Invalid Interpretation Code 35.0 - 45.0 mmHg [facility] Resp Auto SS Comment on above: Result Comment: Resu lts Called To Freddy LONGORIA_ By Pita Schaeffer_ And Read Back For Confirmation On 01/02/2024 21:39:34 EDT_. P O2 Arterial 61.6 mm[Hg] Low 80.0 - 100.0 mmHg [facility] Resp Auto SS pH (Bld) 7.550 [pH] High 7.350 - 7.450 [facility] Resp Auto SS Sample Site L Radial (01/02/24 9:34 PM) Normal [facility] Resp Auto SS Sample Type Arterial Draw (01/02/24 9:34 PM) Normal [facility] Resp Auto SS HEMATOLOGYOrdered By: SYSTEM SYSTEM on 01-02-2024 Basophils/100 WBC (Bld) 1.3 % Normal 0.0 - 2.0 % [facility] Basophils/Leukocytes Auto (Bld) [Pure # fraction] 0.1 E9/L Normal 0.0 - 0.2 E9/L [facility] Eosinophils (Bld) [#/Vol] 0.3 E9/L Normal 0.0 - 0.5 E9/L [facility] Eosinophils/100 WBC (Bld) 3.0 % Normal 0.0 - 8.0 % [facility] Erythrocyte distribution width (RBC) [Ratio] 16.1 % High 10.9 - 14.2 % [facility] Hematocrit (Bld) [Volume fraction] 38.7 % Normal 34.0 - 46.0 % [facility] Hemoglobin (Bld) [Mass/Vol] 13.5 g/dL Normal 12.0 - 16.0 gm/dL [facility] Lymphocytes (Bld) [#/Vol] 1.8 E9/L Normal 1.0 - 4.0 E9/L [facility] Lymphocytes/100 WBC (Bld) 20.1 % Normal 14.0 - 50.0 % [facility] MCH (RBC) [Entitic mass] 27.6 pg Normal 27.0 - 34.0 pg [facility] MCHC (RBC) [Mass/Vol] 34.9 g/dL Normal 31.4 - 36.0 gm/dL [facility] MCV (RBC) [Entitic vol] 78.9 fL Low 80.0 - 100.0 fL [facility] Monocytes (Bld) [#/Vol] 0.7 E9/L Normal 0.2 - 1.0 E9/L [facility] Monocytes/100 WBC (Bld) 7.5 % Normal 4.0 - 14.0 % [facility] Neutrophils (Bld) [#/Vol] 6.3 E9/L Normal 2.0 - 7.5 E9/L [facility] Neutrophils/100 WBC (Bld) 68.1 % Normal 36.0 - 75.0 % [facility] Platelet 369.0 E9/L Normal 150.0 - 500.0 E9/L [facility] Platelet mean volume (Bld) [Entitic vol] 9.1 fL Normal 6.4 - 10.8 fL [facility] RBC (Bld) [#/Vol] 4.9 E12/L Normal 4.3 - 5.9 E12/L [facility] WBC corrected for nucl RBC Auto (Bld) [#/Vol] 9.2 E9/L Normal 4.0 - 11.0 E9/L [facility] PT & PTTon 01-02-2024 aPTT Coag (PPP) [Time] 32.8 second(s) Normal 25.1-36.5 [facility] Comment on above: Result Comment: Para meter 15 days - 4 weeks 1 - 5 months 6 - 11 months 1 - 5 years 6 - 10 years 11 - 17 years PTT Mean: 35.4 (27.6-45.6) Mean: 33.5 (24.8-40.7) Mean: 32.4 (25.1-40.7) Mean: 31.6 (24.0-39.2) Mean: 31.6 (26.9-38.7) Mean: 31.0 (24.6-38.4) Pediatric Reference ranges were obtained from a study by Jean [place], et al. prepared from 1437 samples obtained at 7 different centers using the same coagulation reagent and instrumentation as [facility]. Currently there are no coagulation studies available worldwide for children to 14 days, and no normal ranges. Heparin therapeutic range (represented by Anti-Factor Xa activity of 0.2 - 0.4 U/mL) corresponds to PTT of 56.6 - 109.0 sec. Performed By: #### 1 [id number] #### [facility] [address] [place] [address] INR Coag (PPP) [Relative time] 1.22 {INR} Invalid Interpretation Code [facility] Comment on above: Result Comment: INR results are specifically intended to assess patients stabilized on long-term Anticoagulation therapy suggested INR?s ?Less Intensive Anticoagulation? 2.0 ? 3.0 Conventional Range 3.0 ? 4.5 Performed By: #### 1 [id number] #### [facility] [address] [place] [address] PT Coag (PPP) [Time] 13.7 second(s) High 9.4-12.5 [facility] Comment on above: Result Comment: 15 d ays - 4 weeks 1 - 5 months 6 -11 months 1- 5 years 6-10 years 11 -17 years Mean: 11.2 (9.5-12.6) Mean: 11.0 (9.7-12.8) Mean: 11.0 (9.8-13.0) Mean: 11.3 (9.9-13.4) Mean: 11.7 (10.0-14.6) Mean: 11.8 (10.0 - 14.1) Pediatric Reference ranges were obtained from a study by daniela Guidry al. prepared from 1437 samples obtained at 7 different centers using the same coagulation reagent and instrumentation as [facility]. Currently there are no coagulation studies available worldwide for children to 14 days, and no normal ranges. Performed By: #### 1 [id number] #### [facility] [address] [place] [address] SEROLOGYOrdered By: Zora Lam on 01-02-2024 Beta HCG ( test) Ql Negative (01/02/24 9:31 PM) Normal [facility] Man Sero Troponin 0 Hr.on 01-02-2024 Troponin HS 2.50 pg/mL Low 10.10-27.1 0 [facility] Comment on above: Result Comment: The 95% CI (Confidence Interval) PPV (Positive Predictive Value) for myocardial infarction in females is 38 pg/mL, in males 51 pg/mL. The results should be used in conjunction with clinical conditions of myocardial infarction. (Access High Sensitivity Troponin I Instructions For Use, [employer], December 2017) Performed By: #### [id number] #### [facility] [address] [place] [address] eGFRon 01-02-2024 eGFR 117 mL/min/1.73 m2 Normal >=59 [facility] Comment on above: Order Comment: Order added by Discern Expert. Performed By: #### [id number] #### [facility] [address] [place] [address] Family Medicine Office/Clini c Noteon 01-01-2024 Family Medicine Office/Clinic Note Family Medicine Office/Clinic Note Chief Complaint [facility] ER f/u HPI Staff ER followup: Hospital:[facility] Visit date:12/28/2023 Symptoms the patient presented with:cough & congestion [id number]. Multiple NEG Covid Tests previous to ER. DC'd home with Zithromax, Albuterol, Prednisone & Promethazine Current concerns: No improvement. Coughing has let up a little bit. Breathing is getting worse. Very easily winded. Non productive cough. ORTIZ 12/21/23. DX: Head Congestion. Tx'd w/Loratadine-pseudoephedri ne. History of Present Illness pt presents today with continued cough, wheezing shortness of breath Review of Systems PHQ Score Initial Depression Screen Score: 0 SCORE Physical Exam Vitals & Measurements T: 36.4 ?C(Oral) HR: 90(Peripheral) RR: 22 BP: 128/86 SpO2: 89% HT: 63 in HT: 159 cm WT: 99.2 kg WT: 218.24 lb BMI: 39.24 General: alert, no acute distress ENMT: oral mucosa moist, no pharyngeal erythema or exudate Cardiovascular: regular rate and rhythm, normal peripheral perfusion Respiratory: Lungs expiratory wheezes, respirations non labored Extremities: no deformity, no trauma Neurological: oriented x 4, LOC appropriate for age, CN II-XII intact, motor strength equal & normal bilaterally, speech normal Assessment/Plan 1. Wheezing (R06.2: Wheezing) pt was seen at urgent care on 12/27 chest x ray was negative. steroid and z irma was started. pt is not any better today. very short of breath, pulse ox is 89% and wheezing continues. encouraged pt to go to ER. she does not want to go. 80 mg kenalog given in office and antibiotic switched to levaquin daily. pt to remain off of work until Thursday. note provided. pt encouraged to go to ER if SOB worsens. RTC as needed 2. BMI 39.0-39.9,adult (Z68.39: Body mass index [BMI] 39.0-39.9, adult) BMI education given Ordered: levofloxacin, 500 mg = 1 tab(s), Oral, q24hr, X 7 day(s), # 7 tab(s), Refills(s) 0, Pharmacy: [facility] #[id number], 159, cm, 01/01/24 13:55:00 EDT, Height/Length Dosing, 99.2, kg, 01/01/24 13:55:00 EDT, Weight Dosing 3. Class 1 obesity due to excess calories in adult (E66.09: Other obesity due to excess calories) see above Ordered: levofloxacin, 500 mg = 1 tab(s), Oral, q24hr, X 7 day(s), # 7 tab(s), Refills(s) 0, Pharmacy: [facility]/pharmacy #[id number], 159, cm, 01/01/24 13:55:00 EDT, Height/Length Dosing, 99.2, kg, 01/01/24 13:55:00 EDT, Weight Dosing 4. Nonsmoker (Z78.9: Other specified health status) continue not smoking Ordered: levofloxacin, 500 mg = 1 tab(s), Oral, q24hr, X 7 day(s), # 7 tab(s), Refills(s) 0, Pharmacy: [facility] #[id number], 159, cm, 01/01/24 13:55:00 EDT, Height/Length Dosing, 99.2, kg, 01/01/24 13:55:00 EDT, Weight Dosing Follow-up No qualifying data available Problem List/Past Medical History Ongoing Anemia BMI 39.0-39.9,adult BMI 40.0-44.9, adult Cervical cancer screening Class 1 obesity due to excess calories in adult Dizziness Drug therapy finding Exposure to influenza Hyperesthesia Left shoulder pain Low hemoglobin Menorrhagia Neck pain on left side Numbness of left hand Pale Syncope Vertigo Well woman exam Wheezing Historical Dilation and curettage Low-lying placenta Missed miscarriage Procedure/Surgical History Tubal ligation (08/08/2015). 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 Living situation: Home/Independent. Alcohol abuse in household: No. Substance abuse in household: No. Smoker in household: No. Injuries/Abuse/Neglect in household: No. Safe place to go: Yes. Agency(s)/Others notified: No., 02/26/2014 Nutrition/Health Regular, 02/26/2014 Substance Abuse - Denies Substance Abuse, 06/17/2012 Tobacco - Denies Tobacco Use, 06/17/2012 Never (less than 100 in lifetime) Tobacco Use:. Never Smokeless Tobacco Use:. Cigarettes, Household tobacco concerns: No. Yes, 01/01/2024 Family History Stroke: Mother. Immunizations Vaccine Date Status Comments SARS-CoV-2 (COVID-19) mRNA-1273 vaccine 10/31/2020 Recorded 2023-12-21: TPVALL SARS-CoV-2 (COVID-19) mRNA-1273 vaccine 10/03/2020 Recorded 2023-12-21: TPVALL influenza virus vaccine, inactivated - Not Given Patient Refuses influenza virus vaccine, inactivated 08/08/2015 Given Nurs (more content not included)... [facility] Comment on above: Result Comment: Elec tronically Signed By: Margarita Tuttle\.br\Date and Time Signed: 01/01/24 14:12 EDT Provider Letteron 01-01-2024 Provider Letter Provider Letter January 01, 2024 [address]ON [address] [place] [phone] : 1990 To Whom It May Concern, Please excuse above patient from work. Date of Illness: From: 12/31/2023 To: 01/05/2024 May Return to Work On: 01/06/2024 Sincerely, [place] [address] [facility] ED Clinical Summaryon 2023 ED Clinical Summary ED Clinical Summary [address] [address] ED Clinical Summary Person Information Name: DENY DIXON [facility] Age: 33 Years : 1990 Sex: Female Language: Niuean PCP: Margarita Tuttle Marital Status: Visit Id: Visit Reason: Sinus Pain/Congestion; Cough; SOB Speciality: Acuity: 4 Enc Type: Emergency Med Service: Emergency Arrival: 12/28/2023 12:39:56 Discharge: 12/28/2023 13:45:10 LOS: 000 01:06 Checkin: 12/28/2023 12:39:56 Checkout: 12/28/2023 13:45:10 Dispo Type: Home (Routine DC) EVENTS: Event Name Event Status Request Date/Time Start Date/Time Complete Date/Time Arrive Complete 12/28/2023 12:39:56 12/28/2023 12:39:56 12/28/2023 12:39:56 Document Home Meds Request 12/28/2023 12:39:56 Triage Complete 12/28/2023 12:39:56 12/28/2023 12:46:37 12/28/2023 12:46:37 Bed Assign Complete 12/28/2023 12:47:01 12/28/2023 12:47:01 12/28/2023 12:47:01 Dr Exam Complete 12/28/2023 12:47:01 12/28/2023 12:49:41 12/28/2023 12:49:41 RN Exam Complete 12/28/2023 12:47:01 12/28/2023 12:57:05 12/28/2023 12:57:05 X-Ray Complete 12/28/2023 12:48:27 12/28/2023 13:19:30 12/28/2023 13:26:38 Meds Admin Complete 12/28/2023 12:49:23 12/28/2023 12:57:30 RT Tx/ABG Request 12/28/2023 12:49:23 RT Tx/ABG Request 12/28/2023 12:49:23 Registration Complete 12/28/2023 12:49:41 12/28/2023 13:21:44 12/28/2023 13:21:44 Reg Complete Request 12/28/2023 13:21:44 Reg Bed Request Complete 12/28/2023 13:21:44 12/28/2023 13:21:44 12/28/2023 13:21:44 Wet Read Complete 12/28/2023 13:26:38 12/28/2023 13:28:00 12/28/2023 13:28:00 Discharge Complete 12/28/2023 13:39:46 12/28/2023 13:45:15 12/28/2023 13:45:15 Transfer Complete 12/28/2023 13:45:15 12/28/2023 13:45:15 12/28/2023 13:45:15 ADDRESS: [address] [place] [id number] PHYS DOC NOTES: MEDICAL INFORMATION: Prescriptions Given: New Medications [id number], [address], [place] [id number], [phone] albuterol (Albuterol (Eqv-ProAir HFA) 90 mcg/inh inhalation aerosol) 2 Puffs Inhalation every 6 hours for 7 Days. Refills: 0. azithromycin (azithromycin 250 mg Tab) 250 Milligram By Mouth As Directed. Take two tabs by mouth on day one, then one tab daily. Refills: 0. dextromethorphan-promethaz ine (Promethazine DM oral syrup) 5 Milliliter By Mouth every 6 hours as needed for cough. Refills: 0. predniSONE (predniSONE 20 mg Tab) 3 By Mouth every day for 7 Days. Refills: 0. Medications to Continue with No Changes Other Medications ferrous sulfate (ferrous sulfate 325 mg Tab) 1 Tablets By Mouth 2 times a day for 90 Days. Refills: 3. loratadine-pseudoephedrine (Claritin-D 5 mg-120 mg Tab-ER) 1 Tablets By Mouth every 12 hours for 7 Days. Refills: 0. meclizine (meclizine 12.5 mg Tab) 1 Tablets By Mouth 3 times a day as needed for nausea/vomiting. Refills: 0. meloxicam (meloxicam 7.5 mg Tab) 1 Tablets By Mouth every day for 90 Days. Refills: 3. PATIENT EDUCATION INFORMATION: Instructions: Follow up: With: Address: When: Margarita Hou In 3 days DIAGNOSIS: Bronchitis with bronchospasm Normal [facility] ED Note-Physicianon 12-28-19 ED Note-Physician ED Note-Physician Basic Information Time Seen: Bert Davis DO 12/28/2023 12:49 Chief Complaint cough and congestion for 10 days History of Present Illness 33 female presents with cough congestion. Patient states has been sick now for at least the last 10 days. She has taken multiple negative COVID test at home. She complains of some discomfort in her sinuses but also into her chest where she is having a lot of coughing and burning. She does describe some associated shortness of breath with this as well. She was exposed to somebody recently that had very similar symptoms but they only lasted for for 5 days not quite this long. She denies any history of cardiac or pulmonary disease. She denies any chance of stating tubal ligation. No other aggravating or relieving factors no other associated symptoms no other prior treatments or complaints. Family: Reviewed and noncontributory Social: lives at home Review of systems negative unless otherwise specified in the HPI. Physical Exam Vitals & Measurements T: 36.5 ?C(Oral) HR: 102(Monitored) RR: 20 BP: 147/94 SpO2: 94% HT: 160 cm WT: 101.6 kg BMI: 39.69 Vital Signs reviewed and noted. General: Alert, no acute distress, patient resting comfortably Skin: warm, intact, no pallor noted Head: Normocephalic, atraumatic mild tenderness over the frontal and maxillary sinuses Eye: Normal conjunctiva Cardiac: Normal peripheral perfusion Respiratory: No acute distress Musculoskeletal: No deformity, full ROM. Neurological: alert and oriented, normal sensory and motor observed. Psychiatric: Cooperative Neck: No cervical lymphadenopathy Medical Decision Making X-rays reveal no obvious infiltrates. Patient is treated here with nebulizer and does feel better. Given that she has been sick now for greater than 10 days antibiotics are indicated therefore she is treated with Zithromax, prednisone, albuterol, and given medication for cough follow-up in the outpatient setting return to ER symptoms change or worsen. []The patient has acute bronchitis/bronchiolitis and antibiotics were not prescribed or dispensed today.[[facility]] [x] The patient has acute bronchitis/bronchiolitis. Antibiotics were prescribed or dispensed because the patient meets one of the following: [MIPS PERFORMANCE EXCEPTION/EXCLUSION] [] Patient has a medical reason for prescribing or dispensing an antibiotic. That reason is Pt has been sick for >10 days [] Patient is currently on antibiotics or has been in the last 30 days. [] Patient?s visit resulted in an inpatient admission. []The patient has acute bronchitis/bronchiolitis and antibiotics were prescribed or dispensed today. [DOES NOT SATISFY MIPS PERFORMANCE] Assessment/Plan Bronchitis with bronchospasm (J20.9: Acute bronchitis, unspecified) Orders: albuterol, 2 puff(s), Inhalation, q6hr for 7 day(s), 6.7 gm, Refill(s) 0, [id number], 160, cm, 12/28/23 12:46:00 EDT, Height/Length Dosing, 101.6, kg, 12/28/23 12:46:00 EDT, Weight Dosing azithromycin, 250 mg, Oral, As Directed, Take two tabs by mouth on day one, then one tab daily, # 6 tab(s), Refills(s) 0, Pharmacy: [facility]/pharmacy #[id number], 160, cm, 12/28/23 12:46:00 EDT, Height/Length Dosing, 101.6, kg, 12/28/23 12:46:00 EDT, Weight Dosing dextromethorphan-promethaz ine, 5 mL, Oral, q6hr for cough, 120 mL, Refill(s) 0, [facility]/pharmacy #[id number], 160, cm, 12/28/23 12:46:00 EDT, Height/Length Dosing, 101.6, kg, 12/28/23 12:46:00 EDT, Weight Dosing predniSONE, 3, Oral, Daily, X 7 day(s), # 21 tab(s), Refills(s) 0, Pharmacy: [facility]/pharmacy #[id number], 160, cm, 12/28/23 12:46:00 EDT, Height/Length Dosing, 101.6, kg, 12/28/23 12:46:00 EDT, Weight Dosing XR Chest Single View Medications Administered Given DuoNeb 2.5 mg-0.5 mg/3 mL Soln-Inh, 3 mL, Inhalation Disposition Plan Discharge Prescription List Prescriptions Albuterol (Eqv-ProAir HFA) 90 mcg/inh inhalation aerosol, 2 puff(s), Inhalation, q6hr azithromycin 250 mg Tab, 250 mg, Oral, As Directed predniSONE 20 mg Tab, 3, Oral, Daily Promethazine DM oral syrup, 5 mL, Oral, q6hr, PRN Follow-up With When Contact Information Margarita Hou In 3 days Additional Instructions: Problem List/Past Medical History Ongoing Anemia BMI 40.0-44.9, adult Cervical cancer screening Dizziness Drug therapy finding Exposure to influenza Hyperesthesia Left shoulder pain Low hemoglobin Menorrhagia Neck pain on left side Numbness of left hand Pale Syncope Vertigo Well woman exam Historical Dilation and curettage Low-lying placenta Missed miscarriage Procedure/Surgical History Tubal ligation (08/08/2015). Medications Inpatient No active inpatient medications Home Claritin-D 5 mg-120 mg Tab-ER, 1 tab(s), Oral, q12hr ferrous sulfate 325 mg Tab, 325 mg= 1 tab(s), Oral, BID, 3 refills meclizine 12.5 mg Tab, 12.5 mg= 1 tab(s), Oral, TID, PRN meloxicam 7.5 mg Tab, 7.5 (more content not included)... [facility] Comment on above: Result Comment: Elec tronically Signed By: Bert Davis DO\.br\Date and Time Signed: 12/28/23 13:41 EDT ED Patient Education Noteon 12-28-2023 ED Patient Education Note ED Patient Education Note Normal [facility] ED Patient Summaryon ED Patient Summary ED Patient Summary [place] [id number] Patient Discharge Instructions Person Information Name: DENY DIXON Age: 33 Years Arrival Date: 12/28/2023 12:39:56 Discharge Diagnosis: Bronchitis with bronchospasm Primary Care Physician: Margarita Tuttle Provider Information Primary Provider: Bert Davis DO Advanced Design Engineering Technician:None The exam and treatment you received in the Emergency Department were for an urgent problem and are not intended as complete care. It is important that you follow up with a doctor, nurse practitioner, or physician?s printer floor covering assistant for ongoing care. If your symptoms become worse or you do not improve as expected and you are unable to reach your usual health care provider, you should return to the Emergency Department. We are available 24 hours a day. DENY DIXON has been given the following list of patient education materials, prescriptions and follow-up instructions: Follow-up Instructions: With: Address: When: Margarita Hou In 3 days In the event that this physician does not participate in your insurance network, please consult with your insurance company to find a nearby participating provider. Patient Education Materials: A MESSAGE TO ALL PATIENTS REGARDING OPIOIDS PRESCRIPTION OPIOIDS: WHAT YOU NEED TO KNOW Prescription opioids can be used to help relieve [id number] pain and are often prescribed following a [...] guidance from the Food and Drug Administration (www.fda.gov/Drugs/Resourc esForYou). ? Visit www.cdc.gov/drugoverdose to learn about the risks of opioids abuse and overdose. ? If you believe you may be struggling with addiction, tell your health ambulatory care nurse and ask for guidance or call [facility] National Helpline at 4-102-886-IBBA. p Source: US Department of Health and Human Services/Center for Disease Control & Prevention [place] (more content not included)... [facility] Provider Letteron 12-28-2023 Provider Letter Provider Letter December 28, 20[address] [place] [phone] : 1990 To Whom It May Concern, Please excuse above patient from work. Date of Illness: From: 12/25/2023 To: 12/30/2023 May Return to Work On: 12/31/2023 Sincerely, Family Medicine [address] [address] [facility] XR Chest Single Viewon 12-27 XR Chest Single View Exam Date/Time: 12/28/2023 13:26 EDT Reason for Exam: Cough Report IMPRESSION: NO EVIDENCE OF ACTIVE CHEST DISEASE. CLINICAL HISTORY: Cough. COMMENT: The heart is normal in size. The mediastinum is unremarkable. No consolidated airspace opacification nor pleural effusion is evident. Allowing for differences in technique, no significant change is noted when compared to the prior exam. Ordering Provider: Bert Davis FINAL REPORT Dictated: 12/28/2023 1:48 pm Raghav Garcia M.D. Signed (Electronic Signature): 12/28/2023 1:48 pm Signed by: Raghav Garcia M.D. Transcribed by: RADHA Technologist: CITLALLI Technical Comments Radiation Dose: Ka,r in mGy = na DAP = na [facility] Family Medicine Office/Clini c Noteon 12-22-2023 Family Medicine Office/Clinic Note Family Medicine Office/Clinic Note HPI Staff Deny Miguelina is a 33 year old presenting with C/O: sore throat, cough body aches, congestion Duration: _ Since ThursdayDecember 17 Body aches: yes Chills: yes Fatigue: yes Cough: yes Sore throat: yes Fever: no Headache: no Nasal congestion: yes Loss of taste: no Loss of smell: no Eye itching/watering: no right eye Sneezing: no SOB: no Known Exposure: no Both ears have pressure COVID tested today- NEG History of Present Illness 33 year old patient of Mone Hou CNP presents with her significant other for evaluation of sore throat, body aches, & congestion x 4 days. She reports she has not had a fever but has had chills. She has not taken her temperature and reports she has only taken OTC medication. She reports her daughter had a cough last week and no one else has been sick. Review of Systems PHQ Score Initial Depression Screen Score: 0 SCORE Constitutional: no fever, no chills, no sweats, no weakness Skin: no Jaundice, no rash, no lesions, nopetechiae ENMT: no ear pain, no sore throat, no congestion, no hoarseness Respiratory: no shortness of breath, no cough, no orthopnea, no wheezing Cardiovascular: no chest pain, no palpitations, no edema Gastrointestinal: no nausea, no vomiting, no diarrhea, no GI bleeding Genitourinary: no dysuria, no hematuria, no discharge, no pain Musculoskeletal: no back pain, no trauma Neurologic: no headache, no dizziness, no numbness, no weakness Psychiatric: no sleeping problems, no irritability, no mood swings/depression. Heme/Lymph: no bleeding tendency, no bruising tendency, no petechiae, no swollen nodes Allergy/Immunologic: no seasonal allergies, no food allergies, no recurrent infections, no impaired immunity Additional ROS info: Except as noted in the above Review of Systems and in the History of Present Illness all other systems have been reviewed and are negative or noncontributory. Physical Exam Vitals & Measurements HR: 107(Peripheral) RR: 22 BP: 128/84 SpO2: 95% HT: 63 in HT: 160.0 cm WT: 101.6 kg WT: 223.52 lb BMI: 39.69 General: alert, no acute distress Skin: warm, dry Head: no trauma, normocephalic Neck: Trachea midline, no adenopathy, no tenderness Eye: normal conjunctiva, sclera clear ENMT: TM's clear, oral mucosa moist, no pharyngeal erythema or exudate Cardiovascular: regular rate and rhythm, normal peripheral perfusion Respiratory: Lungs CTA, respirations non labored Extremities: no deformity, no trauma Neurological: oriented x 4, LOC appropriate for age speech normal Psychiatric: cooperative, affect appropriate for age, normal judgement, normal psychiatric thoughts. Assessment/Plan 1. Head congestion (R09.81: Nasal congestion) POCT COVID negative today in the office Note completed for employer to RTW on Monday, December 25, 2023 Encouraged to continue increased fluids, acetaminophen or ibuprofen for fever or discomfort Start loratadine-pseudoephedrine one tablet po q 12 hrs for 7 days f/u if no improvement in 3-5 days Ordered: loratadine-pseudoephedrine , 1 tab(s), Oral, q12hr for 7 day(s), 14 tab(s), Refill(s) 0, [id number], 160, cm, 12/21/23 15:55:00 EDT, Height/Length Dosing, 101.6, kg, 12/21/23 15:55:00 EDT, Weight Dosing Rapid COVID POC [id number] Follow-up No qualifying data available Problem List/Past Medical History Ongoing Anemia BMI 40.0-44.9, adult Cervical cancer screening Dizziness Drug therapy finding Exposure to influenza Hyperesthesia Left shoulder pain Low hemoglobin Menorrhagia Neck pain on left side Numbness of left hand Pale Syncope Vertigo Well woman exam Historical Dilation and curettage Low-lying placenta Missed miscarriage Procedure/Surgical History Tubal ligation (08/08/2015). Medications Claritin-D 5 mg-120 mg Tab-ER, 1 tab(s), Oral, q12hr ferrous sulfate 325 mg Tab, 325 mg= 1 tab(s), Oral, BID, 3 refills meclizine 12.5 mg Tab, 12.5 mg= 1 [...] in household: No. Smoker in household: No. Injuries/Abuse/Neglect in household: No. Safe place to go: Yes. Agency(s)/Others notified: No., 02/26/2014 Nutrition/Health Regular, 02/26/2014 Substance Abuse - Denies Substance Abuse, 06/17/2012 Tobacco - Denies Tobacco Use, 06/17/2012 Never (less than 100 in lifetime) Tobacco Use:. Never Smokeless Tobacco Use:. Cigarettes, Household tobacco concerns: No., 12/21/2023 Family History Stroke: Mother. Immunizations Vaccine Date Status Comm (more content not included)... [facility] Comment on above: Result Comment: Elec tronically Signed By: VICKY AGUILA CNP\.br\Date and Time Signed: 12/22/23 15:57 EDT Ambulatory Visit Summaryon 0 12-21-2023 Ambulatory Visit Summary Ambulatory Visit Summary DENY DIXON :1990 Visit Date:12/21/2023 Ambulatory Visit Instructions Your Diagnosis Head congestion Your Care Team Attending Physician - VICKY AGUILA CNP Primary Care Physician - Margarita Tuttle This Is Your Medications List ferrous sulfate (ferrous sulfate 325 mg Tab) loratadine-pseudoephedrine (Claritin-D 5 mg-120 mg Tab-ER) meclizine (meclizine 12.5 mg Tab) meloxicam (meloxicam 7.5 mg Tab) Procedures Performed Tubal ligation (08/08/2015). Discharge Vitals Heart Rate (Peripheral) 107 Respiratory Rate 22 Blood Pressure 128/84 Height 160.0 cm Height 63 in Weight 101.6 kg Weight 223.52 lb BMI 39.69 Medications What How Much When Why Instructions New loratadine-pseudoephedrine (Claritin-D 5 mg-120 mg Tab-ER) 1 Tablets By Mouth Every 12 hours Head congestion Duration: 7 Days Pickup at [facility]/pharmacy #[id number] Unchanged ferrous sulfate (ferrous sulfate 325 mg Tab) 1 Tablets By Mouth 2 times a day Dizziness Low hemoglobin Syncope Menorrhagia Pale BMI 40.0-44.9, adult Duration: 90 Days Unchanged meclizine (meclizine 12.5 mg Tab) 1 Tablets By Mouth 3 times a day as needed for for nausea/vomiting Unchanged meloxicam (meloxicam 7.5 mg Tab) 1 Tablets By Mouth Every day Left shoulder pain Neck pain on left side Numbness of left hand BMI 38.0-38.9,adult Class 1 obesity due to excess calories in adult Nonsmoker Duration: 90 Days Pharmacy Information [facility]/pharmacy #[id number]: [address], [place] [phone] Allergies No Known Allergies Problems Ongoing - Any problem that you are currently receiving treatment for. Anemia BMI 40.0-44.9, adult Cervical cancer screening Dizziness Drug therapy finding Exposure to influenza Hyperesthesia Left shoulder pain Low hemoglobin Menorrhagia Neck pain on left side Numbness of left hand Pale Syncope Vertigo Well woman exam Historical - Any problem that you are no longer receiving treatment for. Dilation and curettage Low-lying placenta Missed miscarriage Patient Survey You may receive a survey via text or e-mail asking about your office visit. Please share your experience with us by completing your survey. We appreciate your feedback and thank you for choosing us for your care. [facility] Provider Letteron 12-21-2023 Provider Letter Provider Letter December 21, 2023 DENY DIXON [address] [place] [address] : 1990 To Whom It May Concern, Please excuse above patient from work due to illness Date of Illness: From: 12-20-23 To: 12-24-23 May Return to Work On:12-25-23 Restrictions: _NONE Comments: _ Sincerely, Family Medicine [address] [address] [facility] US Pelvis Non-OB Completeon 12-01-2023 US Pelvis Non-OB Complete Exam Date/Time: 11/26/2023 16:48 EDT Reason for Exam: N92.0;Menorrhagia Report IMPRESSION: NEGATIVE ULTRASOUND OF THE PELVIS. EXAM: US Pelvis Non-OB Complete DATE: 11/26/2023 4:15 PM CLINICAL HISTORY: Menorrhagia, N92.0. COMPARISON: Pelvic ultrasound and CT abdomen and pelvis 12/30/2017. TECHNIQUE: Transabdominal ultrasound was performed to visualize the entirety of the pelvis. Transvaginal scanning was performed to provide better detail of the uterus and ovaries. FINDINGS: The uterus is anteverted and mildly anteflexed in position, and otherwise unremarkable in appearance. Both ovaries appear within normal limits for the patient's age group. Equivalent blood flow is noted to both ovaries on Doppler analysis. There is no significant free fluid, abnormal adnexal masses, or other findings of concern identified. The uterine measurements and estimated volume: Uterus Length: 9.1 cm Uterus Width: 5.0 cm Uterus Height: 4.8 cm Uterus Volume: 114.6 cm3 Endometrium Thickness: 1.0 cm The right ovary measurements and estimated volume: Right Ovary Length: 2.2 cm Right Ovary Width: 2.3 cm Right Ovary Height: 1.8 cm Right Ovary Volume: 4.9 cm3 The left ovary measurements and an estimated volume are: Report Left Ovary Length: 2.4 cm Left Ovary Width: 2.3 cm Left Ovary Height: 1.4 cm Left Ovary Volume: 3.9 cm3 Ordering Provider: Margarita Hou FINAL REPORT Dictated: 12/01/2023 10:28 am Stef Flood MD Signed (Electronic Signature): 12/01/2023 10:28 am Signed by: Stef Flood MD Transcribed by: RADHA Technologist: BERNADETTE Technical Comments Transabdominal Ultrasound Performed Normal [facility] C Urineon 11-17-2023 Bacteria identified Cx Nom (U) Microbiology PROCEDURE: Urine Culture [R1] SOURCE: U CleanCatch BODY SITE: COLLECTED DATE/TIME: 11/14/2023 22:41 EDT RECEIVED DATE/TIME: 11/15/2023 00:26 EDT START DATE/TIME: 11/15/2023 00:26 EDT FREE TEXT SOURCE: Greg Erickson PA-C, PA-C, Greg Lowery. FINAL REPORTS Final Report [] Verified Date/Time: 11/17/2023 08:32 EDT <10,000 cfu/ml Mixed skin contaminants Performing Locations R1: This test was performed at: [facility], [address] [place] [address], [phone] , [place], Normal [facility] Comment on above: Performed By: #### 2 [id number] #### [facility] [address] [place] [address] B hCG Qualon 11-14-2023 Beta HCG ( test) Ql Negative Normal [facility] Comment on above: Performed By: #### 2 [id number] #### [facility] [address] [place] [address] BMPon 11-14-2023 Anion gap [Moles/Vol] 10 mmol/L Normal 6-16 [facility] Comment on above: Performed By: #### 2 [id number] #### [facility] [address] [place] [address] Calcium [Mass/Vol] 9.2 mg/dL Normal 8.9-11.1 [facility] Comment on above: Performed By: #### 2 [id number] #### [facility] [address] [place] [address] Chloride [Moles/Vol] 106 mmol/L Normal 101-111 [facility] Comment on above: Performed By: #### 2 [id number] #### [facility] [address] [place] [address] CO2 [Moles/Vol] 27 mmol/L Normal 21-31 [facility] Comment on above: Performed By: #### 2 [id number] #### [facility] [address] [place] [address] Creatinine [Mass/Vol] 0.7 mg/dL Normal 0.5-1.3 [facility] Comment on above: Performed By: #### 2 [id number] #### [facility] [address] [place] [address] Glucose [Mass/Vol] 97 mg/dL Normal 55-199 [facility] Comment on above: Performed By: #### 2 [id number] #### [facility] [address] [place] [address] Potassium [Moles/Vol] 4.2 mmol/L Normal 3.5-5.3 [facility] Comment on above: Performed By: #### 2 [id number] #### [facility] [address] [place] [address] Sodium [Moles/Vol] 139 mmol/L Normal 135-145 [facility] Comment on above: Performed By: #### 2 [id number] #### [facility] [address] [place] [address] Urea nitrogen [Mass/Vol] 11 mg/dL Normal 5-21 [facility] Comment on above: Performed By: #### 2 [id number] #### [facility] [address] [place] [address] Urea nitrogen/Creatinine [Mass ratio] 16 No Units Normal 10-20 [facility] Comment on above: Performed By: #### 2 [id number] #### [facility] [address] [place] [address] CBC w/ Auto Diffon 4 Basophils/100 WBC (Bld) 1.2 % Normal 0.0-2.0 [facility] Comment on above: Performed By: #### 2 [id number] #### [facility] [address] [place] [address] Basophils/Leukocytes Auto (Bld) [Pure # fraction] 0.1 E9/L Normal 0.0-0.2 [facility] Comment on above: Performed By: #### 2 [id number] #### [facility] [address] [place] [address] Eosinophils (Bld) [#/Vol] 0.4 E9/L Normal 0.0-0.5 [facility] Comment on above: Performed By: #### 2 [id number] #### [facility] [address] [place] [address] Eosinophils/100 WBC (Bld) 6.4 % Normal 0.0-8.0 [facility] Comment on above: Performed By: #### 2 [id number] #### [facility] [address] [place] [address] Erythrocyte distribution width (RBC) [Ratio] 17.6 % High 10.9-14.2 [facility] Comment on above: Performed By: #### 2 [id number] #### [facility] [address] [place] [address] Hematocrit (Bld) [Volume fraction] 37.5 % Normal 34.0-46.0 [facility] Comment on above: Performed By: #### 2 [id number] #### [facility] [address] [place] [address] Hemoglobin (Bld) [Mass/Vol] 12.6 g/dL Normal 12.0-16.0 [facility] Comment on above: Performed By: #### 2 [id number] #### [facility] [address] [place] [address] Lymphocytes (Bld) [#/Vol] 1.8 E9/L Normal 1.0-4.0 [facility] Comment on above: Performed By: #### 2 [id number] #### [facility] [address] [place] [address] Lymphocytes/100 WBC (Bld) 26.3 % Normal 14.0-50.0 [facility] Comment on above: Performed By: #### 2 [id number] #### [facility] [address] [place] [address] MCH (RBC) [Entitic mass] 27.7 pg Normal 27.0-34.0 [facility] Comment on above: Performed By: #### 2 [id number] #### [facility] [address] [place] [address] MCHC (RBC) [Mass/Vol] 33.7 g/dL Normal 31.4-36.0 [facility] Comment on above: Performed By: #### 2 [id number] #### [facility] [address] [place] [address] MCV (RBC) [Entitic vol] 82.3 fL Normal 80.0-100.0 [facility] Comment on above: Performed By: #### 2 [id number] #### [facility] [address] [place] [address] Monocytes (Bld) [#/Vol] 0.5 E9/L Normal 0.2-1.0 [facility] Comment on above: Performed By: #### 2 [id number] #### [facility] [address] [place] [address] Neutrophils (Bld) [#/Vol] 3.9 E9/L Normal 2.0-7.5 [facility] Comment on above: Performed By: #### 2 [id number] #### [facility] [address] [place] [address] Neutrophils/100 WBC (Bld) 57.9 % Normal 36.0-75.0 [facility] Comment on above: Performed By: #### 2 165105 #### [facility] [address] [place] [address] Platelet 284.0 E9/L Normal 150.0-500. 0 [facility] Comment on above: Performed By: #### 2 [id number] #### [facility] [address] [place] [address] Platelet mean volume (Bld) [Entitic vol] 9.0 fL Normal 6.4-10.8 [facility] Comment on above: Performed By: #### 2 [id number] #### [facility] [address] [place] [address] RBC (Bld) [#/Vol] 4.6 E12/L Normal 4.3-5.9 [facility] Comment on above: Performed By: #### 2 [id number] #### [facility] [address] [place] [address] WBC corrected for nucl RBC Auto (Bld) [#/Vol] 6.7 E9/L Normal 4.0-11.0 [facility] Comment on above: Performed By: #### 2 [id number] #### [facility] [address] [place] [address] CHEMISTRYOrdered By: SYSTEM SYSTEM on 11-14-2023 Albumin [Mass/Vol] 4.0 g/dL Normal 3.3 - 5.0 gm/dL [facility] Chem Albumin/Globulin [Mass ratio] 1.4 {ratio} Normal 1.1 - 2.2 [facility] ALP [Catalytic activity/Vol] 87 [iU]/d Normal 21 - 98 Int._Unit/ L [facility] Chem ALT No additional P-5'-P [Catalytic activity/Vol] 14 [iU]/d Normal 6 - 46 Int._Unit/ L [facility] Anion gap [Moles/Vol] 10 mmol/L Normal 6 - 16 mEq/L [facility] AST [Catalytic activity/Vol] 14 [iU]/d Normal 5 - 43 Int._Unit/ L [facility] Bilirubin [Mass/Vol] 0.4 mg/dL Normal 0.0 - 1 .1 mg/dL [facility] Bilirubin.direct [Mass/Vol] 0.1 mg/dL Normal 0.0 - 0.4 mg/dL [facility] Bilirubin.indirect [Mass or moles/Vol] 0.3 mg/dL Normal 0.1 - 0.9 mg/dL [facility] Calcium [Mass/Vol] 9.2 mg/dL Normal 8.9 - 11. 1 mg/dL [facility] Chloride [Moles/Vol] 106 mmol/L Normal 101 - 1 11 mmol/L [facility] CO2 [Moles/Vol] 27 mmol/L Normal 21 - 31 mmol/L [facility] Creatinine [Mass/Vol] 0.7 mg/dL Normal 0.5 - 1.3 mg/dL [facility] eGFR 117 mL/min/1.73 m2 Normal >=59mL/mi n /1.73 m2 [facility] Globulin (S) [Mass/Vol] 2.9 g/dL Normal 1.4 - 4.0 gm/dL [facility] Glucose [Mass/Vol] 97 mg/dL Normal 55 - 199 mg/dL [facility] Lipase [Catalytic activity/Vol] 9 U/L Low 13 - 58 unit/L [facility] Potassium [Moles/Vol] 4.2 mmol/L Normal 3.5 - 5.3 mmol/L [facility] Protein [Mass/Vol] 6.9 g/dL Normal 6.0 - 7.8 gm/dL [facility] Sodium [Moles/Vol] 139 mmol/L Normal 135 - 145 mmol/L [facility] Urea nitrogen [Mass/Vol] 11 mg/dL Normal 5 - 21 mg/dL [facility] Urea nitrogen/Creatinine [Mass ratio] 16 mg/mg Normal 10 - 20 [facility] ED Clinical Summaryon 2023 ED Clinical Summary ED Clinical Summary [place] [address] ED Clinical Summary Person Information Name: DENY DIXON MIGUELINA [facility] Age: 33 Years : 1990 Sex: Female Language: Niuean PCP: Margarita Tuttle Marital Status: Visit Id: Visit Reason: Nausea; Abdominal pain; STOMACH CRAMPING AND SPASMS Speciality: Acuity: 3 Enc Type: Emergency Med Service: Emergency Arrival: 11/14/2023 21:14:43 Discharge: 11/14/2023 23:38:22 LOS: 000 02:24 Checkin: 11/14/2023 21:14:43 Checkout: 11/14/2023 23:38:22 Dispo Type: Home (Routine DC) EVENTS: Event Name Event Status Request Date/Time Start Date/Time Complete Date/Time Arrive Complete 11/14/2023 21:14:43 11/14/2023 21:14:43 11/14/2023 21:14:43 Document Home Meds Request 11/14/2023 21:14:43 Triage Complete 11/14/2023 21:14:43 11/14/2023 21:23:01 11/14/2023 21:23:01 Registration Complete 11/14/2023 21:19:38 11/14/2023 21:19:38 11/14/2023 21:19:38 Reg Complete Request 11/14/2023 21:19:38 Reg Bed Request Complete 11/14/2023 21:19:39 11/14/2023 21:19:39 11/14/2023 21:19:39 Dr Exam Complete 11/14/2023 21:19:52 11/14/2023 21:19:52 11/14/2023 21:19:52 Registration Start 11/14/2023 21:19:52 11/14/2023 21:24:00 Dr Exam Complete 11/14/2023 21:20:22 11/14/2023 21:20:22 11/14/2023 21:20:22 Bed Assign Complete 11/14/2023 21:24:00 11/14/2023 21:24:00 11/14/2023 21:24:00 RN Exam Complete 11/14/2023 21:24:00 11/14/2023 22:52:05 11/14/2023 22:52:05 Meds Admin Complete 11/14/2023 21:39:59 11/14/2023 21:55:51 Pending Labs Complete 11/14/2023 21:39:59 11/14/2023 23:04:09 Lab Complete 11/14/2023 21:39:59 11/14/2023 22:07:54 Pending Labs Complete 11/14/2023 21:49:14 11/14/2023 21:49:14 11/14/2023 22:07:54 Lab Complete 11/14/2023 21:49:14 11/14/2023 21:49:14 11/14/2023 22:07:54 Pending Labs Collected 11/14/2023 23:04:09 11/14/2023 23:04:09 Lab Collected 11/14/2023 23:04:09 11/14/2023 23:04:09 Meds Admin Complete 11/14/2023 23:19:02 11/14/2023 23:27:49 Discharge Complete 11/14/2023 23:19:58 11/14/2023 23:38:34 11/14/2023 23:38:34 Transfer Complete 11/14/2023 23:38:34 11/14/2023 23:38:34 11/14/2023 23:38:34 ADDRESS: [address] [place] [id number] PHYS DOC NOTES: MEDICAL INFORMATION: Prescriptions Given: New Medications [id number], [address], [place] [id number], [phone] cephalexin (Keflex 500 mg Cap) 1 Capsules By Mouth every 6 hours for 7 Days. Refills: 0. phenazopyridine (Pyridium 100 mg Tab) 1 Tablets By Mouth 3 times a day for 3 Days. Refills: 0. Medications to Continue with No Changes Other Medications ferrous sulfate (ferrous sulfate 325 mg Tab) 1 Tablets By Mouth 2 times a day for 90 Days. Refills: 3. meclizine (meclizine 12.5 mg Tab) 1 Tablets By Mouth 3 times a day as needed for nausea/vomiting. Refills: 0. meloxicam (meloxicam 7.5 mg Tab) 1 Tablets By Mouth every day for 90 Days. Refills: 3. PATIENT EDUCATION INFORMATION: Instructions: Urinary Tract Infection, Adult, [id number] Follow up: With: Address: When: Margarita Hou In 3 days 11/17/2023 Comments: Call Dr for diagnosis based follow up DIAGNOSIS: Lower abdominal pain; Nausea; UTI (urinary tract infection) Normal [facility] ED Note-Physicianon 11-14-19 ED Note-Physician ED Note-Physician Basic Information Time Seen: Greg Erickson PA-C 11/14/2023 21:19 Chief Complaint complains of abd pain/cramping for the last couple days. nausea. denies vomiting. lightheaded History of Present Illness A 33-year-old female reports emergency department complaint of lower abdominal pain and cramping. Reports been gone for last couple days. Reports nausea with this lightheadedness with this as well. States that she has been dealing with her period, but just recently lower that. Reports he was passing heavy clots. Reports doing better from that, now having lower abdominal pain. Denies any urinary symptoms. States that she is really just wants lab work. Does have a pelvic ultrasound recently. Reports that she has a history of tubal ligation. She states that she is not any chest pain or shortness of breath. Denies any visual changes. Review of Systems No other aggravating or relieving factors no other associated symptoms no other prior treatments or complaints. Family: Reviewed and noncontributory Social: lives at home Review of systems negative unless otherwise specified in the HPI. Physical Exam Vitals & Measurements T: 36.6 ?C(Oral) HR: 89(Monitored) RR: 17 BP: 106/78 SpO2: 94% HT: 160 cm WT: 103.7 kg BMI: 40.51 General: The patient appears well and in no apparent distress. Patient is resting comfortably on bed. Afebrile Skin: Warm, dry, no pallor noted. Head: Normocephalic, atraumatic Neck: No JVD Eye: PERRLA, EOMI ENT: Moist mucus membranes Cardiovascular: Regular rate normal peripheral perfusion Respiratory: No respiratory distress no accessory muscle use no obvious audible wheezing Chest Wall: no deformity Musculoskeletal: normal ROM, no deformity, no swelling GI: No obvious distention soft mild tenderness generalized throughout the entire lower abdomen. Nondistended no guarding rebounding or rigidity. No rebound tenderness or guarding noted Neurological: A&O moves all extremities equal strength and symmetry. No focal neurological symptoms Psychiatric: Cooperative and appropriate Medical Decision Making MEDICAL DECISION MAKING Number and Complexity of Problems Differential Diagnosis: [] [facility] Data External documents reviewed: [] My EKG interpretation: [] My CT interpretation: [] My X-ray interpretation: [] My Ultrasound interpretation: [] Decision rules/scores evaluated: [] Discussed with: [] Treatment and Disposition ED Course: 33-year-old female who reports to the department with chief complaint of lower abdominal pain with nausea. States that this been on for last couple days. Reports recently been dealing with cramping with her period, but just got over that. Reports now having lower abdominal pain and nausea. She states that he does have a history of tubal ligation. Denies any surgeries previously. Exam the patient is rather benign except for mild lower abdominal tenderness. Due to concerns, we did do lab work. Lab work reviewed noted. After discussion with patient decided not to do a CT at this time. She wanted screening laboratories. Lab work was reviewed noted. No acute findings seen except possible UTI. This, patient started on Keflex. Patient was given Toradol for pain as well as Zofran, greatly improved her symptoms. Discussed follow-up with PCP. Patient understanding. Discussed return precautions. Follow-up with your primary care provider in 3 to 5 days. If symptoms worsen, do not improve, or new symptoms arise please report back to emergency department for further evaluation. The patient was understanding and agreeable to plan moving forward. Shared decision making: [] Code status: [] Assessment/Plan Lower abdominal pain (R10.30: Lower abdominal pain, unspecified) Nausea (R11.0: Nausea) UTI (urinary tract infection) (N39.0: Urinary tract infection, site not specified) Orders: cephalexin, 500 mg = 1 cap(s), Cap, Oral, Once, Stop date 11/14/23 23:18:00 EDT, STAT, Start date 11/14/23 23:18:00 EDT, 11/14/23 23:18:00 EDT cephalexin, 500 mg = 1 cap(s), Oral, q6hr, X 7 day(s), # 28 cap(s), Refills(s) 0, Pharmacy: [id number], 160, cm, 11/14/23 21:23:00 EDT, Height/Length Dosing, 103.7, kg, 11/14/23 21:23:00 EDT, Weight Dosing ketorolac, 30 mg = 1 mL, Injection, IV Push, Once, Stop date 11/14/23 21:39:00 EDT, STAT, Start date 11/14/23 21:39:00 EDT, 11/14/23 21:39:00 EDT ondansetron, 4 mg = 2 mL, Injection, IV Push, Once, Stop date 11/14/23 21:39:00 EDT, STAT, Start date 11/14/23 21:39:00 EDT, 11/14/23 21:39:00 EDT phenazopyridine, 100 mg = 1 tab(s), Oral, TID, X 3 day(s), # 9 tab(s), Refills(s) 0, Pharmacy: [facility]/pharmacy #[id number], 160, cm, 11/14/23 21:23:00 EDT, Height/Length Dosing, 103.7, kg, 11/14/23 21:23:00 EDT, Weight Dosing Sodium Chloride 0.9% intravenous solution, 1,000 mL, Soln-IV, IV, Once, Stop date 11/14/23 21:39:00 EDT, STAT, Start date 11/14/23 21:39:00 EDT, Infuse over 61, minute(s) Basic Metabolic Panel Beta (more content not included)... Normal [facility] Comment on above: Result Comment: Elec tronically Signed By: Greg Erickson PA-C\.br\Date and Time Signed: 11/14/23 23:34 EDT\.br\Electronically Co-Signed By: Vicente Lazo DO\.br\Date and Time Co-Signed: 11/14/23 23:56 EDT ED Patient Summaryon 024 ED Patient Summary ED Patient Summary [place] [address] Patient Discharge Instructions Person Information Name: DIXON DENY STOLL Clay Age: 33 Years Arrival Date: 11/14/2023 21:14:43 Discharge Diagnosis: Lower abdominal pain; Nausea; UTI (urinary tract infection) Primary Care Physician: Margarita Tuttle Provider Information Primary Provider: Vicente Lazo DO Advanced Design Engineering Technician:None The exam and treatment you received in the Emergency Department were for an urgent problem and are not intended as complete care. It is important that you follow up with a doctor, nurse practitioner, or physician?s printer floor covering assistant for ongoing care. If your symptoms become worse or you do not improve as expected and you are unable to reach your usual health care provider, you should return to the Emergency Department. We are available 24 hours a day. DENY DIXON has been given the following list of patient education materials, prescriptions and follow-up instructions: Follow-up Instructions: With: Address: When: Margarita Hou In 3 days 11/17/2023 Comments: Call Dr for diagnosis based follow up In the event that this physician does not participate in your insurance network, please consult with your insurance company to find a nearby participating provider. Patient Education Materials: Urinary Tract Infection, Adult, Uspa-kp-[id number] A MESSAGE TO ALL PATIENTS REGARDING OPIOIDS PRESCRIPTION OPIOIDS: WHAT YOU NEED TO KNOW Prescription opioids can be used to help relieve jlsdeuvb-ph-ksnxoh pain and are often prescribed following a [...] guidance from the Food and Drug Administration (www.fda.gov/Drugs/Resourc esForYou). ? Visit www.cdc.gov/drugoverdose to learn about the risks of opioids abuse and overdose. ? If you believe you may be struggling with addiction, tell your health ambulatory care nurse and ask for guidance or call [facility]?S Na (more content not included)... Normal [facility] HEMATOLOGYOrdered By: SYSTEM SYSTEM on 11-14-2023 Basophils/100 WBC (Bld) 1.2 % Normal 0.0 - 2.0 % Remisol Heme Basophils/Leukocytes Auto (Bld) [Pure # fraction] 0.1 E9/L Normal 0.0 - 0.2 E9/L Remisol Heme Eosinophils (Bld) [#/Vol] 0.4 E9/L Normal 0.0 - 0.5 E9/L Remisol Heme Eosinophils/100 WBC (Bld) 6.4 % Normal 0.0 - 8.0 % Remisol Heme Erythrocyte distribution width (RBC) [Ratio] 17.6 % High 10.9 - 14.2 % Rem[facility] Heme Hematocrit (Bld) [Volume fraction] 37.5 % Normal 34.0 - 46.0 % Remisol Heme Hemoglobin (Bld) [Mass/Vol] 12.6 g/dL Normal 12.0 - 16.0 gm/dL Remisol Heme Lymphocytes (Bld) [#/Vol] 1.8 E9/L Normal 1.0 - 4.0 E9/L Rem[facility] Heme Lymphocytes/100 WBC (Bld) 26.3 % Normal 14.0 - 50.0 % Remisol Heme MCH (RBC) [Entitic mass] 27.7 pg Normal 27.0 - 34.0 pg Remisol Heme MCHC (RBC) [Mass/Vol] 33.7 g/dL Normal 31.4 - 36.0 gm/dL Rem[facility] Heme MCV (RBC) [Entitic vol] 82.3 fL Normal 80.0 - 100.0 fL Rem[facility] Heme Monocytes (Bld) [#/Vol] 0.5 E9/L Normal 0.2 - 1.0 E9/L Remisol Heme Monocytes/100 WBC (Bld) 8.2 % Normal 4.0 - 14.0 % Remisol Heme Neutrophils (Bld) [#/Vol] 3.9 E9/L Normal 2.0 - 7.5 E9/L Remisol Heme Neutrophils/100 WBC (Bld) 57.9 % Normal 36.0 - 75.0 % Rem[facility] Heme Platelet 284.0 E9/L Normal 150.0 - 500.0 E9/L Rem[facility] Heme Platelet mean volume (Bld) [Entitic vol] 9.0 fL Normal 6.4 - 10.8 fL Remisol Heme RBC (Bld) [#/Vol] 4.6 E12/L Normal 4.3 - 5.9 E12/L Remisol Heme WBC corrected for nucl RBC Auto (Bld) [#/Vol] 6.7 E9/L Normal 4.0 - 11.0 E9/L Remisol Heme Hep Func Panelon 11-14-2023 Albumin [Mass/Vol] 4.0 g/dL Normal 3.3-5.0 [facility] Comment on above: Performed By: #### 2 [id number] #### [facility] [address] [place] [address] Albumin/Globulin (S) [Mass conc ratio] 1.4 Normal 1.1-2.2 [facility] Comment on above: Performed By: #### 2 [id number] #### [facility] [address] [place] [address] ALP [Catalytic activity/Vol] 87 Int._Unit/L Normal 21-98 [facility] Comment on above: Performed By: #### 2 [id number] #### [facility] [address] [place] [address] ALT No additional P-5'-P [Catalytic activity/Vol] 14 Int._Unit/L Normal 6-46 [facility] Comment on above: Performed By: #### 2 [id number] #### [facility] [address] [place] [address] AST [Catalytic activity/Vol] 14 Int._Unit/L Normal 5-43 [facility] Comment on above: Performed By: #### 2 [id number] #### [facility] [address] [place] [address] Bilirubin [Mass/Vol] 0.4 mg/dL Normal 0.0-1.1 [facility] Comment on above: Performed By: #### 2 [id number] #### [facility] [address] [place] [address] Bilirubin.direct [Mass/Vol] 0.1 mg/dL Normal 0.0-0.4 [facility] Comment on above: Performed By: #### 2 [id number] #### [facility] [address] [place] [address] Bilirubin.indirect [Mass or moles/Vol] 0.3 mg/dL Normal 0.1-0.9 [facility] Comment on above: Performed By: #### 2 [id number] #### [facility] [address] [place] [address] Globulin (S) [Mass/Vol] 2.9 g/dL Normal 1.4-4.0 [facility] Comment on above: Performed By: #### 2 [id number] #### [facility] [address] [place] [address] Protein [Mass/Vol] 6.9 g/dL Normal 6.0-7.8 [facility] Comment on above: Performed By: #### 2 [id number] #### [facility] [address] [place] [address] Lipase Levelon 11-14-2023 Lipase [Catalytic activity/Vol] 9 U/L Low 13-58 [facility] Comment on above: Performed By: #### 2 [id number] #### [facility] [address] [place] [address] SEROLOGYOrdered By: Kevin Haywood emily on 11-14-2023 Beta HCG ( test) Ql Negative (11/14/23 9:46 PM) Normal [facility] Man Sero UA with Cult Rflxon 11-14-19 24 Bacteria Auto Ql (U) Trace Normal Trace Fish er [facility] Comment on above: Performed By: #### 4 [id number] #### [facility] [address] [place] [address] Bilirubin Ql (U) Negative Normal Negative [facility] Comment on above: Performed By: #### 4 [id number] #### [facility] [address] [place] [address] Clarity (U) Clear Normal Clear [facility] Comment on above: Performed By: #### 4 [id number] #### [facility] [address] [place] [address] Color (U) Light-Yellow Normal Yellow [facility] Comment on above: Result Comment: Micr oscopic readings are only performed on those samples that meet specific criteria set forth by [facility]. Performed By: #### 4 [id number] #### [facility] [address] [place] [address] Epithelial cells.squamous Auto (Urine sed) [#/Area] 0-2 Invalid Interpretation Code [facility] Comment on above: Performed By: #### 4 [id number] #### [facility] [address] [place] [address] Glucose Ql (U) Negative Normal Negative [facility] Comment on above: Performed By: #### 4 [id number] #### [facility] [address] [place] [address] Hemoglobin Auto test strip (U) [Mass/Vol] 1+ mg/dL Abnormal Negative [facility] Comment on above: Performed By: #### 4 [id number] #### [facility] [address] [place] [address] Ketones Auto test strip Ql (U) Negative Normal Negative [facility] Comment on above: Performed By: #### 4 [id number] #### [facility] [address] [place] [address] Leukocyte esterase Auto test strip Ql (U) 75 Matthew/uL Abnormal Negative [facility] Comment on above: Performed By: #### 4 [id number] #### [facility] [address] [place] [address] Mucus Auto Ql (U) Trace Normal Negative [facility] Comment on above: Performed By: #### 4 [id number] #### [facility] [address] [place] [address] Nitrite Auto test strip Ql (U) Negative Normal Negative [facility] Comment on above: Performed By: #### 4 [id number] #### [facility] [address] [place] [address] pH (U) 6.0 [pH] Invalid Interpretation Code 5.0-9.0 [facility] Comment on above: Performed By: #### 4 [id number] #### [facility] [address] [place] [address] Protein Ql (U) Negative Normal Negative [facility] Comment on above: Performed By: #### 4 [id number] #### [facility] [address] [place] [address] RBC Ql (U) 4-20 Abnormal 0-3 [facility] Comment on above: Performed By: #### 4 [id number] #### [facility] [address] [place] [address] Specific gravity (U) [Rel density] 1.019 Invalid Interpretation Code 1.005-1.03 0 [facility] Comment on above: Performed By: #### 4 [id number] #### [facility] [address] [place] [address] Urobilinogen (U) [Mass/Vol] Negative Normal Negative [facility] Comment on above: Performed By: #### 4 [id number] #### [facility] [address] [place] [address] WBC Auto (Urine sed) [#/Area] 0-5 Normal 0-5 [facility] Comment on above: Performed By: #### 4 [id number] #### [facility] [address] [place] [address] Type of Urine collection method Clean Catch Normal [facility] Comment on above: Performed By: #### 4 [id number] #### [facility] [address] [place] [address] URINALYSISOrdered By: SYSTEM SYSTEM on 11-14-2023 Bacteria Auto Ql (U) Trace /HPF Normal Trace/HPF [facility] UA Auto SS Bilirubin Ql (U) Negative Normal Negativemg /dL [facility] UA Auto SS Clarity (U) Clear (11/14/23 10:41 PM) Normal Clear [facility] UA Auto SS Color (U) Light-Yellow 1 (11/14/23 10:41 PM) Normal Yellow [facility] UA Auto SS Comment on above: Interpretive Data: M icroscopic readings are only performed on those samples that meet specific criteria set forth by [facility]. Epithelial cells.squamous Auto (Urine sed) [#/Area] 0-2 graded/HPF Invalid Interpretation Code [facility] UA Auto SS Glucose Ql (U) Negative Normal Negativemg /dL [facility] UA Auto SS Hemoglobin Auto test strip (U) [Mass/Vol] 1+ mg/dL Invalid Interpretation Code Negativemg /dL [facility] UA Auto SS Ketones Auto test strip Ql (U) Negative Normal Negativemg /dL [facility] UA Auto SS Leukocyte esterase Auto test strip Ql (U) 75 Matthew/uL Matthew/uL Invalid Interpretation Code NegativeLe u/uL [facility] UA Auto SS Mucus Auto Ql (U) Trace graded/LPF Normal Negati vegr aded/LPF [facility] UA Auto SS Nitrite Auto test strip Ql (U) Negative Normal Negativemg /dL [facility] UA Auto SS pH (U) 6.0 *NA* (11/14/23 10:41 PM) Invalid Interpretation Code 5.0 - 9.0 [facility] UA Auto SS Protein Ql (U) Negative Normal Negativemg /dL [facility] UA Auto SS RBC Ql (U) 4-20 graded/HPF Invalid Interpretation Code 0-3graded/ HPF [facility] UA Auto SS Specific gravity (U) [Rel density] 1.019 *NA* (11/14/23 10:41 PM) Invalid Interpretation Code 1.005 - 1.030 [facility] UA Auto SS Urobilinogen (U) [Mass/Vol] Negative Normal Negativemg /dL [facility] UA Auto SS WBC Auto (Urine sed) [#/Area] 0-5 graded/HPF Normal 0-5graded/ HPF [facility] UA Auto SS URINALYSISOrdered By: Greg sykes on 11-14-2023 UA Spec Desc Clean Catch (11/14/23 10:41 PM) Normal [facility] UA Auto SS Work Phone: eGFRon 11-14-2023 eGFR 117 mL/min/1.73 m2 Normal >=59 [facility] Comment on above: Order Comment: Order added by Discern Expert. Performed By: #### 1 [id number] #### [facility] [address] [place] [address] Provider Letteron 11-13-2023 Provider Letter Provider Letter November 13, [address]ON [address] [place] [id number] : 1990 To Whom It May Concern, Please excuse above patient from work. Date of Illness: From: 11/13/2023 To: 11/14/2023 May Return to Work On: 11/15/2023 Sincerely, Family Medicine [address] [address] Normal [facility] Ambulatory Visit Summaryon 0 11-11-2023 Ambulatory Visit Summary DENY DIXON :1990 Visit Date:11/11/2023 Ambulatory Visit Instructions Your Diagnosis BMI 40.0-44.9, adult Non-smoker Your Care Team Attending Physician - Margarita Tuttle Primary Care Physician - Margarita Tuttle This Is Your Medications List ferrous sulfate (ferrous sulfate 325 mg Tab) meclizine (meclizine 12.5 mg Tab) meloxicam (meloxicam 7.5 mg Tab) Procedures Performed Tubal ligation (08/08/2015). Discharge Vitals Heart Rate (Peripheral) 80 Respiratory Rate 18 Blood Pressure 110/64 Height 160.0 cm Height 63 in Weight 103.7 kg Weight 228.14 lb BMI 40.51 Medications What How Much When Why Instructions Unchanged ferrous sulfate (ferrous sulfate 325 mg Tab) 1 Tablets By Mouth 2 times a day Dizziness Low hemoglobin Syncope Menorrhagia Pale BMI 40.0-44.9, adult Duration: 90 Days Unchanged meclizine (meclizine 12.5 mg Tab) 1 [...] that you are currently receiving treatment for. BMI 40.0-44.9, adult Cervical cancer screening Dizziness Drug therapy finding Exposure to influenza Hyperesthesia Left shoulder pain Low hemoglobin Menorrhagia Neck pain on left side Numbness of left hand Pale Syncope Vertigo Well woman exam Historical - Any [...] choosing us for your care. Nenita Vaughn [facility] Family Medicine Office/Clini c Noteon 11-11-2023 Family Medicine Office/Clinic Note HPI Staff Deny is a 33 year old female presenting for acute visit Onset: 8 years ago Menorrhagia with clots , Pt states when she does us tampons needs to change within 30-60 minutes or will bleed through and having large clots bigger than dollar coin. Pt would like to discuss having MIrana placed. Pt states iron tablets are making her nauseated has vomited History of Present Illness pt presents today with continued heavy cycles. Review of Systems PHQ Score Initial Depression Screen Score: 0 SCORE Physical Exam Vitals & Measurements HR: 80(Peripheral) RR: 18 BP: 110/64 SpO2: 99% HT: 63 in HT: 160.0 cm WT: 103.7 kg WT: 228.14 lb BMI: 40.51 General: alert, no acute distress ENMT: oral mucosa moist, no pharyngeal erythema or exudate Cardiovascular: regular rate and rhythm, normal peripheral perfusion Respiratory: Lungs CTA, respirations non labored Extremities: no deformity, no trauma Neurological: oriented x 4, LOC appropriate for age, CN II-XII intact, motor strength equal & normal bilaterally, speech normal lips pale Assessment/Plan 1. Menorrhagia (N92.0: Excessive and frequent menstruation with regular cycle) pt c/o very heavy cycles. would like to discuss IUD. does not want OCP's because she forgets to take them which will not help her get regulated. will order pelvic u/s. if normal will schedule her for Mirena IUD insertion. Ordered: US Pelvis Non-OB Complete 2. Anemia (D64.9: Anemia, unspecified) pt taking oral iron but it is making her sick to her stomach. will start taking it every other day Ordered: US Pelvis Non-OB Complete 3. BMI 40.0-44.9, adult (Z68.41: Body mass index [BMI] 40.0-44.9, adult) BMI education given Ordered: US Pelvis Non-OB Complete 4. Non-smoker (Z78.9: Other specified health status) continue not smoking Ordered: US Pelvis Non-OB Complete Follow-up No qualifying data available Problem List/Past Medical History Ongoing Anemia BMI 40.0-44.9, adult Cervical cancer screening Dizziness Drug therapy finding Exposure to influenza Hyperesthesia Left shoulder pain Low hemoglobin Menorrhagia Neck pain on left side Numbness of left hand Pale Syncope Vertigo Well woman exam Historical Dilation and curettage Low-lying placenta Missed miscarriage Procedure/Surgical History Tubal ligation (08/08/2015). Medications ferrous sulfate 325 mg Tab, 325 mg= 1 tab(s), Oral, BID, 3 refills, Not taking: pt stopped taking it one week ago due to making her sick meclizine 12.5 mg Tab, 12.5 mg= 1 [...] in household: No. Smoker in household: No. Injuries/Abuse/Neglect in household: No. Safe place to go: Yes. Agency(s)/Others notified: No., 02/26/2014 Nutrition/Health Regular, 02/26/2014 Substance Abuse - Denies Substance Abuse, 06/17/2012 Tobacco - Denies Tobacco Use, 06/17/2012 Never (less than 100 in lifetime) Tobacco Use:. Never Smokeless Tobacco Use:. Household tobacco concerns: No., 11/11/2023 Family History Stroke: Mother. Immunizations Vaccine Date Status Comments influenza virus vaccine, inactivated - Not Given Patient Refuses influenza virus vaccine, inactivated 08/08/2015 Given Nursing Judgment diphtheria/pertussis, acel/tetanus adult 02/27/2014 Given Other (see comment) influenza virus vaccine, inactivated 02/27/2014 Given Nursing Judgment [facility] Comment on above: Result Comment: Elec tronically Signed By: Margarita Tuttle\.br\Date and Time Signed: 11/11/23 13:29 EDT Provider Letteron 11-11-2023 Provider Letter (Inserted Image. Mikki ble to display) November 11, 2023 DENY DIXON [address] [place] [address] : 1990 To Whom It May Concern, Please excuse above patient from work. Date of Illness: From: 11/10/2023 To: 11/12/2023 May Return to Work On: 11/13/2023 Sincerely, Family Medicine [address] [address] [facility] Provider Letter (Inserted Image. Mikki ble to display) November 11, 2023 DEYN DIXON [address] [place] [address] : 1990 To Whom It May Concern, Please excuse above patient from work, due to medical Date of Illness: From: _11-11-23 To: 11-12-23 May Return to Work On: 11-13-23 Restrictions: _ Comments: _ Sincerely, Family Medicine [address] [address] [facility] ECG 12-Leadon 10-13-2023 ECG 12-Lead [id number] [facility] Ambulatory Visit Summaryon 0 09-18-2023 Ambulatory Visit Summary DENY DIXON :1990 Visit Date:09/18/2023 Ambulatory Visit Instructions Your Diagnosis Dizziness Low hemoglobin Syncope Menorrhagia Pale BMI 40.0-44.9, adult Your Care Team Attending Physician - Margarita Tuttle Primary Care Physician - Margarita Tuttle This Is Your Medications List ferrous sulfate (ferrous sulfate 325 mg Tab) meclizine (meclizine 12.5 mg Tab) meloxicam (meloxicam 7.5 mg Tab) Procedures Performed Tubal ligation (08/08/2015). Discharge Vitals Temperature (Temporal Artery) 36.8 ?C Heart Rate (Peripheral) 99 Respiratory Rate 18 Blood Pressure 132/80 Height 160 cm Height 63 in Weight 110.7 kg Weight 243.54 lb BMI 43.24 Medications What How Much When Why Instructions New ferrous sulfate (ferrous sulfate 325 mg Tab) 1 Tablets By Mouth 2 times a day Dizziness Low hemoglobin Syncope Menorrhagia Pale BMI 40.0-44.9, adult Refills: 2 Pickup at [facility]/pharmacy #[id number] Unchanged meclizine (meclizine 12.5 mg Tab) 1 Tablets By Mouth 3 times a day as needed for for nausea/vomiting Unchanged meloxicam (meloxicam 7.5 mg Tab) 1 Tablets By Mouth Every day Left shoulder pain Neck pain on left side Numbness of left hand BMI 38.0-38.9,adult Class 1 obesity due to excess calories in adult Nonsmoker Duration: 90 Days Pharmacy Information [id number]: [address], [place] [phone] Allergies No Known Allergies Problems Ongoing - Any problem that you are currently receiving treatment for. BMI 40.0-44.9, adult Cervical cancer screening Dizziness Drug therapy finding Exposure to influenza Hyperesthesia Left shoulder pain Low hemoglobin Menorrhagia Neck pain on left side Numbness of left hand Pale Syncope Vertigo Well woman exam Historical - Any problem that you are no longer receiving treatment for. Dilation and curettage Low-lying placenta Missed miscarriage Patient Survey You may receive a survey via text or e-mail asking about your office visit. Please share your experience with us by completing your survey. We appreciate your feedback and thank you for choosing us for your care. Normal [facility] CHEMISTRYOrdered By: Josue vasquez on 09-18-2023 25-hydroxyvitamin D3 [Mass/Vol] ng/mL Low 30.0 - 100.0 ng/mL Remisol Chem Ferritin [Mass/Vol] 5 ng/mL Low 11 - 307 ng/mL Remisol Chem Iron [Mass/Vol] 30 ug/dL Low 35 - 153 mcg/dL Remisol Chem Iron binding capacity [Mass/Vol] 566 ug/dL High 250 - 400 mcg/dL Remisol Chem Transferrin [Mass/Vol] 404 mg/dL High 200 - 370 mg/dL Remisol Chem TSH Qn 0.94 m[IU]/L Normal 0.34 - 5.60 mcIU/mL Remisol Chem ED Note-Physicianon 09-18-19 ED Note-Physician [id number] Normal [facility] Family Medicine Office/Clini c Noteon 09-18-2023 Family Medicine Office/Clinic Note Chief Complaint ER Follow up HPI Staff Patient presents for ED follow up. ER followup Hospital: [facility] Visit date: 09/15/2023 Symptoms the patient presented with: dizzy and weakness Current concerns: Fatigue can't get enough sleep. Still having dizziness and weakness Records requested from [facility] History of Present Illness pt presents today for ER follow up. had a near syncopal episode and was taken to ER. pt c/o dizziness, weakness and fatigue Review of Systems PHQ Score Initial Depression Screen Score: 0 SCORE Physical Exam Vitals & Measurements T: 36.8 ?C(Temporal Artery) HR: 99(Peripheral) RR: 18 BP: 132/80 SpO2: 97% HT: 63 in HT: 160 cm WT: 110.7 kg WT: 243.54 lb BMI: 43.24 General: alert, no acute distress ENMT: oral mucosa moist, no pharyngeal erythema or exudate Cardiovascular: regular rate and rhythm, normal peripheral perfusion Respiratory: Lungs CTA, respirations non labored Extremities: no deformity, no trauma Neurological: oriented x 4, LOC appropriate for age, CN II-XII intact, motor strength equal & normal bilaterally, speech normal lips are pale Assessment/Plan 1. Dizziness (R42: Dizziness and giddiness) pt had near syncopal episode night and was taken to ER. EKG was normal. she was told it was from the [facility]. but she still has fatgiue, weakness and dizziness. will check some extra labs today and order iron supplement. pt to return in 3 months for repeat lab work. Ordered: ferrous sulfate, 325 mg = 1 tab(s), Oral, BID, # 60 tab(s), Refills(s) 2, Pharmacy: [facility]/pharmacy #[id number], 160, cm, 09/18/23 14:14:00 EDT, Height/Length Dosing, 110.7, kg, 09/18/23 14:14:00 EDT, Weight Dosing Ferritin Iron Level Thyroid Stimulating Hormone TIBC Calculated Vitamin D 25 Hydroxy 2. Low hemoglobin (D64.9: Anemia, unspecified) HGB wa slighlty lower at ER the other night. will order some additional labs Ordered: ferrous sulfate, 325 mg = 1 tab(s), Oral, BID, # 60 tab(s), Refills(s) 2, Pharmacy: [facility] #[id number], 160, cm, 09/18/23 14:14:00 EDT, Height/Length Dosing, 110.7, kg, 09/18/23 14:14:00 EDT, Weight Dosing Ferritin Iron Level Thyroid Stimulating Hormone TIBC Calculated Vitamin D 25 Hydroxy 3. Syncope (R55: Syncope and collapse) pt had near syncopal episode Ordered: ferrous sulfate, 325 mg = 1 tab(s), Oral, BID, # 60 tab(s), Refills(s) 2, Pharmacy: [facility]/pharm[facility] #[id number], 160, cm, 09/18/23 14:14:00 EDT, Height/Length Dosing, 110.7, kg, 09/18/23 14:14:00 EDT, Weight Dosing Ferritin Iron Level Thyroid Stimulating Hormone TIBC Calculated Vitamin D 25 Hydroxy 4. Menorrhagia (N92.0: Excessive and frequent menstruation with regular cycle) pt staes she usually has these spells when she is on her period Ordered: ferrous sulfate, 325 mg = 1 tab(s), Oral, BID, # 60 tab(s), Refills(s) 2, Pharmacy: [facility]/pharmacy #[id number], 160, cm, 09/18/23 14:14:00 EDT, Height/Length Dosing, 110.7, kg, 09/18/23 14:14:00 EDT, Weight Dosing Ferritin Iron Level Thyroid Stimulating Hormone TIBC Calculated Vitamin D 25 Hydroxy 5. Pale (R23.1: Pallor) pt lips are very pale today. Ordered: ferrous sulfate, 325 mg = 1 tab(s), Oral, BID, # 60 tab(s), Refills(s) 2, Pharmacy: [facility]/pharmacy #[id number], 160, cm, 09/18/23 14:14:00 EDT, Height/Length Dosing, 110.7, kg, 09/18/23 14:14:00 EDT, Weight Dosing 6. BMI 40.0-44.9, adult (Z68.41: Body mass index [BMI] 40.0-44.9, adult) Ordered: ferrous sulfate, 325 mg = 1 tab(s), Oral, BID, # 60 tab(s), Refills(s) 2, Pharmacy: [facility]/pharmacy #[id number], 160, cm, 09/18/23 14:14:00 EDT, Height/Length Dosing, 110.7, kg, 09/18/23 14:14:00 EDT, Weight Dosing Follow-up No qualifying data available Problem List/Past Medical History Ongoing BMI 40.0-44.9, adult Cervical cancer screening Dizziness Drug therapy finding Exposure to influenza Hyperesthesia Left shoulder pain Low hemoglobin Menorrhagia Neck pain on left side Numbness of left hand Pale Syncope Vertigo Well woman exam Historical Dilation and curettage Low-lying placenta Missed miscarriage Procedure/Surgical History Tubal ligation (08/08/2015). Medications ferrous sulfate 325 mg Tab, 325 mg= 1 tab(s), Oral, BID, 2 refills meclizine 12.5 mg Tab, 12.5 mg= 1 [...] in household: No. Smoker in household: No. Injuries/Abuse/Neglect in household: No. Safe place to go: Yes. Agency(s)/Others notified: No., 02/26/2014 Nutrition/Health Regular, 02/26/2014 Substance Abuse - Denies Substance Abuse, (more content not included)... Normal [facility] Comment on above: Result Comment: Elec tronically Signed By: Ameya BERNARDO, Margarita Jones\.br\Date and Time Signed: 09/18/23 14:30 EDT Ferritinon 09-18-2023 Ferritin [Mass/Vol] 5 ng/mL Low 11-307 [facility] Comment on above: Performed By: #### 5 [id number] ####[facility] [address] [place] [address] Ironon 09-18-2023 Iron [Mass/Vol] 30 microgram/dL Low 35-153 [facility] Comment on above: Performed By: #### 5 [id number] ####[facility] [address] [place] [address] TIBC Calculatedon 09-18-2023 Iron binding capacity [Mass/Vol] 566 microgram/dL High 250-400 [facility] Comment on above: Performed By: #### 5 [id number] ####[facility] [address] [place] [address] Transferrin [Mass/Vol] 404 mg/dL High 200-370 [facility] Comment on above: Performed By: #### 5 [id number] ####[facility] [address] [place] [address] TSHon 09-18-2023 TSH Qn 0.94 m[IU]/L Normal 0.34-5.60 [facility] Comment on above: Performed By: #### 5 [id number] ####[facility] [address] [place] [address] Vitamin D 25 Hydroxyon 09-17 25-hydroxyvitamin D3 [Mass/Vol] ng/mL Low 30.0-100.0 [facility] Comment on above: Performed By: #### 5 [id number] ####[facility] [address] [place] [address] Ambulatory Visit Summaryon 0 08-28-2023 Ambulatory Visit [...] for choosing us for your care. 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 Smoker in household: No. Injuries/Abuse/Neglect in household: No. Safe place to go: [...] virus vaccine, inactivated 08/08/2015 Given Nursing Judgment diphtheria/pertussis, acel/tetanus adult 02/27/2014 Given Other (see comment) influenza virus vaccine, inactivated 02/27/2014 Given Nursing Judgment Normal [facility] Comment on above: Result Comment: Elec tronically Signed By: Margarita Tuttle\.sheila\Date and Time Signed: 08/28/23 14:56 EDT Provider Letteron 08-28-2023 Provider Letter (Inserted Image. Mikki ble to display) [address] [place], [place] [id number] August 28, 2023 DENY DIXON [address] [place] [address] : 1990 To Whom It May Concern, Please allow the above named patient to work no more than 6 hours per day and no more than 3 days in a row. If you have any questions, please do not hesitate to call. Sincerely, FRANCIE Galeano [facility] Provider Letter (Inserted Image. Mikki ble to display) August 28, 2023 DENY DIXON [address] [place] [address] : 1990 To Whom It May Concern, Please excuse above patient from work. Date of Illness: From: 08/28/2023 To: 08/30/2023 May Return to Work On: 08/31/2023 Comments: Patient seen in office 08/28/2023 for vertigo and can return to work on 08/31/2023 Sincerely, [place] [address] [facility] Provider Letteron 08-11-2023 Provider Letter (Inserted Image. Mikki ble to display) August 11, 2023 DENY DIXON [address] [place] [address] : 1990 To Whom It May Concern, Please excuse above patient from work due to illness Date of Illness: From: 08-11-23 To: 08-12-23 May Return to Work On:08-13-23 Restrictions: _ NONE Comments: _ Sincerely, [place] [address] [facility] Provider Letter (Inserted Image. Mikki ble to display) August 11, 2023 DENY DIXON [address] [place] [address] : 1990 To Whom It May Concern, Please excuse above patient from work due to illness. Date of Illness: From: _ 08-10-23 To: _ 08-11-23 May Return to Work On: 08-12-23 Restrictions: _ NONE Comments: _ Sincerely, Family Medicine [address] [address] [facility] Ambulatory Visit Summaryon 0 08-05-2023 Ambulatory Visit Summary DENY DIXON :1990 Visit [...] Duration: 90 Days Refills: 3 Pickup at [facility]/pharmacy #[id number] Unchanged meclizine (meclizine 12.5 mg Tab) 1 Tablets By Mouth 3 times a day as needed for for nausea/vomiting Pharmacy Information [facility]/pharmacy #[id number]: [address], [place] [phone] Allergies No Known Allergies Problems Ongoing - [...] for choosing us for your care. Normal [facility] Medicine Office/Clini c Noteon 08-05-2023 [facility] Medicine Office/Clinic Note HPI Staff Deny is a 33 year old female presenting for ER follow up ER followup: Hospital: [facility] Visit date: 07/21/2023 [...] day(s), # 90 tab(s), Refills(s) 3, [id number], 160, cm, 08/05/23 10:38:00 EDT, Height/Length Dosing, 102.5, kg, 08/05/23 10:38:00 EDT, Weight Dosing meloxicam, 7.5 mg = 1 tab(s), Oral, Daily, # 30 tab(s), Refills(s) 0, [id number], 160, cm, 05/01/23 10:29:00 EST, Height/Length [...] day(s), # 90 tab(s), Refills(s) 3, [id number], 160, cm, 08/05/23 10:38:00 EDT, Height/Length Dosing, 102.5, kg, 08/05/23 10:38:00 EDT, Weight Dosing meloxicam, 7.5 mg = 1 tab(s), Oral, Daily, # 30 tab(s), Refills(s) 0, [id number], 160, cm, 05/01/23 10:29:00 EST, Height/Length [...] day(s), # 90 tab(s), Refills(s) 3, [id number], 160, cm, 08/05/23 10:38:00 EDT, Height/Length Dosing, 102.5, kg, 08/05/23 10:38:00 EDT, Weight Dosing meloxicam, 7.5 mg = 1 tab(s), Oral, Daily, # 30 tab(s), Refills(s) 0, [id number], 160, cm, 05/01/23 10:29:00 EST, Height/Length [...] in household: No. Smoker in household: No. Injuries/Abuse/Neglect in household: No. Safe place to go: Yes. Agency(s)/Others notified: No., 02/26/2014 Nutrition/Health Regular, 02/26/2014 Substance Abuse - Denies S (more content not included)... Normal [facility] Comment on above: Result Comment: Elec tronically Signed By: Margarita Tuttle.br\Date and Time Signed: 08/05/23 10:55 EDT Provider Letteron 08-05-2023 Provider Letter (Inserted Image. Mikki ble to display) August 05, 2023 DENY STOLL DIXON [address] [place] [address] : 1990 To Whom It May Concern, Please excuse above patient from work due to illness Date of Illness: From: _ 08-05-23 To: _ 08-06-23 May Return to Work On: 08-07-23 Restrictions: _ Comments: _ Sincerely, Family Medicine [address] [address] [facility] [address] Spine Cervical w/o Contra ston 07-21-2023 [...] Quinteros DO Transcribed by: RADHA Technologist: MATT [facility] Consent for Treatmenton Consent for Treatment [id number]#[id number] [facility] Discharge Instructionson Discharge Instructions [id number]#[id number] Normal [facility] ED Clinical Summaryon 2023 ED Clinical Summary (Inserted Image. Mikki ble to display) [address] [address] ED Clinical Summary Person Information Name: DENY DIXON [place] Age: 33 Years : 1990 Sex: Female Language: Niuean PCP: Margarita Tuttle Marital Status: Visit Id: [...] 07/21/2023 14:24:10 07/21/2023 14:24:10 07/21/2023 14:24:10 ADDRESS: [address] [place] [phone] PHYS DOC NOTES: MEDICAL INFORMATION: Prescriptions Given: New Medications [id number], [address], [place] [id number], [phone] predniSONE (predniSONE 20 mg Tab) 3 By [...] Address: When: Mario M[address], [place] [address] Business (1) In 3 days 07/24/2023 With: Address: When: Margarita Hou In 3 days DIAGNOSIS: Hyperesthesia; Radiculopathy of cervical spine Normal [facility] ED Note-Physicianon 07-21-19 ED Note-Physician Basic Information Time Seen: Susan DOBert 07/21/2023 12:43 Chief Complaint pt seeing neuro [...] day(s), # 21 tab(s), Refills(s) 0, 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 Normal [facility] Comment on above: Result Comment: Elec tronically Signed By: Bert Davis DO\.sheila\Date and Time Signed: 07/21/23 14:28 EST ED [...] health care provider. Managing pain ? Take qyrx-vlt-chjyuso and prescription medicines only as told by [...] follow-up visits. This is important. Contact a [facility] (more content not included)... Normal [facility] ED Patient Summaryon 024 ED Patient Summary (Inserted Image. Mikki ble to display) [address] [address] Patient Discharge Instructions Person Information Name: DENY DIXON Age: 33 Years Arrival Date: 07/21/2023 12:39:44 Discharge Diagnosis: Hyperesthesia; Radiculopathy of cervical spine Primary Care Physician: Margarita Tuttle Provider Information Primary Provider: Bert Davis DO Advanced Design Engineering Technician:None The exam and treatment you received in the Emergency Department were for an urgent problem and are not intended as complete care. It is important that you follow up with a doctor, nurse practitioner, or physician?s printer floor covering assistant for ongoing care. If your symptoms [...] Mario Mccauley [address], [place] [address] Business (1) In 3 days 07/24/2023 [...] opioids can be used to help relieve ulyihduy-fe-xueqcf pain and are often prescribed following a [...] guidance from the Food and Drug Administration (www.fda.gov/Drugs/Resourc esForYou). ? Visit www.cdc.gov/drugoverdose to learn about the risks of opioids abuse and overdose. ? If you believe you may be struggling with addiction, tell your health ambulatory care nurse and ask for guidance or call [facility] (more content not included)... Normal [facility] Prescriptions/Work Noteson 0 07-21-2023 Prescriptions/Work Notes [id number]#[id number] [facility] Consent for Treatmenton 06-19 Consent for Treatment [id number]#1.00TIFF [facility] EMG Electromyographyon 07-13 EMG Electromyography [id number]#1.00TIFF [facility] CHEMISTRYOrdered By: SYSTEM SYSTEM on 11-10-2022 Anion gap [Moles/Vol] 11 mmol/L Normal 6 - 16 mEq/L [facility] Remisol Calcium [Mass/Vol] 9.4 mg/dL Normal 8.9 - 11. 1 mg/dL [facility] Remisol Chloride [Moles/Vol] 106 mmol/L Normal 101 - 1 11 mmol/L [facility] Remisol CO2 [Moles/Vol] 24 mmol/L Normal 21 - 31 mmol/L [facility] Remisol Creatinine [Mass/Vol] 0.8 mg/dL Normal 0.5 - 1.3 mg/dL [facility] Remisol GFR/1.73 sq M.predicted among non-blacks MDRD (S/P/Bld) [Vol rate/Area] 101 mL/min/1.73 m2 Normal >=59mL/min /1.73 m2 [facility] Chem S Glucose [Mass/Vol] 94 mg/dL Normal 55 - 199 mg/dL [facility] Potassium [Moles/Vol] 4.2 mmol/L Normal 3.5 - 5.3 mmol/L [facility] Sodium [Moles/Vol] 137 mmol/L Normal 135 - 145 mmol/L [facility] Urea nitrogen [Mass/Vol] 19 mg/dL Normal 5 - 21 mg/dL [facility] Remisol Urea nitrogen/Creatinine [Mass ratio] 24 mg/mg High 10 - 20 [facility] CHEMISTRYOrdered By: Lab ROP User on 11-10-2022 Glucose [Mass/Vol] 100 mg/dL High 55 - 99 mg/dL [facility] POC Subsection POC Device SN [id number] Invalid Interpretation Code [facility] POC Subsection POC User ID [id number] Invalid Interpretation Code [facility] POC Subsection POC Username TRUDY CHAO Invalid Interpretation Code [facility] POC Subsection HEMATOLOGYOrdered By: SYSTEM SYSTEM on 11-10-2022 Basophils/100 WBC (Bld) 0.8 % Normal 0.0 - 2.0 % [facility]eAutoSS Basophils/Leukocytes Auto (Bld) [Pure # fraction] [...] 41.7 % Normal 34.0 - 46.0 % [facility]SS Hemoglobin (Bld) [Mass/Vol] 13.4 g/dL Normal 12.0 - 16.0 gm/dL [facility] MCH (RBC) [Entitic mass] 25.8 pg Low 27.0 - 34.0 pg [facility] MCHC (RBC) [Mass/Vol] 32.3 g/dL Normal 31.4 - 36.0 gm/dL [facility]eAutoSS MCV (RBC) [Entitic vol] 80.0 fL Normal 80.0 - 100.0 fL [facility] Platelet mean volume (Bld) [Entitic vol] 9.5 fL Normal 6.4 - 10.8 fL [facility] Platelets (Bld) [#/Vol] 279.0 E9/L Normal 150.0 - 500.0 E9/L [facility] RBC (Bld) [#/Vol] 5.2 E12/L Normal 4.3 - 5.9 E12/L [facility] WBC corrected for nucl RBC Auto (Bld) [#/Vol] 8.9 E9/L Normal 4.0 - 11.0 E9/L [facility] CBC AUTO DIFFon 09-17-2020 BASO # 0.1 103/ul Normal 0.0-0.1 [facility] Comment on above: Performed By: #### C BC #### [facility] [address] [place] [address] Anne Akiko Basophils/100 WBC (Bld) 1.0 % Normal 0.2-2.0 [facility] Comment on above: Performed By: #### C BC #### [facility] [address] [place], [place] [address] Anne Akiko EO # 0.5 103/ul Normal 0.0-0.7 [facility] Comment on above: Performed By: #### C BC #### [facility] [address] [place], [place] [id number] Anne Akiko Eosinophils/100 WBC (Bld) 5.6 % Normal 0.9-7.0 [facility] Comment on above: Performed By: #### C BC #### [facility] [address] [place], [place] [id number] Anne Akiko Erythrocyte distribution width (RBC) [Ratio] 14.5 % Normal 11.0-15.0 [facility] Comment on above: Performed By: #### C BC #### [facility] [address] [place], [place] [id number] Anne Akiko Hematocrit (Bld) [Volume fraction] 44.1 % Normal 36.0-48.0 [facility] Comment on above: Performed By: #### C BC #### [facility] [address] [place] [address] Anne Akiko Hemoglobin (Bld) [Mass/Vol] 14.3 g/dL Normal 12.0-16.0 [facility] Comment on above: Performed By: #### C BC #### [facility] [address] [place] [address] Anne Akiko IG # 0.03 10e3/ul Normal 0.00-0.03 [facility] Comment on above: Performed By: #### C BC #### [facility] [address] [place] [address] Anne Akiko IG % 0.4 % Normal 0.0-0.5 [facility] Comment on above: Performed By: #### C BC #### [facility] [address] [place] [address] Anne Akiko LYMPH # 2.5 103/ul Normal 1.2-3.8 [facility] Comment on above: Performed By: #### C BC #### [facility] [address] [place], [place] [id number] Anne Akiko Lymphocytes/100 WBC (Bld) 29.6 % Normal 20.5-60.0 [facility] Comment on above: Performed By: #### C BC #### [facility] [address] [place] [address] Anne Wharton MANUAL DIFF REQ NO Normal [facility] Comment on above: Performed By: #### C BC #### [facility] [address] [place] [address] Anne Wharton MCH (RBC) [Entitic mass] 28.5 pg Normal 26.7-34.0 [facility] Comment on above: Performed By: #### C BC #### [facility] [address] [place] [address] Anne Wharton MCHC (RBC) [Mass/Vol] 32.4 g/dL Normal 29.9-35.2 [facility] Comment on above: Performed By: #### C BC #### [facility] [address] [place] [address] Anne Wharton MCV (RBC) [Entitic vol] 88.0 fL Normal 81.0-99.0 [facility] Comment on above: Performed By: #### C BC #### [facility] [address] [place] [address] Anne Wharton MONO # 0.7 103/ul Normal 0.3-0.8 [facility] Comment on above: Performed By: #### C BC #### [facility] [address] [place] [address] Anne Wharton Monocytes/100 WBC (Bld) 8.0 % Normal 1.7-12.0 [facility] Comment on above: Performed By: #### C BC #### [facility] [address] [place] [address] Anne Wharton NEUT # 4.6 103/ul Normal 1.4-6.5 [facility] Comment on above: Performed By: #### C BC #### [facility] [address] [place] [address] Anne Wharton Neutrophils/100 WBC (Bld) 55.4 % Normal 43.0-75.0 [facility] Comment on above: Performed By: #### C BC #### [facility] [address] [place] [address] Anne Wharton Platelet mean volume (Bld) [Entitic vol] 11.9 fL Normal 9.5-13.5 [facility] Comment on above: Performed By: #### C BC #### [facility] [address] [place] [address] Annenyla Leyvaen PLT 261 103/ul Normal 150-450 [facility] Comment on above: Performed By: #### C BC #### [facility] [address] [place] [address] Anne Akiko RBC 5.01 106/ul Normal 4.20-5.40 [facility] Comment on above: Performed By: #### C BC #### [facility] [address] [place] [address] Anne Akiko WBC 8.3 103/ul Normal 4.0-11.0 [facility] Comment on above: Performed By: #### C BC #### [facility] [address] [place], [place] [id number] Anne Wharton LACTATE/LACTIC ACIDon 2020 Lactate [Moles/Vol] 1.4 mmol/L Normal 0.7-2.0 [facility] Comment on above: Performed By: #### L ACT #### [facility] [address] [place], [place] [id number] Anne Wharton PROF 14(COMP METB)on 021 Albumin [Mass/Vol] 3.7 g/dL Normal 3.5-5.0 [facility] Comment on above: Performed By: #### C MP #### [facility] [address] [place], [place] [id number] Annenyla Wharton Albumin/Globulin [Mass ratio] 0.9 {ratio} Normal [facility] Comment on above: Performed By: #### C MP #### [facility] [address] [place] [address] Anne Akiko ALP [Catalytic activity/Vol] 57 U/L Normal 38-126 [facility] Comment on above: Performed By: #### C MP #### [facility] [address] [place], [place] [id number] Anne Akiko ALT [Catalytic activity/Vol] 13 U/L Normal 9-52 [facility] Comment on above: Performed By: #### C MP #### [facility] [address] [place] [id number] Anen Akiko Anion gap [Moles/Vol] 13.6 mmol/L Normal [facility] Comment on above: Performed By: #### C MP #### [facility] [address] [place] [id number] Anne Akiko AST [Catalytic activity/Vol] 18 U/L Normal 14-36 [facility] Comment on above: Performed By: #### C MP #### [facility] [address] [id number] Anne Akiko Bilirubin [Mass/Vol] 0.4 mg/dL Normal 0.2-1.3 [facility] Comment on above: Performed By: #### C MP #### [facility] [address] [place] [address] Anne Akiko Calcium [Mass/Vol] 9.1 mg/dL Normal 8.4-10.2 [facility] Comment on above: Performed By: #### C MP #### [facility] [address] [place] [address] Anne Akiko Chloride [Moles/Vol] 106 mmol/L Normal 98-107 [facility] Comment on above: Performed By: #### C MP #### [facility] [address] [place] [address] Anne Akiko CO2 [Moles/Vol] 25.9 mmol/L Normal 22.0-30.0 [facility] Comment on above: Performed By: #### C MP #### [facility] [address] [id number] Anne Akiko Creatinine [Mass/Vol] 0.77 mg/dL Normal 0.52-1.04 [facility] Comment on above: Performed By: #### C MP #### [facility] [address] [place], [place] [id number] Anne Akiko EGFR-AF GHANAIAN >60 Normal >=60 [facility] Comment on above: Performed By: #### C MP #### [facility] [address] [id number] Anne Akiko EGFR-NON AF GHANAIAN >60 Normal >=60 [facility] Comment on above: Performed By: #### C MP #### [facility] [address] [place], [place] [id number] Anne Akiko Globulin (S) [Mass/Vol] 4.1 g/dL Normal [facility] Comment on above: Performed By: #### C MP #### [facility] [address] [place], [place] [id number] Anne Akiko Glucose [Mass/Vol] 107 mg/dL Critically high 74-106 T [facility] Comment on above: Performed By: #### C MP #### [facility] [address] [place] [address] Anne Akiko Potassium [Moles/Vol] 4.5 mmol/L Normal 3.4-5.0 [facility] Comment on above: Performed By: #### C MP #### [facility] [address] [place] [address] Anne Akiko Protein [Mass/Vol] 7.8 g/dL Normal 6.1-8.2 [facility] Comment on above: Performed By: #### C MP #### [facility] [address] [place], [place] [id number] Anne Akiko Sodium [Moles/Vol] 141 mmol/L Normal 137-145 [facility] Comment on above: Performed By: #### C MP #### [facility] [address] [place], [place] [id number] Anne Akiko Urea nitrogen [Mass/Vol] 10.0 mg/dL Normal 7.0-17.0 [facility] Comment on above: Performed By: #### C MP #### [facility] [address] [place], [place] [id number] Anne Akiko Urea nitrogen/Creatinine [Mass ratio] 13.0 mg/mg Normal [facility] Comment on above: Performed By: #### C MP #### [facility] [address] [place], [place] [id number] Anne Akiko XR CHEST 1 Von 09-17-2020 XR CHEST 1 V EXAMINATION: XR CHES T 1 V HISTORY: Asthenia ; weakness, shortness [...] by: SIOBHAN ALONZO Date: 2020-09-17 12:10 Normal [facility] Vital Signs Date Time Vital Sign Value Performing Clinician Facility 06-12-2024 01:07-0500 Diastolic blood pressure 80 mm[Hg] Kaylinn Dokken [facility] 06-12-2024 01:07-0500 Heart rate 87 /min Kaylinn Dokken [facility] 06-12-2024 01:07-0500 Mean blood pressure 93 mm[Hg] Kaylinn Dokken [facility] 06-12-2024 01:07-0500 Respiratory rate 18 /min Kaylinn Dokken [facility] 06-12-2024 01:07-0500 SaO2% (BldA) [Mass fraction] 97 % Kaylinn Dokken [facility] 06-12-2024 01:07-0500 Systolic blood pressure 119 mm[Hg] Kaylinn Dokken [facility] 06-12-2024 00:00-0500 Diastolic blood pressure 72 mm[Hg] Kaylinn Dokken [facility] 06-12-2024 00:00-0500 Heart rate 91 /min Kaylinn Dokken [facility] 06-12-2024 00:00-0500 Mean blood pressure 86 mm[Hg] Kaylinn Dokken [facility] 06-12-2024 00:00-0500 Respiratory rate 17 /min Kaylinn Dokken [facility] 06-12-2024 00:00-0500 SaO2% (BldA) [Mass fraction] 96 % Kaylinn Dokken [facility] 06-12-2024 00:00-0500 Systolic blood pressure 115 mm[Hg] Kaylinn Dokken [facility] 06-11-2024 23:00-0500 Diastolic blood pressure 81 mm[Hg] Kaylinn Dokken [facility] 06-11-2024 23:00-0500 Heart rate 81 /min Kaylinn Dokken [facility] 06-11-2024 23:00-0500 Mean blood pressure 95 mm[Hg] Kaylinn Dokken [facility] 06-11-2024 23:00-0500 SaO2% (BldA) [Mass fraction] 98 % Kaylinn Dokken [facility] 06-11-2024 23:00-0500 Systolic blood pressure 123 mm[Hg] Kaylinn Dokken [facility] 06-11-2024 20:19-0500 Body temperature 98.06 [degF] Kaylinn Dokken [facility] 06-11-2024 20:19-0500 Heart rate 85 /min Kaylinn Dokken [facility] 04-29-2024 17:00-0500 Diastolic blood pressure 89 mm[Hg] Bert Susan [facility] 04-29-2024 17:00-0500 Heart rate 66 /min Bert Susan [facility] 04-29-2024 17:00-0500 Mean blood pressure 97 mm[Hg] Bert Susan [facility] 04-29-2024 17:00-0500 Respiratory rate 17 /min Bert Susan [facility] 04-29-2024 17:00-0500 SaO2% (BldA) [Mass fraction] 99 % Bert Susan [facility] 04-29-2024 17:00-0500 Systolic blood pressure 113 mm[Hg] Bert Izquierdoe [facility] 04-29-2024 16:00-0500 Diastolic blood pressure 71 mm[Hg] Bert Izquierdoe [facility] 04-29-2024 16:00-0500 Heart rate 67 /min Bert Izquierdoe [facility] 04-29-2024 16:00-0500 Mean blood pressure 93 mm[Hg] Bert Izquierdoe [facility] 04-29-2024 16:00-0500 Respiratory rate 18 /min Bert Izquierdoe [facility] 04-29-2024 16:00-0500 SaO2% (BldA) [Mass fraction] 98 % Bert Susan [facility] 04-29-2024 16:00-0500 Systolic blood pressure 136 mm[Hg] Bert Susan [facility] 04-29-2024 15:00-0500 Body temperature 98.24 [degF] Bert Susan [facility] 04-29-2024 15:00-0500 Diastolic blood pressure 84 mm[Hg] Bert Davis [facility] 04-29-2024 15:00-0500 Heart rate 84 /min Bert Davis [facility] 04-29-2024 15:00-0500 Respiratory rate 16 /min Bert Davis [facility] 04-29-2024 15:00-0500 Systolic blood pressure 137 mm[Hg] Bert Davis [facility] 02-29-2024 18:35-0400 Diastolic blood pressure 77 mm[Hg] MD Buddy Baker Work Phone: [facility] 02-29-2024 18:35-0400 Heart rate 78 /min MD Buddy Baker Work Phone: [facility] 02-29-2024 18:35-0400 Respiratory rate 16 /min MD Buddy Baker Work Phone: [facility] 02-29-2024 18:35-0400 SaO2% (BldA) [Mass fraction] 96 % MD Buddy Baker Work Phone: [facility] 02-29-2024 18:35-0400 Systolic blood pressure 127 mm[Hg] MD Buddy Baker Work Phone: [facility] 02-29-2024 18:00-0400 Inhaled oxygen flow rate 6 L/min MD Buddy Baker Work Phone: [facility] 02-29-2024 14:51-0400 Body height 157.48 cm MD Buddy Baker Work Phone: [facility] 02-29-2024 14:51-0400 Body temperature 98.2 [degF] MD Buddy Baker Work Phone: [facility] 02-29-2024 14:51-0400 Body weight 99.79 kg MD Buddy Baker Work Phone: [facility] 01-27-2024 11:34-0400 Blood Pressure Location Buddy BAKER [facility] 01-27-2024 11:34-0400 Diastolic blood pressure 82 mm[Hg] Buddy BAKER [facility] 01-27-2024 11:34-0400 Heart rate 91 /min Buddy BAKER [facility] 01-27-2024 11:34-0400 Respiratory rate 19 /min Buddy BAKER [facility] 01-27-2024 11:34-0400 Systolic blood pressure 118 mm[Hg] Buddy BAKER [facility] 01-03-2024 00:06-0400 Diastolic blood pressure 69 mm[Hg] Kaylinn Dokken [facility] 01-03-2024 00:06-0400 Heart rate 82 /min Kaylinn Dokken [facility] 01-03-2024 00:06-0400 Mean blood pressure 86 mm[Hg] Kaylinn Dokken [facility] 01-03-2024 00:06-0400 Respiratory rate 13 /min Kaylinn Dokken [facility] 01-03-2024 00:06-0400 SaO2% (BldA) [Mass fraction] 98 % Kaylinn Dokken [facility] 01-03-2024 00:06-0400 Systolic blood pressure 120 mm[Hg] Kaylinn Dokken [facility] 01-02-2024 23:47-0400 Heart rate 99 /min Kaylinn Dokken [facility] 01-02-2024 23:47-0400 Respiratory rate 17 /min Kaylinn Dokken [facility] 01-02-2024 23:47-0400 SaO2% (BldA) [Mass fraction] 97 % Kaylinn Dokken [facility] 01-02-2024 22:49-0400 Diastolic blood pressure 65 mm[Hg] Kaylinn Dokken [facility] 01-02-2024 22:49-0400 Heart rate 89 /min Kaylinn Dokken [facility] 01-02-2024 22:49-0400 Mean blood pressure 81 mm[Hg] Kaylinn Dokken [facility] 01-02-2024 22:49-0400 Respiratory rate 24 /min Kaylinn Dokken [facility] 01-02-2024 22:49-0400 SaO2% (BldA) [Mass fraction] 95 % Kaylinn Dokken [facility] 01-02-2024 22:49-0400 Systolic blood pressure 114 mm[Hg] Kaylinn Dokken [facility] 01-02-2024 21:38-0400 Respiratory rate 20 /min Kaylinn Dokken [facility] 01-02-2024 21:34-0400 SaO2% (BldA) [Mass fraction] 94.9 % Kaylinn Dokken [facility] Resp Auto SS 01-02-2024 21:30-0400 Respiratory rate 20 /min Kaylinn Dokken [facility] 01-02-2024 20:43-0400 Body temperature 97.7 [degF] Xochiltinn Dokken [facility] 01-02-2024 20:43-0400 Diastolic blood pressure 71 mm[Hg] Veneciaylinn Dokken [facility] 01-02-2024 20:43-0400 Heart rate 84 /min Amyn Dokken [facility] 01-02-2024 20:43-0400 Respiratory rate 16 /min Xochiltinn Dokken [facility] 01-02-2024 20:43-0400 Systolic blood pressure 103 mm[Hg] Amyn Dokken [facility] 12-28-2023 12:57-0400 Heart rate 102 /min Bert Davis [facility] 12-28-2023 12:57-0400 Respiratory rate 20 /min Bert Davis [facility] 12-28-2023 12:57-0400 SaO2% (BldA) [Mass fraction] 94 % Bert Susan [facility] 12-28-2023 12:44-0400 Body temperature 97.7 [degF] Bert Izquierdoe [facility] 12-28-2023 12:44-0400 Diastolic blood pressure 94 mm[Hg] Bert Susan [facility] 12-28-2023 12:44-0400 Heart rate 101 /min Bert Susan [facility] 12-28-2023 12:44-0400 Respiratory rate 20 /min Bert Susan [facility] 12-28-2023 12:44-0400 SaO2% (BldA) [Mass fraction] 95 % Bert Davis [facility] 12-28-2023 12:44-0400 Systolic blood pressure 147 mm[Hg] Bert Davis [facility] 11-14-2023 23:28-0400 Diastolic blood pressure 82 mm[Hg] Vicente Violet [facility] 11-14-2023 23:28-0400 Heart rate 86 /min Vicente Violet [facility] 11-14-2023 23:28-0400 Respiratory rate 16 /min Vicente Violet [facility] 11-14-2023 23:28-0400 SaO2% (BldA) [Mass fraction] 98 % Vicente Violet [facility] 11-14-2023 23:28-0400 Systolic blood pressure 125 mm[Hg] Vicente Violet [facility] 11-14-2023 22:00-0400 Diastolic blood pressure 78 mm[Hg] Vicente Violet [facility] 11-14-2023 22:00-0400 Heart rate 89 /min Vicente Violet [facility] 11-14-2023 22:00-0400 Mean blood pressure 87 mm[Hg] Vicente Violet [facility] 11-14-2023 22:00-0400 Respiratory rate 17 /min Vicente Violet [facility] 11-14-2023 22:00-0400 SaO2% (BldA) [Mass fraction] 94 % Vicente Violet [facility] 11-14-2023 22:00-0400 Systolic blood pressure 106 mm[Hg] Vicente Violet [facility] 11-14-2023 21:20-0400 Body temperature 97.88 [degF] Vicente Violet [facility] 11-14-2023 21:20-0400 Diastolic blood pressure 83 mm[Hg] Vicente Violet [facility] 11-14-2023 21:20-0400 Heart rate 74 /min Vicente Violet [facility] 11-14-2023 21:20-0400 Respiratory rate 16 /min Vicente Violet [facility] 11-14-2023 21:20-0400 SaO2% (BldA) [Mass fraction] 99 % Vicente Violet [facility] 11-14-2023 21:20-0400 Systolic blood pressure 118 mm[Hg] Vicente Violet [facility] 07-21-2023 12:47-0500 Body temperature 98.06 [degF] Bert Davis [facility] 07-21-2023 12:47-0500 Diastolic blood pressure 86 mm[Hg] Bert Davis [facility] 07-21-2023 12:47-0500 Heart rate 105 /min Bert Izquierdoe [facility] 07-21-2023 12:47-0500 Respiratory rate 18 /min Bert Izquierdoe [facility] 07-21-2023 12:47-0500 SaO2% (BldA) [Mass fraction] 96 % Bert Izquierdoe [facility] 07-21-2023 12:47-0500 Systolic blood pressure 151 mm[Hg] Bert Davis [facility] 11-10-2022 21:00-0400 Body temperature 97.88 [degF] Kaylinn Dokken [facility] 11-10-2022 21:00-0400 Diastolic blood pressure 83 mm[Hg] Kaylinn Dokken [facility] 11-10-2022 21:00-0400 Mean blood pressure 94 mm[Hg] Kaylinn Dokken [facility] 11-10-2022 21:00-0400 Respiratory rate 15 /min Kaylinn Dokken [facility] 11-10-2022 21:00-0400 SaO2% (BldA) [Mass fraction] 96 % Kaylinn Dokken [facility] 11-10-2022 21:00-0400 Systolic blood pressure 116 mm[Hg] Kaylinn Dokken [facility] 11-10-2022 20:00-0400 Diastolic blood pressure 77 mm[Hg] Kaylinn Dokken [facility] 11-10-2022 20:00-0400 Heart rate 93 /min Kaylinn Dokken [facility] 11-10-2022 20:00-0400 Mean blood pressure 87 mm[Hg] Kaylinn Dokken [facility] 11-10-2022 20:00-0400 Systolic blood pressure 106 mm[Hg] Kaylinn Dokken [facility] 11-10-2022 19:15-0400 gluc 100 mg/dL Kaylinn Dokken [facility] 11-10-2022 19:15-0400 gluc Kaylinn Dokken [facility] 11-10-2022 19:00-0400 Diastolic blood pressure 74 mm[Hg] Kaylinn Dokken [facility] 11-10-2022 19:00-0400 Heart rate 98 /min Kaylinn Dokken [facility] 11-10-2022 19:00-0400 Mean blood pressure 86 mm[Hg] Kaylinn Dokken [facility] 11-10-2022 19:00-0400 Respiratory rate 17 /min Kaylinn Dokken [facility] 11-10-2022 19:00-0400 Systolic blood pressure 111 mm[Hg] Kaylinn Dokken [facility] 11-10-2022 18:36-0400 Heart rate 97 /min Kaylinn Dokken [facility] 11-10-2022 18:36-0400 Respiratory rate 18 /min Kaylinn Dokken [facility] 09-07-2022 11:19-0400 Body temperature 98.06 [degF] [facility] 09-07-2022 11:19-0400 Diastolic blood pressure 85 mm[Hg] [facility] 09-07-2022 11:19-0400 Heart rate 78 /min [facility] 09-07-2022 11:19-0400 Respiratory rate 16 /min [facility] 09-07-2022 11:19-0400 SaO2% (BldA) [Mass fraction] 99 % [facility] 09-07-2022 11:19-0400 Systolic blood pressure 130 mm[Hg] Rickiit [facility] Encounters Encounter Date Encounter Type Care Provider Facility Start: 07-18-2024 End: 07-18-2024 ambulatory RAJIV BRANHAM Not Available Start: 07-18-2024 End: 07-18-2024 Bamboo flowsheet Rajiv Branham OFFICE AUTOMATION CLERK Work Phone: [facility] Start: 07-18-2024 End: 07-18-2024 Bamboo flowsheet Rajiv Branham OFFICE AUTOMATION CLERK Work Phone: [facility] Start: 07-05-2024 End: 07-05-2024 ambulatory Margarita L Ameya Facility:[facility] Start: 06-23-2024 End: 07-21-2024 ambulatory Margarita L Ameya Facility:[facility] Start: 06-15-2024 ambulatory DO Xavier Wade Facil ity:[facility] Start: 06-14-2024 End: 06-14-2024 ambulatory Margarita L Ameya Facility:[facility] [place] Start: 06-11-2024 End: 06-12-2024 Emergency department patient visit Xavier Wade [facility] Start: 05-27-2024 End: 05-27-2024 ambulatory Margarita L Ameya Facility:[facility] [place] Start: 04-29-2024 End: 04-29-2024 Emergency department patient visit Bert Davis [facility] Start: 02-29-2024 End: 02-29-2024 Admission to same day surgery center MD Buddy Baker Work Phone: [facility] [place] Start: 02-29-2024 End: 02-29-2024 ambulatory NON STAFF [facility] Work Phone: Start: 02-29-2024 End: 02-29-2024 ambulatory Buddy P SAMUEL Facility:CD:[id number] Start: 02-18-2024 End: 02-18-2024 Patient encounter procedure MD Buddy Baker Work Phone: [facility] Work Phone: Start: 02-18-2024 End: 02-18-2024 ambulatory NON STAFF [facility] Work Phone: Start: 02-18-2024 Encounter for preprocedural laboratory examination Buddy Baker [facility] Start: 02-11-2024 End: 02-11-2024 ambulatory Buddy BAKER Facility:[facility] Start: 02-11-2024 End: 02-11-2024 Patient encounter procedure Buddy Quentin BAKER [facility] Start: 02-04-2024 End: 02-04-2024 ambulatory Buddy BAKER Facility:CD:[id number] Start: 01-29-2024 End: 01-29-2024 ambulatory Buddy Quentin BAKER Facility:[facility] Start: 01-29-2024 End: 01-29-2024 Patient encounter procedure Buddy BAKER [facility] Start: 01-27-2024 End: 01-27-2024 ambulatory Buddy BAKER Facility:[facility] Start: 01-27-2024 End: 01-27-2024 Patient encounter procedure Buddy Quentin BAKER [facility] Start: 01-25-2024 End: 01-25-2024 ambulatory Buddy BAKER Facility:[facility] Start: 01-25-2024 End: 01-25-2024 Patient encounter procedure Buddy Quentin BAKER [facility] Start: 01-22-2024 ambulatory Buddy BAKER Facility:[facility] Start: 01-05-2024 End: 01-05-2024 ambulatory Margarita L Ameya [facility] Start: 01-02-2024 End: 01-03-2024 Emergency department patient visit DO Xavier Wade Facility:[facility] Start: 01-01-2024 End: 01-01-2024 ambulatory MOBILE PAINT SPECIALIST Margarita L Ameya Facility:[facility] Start: 12-28-2023 End: 12-28-2023 Emergency department patient visit Bert Davis [facility] Start: 12-21-2023 End: 12-21-2023 ambulatory RADIO HOST VICKYQueenie AGUILA Facility:[facility] Start: 11-26-2023 End: 11-26-2023 ambulatory MOBILE PAINT SPECIALIST Margarita L Ameya Facility:[facility] Start: 11-26-2023 End: 11-26-2023 Patient encounter procedure Margarita L Ameya [facility] Start: 11-14-2023 End: 11-14-2023 Emergency department patient visit Vicente Lazo [facility] Start: 11-11-2023 End: 11-11-2023 ambulatory Margarita L Ameya [facility] Start: 09-18-2023 End: 09-18-2023 Lab Drop off Margarita L Ameya [facility] Start: 09-18-2023 End: 09-18-2023 ambulatory Margarita L Ameya Facility:[facility] Start: 08-28-2023 End: 08-28-2023 ambulatory [facility]ar[facility] L A[facility]ya [facility] Start: 08-24-2023 End: 08-24-2023 ambulatory Margarita L Ameya [facility] Start: 08-05-2023 End: 08-05-2023 ambulatory Margarita L Ameya [facility] Start: 07-21-2023 End: 07-21-2023 Emergency department patient visit Bert Davis [facility] Start: 07-13-2023 End: 07-13-2023 ambulatory Margarita L Ameya Facility:[facility] Start: 05-01-2023 End: 05-01-2023 Lab Drop off Margarita L Ameya [facility] Start: 04-27-2023 End: 04-27-2023 Patient encounter procedure Margarita L Ameya [facility] Start: 11-10-2022 End: 11-10-2022 Emergency department patient visit Xavier Wade [facility] Start: 09-07-2022 End: 09-07-2022 Emergency department patient visit Anupam Montgomery [facility] Start: 09-17-2020 End: 09-17-[address] [facility] Facility: Procedures Date Procedure Procedure Detail Performing Clinician Start: 02-29-2024 Cystoscopy MD Buddy Baker Work Phone: Start: 02-18-2024 Plain chest X-ray MD Lukasz Baker Work Phone: Start: 08-08-2015 Ligation of fallopia n tube Anupam Montgomery Comment on above: post Dilation and curettage Dilation and curet tage Anupam Montgomery none Anupam Montgomery Plan of Treatment Date Care Activity Detail Author Start: 07-18-2024 End: 07-18-2024 Patient encounter procedure 07/18/2024 3:40 PM EST Office Visit [facility] [address] [place] [address] Rajiv Branham, OFFICE AUTOMATION CLERK [address] [place] [id number] Arrived [facility] Comment on above: Arrived Start: 02-29-2024 [facility] Start: 02-29-2024 Supine abdominal X-ray [facility] Start: 02-29-2024 [facility] Start: 02-29-2024 Supine abdominal X-ray [facility] Start: 01-17-2024 Influenza vaccination Influenz a Vaccine (#1) [facility] Start: 2021 Screening for malign ant neoplasm of cervix [facility] Start: 2012 Screening for malign ant neoplasm of cervix Pap Smear [facility] Patient Education Know your Meds [facility] Work Phone: Patient referral [facility] Work Phone: Immunizations Immunization Date Immunization Notes Care Provider Fa cility 10-31-2020 SARS-CoV-2 (COVID-19 ) mRNA-1273 vaccine Bert Davis [facility] Comment on above: Result Comment: 2023: TPVALL 10-03-2020 SARS-CoV-2 (COVID-19 ) mRNA-1273 vaccine Bert Davis [facility] Comment on above: Result Comment: 2023: TPVALL 08-08-2015 influenza, seasonal, injectable [facility] Comment on above: Early/Late Reason: N ursing Judgment 08-08-2015 influenza virus vaccine, unspecified formulation Rajiv Branham OFFICE AUTOMATION CLERK Work Phone: [facility] 02-27-2014 tetanus toxoid, reduced diphtheria toxoid, and acellular pertussis vaccine, adsorbed [facility] Comment on above: Reason for Medicatio n: Other (see comment) 02-27-2014 influenza, seasonal, injectable [facility] Comment on above: Early/Late Reason: N ursing Judgment NEGATED: Highlighted row has not occurred!06-17-2020 influenza virus vaccine, unspecified formulation Anupam Montoyamaribel [facility] Payers Date Payer Category Payer Self-pay 2023 [facility] [[email or web address] [place] [id number] 2023 Unknown [id number] 1991 Unknown [id number] 2.16.840.1.167327.3.579.2 .593 1991 Unknown [id number] 2.16.840.1.082128.3.579.2 .727 1991 Unknown [id number] 2.16.840.1.222496.3.579.2 .727 1991 Unknown [id number] 2.16.840.1.109655.3.579.2 .727 1991 Unknown [id number] 2.16.840.1.032895.3.579.2 .727 1991 Unknown [id number] 2.16.840.1.711885.3.579.2 .727 1991 Unknown [id number] 2.16.840.1.809325.3.579.2 .727 1991 Unknown [id number] 2.16.840.1.585577.3.579.2 .727 1991 Unknown [id number] 2.16.840.1.478227.3.579.2 1991 Unknown [id number] 2.16.840.1.828921.3.579.2 1991 Unknown [id number] 2.16.840.1.622907.3.579.2 1991 Unknown [id number] 2.16.840.1.266686.3.579.2 1991 Unknown [id number] 2.16.840.1.070781.3.579.2 1991 Unknown [id number] 2.16.840.1.691746.3.579.2 1991 Unknown [id number] 2.16.840.1.121598.3.579.2 1991 Unknown [id number] 2.16.840.1.813150.3.579.2 1991 Unknown [id number] 2.16.840.1.455068.3.579.2 1991 Unknown [id number] 2.16.840.1.049630.3.579.2 1991 Unknown [id number] 2.16.840.1.053651.3.579.2 1991 Unknown [id number] 2.16.840.1.011667.3.579.2 1991 Unknown [id number] 2.16.840.1.601800.3.579.2 1991 Unknown [id number] 2.16.840.1.009634.3.579.2 1991 Unknown [id number] 2.16.840.1.040273.3.579.2 1991 Unknown [id number] 2.16.840.1.929171.3.579.2 1991 Unknown [id number] 2.16.840.1.694152.3.579.2 .727 1991 Unknown [id number] 2.16.840.1.174153.3.579.2 .727 1991 Unknown [id number] 2.16.840.1.435228.3.579.2 .727 1991 Unknown [id number] 2.16.840.1.261025.3.579.2 .727 1991 Unknown [id number] 2.16.840.1.175622.3.579.2 .1259 1991 Unknown [id number] 2.16.840.1.204104.3.579.2 .727 1991 Unknown [id number] 2.16.840.1.283636.3.579.2 .727 1991 Unknown [id number] 2.16.840.1.552605.3.579.2 .727 1991 Unknown [id number] 2.16.840.1.087644.3.579.2 .727 1959 Unknown [id number] Unknown [id number] 2.16.840.1.127781.3.579.2 .531 Unknown [id number] 2.16.840.1.042292.3.579.2 .531 Social History Date Type Detail Facility Tobacco [facility] Comment on above: Denies. denies Tobacco smoking status No Smokin g Status Entered [facility] Sex Assigned At Female [facility] Start: 04-08-2023 End: 01-27-2024 Tobacco smoking status Never smoked tobacco (finding) [facility] Tobacco smoking status Never [facility] Start: 1991 Sex Assigned At Female F [facility] Tobacco smoking stat NHIS Tobacco smoking consumption unknown [facility] Start: 07-17-2024 Gender identity Identifies as female gender (finding) [facility] Start: 07-17-2024 Sexual orientation Heterosexual (fin ding) [facility] Goals Date Patient Goal Desired Activity /State Functional Status Date Assessment Result Facility 06-11-2024 Functional Status N/A [facility] 04-29-2024 Functional Status N/A [facility] 01-27-2024 Functional Status N/A [facility] 01-02-2024 Functional Status N/A [facility] 12-28-2023 Functional Status N/A [facility] 11-14-2023 Functional Status N/A [facility] 07-21-2023 Functional Status N/A [facility] 11-10-2022 Functional Status N/A [facility] 09-07-2022 Functional Status N/A [facility] Clinical Notes 09-07-2022 to 06-12-2024 Note Date & Type Note Facility 06-12-2024 Hospital Discharg e instructions Patient Education 06/12/2024 01:08:56 Vertigo, Pwgz-tz-Khef Vertigo Vertigo is the feeling that you or the things around you are moving when they are not. This feeling can come and go at any time. Vertigo often goes away on its own. This condition can be dangerous if it happens when you are doing activities like driving or working with machines. Your doctor will do tests to find the cause of your vertigo. These tests will also help your doctor decide on the best treatment for you. Follow these instructions at home: Eating and drinking Drink enough fluid to keep your pee (urine) pale yellow. Do not drink alcohol. Activity Return to your normal activities when your doctor says that it is safe. In the morning, first sit up on the side of the bed. When you feel okay, stand slowly while you hold onto something until you know that your balance is fine. Move slowly. Avoid sudden body or head movements or certain positions, as told by your doctor. Use a cane if you have trouble standing or walking. Sit down right away if you feel dizzy. Avoid doing any tasks or activities that can cause danger to you or others if you get dizzy. Avoid bending down if you feel dizzy. Place items in your home so that they are easy for you to reach without bending or leaning over. Do not drive or use machinery if you feel dizzy. General instructions Take zztw-pxw-tlvluur and prescription medicines only as told by your doctor. Keep all follow-up visits. Contact a doctor if: Your medicine does not help your vertigo. Your problems get worse or you have new symptoms. You have a fever. You feel like you may vomit (nauseous), or this feeling gets worse. You start to vomit. Your family or friends see changes in how you act. You lose feeling (have numbness) in part of your body. You feel prickling and tingling in a part of your body. Get help right away if: You are always dizzy. You faint. You get very bad headaches. You get a stiff neck. Bright light starts to bother you. You have trouble moving or talking. You feel weak in your hands, arms, or legs. You have changes in your hearing or in how you see (vision). These symptoms may be an emergency. Get help right away. Call your local emergency services (911 in the [place] Do not wait to see if the symptoms will go away. Do not drive yourself to the hospital. Summary Vertigo is the feeling that you or the things around you are moving when they are not. Your doctor will do tests to find the cause of your vertigo. You may be told to avoid some tasks, positions, or movements. Contact a doctor if your medicine is not helping, or if you have a fever, new symptoms, or a change in how you act. Get help right away if you get very bad headaches, or if you have changes in how you speak, hear, or see. This information is not intended to replace advice given to you by your health care provider. Make sure you discuss any questions you have with your health care provider. Document Revised: 04/03/2021 Document Reviewed: 04/03/2021 [employer] Patient Education 2023 [employer] Follow Up Care 06/11/2024 19:44:32 With:Siobhan Oconnor Address: [facility] [address] [place] [address]- Business (1) When:06/15/2024 With:Margarita Hou Address:Unknown When:06/15/2024 Comments:You can use the Valium every 8 hours as needed for dizziness. Please follow-up with your primary care doctor for further evaluation management. Please return to the ED for any new or worsening symptoms. [facility] 06-12-2024 Note ED Patient Education Note Neurology Vertigo Vertigo is the feeling that you or the things around you are moving when they are not. This feeling can come and go at any time. Vertigo often goes away on its own. This condition can be dangerous if it happens when you are doing activities like driving or working with machines. Your doctor will do tests to find the cause of your vertigo. These tests will also help your doctor decide on the best treatment for you. Follow these instructions at home: Eating and drinking ??? Drink enough fluid to keep your pee (urine) pale yellow. ??? Do not drink alcohol. Activity ??? Return to your normal activities when your doctor says that it is safe. ??? In the morning, first sit up on the side of the bed. When you feel okay, stand slowly while you hold onto something until you know that your balance is fine. ??? Move slowly. Avoid sudden body or head movements or certain positions, as told by your doctor. ??? Use a cane if you have trouble standing or walking. ??? Sit down right away if you feel dizzy. ??? Avoid doing any tasks or activities that can cause danger to you or others if you get dizzy. ??? Avoid bending down if you feel dizzy. Place items in your home so that they are easy for you to reach without bending or leaning over. ??? Do not drive or use machinery if you feel dizzy. General instructions ??? Take qbqn-ncx-ctvotfz and prescription medicines only as told by your doctor. ??? Keep all follow-up visits. Contact a doctor if: ??? Your medicine does not help your vertigo. ??? Your problems get worse or you have new symptoms. ??? You have a fever. ??? You feel like you may vomit (nauseous), or this feeling gets worse. ??? You start to vomit. ??? Your family or friends see changes in how you act. ??? You lose feeling (have numbness) in part of your body. ??? You feel prickling and tingling in a part of your body. Get help right away if: ??? You are always dizzy. ??? You faint. ??? You get very bad headaches. ??? You get a stiff neck. ??? Bright light starts to bother you. ??? You have trouble moving or talking. ??? You feel weak in your hands, arms, or legs. ??? You have changes in your hearing or in how you see (vision). These symptoms may be an emergency. Get help right away. Call your local emergency services (911 in the [place] ??? Do not wait to see if the symptoms will go away. ??? Do not drive yourself to the hospital. Summary ??? Vertigo is the feeling that you or the things around you are moving when they are not. ??? Your doctor will do tests to find the cause of your vertigo. ??? You may be told to avoid some tasks, positions, or movements. ??? Contact a doctor if your medicine is not helping, or if you have a fever, new symptoms, or a change in how you act. ??? Get help right away if you get very bad headaches, or if you have changes in how you speak, hear, or see. This information is not intended to replace advice given to you by your health care provider. Make sure you discuss any questions you have with your health care provider. Document Revised: 04/03/2021 Document Reviewed: 04/03/2021 [employer] Patient Education ? 2023 [place] [facility] 06-11-2024 Evaluation + Plan note Extrac catalina from: Title:ED Note Author:Fermin Orr Student Clay COYLE Date:06/11/24 Vertigo (R42: Dizziness and giddiness) Orders: diazepam, 2.5 mg = 0.5 tab(s), Tab, Oral, Once, Stop date 06/11/24 23:01:00 EST, STAT, Start date 06/11/24 23:01:00 EST, 06/11/24 23:01:00 EST diazepam, 2 mg = 1 tab(s), Oral, TID, PRN for dizziness, X 3 day(s), # 7 tab(s), Refills(s) 0, Pharmacy: [facility]/pharmacy #[id number], 160, cm, 06/11/24 20:23:00 EST, Height/Length Dosing, 104.3, kg, 06/11/24 20:23:00 EST, Weight Dosing ketorolac, 30 mg = 1 mL, Injection, IV Push, Once, Stop date 06/12/24 0:13:00 EST, STAT, Start date 06/12/24 0:13:00 EST, 06/12/24 0:13:00 EST metoclopramide, 10 mg = 2 mL, Injection, IV Push, Once, Stop date 06/12/24 0:13:00 EST, STAT, Start date 06/12/24 0:13:00 EST, 06/12/24 0:13:00 EST Basic Metabolic Panel Beta hCG Quantitative CBC w/ Auto Diff eGFR Extra Blue Tube Extra SST Tube [facility] 12-13-2024 Hospital Discharge instructions Patient Education 04/29/2024 18:16:58 Near-Syncope Near-Syncope Near-syncope is when you suddenly feel like you might pass out or faint, but you do not actually lose consciousness. This may also be referred to as presyncope. During an episode of near-syncope, youmay: Feel dizzy, weak, light-headed, or like the room is spinning. Feel nauseous. See spots or see all white or all black in your field of vision. Have cold, clammy skin or feel warm and sweaty. Hear ringing in your ears (tinnitus). This condition is caused by a sudden decrease in blood flow to the brain. This decrease can result from various causes, but most of those causes are not dangerous. However, near-syncope may be a signof a serious medical problem, so it is important to seek medical care. Follow these instructions at home: Medicines Take paes-brw-qfaabsr and prescription medicines only as told by your health care provider. If you are taking blood pressure or heart medicine, get up slowly and take several minutes to sit and then stand. This can reduce dizziness and decrease the risk of near-syncope. Lifestyle Do not drive, use machinery, or play sports until your health care provider says it is okay. Do not drink alcohol. Do not use any products that contain nicotine or tobacco. These products include cigarettes, chewing tobacco, and vaping devices, such as e-cigarettes. If you need help quitting, ask your health careprovider. Avoid hot tubs and saunas. General instructions Pay attention to any changes in your symptoms. Talk with your health care provider about your symptoms. You may need to have testing to understandthe cause of your near-syncope. If you start to feel like you might faint, sit or lie down right away. If sitting, put your head down between your legs. If lying down, raise (elevate) your feet above the level of your heart. ?Breathe deeply and steadily. Wait until all of the symptoms have passed. ?Have someone stay with you until you feel stable. Drink enough fluid to keep your urine pale yellow. Avoid prolonged standing. If you must stand for a long time, do movements such as: ?Moving your legs. ?Crossing your legs. ?Flexing and stretching your leg muscles. ?Squatting. Keep all follow-up visits. This is important. Contact a health care provider if: You continue to have episodes of near fainting. Get help right away if: You faint. You have any of these symptoms that may indicate trouble with your heart: ?Fast or irregular heartbeats (palpitations). ?Unusual pain in your chest, abdomen, or back. ?Shortness of breath. You have a seizure. You have a severe headache. You are confused. You have vision problems. You have severe weakness or trouble walking. You are bleeding from your mouth or rectum, or have black or tarry stool. These symptoms may represent a serious problem that is an emergency. Do not wait to see if your symptoms will go away. Get medical help right away. Call your local emergency services (911 in the [place] Do not drive yourself to the hospital. Summary Near-syncope is when you suddenly feel like you might pass out or faint, but you do not actually lose consciousness. This condition is caused by a sudden decrease in blood flow to the brain. This decrease can result from various causes, but most of those causes are not dangerous. Near-syncope may be a sign of a serious medical problem, so it is important to seek medical care. If you start to feel like you might faint, sit or lie down right away. If sitting, put your head down between your legs. If lying down, raise (elevate) your feet above the level of your heart. Talk with your health care provider about your symptoms. You may need to have testing to understandthe cause of your near-syncope. This information is not intended to replace advice given to you by your health care provider. Make sure you discuss any questions you have with your health care provider. Document Revised: 09/12/2021 Document Reviewed: 09/12/2021 [employer] Patient Education 2023 [employer] Follow Up Care 04/29/2024 14:56:31 With:Margarita Hou Address: [address] [place], [place] [id number] Business (1) When:05/02/2024 17:06:18 Comments:Call Dr for diagnosis based follow up [facility] 12-13-2024 NoteED Patient Education Note Neurology Near-Syncope Near-syncope is when you suddenly feel like you might pass out or faint, but you do not actually lose consciousness. This may also be referred to as presyncope. During an episode of near-syncope, youmay: ??? Feel dizzy, weak, light-headed, or like the room is spinning. ??? Feel nauseous. ??? See spots or see all white or all black in your field of vision. ??? Have cold, clammy skin or feel warm and sweaty. ??? Hear ringing in your ears (tinnitus). This condition is caused by a sudden decrease in blood flow to the brain. This decrease can result from various causes, but most of those causes are not dangerous. However, near-syncope may be a signof a serious medical problem, so it is important to seek medical care. Follow these instructions at home: Medicines ??? Take tffu-whl-ncxxlji and prescription medicines only as told by your health care provider. ??? If you are taking blood pressure or heart medicine, get up slowly and take several minutes to sit and then stand. This can reduce dizziness and decrease the risk of near-syncope. Lifestyle ??? Do not drive, use machinery, or play sports until your health care provider says it is okay. ??? Do not drink alcohol. ??? Do not use any products that contain nicotine or tobacco. These products include cigarettes, chewing tobacco, and vaping devices, such as e-cigarettes. If you need help quitting, ask your health care provider. ??? Avoid hot tubs and saunas. General instructions ??? Pay attention to any changes in your symptoms. ??? Talk with your health care provider about your symptoms. You may need to have testing to understand the cause of your near-syncope. ??? If you start to feel like you might faint, sit or lie down right away. If sitting, put your head down between your legs. If lying down, raise (elevate) your feet above the level of your heart. ? Breathe deeply and steadily. Wait until all of the symptoms have passed. ? Have someone stay with you until you feel stable. ??? Drink enough fluid to keep your urine pale yellow. ??? Avoid prolonged standing. If you must stand for a long time, do movements such as: ? Moving your legs. ? Crossing your legs. ? Flexing and stretching your leg muscles. ? Squatting. ??? Keep all follow-up visits. This is important. Contact a health care provider if: ??? You continue to have episodes of near fainting. Get help right away if: ??? You faint. ??? You have any of these symptoms that may indicate trouble with your heart: ? Fast or irregular heartbeats (palpitations). ? Unusual pain in your chest, abdomen, or back. ? Shortness of breath. ??? You have a seizure. ??? You have a severe headache. ??? You are confused. ??? You have vision problems. ??? You have severe weakness or trouble walking. ??? You are bleeding from your mouth or rectum, or have black or tarry stool. These symptoms may represent a serious problem that is an emergency. Do not wait to see if your symptoms will go away. Get medical help right away. Call your local emergency services (911 in the [place] Do not drive yourself to the hospital. Summary ??? Near-syncope is when you suddenly feel like you might pass out or faint, but you do not actually lose consciousness. ??? This condition is caused by a sudden decrease in blood flow to the brain. This decrease can result from various causes, but most of those causes are not dangerous. ??? Near-syncope may be a sign of a serious medical problem, so it is important to seek medical care. ??? If you start to feel like you might faint, sit or lie down right away. If sitting, put your head down between your legs. If lying down, raise (elevate) your feet above the level of your heart. ??? Talk with your health care provider about your symptoms. You may need to have testing to understand the cause of your near-syncope. This information is not intended to replace advice given to you by your health care provider. Make sure you discuss any questions you have with your health care provider. Document Revised: 09/12/2021 Document Reviewed: 09/12/2021 [employer] Patient Education ? 2023 [place] 01-27-2024 Hospital Discharge instructions Patient Education 01/27/2024 12:03:49 Intravenous Pyelogram, Zjqq-hy-Gggh Intravenous Pyelogram An intravenous pyelogram is a type of X-ray that is used to check for problems in the kidneys, ureters, and bladder. This test can help your doctor find problems, such as: Kidney stones. Bladder stones. A prostate that has become large. Tumors. Tell your doctor about: Any allergies you have. All medicines you are taking. These include vitamins, herbs, eye drops, creams, and suof-qsc-nrejqbf medicines. Any problems you or family members have had with anesthesia. Any bleeding problems you have. Any surgeries you have had. Any other medical conditions you have. Whether you are or may be . What are the risks? Your doctor will talk with you about risks. These may include: Feeling like you may vomit (nausea). Having a reaction to the dye that is used during the test. What happens before the procedure? Follow instructions from your doctor about eating or drinking. Follow instructions from your doctor about taking an oral bowel prep. Ask your doctor about changing or stopping: ?Your normal medicines. ?Vitamins, herbs, and supplements. ?Qszj-jzc-xmolccu medicines. You may need to remove glasses, jewelry, and any other metal objects. You may be asked to put on a hospital gown. What happens during the procedure? You will lie down on an exam table. An IV tube will be inserted into one of your veins. A dye will be put into the IV tube. The dye helps your doctor to see your kidneys, ureters, and bladder better on X-rays. When the dye goes in, you may feel warm or have a strange taste in your mouth. The feeling or the taste will go away in a short time. A cnc maintenance technician will take X-rays. To make the X-rays clearer, the cnc maintenance technician: ?May press on your belly (abdomen). ?May ask you not to move for long periods of time. ?May ask you to change positions from time to time. You may be asked to pee before the last X-ray. The procedure may vary among doctors and hospitals. What can I expect after the procedure? You can go back to your normal activities. You can safely drive home. Follow these instructions at home: Drink enough fluid to keep your pee pale yellow. This will help flush out the dye in your body. Take xkgk-ghh-wrkrtqm and prescription medicines only as told by your doctor. Return to your normal activities when your doctor says that it is safe. It is up to you to get your test results. Ask how to get your results when they are ready. Contact a doctor if: You start peeing less than you normally do. Get help right away if: You feel like you may vomit. You vomit. You have itching or itchy, red, swollen areas on the skin (hives). You have trouble breathing. Your throat swells. You have chest pain. You have chills or a fever. These symptoms may be an emergency. Get help right away. Call 911. Do not wait to see if the symptoms will go away. Do not drive yourself to the hospital. This information is not intended to replace advice given to you by your health care provider. Make sure you discuss any questions you have with your health care provider. Document Revised: 02/10/2023 Document Reviewed: 02/10/2023 [employer] Patient Education 2023 [employer] Follow Up Care 01/22/2024 08:26:07 With:SAMUEL BRANCH, Buddy Saavedra, URL Address: [address] [place], [place] [id number]- When: Unknown [facility] 09-11-2024 NotePatient Education Urology Intravenous Pyelogram An intravenous pyelogram is a type of X-ray that is used to check for problems in the kidneys, ureters, and bladder. This test can help your doctor find problems, such as: ? Kidney stones. ? Bladder stones. ? A prostate that has become large. ? Tumors. Tell your doctor about: ? Any allergies you have. ? All medicines you are taking. These include vitamins, herbs, eye drops, creams, and gilp-gbm-wabumhd medicines. ? Any problems you or family members have had with anesthesia. ? Any bleeding problems you have. ? Any surgeries you have had. ? Any other medical conditions you have. ? Whether you are or may be . What are the risks? Your doctor will talk with you about risks. These may include: ? Feeling like you may vomit (nausea). ? Having a reaction to the dye that is used during the test. What happens before the procedure? ? Follow instructions from your doctor about eating or drinking. ? Follow instructions from your doctor about taking an oral bowel prep. ? Ask your doctor about changing or stopping: ? Your normal medicines. ? Vitamins, herbs, and supplements. ? Nzgp-syc-fujikpc medicines. ? You may need to remove glasses, jewelry, and any other metal objects. ? You may be asked to put on a hospital gown. What happens during the procedure? ? You will lie down on an exam table. ? An IV tube will be inserted into one of your veins. ? A dye will be put into the IV tube. The dye helps your doctor to see your kidneys, ureters, and bladder better on X-rays. When the dye goes in, you may feel warm or have a strange taste in your mouth. The feeling or the taste will go away in a short time. ? A cnc maintenance technician will take X-rays. To make the X-rays clearer, the cnc maintenance technician: ? May press on your belly (abdomen). ? May ask you not to move for long periods of time. ? May ask you to change positions from time to time. ? You may be asked to pee before the last X-ray. The procedure may vary among doctors and hospitals. What can I expect after the procedure? ? You can go back to your normal activities. ? You can safely drive home. Follow these instructions at home: ? Drink enough fluid to keep your pee pale yellow. This will help flush out the dye in your body. ? Take dnij-lul-zytwpit and prescription medicines only as told by your doctor. ? Return to your normal activities when your doctor says that it is safe. ? It is up to you to get your test results. Ask how to get your results when they are ready. Contact a doctor if: ? You start peeing less than you normally do. Get help right away if: ? You feel like you may vomit. ? You vomit. ? You have itching or itchy, red, swollen areas on the skin (hives). ? You have trouble breathing. ? Your throat swells. ? You have chest pain. ? You have chills or a fever. These symptoms may be an emergency. Get help right away. Call 911. ? Do not wait to see if the symptoms will go away. ? Do not drive yourself to the hospital. This information is not intended to replace advice given to you by your health care provider. Make sure you discuss any questions you have with your health care provider. Document Revised: 02/10/2023 Document Reviewed: 02/10/2023 [employer] Patient Education ? 2023 [place] 01-03-2024 Hospital Discharge instructions Patient Education 01/03/2024 00:11:12 Community-Acquired Pneumonia, Adult, Ovkm-sf-Hbal Community-Acquired Pneumonia, Adult Pneumonia is an infection of the lungs. It causes irritation and swelling in the airways of the lungs. Mucus and fluid may also build up inside the airways. This may cause coughing and trouble breathing. One type of pneumonia can happen while you are in a hospital. A different type can happen when you are not in a hospital (community-acquired pneumonia). What are the causes? This condition is caused by germs (viruses, bacteria, or fungi). Some types of germs can spread from person to person. Pneumonia is not thought to spread from person to person. What increases the risk? You have a long-term (chronic) disease, such as: ?Disease of the lungs. This may be chronic obstructive pulmonary disease (COPD) or asthma. ?Heart failure. ?Cystic fibrosis. ?Diabetes. ?Kidney disease. ?Sickle cell disease. ?HIV. You have other health problems, such as: ?Your body's defense system (immune system) is weak. ?A condition that may cause you to breathe in fluids from your mouth and nose. You had your spleen taken out. You do not take good care of your teeth and mouth (poor dental hygiene). You use or have used tobacco products. You go where the germs that cause this illness are common. You are older than 65 years of age. What are the signs or symptoms? A cough. A fever. Sweating or chills. Chest pain, often when you breathe deeply or cough. Breathing problems, such as: ?Fast breathing. ?Trouble breathing. ?Shortness of breath. Feeling tired (fatigued). Muscle aches. How is this treated? Treatment for this condition depends on many things, such as: The cause of your illness. Your medicines. Your other health problems. Most adults can be treated at home. Sometimes, treatment must happen in a hospital. Treatment may include medicines to kill germs. Medicines may depend on which germ caused your illness. Very bad pneumonia is rare. If you get it, you may: Have a machine to help you breathe. Have fluid taken away from around your lungs. Follow these instructions at home: Medicines Take lwxr-hpz-fssevio and prescription medicines only as told by your doctor. Take cough medicine only if you are losing sleep. Cough medicine can keep your body from taking mucus away from your lungs. If you were prescribed antibiotics, take them as told by your doctor. Do not stop taking them even if you start to feel better. Lifestyle Do not smoke or use any products that contain nicotine or tobacco. If you need help quitting, ask your doctor. Do not drink alcohol. Eat a healthy diet. This includes a lot of vegetables, fruits, whole grains, low-fat dairy products, and low-fat (lean) protein. General instructions Rest a lot. Sleep for at least 8 hours each night. Sleep with your head and neck raised. Put a few pillows under your head or sleep in a reclining chair. Return to your normal activities as told by your doctor. Ask your doctor what activities are safe for you. Drink enough fluid to keep your pee (urine) pale yellow. If your throat is sore, gargle with a mixture of salt and water 3 4 times a day or as needed. To make salt water, completely dissolve 1 tsp (3 6 g) of salt in 1 cup (237 mL) of warm water. Keep all follow-up visits. How is this prevented? Getting the pneumonia shot (vaccine). These shots have different types and schedules. Ask your doctor what works best for you. Think about getting this shot if: ?You are older than 65 years of age. ?You are 19 65 years of age and: ?You are being treated for cancer. ?You have long-term lung disease. ?You have other problems that affect your body's defense system. Ask your doctor if you have one ofthese. Getting your flu shot every year. Ask your doctor which type of shot is best for you. Going to the dentist as often as told. Washing your hands often with soap and water for at least 20 seconds. If you cannot use soap and water, use hand counseling services manager. Contact a doctor if: You have a fever. You lose sleep because your cough medicine does not help. Get help right away if: You are short of breath and this gets worse. You have more chest pain. Your sickness gets worse. This is very serious if: ?You are an older adult. ?Your body's defense system is weak. You cough up blood. These symptoms may be an emergency. Get help right away. Call 911. Do not wait to see if the symptoms will go away. Do not drive yourself to the hospital. Summary Pneumonia is an infection of the lungs. Community-acquired pneumonia affects people who have not been in the hospital. Certain germs can cause this infection. This condition may be treated with medicines that kill germs. For very bad pneumonia, you may need a hospital stay and treatment to help with breathing. This information is not intended to replace advice given to you by your health care provider. Make sure you discuss any questions you have with your health care provider. Document Revised: 07/02/2022 Document Reviewed: 07/02/2022 [employer] Patient Education 2022 [employer] Follow Up Care 01/02/2024 20:41:46 With:Margarita Hou Address:Unknown When:01/06/2024 Comments:Stop the Levaquin and start taking the doxycycline, finished the azithromycin. Use the albuterol Hailer 2 puffs every 4 hours while you are awake for the next 3 days then decrease to as needed. Continue taking your tears steroids as prescribed. Please follow-up with your primary care doctor next 2 to 3 days. Please return to the ED for any new or worsening symptoms. [facility] 08-18-2024 NoteED Patient Education Note Infectious Disease Community-Acquired Pneumonia, Adult Pneumonia is an infection of the lungs. It causes irritation and swelling in the airways of the lungs. Mucus and fluid may also build up inside the airways. This may cause coughing and trouble breathing. One type of pneumonia can happen while you are in a hospital. A different type can happen when you are not in a hospital (community-acquired pneumonia). What are the causes? This condition is caused by germs (viruses, bacteria, or fungi). Some types of germs can spread from person to person. Pneumonia is not thought to spread from person to person. What increases the risk? ? You have a long-term (chronic) disease, such as: ? Disease of the lungs. This may be chronic obstructive pulmonary disease (COPD) or asthma. ? Heart failure. ? Cystic fibrosis. ? Diabetes. ? Kidney disease. ? Sickle cell disease. ? HIV. ? You have other health problems, such as: ? Your body's defense system (immune system) is weak. ? A condition that may cause you to breathe in fluids from your mouth and nose. ? You had your spleen taken out. ? You do not take good care of your teeth and mouth (poor dental hygiene). ? You use or have used tobacco products. ? You go where the germs that cause this illness are common. ? You are older than 65 years of age. What are the signs or symptoms? ? A cough. ? A fever. ? Sweating or chills. ? Chest pain, often when you breathe deeply or cough. ? Breathing problems, such as: ? Fast breathing. ? Trouble breathing. ? Shortness of breath. ? Feeling tired (fatigued). ? Muscle aches. How is this treated? Treatment for this condition depends on many things, such as: ? The cause of your illness. ? Your medicines. ? Your other health problems. Most adults can be treated at home. Sometimes, treatment must happen in a hospital. ? Treatment may include medicines to kill germs. ? Medicines may depend on which germ caused your illness. Very bad pneumonia is rare. If you get it, you may: ? Have a machine to help you breathe. ? Have fluid taken away from around your lungs. Follow these instructions at home: Medicines ? Take hhxd-tmv-ptphlls and prescription medicines only as told by your doctor. ? Take cough medicine only if you are losing sleep. Cough medicine can keep your body from taking mucus away from your lungs. ? If you were prescribed antibiotics, take them as told by your doctor. Do not stop taking them even if you start to feel better. Lifestyle ? Do not smoke or use any products that contain nicotine or tobacco. If you need help quitting, askyour doctor. ? Do not drink alcohol. ? Eat a healthy diet. This includes a lot of vegetables, fruits, whole grains, low-fat dairy products, and low-fat (lean) protein. General instructions ? Rest a lot. Sleep for at least 8 hours each night. ? Sleep with your head and neck raised. Put a few pillows under your head or sleep in a reclining chair. ? Return to your normal activities as told by your doctor. Ask your doctor what activities are safefor you. ? Drink enough fluid to keep your pee (urine) pale yellow. ? If your throat is sore, gargle with a mixture of salt and water 3?4 times a day or as needed. To make salt water, completely dissolve ??1 tsp (3?6 g) of salt in 1 cup (237 mL) of warm water. ? Keep all follow-up visits. How is this prevented? ? Getting the pneumonia shot (vaccine). These shots have different types and schedules. Ask your doctor what works best for you. Think about getting this shot if: ? You are older than 65 years of age. ? You are 19?65 years of age and: ? You are being treated for cancer. ? You have long-term lung disease. ? You have other problems that affect your body's defense system. Ask your doctor if you have one of these. ? Getting your flu shot every year. Ask your doctor which type of shot is best for you. ? Going to the dentist as often as told. ? Washing your hands often with soap and water for at least 20 seconds. If you cannot use soap and water, use hand counseling services manager. Contact a doctor if: ? You have a fever. ? You lose sleep because your cough medicine does not help. Get help right away if: ? You are short of breath and this gets worse. ? You have more chest pain. ? Your sickness gets worse. This is very serious if: ? You are an older adult. ? Your body's defense system is weak. ? You cough up blood. These symptoms may be an emergency. Get help right away. Call 911. ? Do not wait to see if the symptoms will go away. ? Do not drive yourself to the hospital. Summary ? Pneumonia is an infection of the lungs. ? Community-acquired pneumonia affects people who have not been in the hospital. Certain germs can cause this infection. ? (more content not included)...[facility]08-17-2024 Evaluation + Plan noteExtracted from: Title:ED Note Author:Spike SIMPSON, Freddy Cooper te:01/02/24 1. Pneumonia (J18.9: Pneumon ia, unspecified organism) 2. Shortness of breath (R06.02: Shortness of breath) 3. Dyspnea (R06.00: Dyspnea, unspecified) Orders: albuterol-ipratropium, 3 mL, Soln-Inh, Inhalation, Once, Stop date 01/02/24 21:04:00 EDT, STAT, Start date 01/02/24 21:04:00 EDT doxycycline, 100 mg = 1 cap(s), Cap, Oral, Once, Stop date 01/02/24 23:51:00 EDT, STAT, Start date 01/02/24 23:51:00 EDT, 01/02/24 23:51:00 EDT Basic Metabolic Panel Beta hCG Qual Blood Gas Art, with Lytes, Gluc, Lact CBC w/ Auto Diff Continuous Pulse Oximetry CTA Chest D-Dimer ED Cardiac Monitoring eGFR PT & PTT Saline Lock Insert Troponin 0 Hr. XR Chest Single View [facility] 08-12-2024 Hospital Discharge instructions Follow Up Care 12/28/2023 12:41:01 With:Margarita Hou Address:Unknown When:Within 3 Day(s) [facility] 08-12-2024 Evaluation + Plan noteExtracted from: Title:ED Note Author:Bert Davis DO Date:12/16 07/11 Bronchitis with bronchospasm (J20.9: Acute bronchitis, unspecified) Orders: albuterol, 2 puff(s), Inhalation, q6hr for 7 day(s), 6.7 gm, Refill(s) 0, [facility]/pharmacy #[id number], 160, cm, 12/28/23 12:46:00 EDT, Height/Length Dosing, 101.6, kg, 12/28/23 12:46:00 EDT, Weight Dosing azithromycin, 250 mg, Oral, As Directed, Take two tabs by mouth on day one, then one tab daily, # 6 tab(s), Refills(s) 0, Pharmacy: [facility]/pharmacy #[id number], 160, cm, 12/28/23 12:46:00 EDT, Height/Length Dosing, 101.6, kg, 12/28/23 12:46:00 EDT, Weight Dosing dextromethorphan-promethazine, 5 mL, Oral, q6hr for cough, 120 mL, Refill(s) 0, [facility]/pharmacy #[id number], 160, cm, 12/28/23 12:46:00 EDT, Height/Length Dosing, 101.6, kg, 12/28/23 12:46:00 EDT, Weight Dosing predniSONE, 3, Oral, Daily, X 7 day(s), # 21 tab(s), Refills(s) 0, Pharmacy: [facility]/pharmacy #[id number], 160, cm, 12/28/23 12:46:00 EDT, Height/Length Dosing, 101.6, kg, 12/28/23 12:46:00 EDT, Weight Dosing XR Chest Single View [facility] 06-30-2024 Hospital Discharge instructions Patient Education 11/14/2023 23:38:34 Urinary Tract Infection, Adult, Bisu-rx-Fovc Urinary Tract Infection, Adult A urinary tract infection (UTI) is an infection of any part of the urinary tract. The urinary tractincludes: The kidneys. The ureters. The bladder. The urethra. These organs make, store, and get rid of pee (urine) in the body. What are the causes? This infection is caused by germs (bacteria) in your genital area. These germs grow and cause swelling (inflammation) of your urinary tract. What increases the risk? The following factors may make you more likely to develop this condition: Using a small, thin tube (catheter) to drain pee. Not being able to control when you pee or poop (incontinence). Being female. If you are female, these things can increase the risk: ?Using these methods to prevent : ?A medicine that kills sperm (spermicide). ?A device that blocks sperm (diaphragm). ?Having low levels of a female hormone (estrogen). ?Being . You are more likely to develop this condition if: You have genes that add to your risk. You are sexually active. You take antibiotic medicines. You have trouble peeing because of: ?A prostate that is bigger than normal, if you are male. ?A blockage in the part of your body that drains pee from the bladder. ?A kidney stone. ?A nerve condition that affects your bladder. ?Not getting enough to drink. ?Not peeing often enough. You have other conditions, such as: ?Diabetes. ?A weak disease-fighting system (immune system). ?Sickle cell disease. ?Gout. ?Injury of the spine. What are the signs or symptoms? Symptoms of this condition include: Needing to pee right away. Peeing small amounts often. Pain or burning when peeing. Blood in the pee. Pee that smells bad or not like normal. Trouble peeing. Pee that is cloudy. Fluid coming from the vagina, if you are female. Pain in the belly or lower back. Other symptoms include: Vomiting. Not feeling hungry. Feeling mixed up (confused). This may be the first symptom in older adults. Being tired and grouchy (irritable). A fever. Watery poop (diarrhea). How is this treated? Taking antibiotic medicine. Taking other medicines. Drinking enough water. In some cases, you may need to see a specialist. Follow these instructions at home: Medicines Take kmlz-ixo-erqkfae and prescription medicines only as told by your doctor. If you were prescribed an antibiotic medicine, take it as told by your doctor. Do not stop taking it even if you start to feel better. General instructions Make sure you: ?Pee until your bladder is empty. ?Do not hold pee for a long time. ?Empty your bladder after sex. ?Wipe from front to back after peeing or pooping if you are a female. Use each tissue one time whenyou wipe. Drink enough fluid to keep your pee pale yellow. Keep all follow-up visits. Contact a doctor if: You do not get better after 1 2 days. Your symptoms go away and then come back. Get help right away if: You have very bad back pain. You have very bad pain in your lower belly. You have a fever. You have chills. You feeling like you will vomit or you vomit. Summary A urinary tract infection (UTI) is an infection of any part of the urinary tract. This condition is caused by germs in your genital area. There are many risk factors for a UTI. Treatment includes antibiotic medicines. Drink enough fluid to keep your pee pale yellow. This information is not intended to replace advice given to you by your health care provider. Make sure you discuss any questions you have with your health care provider. Document Revised: 12/14/2020 Document Reviewed: 12/14/2020 [employer] Patient Education 2022 [employer]. Follow Up Care 11/14/2023 21:16:16 With:Margarita Hou Address:Unknown When:11/17/2023 Comments:Call Dr for diagnosis based follow up [facility]06-29-2024 NoteED Patient Education Note Obstetrics and Gynecology Urinary Tract Infection, Adult A urinary tract infection (UTI) is an infection of any part of the urinary tract. The urinary tractincludes: ? The kidneys. ? The ureters. ? The bladder. ? The urethra. These organs make, store, and get rid of pee (urine) in the body. What are the causes? This infection is caused by germs (bacteria) in your genital area. These germs grow and cause swelling (inflammation) of your urinary tract. What increases the risk? The following factors may make you more likely to develop this condition: ? Using a small, thin tube (catheter) to drain pee. ? Not being able to control when you pee or poop (incontinence). ? Being female. If you are female, these things can increase the risk: ? Using these methods to prevent : ? A medicine that kills sperm (spermicide). ? A device that blocks sperm (diaphragm). ? Having low levels of a female hormone (estrogen). ? Being . You are more likely to develop this condition if: ? You have genes that add to your risk. ? You are sexually active. ? You take antibiotic medicines. ? You have trouble peeing because of: ? A prostate that is bigger than normal, if you are male. ? A blockage in the part of your body that drains pee from the bladder. ? A kidney stone. ? A nerve condition that affects your bladder. ? Not getting enough to drink. ? Not peeing often enough. ? You have other conditions, such as: ? Diabetes. ? A weak disease-fighting system (immune system). ? Sickle cell disease. ? Gout. ? Injury of the spine. What are the signs or symptoms? Symptoms of this condition include: ? Needing to pee right away. ? Peeing small amounts often. ? Pain or burning when peeing. ? Blood in the pee. ? Pee that smells bad or not like normal. ? Trouble peeing. ? Pee that is cloudy. ? Fluid coming from the vagina, if you are female. ? Pain in the belly or lower back. Other symptoms include: ? Vomiting. ? Not feeling hungry. ? Feeling mixed up (confused). This may be the first symptom in older adults. ? Being tired and grouchy (irritable). ? A fever. ? Watery poop (diarrhea). How is this treated? ? Taking antibiotic medicine. ? Taking other medicines. ? Drinking enough water. In some cases, you may need to see a specialist. Follow these instructions at home: Medicines ? Take fxyi-twx-ddcslbn and prescription medicines only as told by your doctor. ? If you were prescribed an antibiotic medicine, take it as told by your doctor. Do not stop takingit even if you start to feel better. General instructions ? Make sure you: ? Pee until your bladder is empty. ? Do not hold pee for a long time. ? Empty your bladder after sex. ? Wipe from front to back after peeing or pooping if you are a female. Use each tissue one time when you wipe. ? Drink enough fluid to keep your pee pale yellow. ? Keep all follow-up visits. Contact a doctor if: ? You do not get better after 1?2 days. ? Your symptoms go away and then come back. Get help right away if: ? You have very bad back pain. ? You have very bad pain in your lower belly. ? You have a fever. ? You have chills. ? You feeling like you will vomit or you vomit. Summary ? A urinary tract infection (UTI) is an infection of any part of the urinary tract. ? This condition is caused by germs in your genital area. ? There are many risk factors for a UTI. ? Treatment includes antibiotic medicines. ? Drink enough fluid to keep your pee pale yellow. This information is not intended to replace advice given to you by your health care provider. Make sure you discuss any questions you have with your health care provider. Document Revised: 12/14/2020 Document Reviewed: 12/14/2020 [employer] Patient Education ? 2022 [employer].[facility] 11-14-2023 Evaluation + Plan noteExtracted from: Title:ED Note Author:Dre SIMPSON, Greg Cooper te:11/14/23 Lower abdominal pain (R10.30 : Lower abdominal pain, unspecified) Nausea (R11.0: Nausea) UTI (urinary tract infection) (N39.0: Urinary tract infection, site not specified) Orders: cephalexin, 500 mg = 1 cap(s), Cap, Oral, Once, Stop date 11/14/23 23:18:00 EDT, STAT, Start date 11/14/23 23:18:00 EDT, 11/14/23 23:18:00 EDT cephalexin, 500 mg = 1 cap(s), Oral, q6hr, X 7 day(s), # 28 cap(s), Refills(s) 0, Pharmacy: [facility]/pharmacy #[id number], 160, cm, 11/14/23 21:23:00 EDT, Height/Length Dosing, 103.7, kg, 11/14/23 21:23:00 EDT, Weight Dosing ketorolac, 30 mg = 1 mL, Injection, IV Push, Once, Stop date 11/14/23 21:39:00 EDT, STAT, Start date 11/14/23 21:39:00 EDT, 11/14/23 21:39:00 EDT ondansetron, 4 mg = 2 mL, Injection, IV Push, Once, Stop date 11/14/23 21:39:00 EDT, STAT, Start date 11/14/23 21:39:00 EDT, 11/14/23 21:39:00 EDT phenazopyridine, 100 mg = 1 tab(s), Oral, TID, X 3 day(s), # 9 tab(s), Refills(s) 0, Pharmacy: [facility]/pharmacy #[id number], 160, cm, 11/14/23 21:23:00 EDT, Height/Length Dosing, 103.7, kg, 11/14/23:23:00 EDT, Weight Dosing Sodium Chloride 0.9% intravenous solution, 1,000 mL, Soln-IV, IV, Once, Stop date 11/14/23 21:39:00 EDT, STAT, Start date 11/14/23 21:39:00 EDT, Infuse over 61, minute(s) Basic Metabolic Panel Beta hCG Qual CBC w/ Auto Diff eGFR Hepatic Function Panel Lipase Level UA with Cult Rflx Urine Culture Future Appointments Appointment Date:11/18/2023 10:00:00 AM Scheduled Provider: Location:[facility] Appointment Type:US Abdominal/Pelvis (FT) Diagnostic Tests Pending * Urine Culture 11/14/23 Future Scheduled Tests Radiology* US Pelvis Non-OB Complete 11/18/23 [facility]03-05-2024 Hospital Discharge instructions Patient Education 07/21/2023 14:24:10 Cervical Radiculopathy [...] your health care provider. Managing pain Take qwzk-nrd-hkjflvg and prescription medicines only as told by [...] not have a cervical collar, ask your healthcare provider if it is safe to drive while your neck heals. Ask your health care provider if the medicine prescribed to you requires you to avoid driving or using machinery. Do not use any products that contain nicotine or tobacco. These products include cigarettes, chewing tobacco, and vaping devices, such as e-cigarettes. If you need help quitting, ask your health careprovider. Keep all follow-up visits. This is important. [...] provider. Document Revised: 11/07/2021 Document Reviewed: 11/07/2021 [employer] Patient Education 2022 [employer]. Follow Up Care 07/21/2023 12:41:08 With:Mario Mccauley Address: [address] [place] [address]- Business (1) When:07/24/2023 14:18:46 With:Margarita Hou Address:Unknown When:Within 3 Day(s) [facility]03-05-2024 Evaluation + Plan noteExtracted from: Title:ED Note Author:Bert Davis DO Date:07/20 Hyperesthesia (R20.3: Hypere sthesia) Radiculopathy of cervical spine (M54.12: Radiculopathy, cervical region) Orders: predniSONE, 3, Oral, Daily, X 7 day(s), # 21 tab(s), Refills(s) 0, Pharmacy: [facility]/pharmacy #[id number], 160, cm, 07/21/23 12:50:00 EST, Height/Length Dosing, 102, kg, 07/21/23 12:50:00 EST, Weight Dosing CT Spine Cervical w/o Contrast [facility]06-26-2023 Hospital Discharge instructions Patient Education 11/10/2022 20:47:53 Vertigo Vertigo Vertigo is the feeling that you or your surroundings are moving when they are not. This feeling cancome and go at any time. Vertigo often [...] if you feel dizzy. General instructions Take vftj-qha-uxwkhfu and prescription medicines only as told by [...] provider. Document Revised: 04/03/2021 Document Reviewed: 04/03/2021 [employer] Patient Education 2022 [employer]. Follow Up Care 11/10/2022 18:30:48 With:Umair Ramírez Address: [address] [place] [address] Business (2) When:11/13/2022 20:47:38 Comments:Call the office [...] you develop any new or worsening symptoms. [facility]06-26-2023 Evaluation + Plan noteExtracted from: Title:ED Note Author:Rickey Rawls PA-C e:11/10/22 Vertigo (R42: Dizziness and giddiness) Orders: meclizine, 12.5 mg = 1 tab(s), Oral, TID, PRN for nausea/vomiting, # 30 tab(s), Refills(s) 0, Pharmacy: [facility]/pharmacy #[id number], 160, cm, 11/10/22 18:39:00 EDT, Height/Length Dosing, 95.5, kg, 11/10/22 18:39:00 EDT, Weight Dosing meclizine, 12.5 mg = 1 tab(s), Tab, Oral, Once, Stop date 11/10/22 20:42:00 EDT, STAT, Start date 11/10/22 20:42:00 EDT, 11/10/22 20:42:00 EDT Automated Diff Basic Metabolic Panel CBC w/ Auto Diff eGFR Extra SST Tube [facility]04-23-2023 Evaluation + Plan noteExtracted from: Title:ED Note Author:Rickey Rawls PA-C e:09/07/22 Neck pain on left side (M54. 2: Cervicalgia) Paresthesia of left arm (R20.2: Paresthesia of skin) Orders: ketorolac, 60 mg = 2 mL, Injection, IntraMuscular, Once, Stop date 09/07/22 11:43:00 EDT, STAT, Start date 09/07/22 11:43:00 EDT, 09/07/22 11:43:00 EDT Sling Apply [facility]04-23-2023 Hospital Discharge instructions Patient Education 09/07/2022 11:48:05 Musculoskeletal Pain Musculoskeletal Pain Musculoskeletal pain refers to aches and pains in your bones, joints, muscles, and the tissues thatsurround them. This pain can occur in any part of the body. It can last for a short time (acute) ora long time (chronic). A physical exam, lab tests, and imaging studies may be done to find the cause of your musculoskeletal pain. Follow these instructions at home: Lifestyle Try to control or lower your stress levels. Stress increases muscle tension and can worsen musculoskeletal pain. It is important to recognize when you are anxious or stressed and learn ways to manageit. This may include: ?Meditation or yoga. ?Cognitive [...] are taken by mouth or applied to theskin. Take ikng-yhm-byoyyvb and prescription medicines only as told by your health care provider. When your pain is severe, bed rest may be helpful. Lie or sit in any position that is comfortable, but get out of bed and walk around at least every couple of hours. If directed, apply heat to the affected area as often as told by your health care provider. Use theheat source that your health care provider recommends, [...] a physical therapist. This person can help youcome up with a safe exercise program. If [...] your bones, joints, muscles, and the tissues thatsurround them. This pain can occur in any part of the body. Your health care provider may recommend that you see a physical therapist. This person can help youcome up with a safe exercise program. Do [...] provider. Document Revised: 09/06/2020 Document Reviewed: 08/15/2020 [employer] Patient Education 2022 [employer] 09/07/2022 11:48:05 Paresthesia Paresthesia Paresthesia is an abnormal burning or prickling sensation. It is usually felt in the hands, arms, legs, or feet. However, it may occur in any part of the body. Usually, paresthesia is not painful. Itmay feel like: Tingling or numbness. Buzzing. Itching. [...] hard liquor (44 mL). General instructions Take whln-pid-bpvsebp and prescription medicines only as told by your health care provider. Do not use any products that contain nicotine or tobacco. These products include cigarettes, chewing tobacco, and vaping devices, such as e-cigarettes. If you need help quitting, ask your health careprovider. If you have diabetes, work closely with [...] provider. Document Revised: 01/13/2022 Document Reviewed: 01/13/2022 [employer] Patient Education 2022 [employer]. Follow Up Care 09/07/2022 11:15:34 With:[facility] Address:Unknown When:09/10/2022 11:47:51 With:Alysia Guerrier Address: [address] [facility] [address] [place] [phone] Business (1) When:09/10/2022 11:47:39 Comments:Call the office [...] you develop any new or worsening symptoms. [facility] Future App[facility]ments Appointment Date:04/29/2023 09:00:00 AM Scheduled Provider:Margarita Tuttle Location:[facility] Appointment Type:FM Open Appointment Date:04/29/2023 09:20:00 AM Scheduled Provider:[facility] Open Appointment Date:05/22/2023 10:30:00 AM Scheduled Provider: Location[facility] Appointment Type:EMG Bilateral Upper Extremity [facility] Future Appointments Appointment Date:01/27/2024 11:15:00 AM Scheduled Provider:Buddy BAKER MD Location:[facility] Appointment Type:URO Office Visit [facility] Evaluation + Plan note Future Appointments Appointment Date:01/29/2024 08:00:00 AM Scheduled [facility] Genital/Urinary Procedures ([facility]) Future Scheduled Tests Radiology* XR IVP 01/29/24 [facility] Evaluation + Plan note Future Appointments Appointment Date:05/22/2023 10:30:00 AM Scheduled Provider: [facility] Bilateral Upper Extremity Diagnostic Tests Pending * PAP [id number] w/ HPV and Genotype rflx [facility]01/23 [facility] noteNo assessment information available [facility] Work Phone: Hospital course Narrative No data available for this section [facility] Discharge instructions No data available for this section [facility] Discharge instructions Additional Instructions DISCHARGE INSTRUCTIONS FOR URETEROSCOPY, LASER LITHOTRIPSY, STONE EXTRACTION, AND STENT PLACEMENT There are no incisions or dressings to be concerned with, as the procedure was performed inside the urinary system. For 24 hours after surgery: -No driving or operating machinery. -Do not make important decisions. -Do not consume alcohol, sleeping pills. STENT PLACEMENT -you may have a stent which spans the distance between your bladder and your kidney, allowing urine to pass through. It prevents blockage from swelling, kidney stones in the ureter (tube connecting the kidney to the bladder), or scars. The presence of the stent may cause: -Back or side pain, especially with urination. -Frequent or urgent urination. -Bladder pressure or pain. -Blood in the urine. -You may pass stone debris or small blood clots, which is expected. -Drinking plenty of water to dilute the urine may help. -If there is a thread coming out of the urinary channel, be careful not to accidentally pull on this, as it is attached to the stent. -The stent can be removed at home on or Thursday. Pull on the threads and the whole stent will come out. DIET You may resume your normal diet, but you may want to start slowly and avoid spicy food, caffeine, carbonated beverages, and alcohol- especially if you have a stent. Your diet and fluid intake may make irritation form the stent worse. ACTIVITY You may resume your normal activities, although you should take it easy on the day of the procedure. Minimizing activity may decrease the back discomfort and irritation from the stent, if present. MEDICATIONS -You may resume your home medications unless instructed otherwise. -[Hold aspirin, ibuprofen, Coumadin (warfarin), and other blood thinners until your office visit (we'll discuss when to resume these medications).] -Take your prescribed medications as directed, including your antibiotics. You may also be given a prescription for pain medicine, or medicines to help with the bladder irritation from the stent, if present. THINGS TO WATCH FOR WHICH WOULD REQUIRE AN EMERGENCY ROOM VISIT (OR CALL 911) (This is not a complete list) -Fever over 101.5 degrees Fahrenheit, with or without chills. -Severe bleeding. -Severe drug reactions with itching, hives, or rash, or severe flank pain. -Tenderness or swelling of the calves, chest pain, or shortness of breath. FOLLOW UP -[Please call the office to arrange for your post-operative appointment (with X- Ray)] in about six months (the office needs to send an order for the X-ray) [ ][facility] Work Phone: Progress note No data available for this section [facility] Summary Purpose Family History No Family History Records Found Relationship Condition Age at Onset Recorded Date/T luís mother Cerebrovascular accident (CVA) Unknown father Myocardial infarction Unknown Advance Directives No Advanced Directives Records Found Advance Directive Response Recorded Date/ Time Advance Directives No February 17, 2024 11:43am Chief Complaint and Reason for Visit Chief Complaint Kidney Stone Chief Complaint Kidney Stone Kidney Stone Additional Source Comments INFORMATION SOURCE (unrecogn ized section and content) DATE CREATED AUTHOR 09/20/2020 [facility] DATE CREATED AUTHOR AUTHOR'S ORGANIZ ATION 11/16/2023 [facility] DATE CREATED AUTHOR AUTHOR'S ORGANIZ ATION 01/03/2024 [facility] DATE CREATED AUTHOR AUTHOR'S ORGANIZ ATION 03/12/2024 [facility] DATE CREATED AUTHOR AUTHOR'S ORGANIZ ATION 05/02/2024 [facility] DATE CREATED AUTHOR AUTHOR'S ORGANIZ ATION 05/30/2024 [facility] DATE CREATED AUTHOR AUTHOR'S ORGANIZ ATION 06/29/2024 [facility] DATE CREATED AUTHOR AUTHOR'S ORGANIZ ATION 07/19/2024 [facility] DATE CREATED AUTHOR AUTHOR'S ORGANIZ ATION 07/23/2024 [facility] Patient Care team informatio n (unrecognized section and content) Team Status: Active Member Role Status Dates NON STAFF Primary Care Provider Active Team Status: Inactive Member Role Status Dates Buddy Baker MD Attending Provider Active St art: February 18, 2024 End: February 18, 2024 NON STAFF Primary Care Provider Active Start: February 18, 2024 End: February 18, 2024 Team Status: Inactive Member Role Status Dates Buddy Baker MD Attending Provider Active St art: February 29, 2024 End: February 29, 2024 NON STAFF Primary Care Provider Active Start: February 29, 2024 End: February 29, 2024 Goals (unrecognized section and content) Goals may be documented in a n alternate section FOR RECORDS PERTAINING TO PATIENTS WHO ARE [...] BE BASED ON THE PRIMARY CLINICAL RECORDS. [facility]. provides no warranty or guarantee of the accuracy or completeness of information in this document.
--- NOTE | 2024-08-03 15:43 | ED_ITS ---
HPI - Female Genitourinary General Chief complaint: Urogenital-Female Stated complaint: urinating blood Time Seen by Provider: 08/03/24 15:28 Mode of arrival: walk-in History of Present Illness HPI Narrative: 34 year old female presents to the ED for hematuria. Onset was 3 days ago. Reports mild discomfort to the RUQ. Denies fever, chills, injury, dysuria. Denies urinary frequency/urgency. Denies N/V/D, flank pain. Denies vaginal bleeding. She has hx kidney stones. Denies chance of . Related Data Home Medications ?Medication ?Instructions ?Recorded ?Confirmed cyproheptadine 4 mg tablet 2 mg PO DAILY 08/03/24 08/03/24 Previous Rx's ?Medication ?Instructions ?Recorded tamsulosin 0.4 mg capsule (Flomax) 0.4 mg PO DAILY #10 caps 01/19/24 cephalexin 500 mg capsule 500 mg PO Q8H 7 days #21 caps 08/03/24 Allergies Allergy/AdvReac Type Severity Reaction Status Date / Time No Known Drug Allergies Allergy Verified 01/19/24 09:04 Review of Systems ROS Constitutional Denies: fever or chills Ears, nose, mouth, and throat Denies: neck pain Cardiovascular Denies: chest pain Respiratory Denies: shortness of breath or cough Gastrointestinal Reports: abdominal pain; Denies: nausea, vomiting or diarrhea Genitourinary Reports: blood in urine; Denies: painful urination, urinary frequency, urinary urgency, vaginal bleeding or vaginal discharge Musculoskeletal Denies: back pain or neck pain Integumentary/Breast Denies: rash Neurological Denies: headache PFSH PFSH Social History Little interest or pleasure in doing things: not at all Feeling down, depressed, or hopeless: not at all Exam Constitutional Vital Signs, click to edit/add: Last Vital Signs Temp 98.3 F 08/03/24 15:28 Pulse 84 08/03/24 15:28 Resp 18 08/03/24 15:28 BP 144/98 H 08/03/24 15:28 Pulse Ox 97 08/03/24 15:28 O2 Del Method Room Air 08/03/24 15:28 Common normals: no apparent distress and alert General appearance: cooperative HENMT Common normals: moist oral mucous membranes Eye Common normals: conjunctivae normal and no scleral icterus Neck & C-Spine Common normals: supple Chest Chest: symmetrical chest wall rise Respiratory Common normals: normal respiratory effort and clear to auscultation bilaterally Effort & inspection: able to speak in complete sentences and symmetric chest movement Cardio Common normals: regular rate and regular rhythm GI Common normals: Normal to inspection, nondistended, normoactive bowel sounds present, soft to palpation and non-tender Back & Pelvis Common normals: no CVA tenderness and thoracic and lumbar spine normal to inspection Neuro Common normals: oriented x3 and moves all extremities Sensorium/orientation: awake and alert Speech: speech normal Course Vital Signs Vital signs: Vital Signs Temperature 98.3 F 08/03/24 15:28 Pulse Rate 84 08/03/24 15:28 Respiratory Rate 18 08/03/24 15:28 Blood Pressure 144/98 H 08/03/24 15:28 Pulse Oximetry 97 08/03/24 15:28 Oxygen Delivery Method Room Air 08/03/24 15:28 Temperature 98.3 F 08/03/24 15:28 Pulse Rate 84 08/03/24 15:28 Respiratory Rate 18 08/03/24 15:28 Blood Pressure 144/98 H 08/03/24 15:28 Pulse Oximetry 97 08/03/24 15:28 Oxygen Delivery Method Room Air 08/03/24 15:28 MDM - Female Genitourinary MDM Narrative Medical decision making narrative: CT scan showed no acute findings. CBC and CMP were unremarkable. Urinalysis showed 50-75 RBCs, 2-5 WBCs. Urine culture was pending. A prescription was provided for Keflex. Follow up with pcp for a recheck, further evaluation and treatment. Medical Records Attestation: I reviewed the patient's medical records. Lab Data Attestation: I reviewed the patient's lab results. Labs: Lab Results 08/03/24 08/03/24 Range/Units 15:41 16:00 WBC 6.8 (4.0-11.0) 10^3/uL RBC 4.91 (4.20-5.40) 10^6/uL Hgb 12.6 (12.0-16.0) g/dL Hct 39.5 (36.0-48.0) % MCV 80.4 L (81.0-99.0) fL MCH 25.7 L (26.7-34.0) pg MCHC 31.9 (29.9-35.2) g/dL RDW 17.0 H (11.0-15.0) % Plt Count 336 (150-450) 10^3/uL MPV 11.2 (9.5-13.5) fL Neut % (Auto) 64.6 (43.0-75.0) % Lymph % (Auto) 22.9 (20.5-60.0) % [place] % (Auto) 7.1 (1.7-12.0) % Eos % (Auto) 3.7 (0.9-7.0) % Baso % (Auto) 1.6 (0.2-2.0) % Neut # (Auto) 4.4 (1.4-6.5) 10^3/uL Lymph # (Auto) 1.6 (1.2-3.8) 10^3/uL [place] # (Auto) 0.5 (0.3-0.8) 10^3/uL Eos # (Auto) 0.3 (0.0-0.7) 10^3/uL Baso # (Auto) 0.1 (0.0-0.1) 10^3/uL Abs Immat Gran (auto) 0.01 (0.00-0.03) 10^3/uL Imm/Tot Granulo (auto) 0.1 (0.0-0.5) % Sodium 138 (136-145) mmol/L Potassium 3.7 (3.5-5.1) mmol/L Chloride 102 (98-107) mmol/L Carbon Dioxide 25.6 (21.0-32.0) mmol/L Anion Gap 14.1 BUN 16.0 (7.0-18.0) mg/dL Creatinine 0.98 (0.55-1.02) mg/dL Est GFR ( Amer) >60 (>=60 mL/min/1.73m^2) Est GFR (Non-Af Amer) >60 (>=60 mL/min/1.73m^2) BUN/Creatinine Ratio 16.3 Glucose 95 (74-106) mg/dL Calcium 9.4 (8.5-10.1) mg/dL Total Bilirubin 0.3 (0.2-1.0) mg/dL AST 21 (15-37) U/L ALT 55 (14-59) U/L Alkaline Phosphatase 115 (46-116) U/L Total Protein 7.7 (6.4-8.2) g/dL Albumin 3.6 (3.4-5.0) g/dL Globulin 4.1 g/dL Albumin/Globulin Ratio 0.9 Lipase 26.0 (16.0-77.0) U/L Urine Color Lt. yellow (YELLOW) Urine Clarity Cloudy A (CLEAR) Urine pH 6.0 (5.0-9.0) Ur Specific [place] 1.025 (1.005-1.025) Urine Protein Trace (NEG/TRACE) mg/dL Urine Glucose (UA) Negative (NEGATIVE) mg/dL Urine Ketones Trace A (NEGATIVE) mg/dL Urine Occult Blood Large A (NEGATIVE) Urine Nitrite Negative (NEGATIVE) Urine Bilirubin Negative (NEGATIVE) Urine Urobilinogen 0.2 (0.2-1.0) EU/dL Ur Leukocyte Esterase Trace A (NEGATIVE) Urine RBC 50-75 A (0-2) #/HPF Urine WBC 2-5 A (NONE SEEN) #/HPF Ur Squamous Epith Cells Rare (NONE/RARE) #/LPF Urine Crystals None seen (None Seen) #/HPF Urine Bacteria Small A (NONE SEEN) #/HPF Urine Casts None seen (NONE SEEN) #/LPF Urine Mucus Trace A (NONE SEEN) Ur Culture Indicated? Yes-[facility] [place] Urine HCG, Qual Negative (NEGATIVE) Imaging Data CT scan - abdomen: Attestation: I have reviewed the pertinent imaging results. Radiologist's impression: No acute process in the abdomen or pelvis. No renal calculus or hydronephrosis. Discharge Plan Discharge Chief Complaint: Urogenital-Female Clinical Impression: Hematuria, Urinary tract infection Patient Disposition: Home, Self-Care Time of Disposition Decision: 17:06 Condition: Good Mode of Transportation: Private Vehicle Prescriptions / Home Meds: New cephalexin 500 mg capsule 500 mg PO Q8H 7 Days Qty: 21 0RF No Action tamsulosin [Flomax] 0.4 mg capsule 0.4 mg PO DAILY Qty: 10 0RF cyproheptadine 4 mg tablet 2 mg PO DAILY Print Language: Lao Instructions: Urinary Tract Infection in Women (ED), Hematuria (ED) Additional Instructions: Return to the ER for worsening symptoms. Referrals: KEERTHI JOHNSON [Primary Care Provider] - 1 week Discharge Date/Time: 08/03/24 17:14
[2024-08-03 16:07] LABS: Basophils Absolute Auto 0.1 10^3/uL (0.0-0.1); Basophils Percent Auto 1.6 % (0.2-2.0); Eosinophils Absolute Auto 0.3 10^3/uL (0.0-0.7); Eosinophils Percent Auto 3.7 % (0.9-7.0); Hematocrit 39.5 % (36.0-48.0); Hemoglobin 12.6 g/dL (12.0-16.0); Immature Granulocytes Abs Auto 0.01 10^3/uL (0.00-0.03); Immature Granulocytes Pct Auto 0.1 % (0.0-0.5); Lymphocytes Absolute Auto 1.6 10^3/uL (1.2-3.8); Lymphocytes Percent Auto 22.9 % (20.5-60.0); Mean Corpuscular HGB Conc 31.9 g/dL (29.9-35.2); Mean Corpuscular Hemoglobin 25.7 pg (26.7-34.0); Mean Corpuscular Volume 80.4 fL (81.0-99.0); Mean Platelet Volume 11.2 fL (9.5-13.5); Monocytes Absolute Auto 0.5 10^3/uL (0.3-0.8); Monocytes Percent Auto 7.1 % (1.7-12.0); Neutrophils Absolute Auto 4.4 10^3/uL (1.4-6.5); Neutrophils Percent Auto 64.6 % (43.0-75.0); Platelet Count 336 10^3/uL (150-450); Red Blood Count 4.91 10^6/uL (4.20-5.40); White Blood Count 6.8 10^3/uL (4.0-11.0)
[2024-08-03 16:10] LABS: Bilirubin Urine NEGATIVE (NEGATIVE); Blood Urine LARGE (NEGATIVE); Clarity Urine CLOUDY (CLEAR); Color Urine LT. YELLOW (YELLOW); Glucose Urine UA NEGATIVE (NEGATIVE); Ketones Urine TRACE mg/dL (NEGATIVE); Leukocyte Esterase Urine TRACE (NEGATIVE); Nitrite Urine NEGATIVE (NEGATIVE); Protein Urine TRACE mg/dL (NEG/TRACE); Specific Gravity Urine 1.025 (1.005-1.025); Urobilinogen Urine 0.2 EU/dL (0.2-1.0)
[2024-08-03 16:12] LABS: HCG Qualitative Urine* NEGATIVE (NEGATIVE); Internal Control Within Normal Limits
[2024-08-03 16:18] LABS: Alanine Aminotransferase 55 U/L (14-59); Albumin Globulin Ratio 0.9; Albumin Level 3.6 g/dL (3.4-5.0); Alkaline Phosphatase 115 U/L (46-116); Anion Gap 14.1; Aspartate Amino Transferase 21 U/L (15-37); BUN Creatinine Ratio 16.3; Bilirubin Total 0.3 mg/dL (0.2-1.0); Calcium 9.4 mg/dL (8.5-10.1); Carbon Dioxide 25.6 mmol/L (21.0-32.0); Chloride 102 mmol/L (98-107); Estimated GFR (African America >60 (>=60 mL/min/1.73m^2); Estimated GFR (Non-African Ame >60 (>=60 mL/min/1.73m^2); Globulin 4.1 g/dL; Glucose 95 mg/dL (74-106); Potassium 3.7 mmol/L (3.5-5.1); Sodium 138 mmol/L (136-145); Total Protein 7.7 g/dL (6.4-8.2)
[2024-08-03] MEDS: 0.9 % SODIUM CHLORIDE 1,000 ML 999 ML IV (16:23)
[2024-08-03 16:26] LABS: Urine Microscopic Indicated YES
[2024-08-03 16:27] LABS: Bacteria Urine SMALL #/HPF (NONE SEEN); Cast Seen? NONE SEEN #/LPF (NONE SEEN); Crystals Seen? None Seen #/HPF (None Seen); Mucus Urine TRACE (NONE SEEN); RBC Urine 50-75 #/HPF (0-2); Squamous Epithelial Cell Urine RARE #/LPF (NONE/RARE); Urine Culture Indicated YES-FRMC
== END 2024-08-03 17:14 | disposition home or self-care (01) ==
PROVIDERS: Nurse Practitioner Family; Emergency Provider Emergency Medicine; PCP Nurse Practitioner
DX: N39.0 Urinary tract infection, site not specified (principal); R31.9 Hematuria, unspecified; Z87.442 Personal history of urinary calculi
CPT/HCPCS: 36415; 74176; 80053; 81001; 83690; 84703; 85025; 87086; 99285